=== PATIENT | female | born 1985 | race Caucasian/White ===

== ENCOUNTER 2017-12-25 05:35 | Emergency (ER) | payer OTHER, MEDICAID, SELFPAY ==
[2017-12-25 05:52] VITALS: BP 109/78; PULSE 93; RESP 14; TEMP 36.2; O2SAT 99
[2017-12-25 07:48] LABS: Add Manual Diff / Slide Review NO; Basophils Percent Auto 0.5 % (0-2); Eosinophils Percent Auto 1.1 % (2-4); Hematocrit 40.8 % (36-46); Hemoglobin 13.9 g/dL (12.0-16.0); Mean Corpuscular HGB Conc 34.1 % (30-36); Mean Corpuscular Hemoglobin 31.4 PG (26-34); Mean Corpuscular Volume 92.2 fL (80-100); Monocytes Percent Auto 10.5 % (3-14); Neutrophils Absolute Auto 3300 /uL (3000-5900); Neutrophils Percent Auto 57.9 % (50-75); Platelet Count 253 X10^3/uL (150-400); Red Blood Cell Count 4.43 X10^6/uL (4.0-5.2); Red Cell Distribution Width 15.1 % (11.6-14.8); White Blood Cell Count 5.7 X10^3/uL (4.5-11.0)
[2017-12-25 07:55] LABS: BUN Creatinine Ratio 21.4 (6-22); Blood Urea Nitrogen 15 mg/dL (7-17); Calcium 9.3 mg/dL (8.4-10.2); Carbon Dioxide 31 mmol/L (22-32); Chloride 103 mmol/L (98-107); Estimated Glomerular Filt Rate > 60.0 mL/min (>60); Glucose 90 mg/dL (70-100); HEMOLYSIS < 15 (0-50); Potassium 4.1 mmol/L (3.4-5.1); Sodium 142 mmol/L (137-145)
[2017-12-25 08:10] LABS: C-Reactive Protein Quant < 0.5 mg/dL (<1.0)
[2017-12-25 08:22] LABS: Erythrocyte Sedimentation Rate 7 MM/HR (0-20)
--- NOTE | 2017-12-25 08:41 | ED.BACK ---
HPI - Back Pain/Injury General Chief Complaint: Back Pain/Injury Stated Complaint: LEFT BACK PAIN, FEELS HOT, TOO 1.2 HR TO MOVE Time Seen by Provider: 12/25/17 05:50 History of Present Illness HPI Narrative: HPI 32-year-old female presents for evaluation of poorly characterized left sided paraspinal/suprabuttock lumbar pain was present upon awakening this morning. Patient notes a history of similar but slightly different (unable to further characterize) episodes of back pain. Patient denies a history of recent trauma, fevers, chills, unexpected weight loss, decreased perineal sensation when toileting, difficulty urinating or incontinence, morning stiffness, IV drug use, recent invasive medical procedures, presyncope, abdominal pain, Marfan's disease, or dysuria. Continues to pass flatus and stool at baseline. M/S/F/SocHx notable for: please see HPI; remainder reviewed with patient and in chart. ROS: Negative constitutional, eye, cardiovascular, pulmonary, GI, , MSK, skin, neurologic, psychiatric, endocrine unless noted in the HPI. Exam Gen: Pleasant, non-toxic appearing, resting comfortably. Patient sleeping comfortably upon entering the room, appears to be no clinically appreciable distress upon awakening. Appropriate, interactive. HEENT: NC, AT, PEERL, EOMI. Resp: CTAB Card: RRR GI: ND, non-tender to palpation, no palpable midline masses, no palpable midline pulsatility. : No CVA tenderness to percussion bilaterally. MSK: No visible deformities, strength and tone WNL. No lower thoracic or lumbar spinal TTP, step offs or deformities. Mild diffuse tenderness to palpation immediately above the left buttock, no immediate bilateral paraspinal TTP. No palpable abnormalities. Skin: Normal color with no visible lesions. Neuro: AO x 3, no facial asymmetry, vision and hearing WNL. Straight leg raise test - negative right, negative left. BLE distal sensation intact, 5/5 dorsiflexion / plantarflexion bilaterally. Gait: mildly antalgic,otherwise normal, narrow based gait, able to walk unassisted and stand on heels and toes with full apparent strength. Psych: Mood and affect appropriate. Labs / Imaging (pertinent): negative urine test. UA - negative blood, negative nitrate, negative leukocyte esterase. WBC 5.7, hemoglobin 13.9, ESR 7, sodium 142, potassium 4.1, CRP less than 0.5. MDM Previous chart, nursing note, and vitals reviewed. A: 32-year-old female presents for evaluation of poorly characterized left sided paraspinal/suprabuttock lumbar pain was present upon awakening this morning. DDx: muscle strain, muscle spasm, sciatica, lumbar radiculopathy, cauda equina syndrome, spinal cord abscess, vertebral osteomyelitis, vertebral diskitis, fracture, seronegative spondyloarthropathy, abdominal aortic aneurysm. Evaluation: * Cauda equina - consider unlikely given normal perineal sensation, lack of incontinence or urinary retention. * Infection - abscess, vertebral osteomyelitis, and diskitis are unlikely as the patient is immunocompetent and is with an absence of infectious signs and risk factors on exam, ROS, and labs, and a lack of point tenderness. * Fracture - doubt given the absence of spinal TTP and lack of prior trauma * Seronegative spondyloarthropathy - unlikely, no further evaluation currently indicated given the absence of morning stiffness and negative RA, psoriatic arthritis, and autoimmune disease history. * AAA or Dissection - given the lack of a palpable pulsatile abdominal mass, abdominal pain, presyncope, an abdominal aortic aneurysm as well as dissection is considered unlikely and further investigation is not currently indicated. * Genitourinary - UA without evidence infection or ureterolithiasis, no evidence on history, exam, ROS, or exam; doubt. Negative urine test. * Consider muscle strain to be the most likely cause of the patient's pain. Counseled patient regarding natural course of musculoskeletal back pain, given return to care instructions, and recommendation for primary care physician follow up. Discharged with instructions to follow up with PCP. ED course: patient offered an array of non-narcotic analgesic options. Patient notes that she is sensitive to all drugs, and that she has adverse reactions to ibuprofen, Toradol, naproxen, and that acetaminophen has caused internal bleeding. Patient declined all NSAIDs and acetaminophen. At the time of the patient's evaluation the degree of her pain does not warrant narcotic medication. Patient was discharged with instructions to follow with her PCP within 48 to 72 hours for repeat evaluation. Trial of NSAIDs recommended. Impression: Back Pain (please reference below for remainder of encounter information) Related Data Allergies Allergy/AdvReac Type Severity Reaction Status Date / Time Penicillins Allergy Verified 12/25/17 05:52 [facility] Social History Smoking Status: Former smoker Exam Initial Vital Signs Initial Vital Signs: Vital Signs Temperature 97.2 F L 12/25/17 05:52 Pulse Rate 93 H 12/25/17 05:52 Respiratory Rate 14 12/25/17 05:52 Blood Pressure 109/78 12/25/17 05:52 Pulse Oximetry 99 12/25/17 05:52 Course Orders Ordered: ED Orders 12/25/17 07:25 Basic Metabolic Panel Stat C-Reactive Protein Quant Stat Complete Blood Count AUTO DIFF Stat Erythrocyte Sedimentation Rate Stat Vital Signs - 8 hr 12/25/17 05:52 Temperature 97.2 F L Pulse Rate 93 H Respiratory Rate 14 Blood Pressure 109/78 Pulse Oximetry 99 MDM - Back Pain/Injury Lab Data Result diagrams: 12/25/17 07:25 12/25/17 07:25 Lab Results 12/25/17 12/25/17 Range/Units 07:25 07:25 WBC 5.7 (4.5-11.0) X10^3/uL RBC 4.43 (4.0-5.2) X10^6/uL Hgb 13.9 (12.0-16.0) g/dL Hct 40.8 (36-46) % MCV 92.2 (80-100) fL MCH 31.4 (26-34) PG MCHC 34.1 (30-36) % RDW 15.1 H (11.6-14.8) % Plt Count 253 (150-400) X10^3/uL Neut % (Auto) 57.9 (50-75) % Lymph % (Auto) 30.0 (25-40) % Bullitt % (Auto) 10.5 (3-14) % Eos % (Auto) 1.1 L (2-4) % Baso % (Auto) 0.5 (0-2) % Neut # (Auto) 3300 (9059-9554) /uL ESR 7 (0-20) MM/HR Sodium 142 (137-145) mmol/L Potassium 4.1 (3.4-5.1) mmol/L Chloride 103 (98-107) mmol/L Carbon Dioxide 31 (22-32) mmol/L BUN 15 (7-17) mg/dL Creatinine 0.70 (0.52-1.04) mg/dL Estimated GFR > 60.0 (>60) mL/min BUN/Creatinine Ratio 21.4 (6-22) Glucose 90 (70-100) mg/dL Calcium 9.3 (8.4-10.2) mg/dL C-Reactive Protein < 0.5 (<1.0) mg/dL
== END 2017-12-25 09:10 | disposition home or self-care (01) ==
PROVIDERS: Emergency Provider Emergency Medicine; PCP Family Medicine
DX: M54.9 Dorsalgia, unspecified (principal)
CPT/HCPCS: 36415; 80048; 81003; 81025; 85025; 85651; 86140; 99282; 99283

== ENCOUNTER 2018-01-25 13:47 | Emergency (ER) | payer OTHER, MEDICAID, SELFPAY ==
[2018-01-25 13:48] VITALS: BP 120/76; PULSE 105; RESP 20; TEMP 36.4; O2SAT 100
--- NOTE | 2018-01-25 14:34 | ED_ITS ---
HPI - Abdominal Pain General Chief Complaint: Abdominal Pain Stated Complaint: 'UTERAL INFECTION' Time Seen by Provider: 01/25/18 14:04 Source: patient Mode of arrival: ambulatory Limitations: no limitations History of Present Illness HPI narrative: 32-year-old female who has been seen multiple times for adnexal pain has had multiple ultrasounds of multiple CT scans and multiple ER visits both at this hospital an outlying hospitals here for evaluation of worsening left adnexal pain. I was able to review her notes from her last ER visit which was just several days ago. there been multiple reports of a mass in the left adnexa. Patient has been evaluated by cyanide pot hardener here at this hospital and has been referred both by report and by the patient to gynecology at [place]. Patient states that she has not been able to make that appointment because she states that she has been toldthey are always in the operating room patient states that her primary care doctor referred her to cyanide pot hardener here for pain management. The cyanide pot hardener here referred her to gynecology for pain management. She states that she was told by gynecology and jovi to come to the emergency department for pain management. She has had multiple visits to multiple emergency department over the past month. During her last visit she was prescribed doxycycline for with reports as a possible infectious etiology. Patient states she has not been able to fill this antibiotic because I could not make it to the pharmacy . Patient states that she is here because over the past 24-48 hours she has had worsening left lower quadrant abdominal pain and vaginal bleeding and nausea. She has nausea medications at home. Related Data Home Medications Medication Instructions Recorded Confirmed acetaminophen [Tylenol] 1 dose PO PRN PRN 01/25/18 01/25/18 ibuprofen 1 dose PO PRN PRN 01/25/18 01/25/18 Previous Rx's Medication Instructions Recorded citalopram [Celexa] 10 mg PO QDAY #30 tab 11/09/17 Allergies Allergy/AdvReac Type Severity Reaction Status Date / Time Penicillins [PENICILLINS] Allergy Severe RASH Verified 01/25/18 16:25 vancomycin [VANCOMYCIN] Allergy Severe JUAREZ Verified 01/25/18 16:25 SYNDROME adhesive [ADHESIVE] Allergy Intermediate RASH, SKIN Verified 01/25/18 16:25 PEELS latex [LATEX] Allergy Intermediate RASH Verified 01/25/18 16:25 Review of Systems Constitutional Denies fever(s) Cardiovascular Denies chest pain Respiratory Denies cough Gastrointestinal Gastrointestinal: Reports abdominal pain, Denies diarrhea, Reports nausea and Reports vomiting Comments: Genitourinary Comments: left adnexal pain and vaginal bleeding Integumentary/Breasts Denies lesions, Denies rash and Denies wounds Neurologic Denies confusion Psychiatric Denies confusion Hematologic/Lymphatic Denies easy bleeding and Denies easy bruising [facility] Surgical History Status post appendectomy Status post delivery (01/05/12) Status post exploratory laparotomy (10/08/15) Status post laparoscopy Status post laparotomy Social History Smoking Status: Former smoker Exam Initial Vital Signs Initial Vital Signs: Vital Signs Temperature 97.5 F L 01/25/18 13:48 Pulse Rate 105 H 01/25/18 13:48 Respiratory Rate 20 01/25/18 13:48 Blood Pressure 120/76 01/25/18 13:48 Pulse Oximetry 100 01/25/18 13:48 Const General: healthy appearing, well developed, well groomed, anxious and other ( angry) Orientation: alert, awake and oriented x3 HENMT Head: normal to inspection, normocephalic and atraumatic Resp Effort & Inspection: normal respiratory effort and able to speak in complete sentences GI Inspection: non-distended Palpation: soft, No firm and tender ( left adnexa) Back/Spine/Pelvis Back: No CVA tenderness Skin Lesions: no lesions Rashes: no rashes Neuro General: alert, awake and oriented x3 Extrem General: normal to inspection, capillary refill normal and normal exam except as noted Course Orders Ordered: ED Orders 01/25/18 14:53 US pelvic limited Stat 01/25/18 16:10 CT abdomen pelvis w con Stat 01/25/18 16:20 Complete Blood Count AUTO DIFF Stat Comprehensive Metabolic Panel Stat Lactate (Lactic Acid) Stat Test Serum,Qual Stat Discontinued Medications Sodium Chloride (Normal Saline 0.9%) 1,000 mls @ 1,000 mls/hr IV BOLUS ONE Stop: 01/25/18 17:08 Last Infusion: 01/25/18 18:03 Dose: 0 mls/hr Admin: 01/25/18 16:27 Dose: 1,000 mls/hr Ketorolac Tromethamine (Toradol) 15 mg IV NOW ONE Stop: 01/25/18 16:48 Last Admin: 01/25/18 16:49 Dose: 15 mg Ondansetron HCl (Zofran) 4 mg IV NOW ONE Stop: 01/25/18 16:37 Last Admin: 01/25/18 16:40 Dose: 4 mg Vital Signs - 8 hr 01/25/18 13:48 01/25/18 15:02 Temperature 97.5 F L Pulse Rate 105 H 88 Respiratory Rate 20 18 Blood Pressure 120/76 Blood Pressure [Right Arm] 114/65 Pulse Oximetry 100 100 MDM - Abdominal Pain Medical Records Attestation: I reviewed the patient's medical records. Lab Data Attestation: I reviewed the patient's lab results. Result diagrams: 01/25/18 16:20 01/25/18 16:20 Lab Results 01/25/18 01/25/18 01/25/18 Range/Units 16:20 16:20 16:20 WBC 5.6 (4.5-11.0) X10^3/uL RBC 4.40 (4.0-5.2) X10^6/uL Hgb 13.7 (12.0-16.0) g/dL Hct 41.0 (36-46) % MCV 93.2 (80-100) fL MCH 31.1 (26-34) PG MCHC 33.4 (30-36) % RDW 15.1 H (11.6-14.8) % Plt Count 281 (150-400) X10^3/uL Neut % (Auto) 47.4 L (50-75) % Lymph % (Auto) 40.0 (25-40) % Braxton % (Auto) 10.9 (3-14) % Eos % (Auto) 1.0 L (2-4) % Baso % (Auto) 0.7 (0-2) % Neut # (Auto) 2600 L (9673-3868) /uL Sodium 140 (137-145) mmol/L Potassium 3.9 (3.4-5.1) mmol/L Chloride 102 (98-107) mmol/L Carbon Dioxide 28 (22-32) mmol/L BUN 12 (7-17) mg/dL Creatinine 0.70 (0.52-1.04) mg/dL Estimated GFR > 60.0 (>60) mL/min BUN/Creatinine Ratio 17.1 (6-22) Glucose 82 (70-100) mg/dL Lactate (0.7-2.1) mmol/L Calcium 9.6 (8.4-10.2) mg/dL Total Bilirubin 0.4 (0.2-1.3) mg/dL AST 21 (14-36) IU/L ALT 32 (9-52) IU/L Alkaline Phosphatase 60 (38-126) U/L Total Protein 7.3 (6.3-8.2) g/dL Albumin 4.3 (3.5-5.0) g/dL Globulin 3.0 (1.7-4.1) g/dL Albumin/Globulin Ratio 1.4 (1.0-2.8) Serum , Qual Negative (Negative) 01/25/18 Range/Units 16:20 WBC (4.5-11.0) X10^3/uL RBC (4.0-5.2) X10^6/uL Hgb (12.0-16.0) g/dL Hct (36-46) % MCV (80-100) fL MCH (26-34) PG MCHC (30-36) % RDW (11.6-14.8) % Plt Count (150-400) X10^3/uL Neut % (Auto) (50-75) % Lymph % (Auto) (25-40) % Braxton % (Auto) (3-14) % Eos % (Auto) (2-4) % Baso % (Auto) (0-2) % Neut # (Auto) (8396-7555) /uL Sodium (137-145) mmol/L Potassium (3.4-5.1) mmol/L Chloride (98-107) mmol/L Carbon Dioxide (22-32) mmol/L BUN (7-17) mg/dL Creatinine (0.52-1.04) mg/dL Estimated GFR (>60) mL/min BUN/Creatinine Ratio (6-22) Glucose (70-100) mg/dL Lactate 1.1 (0.7-2.1) mmol/L Calcium (8.4-10.2) mg/dL Total Bilirubin (0.2-1.3) mg/dL AST (14-36) IU/L ALT (9-52) IU/L Alkaline Phosphatase (38-126) U/L Total Protein (6.3-8.2) g/dL Albumin (3.5-5.0) g/dL Globulin (1.7-4.1) g/dL Albumin/Globulin Ratio (1.0-2.8) Serum , Qual (Negative) Imaging Data US - abdomen: Radiologist's impression: PROCEDURE: US PELVIC LIMITED INDICATIONS: Left-sided pelvic pain reported history of pelvic infectio TECHNIQUE: Real-time transabdominal scanning was performed of the pelvic organs, with image documentation. Please note that the patient declined an endovaginal sonogram. COMPARISON: [facility], [place], PELVIC COMPLETE, 11/19/2017, 21:38. [facility], CT, PELVIS WITHOUT CONTRAST, 11/02/2017, 18:47. FINDINGS: Uterus: The uterus is borderline enlarged and measures 10.3 x 4.0 x 4.9 cm. No focal myometrial lesions are identified. Endometrial echo stripe measures approximately 6 mm in maximal combined thickness. Ovaries: The ovaries are not adequately seen. However, there is a complex multiloculated fluid collection identified within the left adnexa, measuring 17.0 x 5.6 x 8.8 cm. Compared to the prior study, this appears to have increased in the interim. Other: Limited scanning through the kidneys shows no hydronephrosis. IMPRESSION: Increasing septated/complex fluid collection within the left adnexa. This may represent hydrosalpinx, ovarian neoplasm, or potential abscess within the pelvis. Please consider contrast enhanced CT of the abdomen and pelvis with oral and intravenous contrast for better characterization. Dictated by: Oleksandr Mina M.D. on 01/25/2018 at 14:52 Approved by: Oleksandr Mina M.D. on 01/25/2018 at 14:54 CT scan - abdomen: Radiologist's impression: PROCEDURE: CT ABDOMEN PELVIS W CON INDICATIONS: Left adnexal mass found on ultrasound that is worsening TECHNIQUE: After the administration of oral and intravenous contrast, 5 mm thick sections acquired from the diaphragms to the symphysis. 5 mm thick coronal and sagittal reformats were performed. For radiation dose reduction, the following was used: automated exposure control, adjustment of mA and/or kV according to patient size. COMPARISON: [facility], US, PELVIC COMPLETE, 11/19/2017, 21:38. [facility], US, PELVIC COMPLETE, 03/29/2017, 18:00. [facility], US, PELVIC COMPLETE, , 22:01. [facility], US, PELVIC COMPLETE, 09/16/2016, 19:31. [facility] , US, ABDOMEN LIMITED, 10/19/2015, 23:08. [facility], US, PELVIC COMPLETE, 2014, 12:18. [facility], RF, HYSTEROSALPINGOGRAM, 09/12/2015, 10:30. [facility], , US PELVIC LIMITED, 01/25/2018, 15:15. [facility], CT, ABDOMEN/PELVIS WITH CONTRAST, 05/25/2015, 16:03. [facility], CT, PELVIS WITHOUT CONTRAST, 11/02/2017, 18: 47. [facility], CT, ABDOMEN/PELVIS WITH CONTRAST, 12/15/2016, 22:04. [facility], CT, ABDOMEN/PELVIS WITH CONTRAST, 09/16/2016, 19:56. [facility], CT, ABDOMEN/PELVIS WITH CONTRAST, 06/04/2015, 10:28. FINDINGS: Image quality: Excellent. ABDOMEN: Lung bases: Lung bases are clear. Heart size is normal. Solid organs: Liver is normal in size and enhancement. Gallbladder appears normal. Biliary system is non-dilated. Pancreas enhances normally. Spleen is normal in size and enhancement. No adrenal nodules. Kidneys are normal in size and enhancement, without hydronephrosis. Peritoneum and bowel: Stomach, small bowel, and colon loops are normal in caliber and wall thickness. No free fluid or air. Nodes and vessels: No retroperitoneal or mesenteric adenopathy. Aorta and inferior vena cava are normal in caliber. Miscellaneous: No ventral hernias. PELVIS: Genitourinary: Bladder wall thickness is normal. Note is made of a complex ovoid septated cystic mass, present at varying times with varying appearances over multiple prior CT scans through the pelvis. 2 small metallic foci are present at the anterior medial border of the structure, series 2 image 59, and no free fluid or solid- appearing mass is seen in this area. The structure measures up to 11.3 cm AP, 5.4 cm transverse and 11.1 cm craniocaudad. It displaces bowel structures and the bladder somewhat rightward. Miscellaneous: No inguinal hernias or adenopathy. Bones: No suspicious bony lesions. No vertebral body compression fractures. IMPRESSION: Multiseptated cystic elongated fluid radiodensity structure again seen within the left hemipelvis, moderately displacing bowel structures, uterus, and bladder rightward. Presumably gynecological consultation has been obtained for this patient in the recent past and gynecological evaluation is recommended. The clinical history indicates history of cancer in this young patient of age 32. A cystic neoplasm of the left ovary or even a primary cystic neoplasm peritoneal neoplasm could explain this appearance. The absence of adjacent inflammation or abnormal free fluid throughout the peritoneal space would argue against infection as the underlying cause. Dictated by: Rashad Zurita M.D. on 01/25/2018 at 17:24 Approved by: Rashad Zurita M.D. on 01/25/2018 at 17:33 [facility] Narrative Medical decision making narrative: patient with CT scan showing the left adnexal mass which is not a new finding. The CT scan also shows that this area is less likely an infectious etiology. Informed the patient that since she has not taken the doxycycline that was prescribed to her last ER visit that is probably not unreasonable to not feel that medicine given the CT scan results today and the fact that she does not have an elevated white blood cell count. I did discuss the CT findings with her and informed her of the concern that this may be a cancerous etiology. I discussed the case with Dr. Walker With Ob who initially evaluated this patient sometime ago and made the referral for the patient to see gynecology an [place]. informed the patient that it is important for her to follow up with this referral. Informed her that she needed to continue to contact the office down there to schedule a follow-up. Informed her that the emergency department is not the appropriate place for her to get her chronic pain medication. Informed her that she needed to contact her primary care doctor in order to set this up. She became very angry about this. I informed her once again that there was a concern about the finding in her left adnexal and that she did need to follow up with the tube and manifold builder. She was informed that she could return to the emergency department for any new symptoms however she would not receive opioid pain medication from the emergency department. Patient again was unhappy about this and left the emergency department angry. Discharge Plan Departure Patient Disposition: Home, Self-Care Clinical Impression: Adnexal mass Discharge Date/Time: 01/25/18 18:08 Interventions: ED Discharge Assessment Last Done: 01/25/18 18:06 Instructions: Chronic Pelvic Pain-Female Activity Restrictions/Additional Instructions: your pain management needs to be managed by your primary care doctor. He need to contact him to schedule a follow-up to discuss pain medication. The emergency department will not manage chronic pain. I also recommend that you continue to contact the gynecology service at [place]. The OB service here stated that they have sent all of your information to them and they recommend that you follow up with them. You can return to the emergency department for any new symptoms. Prescriptions: No Action citalopram [Celexa] 10 MG tablet 10 mg PO QDAY Qty: 30 RF: 6 acetaminophen [Tylenol] 325 mg Tablet 1 dose PO PRN PRN (Reason: Pain, Mild) RF: 0 ibuprofen 200 mg Tablet 1 dose PO PRN PRN (Reason: Pain, Mild) RF: 0
--- NOTE | 2018-01-25 14:53 | DI.US.S_ITS ---
PROCEDURE: US PELVIC LIMITED INDICATIONS: Left-sided pelvic pain reported history of pelvic infectio TECHNIQUE: Real-time transabdominal scanning was performed of the pelvic organs, with image documentation. Please note that the patient declined an endovaginal sonogram. COMPARISON: [facility], US, PELVIC COMPLETE, 11/19/2017, 21:38. [facility], CT, PELVIS WITHOUT CONTRAST, 11/02/2017, 18:47. FINDINGS: Uterus: The uterus is borderline enlarged and measures 10.3 x 4.0 x 4.9 cm. No focal myometrial lesions are identified. Endometrial echo stripe measures approximately 6 mm in maximal combined thickness. Ovaries: The ovaries are not adequately seen. However, there is a complex multiloculated fluid collection identified within the left adnexa, measuring 17.0 x 5.6 x 8.8 cm. Compared to the prior study, this appears to have increased in the interim. Other: Limited scanning through the kidneys shows no hydronephrosis. IMPRESSION: Increasing septated/complex fluid collection within the left adnexa. This may represent hydrosalpinx, ovarian neoplasm, or potential abscess within the pelvis. Please consider contrast enhanced CT of the abdomen and pelvis with oral and intravenous contrast for better characterization. Dictated by: Oleksandr Mina M.D. on 01/25/2018 at 14:52 Approved by: Oleksandr Mina M.D. on 01/25/2018 at 14:54
[2018-01-25 15:02] VITALS: BP 114/65; PULSE 88; RESP 18; O2SAT 100
--- NOTE | 2018-01-25 16:06 | PC.NURSE ---
Pt upset she has not received pain medication. Offered toradol and tylenol again but refused by patient.
--- NOTE | 2018-01-25 16:10 | DI.CT.S_ITS ---
PROCEDURE: CT ABDOMEN PELVIS W CON INDICATIONS: Left adnexal mass found on ultrasound that is worsening TECHNIQUE: After the administration of oral and intravenous contrast, 5 mm thick sections acquired from the diaphragms to the symphysis. 5 mm thick coronal and sagittal reformats were performed. For radiation dose reduction, the following was used: automated exposure control, adjustment of mA and/or kV according to patient size. COMPARISON: [facility], [place], PELVIC COMPLETE, 11/19/2017, 21:38. [facility], [place], PELVIC COMPLETE, 03/29/2017, 18:00. [facility], [place], PELVIC COMPLETE, 12/10/2016, 22:01. [facility], [place], PELVIC COMPLETE, 09/16/2016, 19:31. [facility], [place], ABDOMEN LIMITED, 10/19/2015, 23:08. [facility], [place], PELVIC COMPLETE, 07/07/2015, 12:18. [facility], , HYSTEROSALPINGOGRAM, 09/12/2015, 10:30. [facility], , [place] PELVIC LIMITED, 01/25/2018, 15:15. [facility], CT, ABDOMEN/PELVIS WITH CONTRAST, 05/25/2015, 16:03. [facility], CT, PELVIS WITHOUT CONTRAST, 11/02/2017, 18:47. [facility], CT, ABDOMEN/PELVIS WITH CONTRAST, 12/15/2016, 22:04. [facility], CT, ABDOMEN/PELVIS WITH CONTRAST, 09/16/2016, 19:56. [facility], CT, ABDOMEN/PELVIS WITH CONTRAST, 06/04/2015, 10:28. FINDINGS: Image quality: Excellent. ABDOMEN: Lung bases: Lung bases are clear. Heart size is normal. Solid organs: Liver is normal in size and enhancement. Gallbladder appears normal. Biliary system is non-dilated. Pancreas enhances normally. Spleen is normal in size and enhancement. No adrenal nodules. Kidneys are normal in size and enhancement, without hydronephrosis. Peritoneum and bowel: Stomach, small bowel, and colon loops are normal in caliber and wall thickness. No free fluid or air. Nodes and vessels: No retroperitoneal or mesenteric adenopathy. Aorta and inferior vena cava are normal in caliber. Miscellaneous: No ventral hernias. PELVIS: Genitourinary: Bladder wall thickness is normal. Note is made of a complex ovoid septated cystic mass, present at varying times with varying appearances over multiple prior CT scans through the pelvis. 2 small metallic foci are present at the anterior medial border of the structure, series 2 image 59, and no free fluid or solid-appearing mass is seen in this area. The structure measures up to 11.3 cm AP, 5.4 cm transverse and 11.1 cm craniocaudad. It displaces bowel structures and the bladder somewhat rightward. Miscellaneous: No inguinal hernias or adenopathy. Bones: No suspicious bony lesions. No vertebral body compression fractures. IMPRESSION: Multiseptated cystic elongated fluid radiodensity structure again seen within the left hemipelvis, moderately displacing bowel structures, uterus, and bladder rightward. Presumably gynecological consultation has been obtained for this patient in the recent past and gynecological evaluation is recommended. The clinical history indicates history of cancer in this young patient of age 32. A cystic neoplasm of the left ovary or even a primary cystic neoplasm peritoneal neoplasm could explain this appearance. The absence of adjacent inflammation or abnormal free fluid throughout the peritoneal space would argue against infection as the underlying cause. Dictated by: Rashad Zurita M.D. on 01/25/2018 at 17:24 Approved by: Rashad Zurita M.D. on 01/25/2018 at 17:33
[2018-01-25] MEDS: SODIUM CHLORIDE 0.9% 1,000 ML 1000 ML IV (16:27)
[2018-01-25 16:30] LABS: Add Manual Diff / Slide Review NO; Basophils Percent Auto 0.7 % (0-2); Hemoglobin 13.7 g/dL (12.0-16.0); Mean Corpuscular HGB Conc 33.4 % (30-36); Mean Corpuscular Hemoglobin 31.1 PG (26-34); Mean Corpuscular Volume 93.2 fL (80-100); Monocytes Percent Auto 10.9 % (3-14); Neutrophils Absolute Auto 2600 /uL (3000-5900); Neutrophils Percent Auto 47.4 % (50-75); Platelet Count 281 X10^3/uL (150-400); Red Cell Distribution Width 15.1 % (11.6-14.8); White Blood Cell Count 5.6 X10^3/uL (4.5-11.0)
[2018-01-25] MEDS: ONDANSETRON 4 MG/2 ML INJ IV (16:40)
[2018-01-25 16:43] LABS: Alanine Aminotransferase 32 IU/L (9-52); Albumin 4.3 g/dL (3.5-5.0); Albumin Globulin Ratio 1.4 (1.0-2.8); Alkaline Phosphatase 60 U/L (38-126); Aspartate Aminotransferase 21 IU/L (14-36); BUN Creatinine Ratio 17.1 (6-22); Bilirubin Total 0.4 mg/dL (0.2-1.3); Blood Urea Nitrogen 12 mg/dL (7-17); Calcium 9.6 mg/dL (8.4-10.2); Carbon Dioxide 28 mmol/L (22-32); Chloride 102 mmol/L (98-107); Estimated Glomerular Filt Rate > 60.0 mL/min (>60); Glucose 82 mg/dL (70-100); HEMOLYSIS 22 (0-50); Lactate (Lactic Acid) 1.1 mmol/L (0.7-2.1); Potassium 3.9 mmol/L (3.4-5.1); Sodium 140 mmol/L (137-145); Total Protein 7.3 g/dL (6.3-8.2)
[2018-01-25] MEDS: KETOROLAC 60 MG/2 ML VIAL 15 MG IV (16:49)
[2018-01-25 16:56] LABS: Pregnancy Test Serum,Qual Negative (Negative)
== END 2018-01-25 18:08 | disposition home or self-care (01) ==
PROVIDERS: Emergency Provider Emergency Medicine; Family Provider Family Medicine; PCP Family Medicine
DX: N94.9 Unspecified condition associated with female genital organs and menstrual cycle (principal)
CPT/HCPCS: 36591; 74177; 76857; 80053; 83605; 84703; 85025; 96361; 96374; 96375; 99283; 99285; J1885; J2405; Q9967

== ENCOUNTER 2018-02-25 16:58 | Emergency (ER) | payer OTHER, MEDICAID, SELFPAY ==
[2018-02-25 17:09] VITALS: BP 120/82; PULSE 104; RESP 18; TEMP 36.6; O2SAT 100; BMI 19.6
--- NOTE | 2018-02-25 19:20 | ED.ABDPAIN ---
HPI - Abdominal Pain General Chief Complaint: Abdominal Pain Stated Complaint: FELT SOMETHING POP IN LEFT SIDE,CHILLS Time Seen by Provider: 02/25/18 19:03 Source: patient Mode of arrival: ambulatory Limitations: no limitations History of Present Illness HPI narrative: Patient is a 32-year-old female presents with left lower quadrant pain. She has a history of ovarian cancer and ovarian cyst she feels like something popped suddenly. It my she denies nausea vomiting or fever. She has intense left-sided pain. She is scheduled to see is a surgeon next week as [facility]. Related Data Home Medications Medication Instructions Recorded Confirmed acetaminophen [Tylenol] 1 dose PO PRN PRN 01/25/18 01/25/18 ibuprofen 1 dose PO PRN PRN 01/25/18 01/25/18 Previous Rx's Medication Instructions Recorded citalopram [Celexa] 10 mg PO QDAY #30 tab 11/09/17 hydrocodone-acetaminophen 1 tab PO Q4-6H PRN #10 tab 02/25/18 Allergies Allergy/AdvReac Type Severity Reaction Status Date / Time Penicillins [PENICILLINS] Allergy Severe RASH Verified 02/25/18 17:09 vancomycin [VANCOMYCIN] Allergy Severe JUAREZ Verified 02/25/18 17:09 SYNDROME adhesive [ADHESIVE] Allergy Intermediate RASH, SKIN Verified 02/25/18 17:09 PEELS latex [LATEX] Allergy Intermediate RASH Verified 02/25/18 17:09 Review of Systems Review of Systems GENERAL: Denies chills, fatigue, malaise, fever, sweats, travel HEENT: Denies sinus pain, ear pain, sore throat, difficulty swallowing, neck pain RESPIRATORY: Denies dyspnea, cough, wheezing, hemoptysis, sputum. CARDIOVASCULAR: Denies chest pain, palpitations, orthopnea, edema GASTROINTESTINAL: See HPI : Denies dysuria, frequency, incontinence, hematuria, urinary retention, flank pain. MUSCULOSKELETAL: Denies weakness, joint pain, or bony pain SKIN: No rash, no erythema, no pruritus NEUROLOGIC: Denies weakness, dizziness, headache, numbness, change in speech, confusion PSYCHIATRIC: No concerning psychosocial issues. 12 point review of systems is negative except for those stated above and HPI [facility] Surgical History Status post appendectomy Status post delivery (01/05/12) Status post exploratory laparotomy (10/08/15) Status post laparoscopy Status post laparotomy Social History Smoking Status: Former smoker Exam Initial Vital Signs Initial Vital Signs: Vital Signs Temperature 97.9 F 02/25/18 17:09 Pulse Rate 104 H 02/25/18 17:09 Respiratory Rate 18 02/25/18 17:09 Blood Pressure 120/82 H 02/25/18 17:09 Pulse Oximetry 100 02/25/18 17:09 GENERAL: [Well-appearing, well-nourished] and in [no acute] distress. HEENT: Head atraumatic,EOMI, pupils reactive, face symmetric, [moist] mucous membranes CARDIOVASCULAR: Regular rate and rhythm without murmurs, rubs or gallops. RESPIRATORY: Breath sounds equal bilaterally, no wheezes rales or rhonchi. ABDOMEN: Soft, left-sided tenderness without guarding or rebound minimal a productive lower quadrant pain : No CVA tenderness EXTREMITIES: Normal range of motion, no clubbing or edema. Neurovascularly intact NEUROLOGICAL: Alert and oriented x4.Normal gait and speech. Cranial nerves II through XII grossly intact. SKIN: Warm, dry, no laceration, no petechiae, no rashes or lesions. Course Orders Ordered: ED Orders 02/25/18 19:37 CT abdomen pelvis w con Stat 02/25/18 20:05 Complete Blood Count AUTO DIFF Stat Comprehensive Metabolic Panel Stat Lipase Stat Discontinued Medications Hydrocodone Bitart/Acetaminophen (Vicodin Prepack) 1 bottle MISC SEEINSTR ONE Stop: 02/25/18 22:35 Last Admin: 02/25/18 22:44 Dose: 1 bottle Sodium Chloride (Normal Saline 0.9%) 1,000 mls @ 1,000 mls/hr IV CONT TONY Last Infusion: 02/25/18 22:51 Dose: 0 mls/hr Admin: 02/25/18 20:15 Dose: 1,000 mls/hr Morphine Sulfate (Morphine) 2 mg IV NOW ONE Stop: 02/25/18 19:38 Last Admin: 02/25/18 20:15 Dose: 2 mg Vital Signs - 8 hr 02/25/18 21:22 02/25/18 22:52 Pulse Rate 60 60 Respiratory Rate 16 16 Blood Pressure 121/67 H Blood Pressure [Left Arm] 105/47 L Pulse Oximetry 99 99 MDM - Abdominal Pain Lab Data Attestation: I reviewed the patient's lab results. Result diagrams: 02/25/18 20:05 02/25/18 20:05 Lab Results 02/25/18 02/25/18 Range/Units 20:05 20:05 WBC 6.9 (4.5-11.0) X10^3/uL RBC 4.79 (4.0-5.2) X10^6/uL Hgb 15.4 (12.0-16.0) g/dL Hct 45.2 (36-46) % MCV 94.4 (80-100) fL MCH 32.2 (26-34) PG MCHC 34.1 (30-36) % RDW 14.8 (11.6-14.8) % Plt Count 245 (150-400) X10^3/uL Neut % (Auto) 58.5 (50-75) % Lymph % (Auto) 32.7 (25-40) % [place] % (Auto) 7.5 (3-14) % Eos % (Auto) 0.6 L (2-4) % Baso % (Auto) 0.7 (0-2) % Neut # (Auto) 4000 (3651-7430) /uL Sodium 144 (137-145) mmol/L Potassium 3.9 (3.4-5.1) mmol/L Chloride 101 (98-107) mmol/L Carbon Dioxide 31 (22-32) mmol/L BUN 9 (7-17) mg/dL Creatinine 0.70 (0.52-1.04) mg/dL Estimated GFR > 60.0 (>60) mL/min BUN/Creatinine Ratio 12.9 (6-22) Glucose 86 (70-100) mg/dL Calcium 10.0 (8.4-10.2) mg/dL Total Bilirubin 0.5 (0.2-1.3) mg/dL AST 24 (14-36) IU/L ALT 17 (9-52) IU/L Alkaline Phosphatase 57 (38-126) U/L Total Protein 8.3 H (6.3-8.2) g/dL Albumin 5.0 (3.5-5.0) g/dL Globulin 3.3 (1.7-4.1) g/dL Albumin/Globulin Ratio 1.5 (1.0-2.8) Lipase 49 (23-300) U/L Point of care testing: Point of Care Testing Test Results Negative Urine Dip Bedside Urine Glucose Negative Bedside Urine Bilirubin - Negative Bedside Urine Ketone - Negative Urine Specific [place] 1.015 Bedside Urine Occult Blood - Negative Bedside Urine pH 6.0 Bedside Urine Protein - Negative Bedside Urine Urobilinogen - Negative Bedside Urine Nitrite - Negative Bedside Urine Leukocytes - Negative Esterase Imaging Data CT scan - abdomen: Radiologist's impression: PROCEDURE: CT ABDOMEN PELVIS W CON INDICATIONS: LLQ pain, intense history ovarian cancer and cyst TECHNIQUE: After the administration of intravenous contrast, 5 mm thick sections acquired from the diaphragm to the symphysis. 5 mm coronal and sagittal reformats were acquired. For radiation dose reduction, the following was used: automated exposure control, adjustment of mA and/or kV according to patient size. COMPARISON: [facility], CT, ABDOMEN/PELVIS WITH CONTRAST, 05/25/2015, 16:03. [facility], CT, ABDOMEN/PELVIS WITH CONTRAST, 05/08/2015, 18:39. [facility], CT, ABDOMEN/PELVIS WITH CONTRAST, 06/04/2015, 10:28. [facility], CT, ABDOMEN/PELVIS WITH CONTRAST, 09/16/2016, 19:56. [facility], CT, ABDOMEN/PELVIS WITH CONTRAST, 12/15/2016, 22:04. [facility], CT, PELVIS WITHOUT CONTRAST, 11/02/2017, 18:47. [facility], CT, CT ABDOMEN PELVIS W CON, 01/25/2018, 16:58. FINDINGS: Image quality: Excellent. ABDOMEN: Lung bases: Lung bases are clear. Heart size is normal. Mild pectus excavatum. Solid organs: Liver is normal in size and enhancement. Gallbladder is. Biliary system is non dilated. Pancreas enhances normally. Spleen is normal in size and enhancement. No adrenal nodules. Kidneys demonstrate normal size and enhancement, without hydronephrosis. Peritoneum and bowel: Stomach is distended. Small bowel loops demonstrate normal wall thickness and caliber. There is a large amount of stool in colon. No free air. Free fluid is present in pelvis. Nodes and vessels: No retroperitoneal or mesenteric adenopathy by size criteria. Aorta and inferior vena cava are normal in size. Miscellaneous: No ventral hernias. PELVIS: Genitourinary: Bladder wall thickness is normal. There is a cystic mass in the left adnexa measuring 4.2 x 5.6 cm, increased in size since the last exam. There is a fluid-fluid level within the cyst likely secondary to hemorrhage. There is a large fluid collection with internal septa in the left adnexa and cul-de-sac, which may be a large cystic mass, markedly dilated fallopian tube or loculated fluid collection. This has similar similar appearance compared to the last exam on 01/25/2018. Uterus is unremarkable. The right ovary is not visualized. Miscellaneous: No inguinal hernias or adenopathy. Bones: No suspicious bony lesions. No vertebral body compression fractures. IMPRESSION: 1. A complex cystic mass in the left adnexa, demonstrating interval enlargement compared to 01/25/2018. There is a fluid-fluid level within the cyst. This is most likely a hemorrhagic cyst arising from the left ovary. 2. In the left adnexa and cul-de-sac, there is a large fluid collection with internal septa, which may be a large cystic neoplasm, markedly dilated fallopian tube or loculated fluid collection. Recommend gynecological consultation and followup. 3. Distended stomach. 4. Large amount of stool in colon. Dictated by: Tiffany Peoples M.D. on 02/25/2018 at 22:00 [facility] Narrative Medical decision making narrative: Patient is feeling better after morphine. She is made aware of CT findings she is given a copy of the CT result. She has appointment with rn maternal child at [facility] all next week. She is aware dilated fallopian tube. Which is similar to previous exam. At this time she is hemodynamically stable pain is improved. I discussed all findings with the patient. Education has been performed regarding treatment plan, diagnosis, warning signs and symptoms and all concerns have been addressed. Verbally agree with and understood all of the above. Discharge Plan Departure Patient Disposition: Home, Self-Care Clinical Impression: Ovarian cyst Discharge Date/Time: 02/25/18 22:54 Interventions: ED Discharge Assessment Last Done: 02/25/18 22:52 Instructions: DI for Ovarian Cyst Activity Restrictions/Additional Instructions: *You have been diagnosed with a left ovarian cyst *What to do: Need to follow up with your doctor at [facility] *Continue to take medications as directed 1 [place] every 4 hr or 2 [place] every 6 hr *Follow up with your primary care provider in 2-3 days *Return to ER if you should have increasing pain or any new, worsening or concerning symptoms Prescriptions: New hydrocodone-acetaminophen 5-325 mg tablet 1 tab PO Q4-6H PRN (Reason: pain (scale score 4-6)) Qty: 10 RF: 0 No Action citalopram [Celexa] 10 MG tablet 10 mg PO QDAY Qty: 30 RF: 6 acetaminophen [Tylenol] 325 mg Tablet 1 dose PO PRN PRN (Reason: Pain, Mild) RF: 0 ibuprofen 200 mg Tablet 1 dose PO PRN PRN (Reason: Pain, Mild) RF: 0
--- NOTE | 2018-02-25 19:37 | DI.CT.S_ITS ---
PROCEDURE: CT ABDOMEN PELVIS W CON INDICATIONS: LLQ pain, intense history ovarian cancer and cyst TECHNIQUE: After the administration of intravenous contrast, 5 mm thick sections acquired from the diaphragm to the symphysis. 5 mm coronal and sagittal reformats were acquired. For radiation dose reduction, the following was used: automated exposure control, adjustment of mA and/or kV according to patient size. COMPARISON: [facility], CT, ABDOMEN/PELVIS WITH CONTRAST, 05/25/2015, 16:03. [facility], CT, ABDOMEN/PELVIS WITH CONTRAST, 05/08/2015, 18:39. [facility], CT, ABDOMEN/PELVIS WITH CONTRAST, 06/04/2015, 10:28. [facility], CT, ABDOMEN/PELVIS WITH CONTRAST, 09/16/2016, 19:56. [facility], CT, ABDOMEN/PELVIS WITH CONTRAST, 12/15/2016, 22:04. [facility], CT, PELVIS WITHOUT CONTRAST, 11/02/2017, 18:47. [facility], CT, CT ABDOMEN PELVIS W CON, 01/25/2018, 16:58. FINDINGS: Image quality: Excellent. ABDOMEN: Lung bases: Lung bases are clear. Heart size is normal. Mild pectus excavatum. Solid organs: Liver is normal in size and enhancement. Gallbladder is. Biliary system is non dilated. Pancreas enhances normally. Spleen is normal in size and enhancement. No adrenal nodules. Kidneys demonstrate normal size and enhancement, without hydronephrosis. Peritoneum and bowel: Stomach is distended. Small bowel loops demonstrate normal wall thickness and caliber. There is a large amount of stool in colon. No free air. Free fluid is present in pelvis. Nodes and vessels: No retroperitoneal or mesenteric adenopathy by size criteria. Aorta and inferior vena cava are normal in size. Miscellaneous: No ventral hernias. PELVIS: Genitourinary: Bladder wall thickness is normal. There is a cystic mass in the left adnexa measuring 4.2 x 5.6 cm, increased in size since the last exam. There is a fluid-fluid level within the cyst likely secondary to hemorrhage. There is a large fluid collection with internal septa in the left adnexa and cul-de-sac, which may be a large cystic mass, markedly dilated fallopian tube or loculated fluid collection. This has similar similar appearance compared to the last exam on 01/25/2018. Uterus is unremarkable. The right ovary is not visualized. Miscellaneous: No inguinal hernias or adenopathy. Bones: No suspicious bony lesions. No vertebral body compression fractures. IMPRESSION: 1. A complex cystic mass in the left adnexa, demonstrating interval enlargement compared to 01/25/2018. There is a fluid-fluid level within the cyst. This is most likely a hemorrhagic cyst arising from the left ovary. 2. In the left adnexa and cul-de-sac, there is a large fluid collection with internal septa, which may be a large cystic neoplasm, markedly dilated fallopian tube or loculated fluid collection. Recommend gynecological consultation and followup. 3. Distended stomach. 4. Large amount of stool in colon. Dictated by: Tiffany Peoples M.D. on 02/25/2018 at 22:00 Approved by: Tiffany Peoples M.D. on 02/25/2018 at 22:11
[2018-02-25 20:15] LABS: Add Manual Diff / Slide Review NO; Basophils Percent Auto 0.7 % (0-2); Eosinophils Percent Auto 0.6 % (2-4); Hematocrit 45.2 % (36-46); Hemoglobin 15.4 g/dL (12.0-16.0); Lymphocytes Percent Auto 32.7 % (25-40); Mean Corpuscular HGB Conc 34.1 % (30-36); Mean Corpuscular Hemoglobin 32.2 PG (26-34); Mean Corpuscular Volume 94.4 fL (80-100); Monocytes Percent Auto 7.5 % (3-14); Neutrophils Absolute Auto 4000 /uL (3000-5900); Neutrophils Percent Auto 58.5 % (50-75); Platelet Count 245 X10^3/uL (150-400); Red Blood Cell Count 4.79 X10^6/uL (4.0-5.2); Red Cell Distribution Width 14.8 % (11.6-14.8); White Blood Cell Count 6.9 X10^3/uL (4.5-11.0)
[2018-02-25] MEDS: MORPHINE 2 MG/ML INJ IV (20:15)
[2018-02-25] MEDS: SODIUM CHLORIDE 0.9% 1,000 ML 1000 ML IV (20:15)
[2018-02-25 20:27] LABS: Alanine Aminotransferase 17 IU/L (9-52); Albumin Globulin Ratio 1.5 (1.0-2.8); Alkaline Phosphatase 57 U/L (38-126); Aspartate Aminotransferase 24 IU/L (14-36); BUN Creatinine Ratio 12.9 (6-22); Bilirubin Total 0.5 mg/dL (0.2-1.3); Blood Urea Nitrogen 9 mg/dL (7-17); Carbon Dioxide 31 mmol/L (22-32); Chloride 101 mmol/L (98-107); Estimated Glomerular Filt Rate > 60.0 mL/min (>60); Globulin 3.3 g/dL (1.7-4.1); Glucose 86 mg/dL (70-100); HEMOLYSIS 38 (0-50); Lipase 49 U/L (23-300); Potassium 3.9 mmol/L (3.4-5.1); Sodium 144 mmol/L (137-145); Total Protein 8.3 g/dL (6.3-8.2)
[2018-02-25 21:22] VITALS: BP 105/47; PULSE 60; RESP 16; O2SAT 99
[2018-02-25] MEDS: HYDROCODONE/ACET 5/325 PREPACK 1 BOTTLE MISC (22:44)
[2018-02-25 22:52] VITALS: BP 121/67; PULSE 60; RESP 16; O2SAT 99
== END 2018-02-25 22:54 | disposition home or self-care (01) ==
PROVIDERS: Emergency Provider Emergency Medicine; Family Provider Family Medicine; PCP Family Medicine
DX: N83.209 Unspecified ovarian cyst, unspecified side (principal)
CPT/HCPCS: 36591; 74177; 80053; 81003; 81025; 83690; 85025; 96361; 96374; 99283; 99285; J2270; Q9967

== ENCOUNTER 2018-03-02 05:53 | Emergency (ER) | payer OTHER, MEDICAID, SELFPAY ==
[2018-03-02 05:58] VITALS: BP 123/68; PULSE 60; RESP 18; TEMP 36.4; O2SAT 99; BMI 19.3
--- NOTE | 2018-03-02 06:16 | ED_ITS ---
HPI - Female Genitourinary General Chief complaint: Vaginal Bleeding Stated complaint: N/V ABD cramping Time Seen by Provider: 03/02/18 06:13 Source: patient Mode of arrival: EMS Limitations: no limitations History of Present Illness HPI Narrative: The patient arrives by EMS with complaints of abdominal pain, profuse vaginal bleeding, nausea and vomiting. The is is her 3rd visit here in about 6 weeks. She has undergone abdominal CT with the last 2 visits. She has a history of ovarian cancer and has previously undergone a right oophorectomy. She has undergone exploratory lap 2 times since then. Her left ovary and uterus are intact, there is previously a plan to retain fertility. The recent scans have identified an enlarging left cystic adnexal mass, there is a fluid level within the cyst. CT of 02/25/2018 was consistent with a hemorrhagic cyst coming off the left ovary. There was also a fluid collection in the cul-de-sac with a large fluid collection within the internal septa. This raised concern for a neoplasm. She has an appointment this morning with a steward/stewardess wine surgeon in [place]. She arrives by EMS due to pain, nausea vomiting. She is having minimal Garcia, she tells me she bleeds about every other week on a very heavy basis. That is ongoing now. She has no associated vaginal discharge. She denies dysuria. She has no fever or chills. Related Data Home Medications Medication Instructions Recorded Confirmed acetaminophen [Tylenol] 1 dose PO PRN PRN 01/25/18 01/25/18 ibuprofen 1 dose PO PRN PRN 01/25/18 01/25/18 Previous Rx's Medication Instructions Recorded citalopram [Celexa] 10 mg PO QDAY #30 tab 11/09/17 hydrocodone-acetaminophen 1 tab PO Q4-6H PRN #10 tab 02/25/18 hydrocodone-acetaminophen [[place]] 1 tab PO Q6H PRN #10 tab 03/02/18 Allergies Allergy/AdvReac Type Severity Reaction Status Date / Time Penicillins [PENICILLINS] Allergy Severe RASH Verified 03/02/18 06:03 vancomycin [VANCOMYCIN] Allergy Severe JUAREZ Verified 03/02/18 06:03 SYNDROME adhesive [ADHESIVE] Allergy Intermediate RASH, SKIN Verified 03/02/18 06:03 PEELS latex [LATEX] Allergy Intermediate RASH Verified 03/02/18 06:03 Review of Systems Review of Systems All systems reviewed & are unremarkable except as noted in HPI and below Constitutional Denies chills, Reports fatigue, Denies fever(s), Reports lethargy and Denies weakness ENT Ears, Nose, Mouth, and Throat: Denies change in voice, Denies dizziness, Denies neck pain and Denies sore throat Cardiovascular Denies chest pain, Denies syncope, Denies irregular heart rhythm, Denies lightheadedness, Denies palpitations, Denies dyspnea, Denies dyspnea on exertion and Denies orthopnea Respiratory Denies cough, Denies dyspnea, Denies dyspnea on exertion and Denies wheezing Gastrointestinal Gastrointestinal: Reports abdominal pain (Left lower quadrant discomfort.), Denies bloating, Denies change in bowel habits, Denies diarrhea, Denies nausea and Denies vomiting Genitourinary Reports menorrhagia and Reports dysmenorrhea Musculoskeletal Denies back pain, Denies muscle cramps and Denies neck pain Integumentary/Breasts Denies erythema and Denies rash Neurologic Denies dizziness, Denies syncope and Denies weakness Endocrine Reports fatigue and Denies palpitations Allergic/Immunologic Denies wheezing [facility] Medical History Ovarian cancer (Acute) Surgical History Status post appendectomy Status post delivery (01/05/12) Status post exploratory laparotomy (10/08/15) Status post laparoscopy Status post laparotomy Social History Smoking Status: Former smoker Exam Initial Vital Signs Initial Vital Signs: Vital Signs Temperature 97.5 F L 03/02/18 05:58 Pulse Rate 60 03/02/18 05:58 Respiratory Rate 18 03/02/18 05:58 Blood Pressure 123/68 H 03/02/18 05:58 Pulse Oximetry 99 03/02/18 05:58 Const General: cooperative, well developed, in distress and disheveled Orientation: alert, awake and oriented x3 HENMT Mouth: oral mucosae normal Throat: posterior oropharynx normal Eyes General: dysmorphic Conjunctivae: conjunctivae normal Resp Effort & Inspection: normal respiratory effort, able to speak in complete sentences, no respiratory distress and no use of accessory muscles Auscultation: clear to auscultation bilaterally, no rales, no rhonchi and no wheezes Cardio Rate: regular rate Rhythm: regular rhythm Heart Sounds: no click, no gallops, no murmurs and no rubs Pulses: normal peripheral pulses GI Inspection: normal to inspection and non-distended Palpation: soft, no hepatosplenomegaly, No pulsatile mass and tender Auscultation: normal bowel sounds Back/Spine/Pelvis Back: No CVA tenderness Skin General: no rashes or lesions noted and No erythema Neuro General: alert, oriented x3, gait normal and no focal motor deficits Speech: speech normal Extrem General: full ROM, no clubbing, cyanosis or edema and no calf tenderness Course Hospital Course: The patient's H/H is stable. She is feeling much better after receiving fluids and the medications listed. I have encouraged her to try and find a ride to make her appointment later this morning. She is to follow up with her PCM for ongoing pain management Orders Ordered: ED Orders 03/02/18 06:30 Urinalysis and Microscopic Stat 03/02/18 06:34 Basic Metabolic Panel Stat Complete Blood Count AUTO DIFF Stat Sodium Chloride (Normal Saline 0.9%) 1,000 mls @ 150 mls/hr IV CONT TONY Last Infusion: 03/02/18 07:46 Dose: 150 mls/hr Admin: 03/02/18 06:38 Dose: 150 mls/hr Discontinued Medications Hydromorphone HCl (Dilaudid) 1 mg IV Q15M TONY Stop: 03/02/18 06:46 Last Admin: 03/02/18 06:42 Dose: 1 mg Ketorolac Tromethamine (Toradol) 30 mg IV NOW ONE Stop: 03/02/18 06:23 Last Admin: 03/02/18 06:42 Dose: 30 mg Ondansetron HCl (Zofran) 4 mg IV NOW ONE Stop: 03/02/18 06:23 Last Admin: 03/02/18 06:39 Dose: 4 mg Vital Signs - 8 hr 03/02/18 05:58 Temperature 97.5 F L Pulse Rate 60 Respiratory Rate 18 Blood Pressure 123/68 H Pulse Oximetry 99 MDM - Female Genitourinary Lab Data Result diagrams: 03/02/18 06:34 03/02/18 06:34 Lab Results 03/02/18 03/02/18 03/02/18 Range/Units 06:30 06:34 06:34 WBC 12.5 H (4.5-11.0) X10^3/uL RBC 4.54 (4.0-5.2) X10^6/uL Hgb 14.3 (12.0-16.0) g/dL Hct 43.0 (36-46) % MCV 94.7 (80-100) fL MCH 31.5 (26-34) PG MCHC 33.3 (30-36) % RDW 14.6 (11.6-14.8) % Plt Count 229 (150-400) X10^3/uL Neut % (Auto) 78.7 H (50-75) % Lymph % (Auto) 12.9 L (25-40) % [place] % (Auto) 7.5 (3-14) % Eos % (Auto) 0.5 L (2-4) % Baso % (Auto) 0.4 (0-2) % Neut # (Auto) 9800 H (2889-8838) /uL Sodium 144 (137-145) mmol/L Potassium 3.8 (3.4-5.1) mmol/L Chloride 103 (98-107) mmol/L Carbon Dioxide 30 (22-32) mmol/L BUN 10 (7-17) mg/dL Creatinine 0.70 (0.52-1.04) mg/dL Estimated GFR > 60.0 (>60) mL/min BUN/Creatinine Ratio 14.3 (6-22) Glucose 89 (70-100) mg/dL Calcium 9.4 (8.4-10.2) mg/dL Urine Color Yellow Urine Appearance Clear Urine pH 6.5 (4.5-8.0) Ur Specific [place] 1.015 (1.000-1.035) Urine Protein Negative (Negative) Urine Glucose (UA) Negative (Normal) g/dL Urine Ketones Negative (NEGATIVE) Urine Occult Blood 3+ H (Negative) Urine Nitrate Negative (Negative) Urine Bilirubin Negative (NEGATIVE) Urine Urobilinogen 0.2 (0.2) E.U./dL Ur Leukocyte Esterase Negative (NEGATIVE) Urine RBC 5-10/hpf H (0-5/HPF) Urine WBC 0-1/hpf (0-5/HPF) Ur Squamous Epith Cells 0-1 /hpf Urine Bacteria None seen (None) Urine Mucus 1+ H (Negative) Ur Culture Indicated? Cult not indicated Micro UA Comment Not Reportable Discharge Plan Departure Patient Disposition: Home, Self-Care Clinical Impression: Menorrhagia, Ovarian cyst Instructions: DI for Menorrhagia Activity Restrictions/Additional Instructions: Follow-up with her surgeon in [place] as soon as possible. Follow-up locally with Dr. Ko for ongoing pain management if necessary. [place] every 4 hr as needed for pain management in the interim. Be sure you are drinking plenty of fluids and staying hydrated. Return here as necessary. Prescriptions: New hydrocodone-acetaminophen [[place]] 5-325 mg tablet 1 tab PO Q6H PRN (Reason: pain) Qty: 10 RF: 0 No Action citalopram [Celexa] 10 MG tablet 10 mg PO QDAY Qty: 30 RF: 6 hydrocodone-acetaminophen 5-325 mg tablet 1 tab PO Q4-6H PRN (Reason: pain (scale score 4-6)) Qty: 10 RF: 0 acetaminophen [Tylenol] 325 mg Tablet 1 dose PO PRN PRN (Reason: Pain, Mild) RF: 0 ibuprofen 200 mg Tablet 1 dose PO PRN PRN (Reason: Pain, Mild) RF: 0
--- NOTE | 2018-03-02 06:18 | PC.NURSE ---
Dr Bhatt at bedside.
[2018-03-02 06:38] LABS: Bacteria Urine None Seen
[2018-03-02] MEDS: SODIUM CHLORIDE 0.9% 1,000 ML 150 ML IV (06:38)
[2018-03-02 06:39] LABS: Add Manual Diff / Slide Review NO; Basophils Percent Auto 0.4 % (0-2); Eosinophils Percent Auto 0.5 % (2-4); Hemoglobin 14.3 g/dL (12.0-16.0); Lymphocytes Percent Auto 12.9 % (25-40); Mean Corpuscular HGB Conc 33.3 % (30-36); Mean Corpuscular Hemoglobin 31.5 PG (26-34); Mean Corpuscular Volume 94.7 fL (80-100); Monocytes Percent Auto 7.5 % (3-14); Neutrophils Absolute Auto 9800 /uL (3000-5900); Neutrophils Percent Auto 78.7 % (50-75); Platelet Count 229 X10^3/uL (150-400); Red Blood Cell Count 4.54 X10^6/uL (4.0-5.2); Red Cell Distribution Width 14.6 % (11.6-14.8); White Blood Cell Count 12.5 X10^3/uL (4.5-11.0)
[2018-03-02] MEDS: ONDANSETRON 4 MG/2 ML INJ IV (06:39)
[2018-03-02 06:42] LABS: Appearance Urine UA CLEAR; Bilirubin Urine UA NEGATIVE (NEGATIVE); Color Urine UA YELLOW; Glucose Urine UA NEGATIVE (Normal); Ketones Urine UA NEGATIVE (NEGATIVE); Leukocyte Esterase Urine UA NEGATIVE (NEGATIVE); Nitrite Urine UA Negative (Negative); Occult Blood Urine UA 3+ (Negative); Protein Urine UA NEGATIVE (Negative); Specific Gravity Urine UA 1.015 (1.000-1.035); Urobilinogen Urine UA 0.2 E.U./dL (0.2); pH Urine UA 6.5 (4.5-8.0)
[2018-03-02] MEDS: HYDROMORPHONE 1 MG INJ IV (06:42)
[2018-03-02] MEDS: KETOROLAC 60 MG/2 ML VIAL 30 MG IV (06:42)
[2018-03-02 06:51] LABS: BUN Creatinine Ratio 14.3 (6-22); Blood Urea Nitrogen 10 mg/dL (7-17); Calcium 9.4 mg/dL (8.4-10.2); Carbon Dioxide 30 mmol/L (22-32); Chloride 103 mmol/L (98-107); Estimated Glomerular Filt Rate > 60.0 mL/min (>60); Glucose 89 mg/dL (70-100); HEMOLYSIS < 15 (0-50); Potassium 3.8 mmol/L (3.4-5.1); Sodium 144 mmol/L (137-145)
[2018-03-02 06:56] LABS: RBC Urine 5-10/HPF (0-5/HPF)
[2018-03-02 06:57] LABS: Culture Indicated Urine Cult Not Indicated; Mucus Urine 1+ (Negative); Squamous Epithelial Cell Urine 0-1 /HPF; WBC Urine 0-1/HPF (0-5/HPF)
[2018-03-02 07:48] VITALS: BP 118/80; PULSE 78; RESP 13; TEMP 36.6; O2SAT 99
--- NOTE | 2018-03-02 07:53 | PC.NURSE ---
pt given slippers and clean pants to wear for discharge
--- NOTE | 2018-03-07 19:17 | PC.NURSE ---
pt call questions 1&2 you guys were amazing
== END 2018-03-02 07:52 | disposition home or self-care (01) ==
PROVIDERS: Emergency Provider Emergency Medicine; Family Provider Family Medicine; PCP Family Medicine
DX: N92.0 Excessive and frequent menstruation with regular cycle (principal); N83.209 Unspecified ovarian cyst, unspecified side
CPT/HCPCS: 80048; 81001; 85025; 96374; 96375; 99283; 99284; J1170; J1885; J2405

== ENCOUNTER 2018-03-25 03:21 | Emergency (ER) | payer OTHER, MEDICAID, SELFPAY ==
[2018-03-25 03:41] VITALS: BP 115/72; PULSE 106; RESP 18; TEMP 36.3; O2SAT 100; BMI 18.7
--- NOTE | 2018-03-25 03:58 | DI.CT.S_ITS ---
PROCEDURE: CT ABDOMEN PELVIS W CON INDICATIONS: severe left lower quadrant pain TECHNIQUE: After the administration of intravenous contrast, 5 mm thick sections acquired from the diaphragm to the symphysis. 5 mm coronal and sagittal reformats were acquired. For radiation dose reduction, the following was used: automated exposure control, adjustment of mA and/or kV according to patient size. COMPARISON: [facility], CT, ABDOMEN/PELVIS WITH CONTRAST, 12/15/2016, 22:04. [facility], CT, PELVIS WITHOUT CONTRAST, 11/02/2017, 18:47. [facility], US, US PELVIC LIMITED, 01/25/2018, 15:15. [facility], CT, CT ABDOMEN PELVIS W CON, 01/25/2018, 16:58. [facility], CT, CT ABDOMEN PELVIS W CON, 02/25/2018, 20:47. FINDINGS: Image quality: Excellent. ABDOMEN: Lung bases: There is minimal dependent atelectasis. Heart size is normal. There is a minimal amount of pericardial fluid inferiorly. Solid organs: There is focal fatty infiltration in the anterior left hepatic lobe. Gallbladder appears within normal limits without calcified gallstones. Biliary system is non dilated. Pancreas enhances normally. Spleen is normal in size and enhancement. No adrenal nodules. Kidneys demonstrate no hydronephrosis. Peritoneum and bowel: There is marked distention of the stomach redemonstrated extending to the pylorus. Bowel loops demonstrate normal wall thickness and caliber. Multiple bowel sutures are redemonstrated within the ascending colon as well as distally in the rectosigmoid colon. No free fluid or air. Nodes and vessels: No retroperitoneal or mesenteric adenopathy by size criteria. Aorta and inferior vena cava are normal in size. Miscellaneous: No ventral hernias. PELVIS: Genitourinary: Bladder wall thickness is normal. Within the left hemipelvis there is a thin-walled ovoid tubular fluid collection measuring approximately 13.1 cm in anteroposterior dimension by 7.2 cm in maximum transverse dimension by 5.4 cm in maximum craniocaudal dimension. Linear internal septations are again noted. This appears progressively increased in size compared to the prior studies. There are 2 surgical clips again noted at the superior medial margin of the collection. There is an adjacent bilobed cystic structure in the left adnexa with the components measuring up to 3.5 x 2.9 cm and 3.2 x 2.1 cm in transverse dimension with dependent fluid debris levels suggestive of hemorrhagic cyst. These appear contiguous with a probable dilated left ovarian vein and likely represent hemorrhagic left ovarian cysts. The uterus is hyperemic with a small amount of endometrial fluid likely representing physiologic changes. Miscellaneous: No inguinal hernias or adenopathy. Bones: No suspicious bony lesions. No vertebral body compression fractures. IMPRESSION: 1. Progressive increase in size of a tubular cystic collection in the left hemipelvis suggestive of marked hydrosalpinx. A few internal septations are noted without wall thickening or nodularity. The differential remains unchanged, but the primary differential is likely a cystic neoplasm. 2. Bilobed cystic structure in the presumed left ovary with dependent fluid debris levels likely representing hemorrhagic cyst. Consider further evaluation with ultrasound if there is clinical suspicion for torsion. 2. Marked distention of the stomach redemonstrated. Dictated by: Diogenes Williamson M.D. on 03/25/2018 at 8:19 Approved by: Diogenes Williamson M.D. on 03/25/2018 at 8:53
--- NOTE | 2018-03-25 04:07 | ED.FEMALEGU ---
HPI - Female Genitourinary General Chief complaint: Abdominal Pain Stated complaint: vaginal bleeding thinks mass on ovary broke Time Seen by Provider: 03/25/18 03:28 Source: patient and family Mode of arrival: ambulatory Limitations: no limitations History of Present Illness HPI Narrative: 32-year-old female with history of ovarian cancer presents to the emergency department with a chief complaint of left lower quadrant pain and a pop where she in her ovaries. She found out 1-2 weeks ago from her wooden barrel mechanic in [place] that she has suspicion of cancer on her left ovary. She apparently has a surgery scheduled for April 05. She has vaginal bleeding and even discharge. She denies dysuria, frequency or urgency. She denies any nausea, vomiting or fever MD Complaint: vaginal bleeding, vaginal discharge and pelvic pain Severity: mild Quality: Aching Duration: constant Relieving factors: none Exacerbating factors: intercourse and menstrual period Vaginal discharge: blood Patient : No Associated symptoms: vaginal discharge, vaginal bleeding and abdominal pain Related Data Home Medications Medication Instructions Recorded Confirmed acetaminophen [Tylenol] 1 dose PO PRN PRN 01/25/18 01/25/18 ibuprofen 1 dose PO PRN PRN 01/25/18 01/25/18 Previous Rx's Medication Instructions Recorded citalopram [Celexa] 10 mg PO QDAY #30 tab 11/09/17 hydrocodone-acetaminophen 1 tab PO Q4-6H PRN #10 tab 02/25/18 hydrocodone-acetaminophen [[place]] 1 tab PO Q6H PRN #10 tab 03/02/18 oxycodone-acetaminophen 5 mg-325 1 tab PO Q4-6H PRN #20 tab 03/09/18 mg tablet Allergies Allergy/AdvReac Type Severity Reaction Status Date / Time Penicillins [PENICILLINS] Allergy Severe RASH Verified 03/02/18 06:03 vancomycin [VANCOMYCIN] Allergy Severe JUAREZ Verified 03/02/18 06:03 SYNDROME adhesive [ADHESIVE] Allergy Intermediate RASH, SKIN Verified 03/02/18 06:03 PEELS latex [LATEX] Allergy Intermediate RASH Verified 03/02/18 06:03 Review of Systems Review of Systems All systems reviewed & are unremarkable except as noted in HPI and below Constitutional Denies chills, Denies fever(s), Denies lethargy and Denies weakness Eyes Denies change in vision, Denies eye discharge, Denies irritation and Denies loss of vision ENT Ears, Nose, Mouth, and Throat: Denies change in voice, Denies neck pain and Denies sore throat Cardiovascular Denies chest pain, Denies irregular heart rhythm, Denies lightheadedness, Denies palpitations, Denies dyspnea, Denies dyspnea on exertion and Denies orthopnea Respiratory Denies cough, Denies dyspnea, Denies dyspnea on exertion and Denies wheezing Gastrointestinal Gastrointestinal: Reports abdominal pain, Denies change in bowel habits, Denies diarrhea, Denies nausea and Denies vomiting Genitourinary Reports abnormal vaginal bleeding, Denies hematuria, Denies flank pain, Denies urinary incontinence, Denies urinary urgency and Reports vaginal discharge Musculoskeletal Denies neck pain Integumentary/Breasts Denies pruritus, Denies erythema, Denies rash and Denies wounds Neurologic Denies confusion, Denies loss of vision and Denies weakness Psychiatric Denies anxiety, Denies confusion, Denies depression, Denies homicidal ideation and Denies suicidal ideation Endocrine Denies palpitations Hematologic/Lymphatic Denies easy bruising Allergic/Immunologic Denies wheezing [facility] Medical History Ovarian cancer (Acute) Surgical History Status post appendectomy Status post delivery (01/05/12) Status post exploratory laparotomy (10/08/15) Status post laparoscopy Status post laparotomy Social History Smoking Status: Former smoker Exam Initial Vital Signs Initial Vital Signs: Vital Signs Temperature 97.4 F L 03/25/18 03:41 Pulse Rate 106 H 03/25/18 03:41 Respiratory Rate 18 03/25/18 03:41 Blood Pressure 115/72 03/25/18 03:41 Pulse Oximetry 100 03/25/18 03:41 Const General: cooperative, well developed and in distress Nutritional Appearance: well nourished Orientation: alert, awake, oriented x3 and not confused [facility] Head: normocephalic and atraumatic Ears: external ears normal and TM's normal bilaterally Nose: external nose normal and No nasal discharge Face and sinus: sinuses nontender, face symmetric, no sinus tenderness and No dry mucous membranes Mouth: oral mucosae normal and moist mucous membranes Teeth and gingiva: dentition normal Throat: tonsils normal and uvula midline Eyes General: appearance normal, both eyes and all related structures Eyelids: eyelids normal Conjunctivae: conjunctivae normal Sclera: sclerae normal Pupils: PERRL EOM: EOM intact bilaterally Resp Effort & Inspection: normal respiratory effort, able to speak in complete sentences, no respiratory distress and no use of accessory muscles Auscultation: clear to auscultation bilaterally, no rales, no rhonchi and no wheezes Cardio Rate: regular rate Rhythm: regular rhythm Heart Sounds: no click, no gallops, no murmurs and no rubs Pulses: normal peripheral pulses GI Inspection: non-distended Palpation: soft, no hepatosplenomegaly, No guarding, No pulsatile mass and tender (Left lower quadrant tender to palpation but no guarding) Auscultation: normal bowel sounds Back/Spine/Pelvis Back: No CVA tenderness Cervical Spine: cervical ROM normal and No pain with cervical ROM Thoracic/Lumbar Spine: thoracic and lumbar spine normal to inspection Skin General: no rashes or lesions noted, No jaundice and No petechiae Extrem General: full ROM, no clubbing, cyanosis or edema, no pedal edema and no calf tenderness Course Orders Ordered: ED Orders 03/25/18 03:58 CT abdomen pelvis w con Stat 03/25/18 04:10 Basic Metabolic Panel Stat Complete Blood Count AUTO DIFF Stat 03/25/18 05:00 Urine Microscopic Stat Discontinued Medications Sodium Chloride (Normal Saline 0.9%) 1,000 mls @ 1,000 mls/hr IV BOLUS ONE Stop: 03/25/18 04:56 Last Admin: 03/25/18 04:19 Dose: 1,000 mls/hr Ondansetron HCl (Zofran) 4 mg IV Q4HR PRN PRN Reason: Nausea And Vomiting Last Admin: 03/25/18 04:19 Dose: 4 mg Ondansetron HCl (Zofran Odt Prepack) 1 bottle MISC SEEINSTR ONE Stop: 03/25/18 05:14 Last Admin: 03/25/18 05:25 Dose: 1 bottle Oxycodone/Acetaminophen (Endocet 5/325 Prepack) 1 bottle MISC SEEINSTR ONE Stop: 03/25/18 05:14 Last Admin: 03/25/18 05:25 Dose: 1 bottle Vital Signs - 8 hr 08/30/18 03:41 03/25/18 04:30 Temperature 97.4 F L Pulse Rate 106 H 76 Respiratory Rate 18 18 Blood Pressure 115/72 Blood Pressure [Left Arm] 117/68 Pulse Oximetry 100 98 MDM - Female Genitourinary Differential Diagnosis Likely urinary tract infection, bacterial vaginosis, trichomoniasis, cervicitis, ovarian cyst, vaginitis, ruptured ovarian cyst, cyst of Bartholin's gland, cystitis and dysmenorrhea Medical Records Attestation: I reviewed the patient's medical records. Lab Data Attestation: I reviewed the patient's lab results. Result diagrams: 03/25/18 04:10 03/25/18 04:10 Lab Results 03/25/18 03/25/18 03/25/18 Range/Units 04:10 04:10 05:00 WBC 6.8 (4.5-11.0) X10^3/uL RBC 4.19 (4.0-5.2) X10^6/uL Hgb 13.4 (12.0-16.0) g/dL Hct 39.4 (36-46) % MCV 94.1 (80-100) fL MCH 32.1 (26-34) PG MCHC 34.1 (30-36) % RDW 14.3 (11.6-14.8) % Plt Count 241 (150-400) X10^3/uL Neut % (Auto) 56.3 (50-75) % Lymph % (Auto) 33.2 (25-40) % [place] % (Auto) 9.1 (3-14) % Eos % (Auto) 0.7 L (2-4) % Baso % (Auto) 0.7 (0-2) % Neut # (Auto) 3800 (9772-9882) /uL Sodium 145 (137-145) mmol/L Potassium 4.3 (3.4-5.1) mmol/L Chloride 108 H (98-107) mmol/L Carbon Dioxide 28 (22-32) mmol/L BUN 17 (7-17) mg/dL Creatinine 0.70 (0.52-1.04) mg/dL Estimated GFR > 60.0 (>60) mL/min BUN/Creatinine Ratio 24.3 H (6-22) Glucose 88 (70-100) mg/dL Calcium 9.6 (8.4-10.2) mg/dL Urine RBC 1-5/hpf (0-5/HPF) Urine WBC 1-5/hpf (0-5/HPF) Ur Squamous Epith Cells 5-10 /hpf H Urine Bacteria Few (2-10) H (None) Ur Culture Indicated? Cult not indicated Micro UA Comment Not Reportable Imaging Data CT scan - abdomen: Radiologist's impression: Again noted is a large complex cystic density in the left adnexa slightly smaller in size now measuring 10.6 x 7.1 cm compared by 11 x 8 cm on 02/25. Within the cystic mass are 2 surgical clips. Late and now 5 cm bilobed cystic density which was a single density on prior study Discharge Plan Departure Patient Disposition: Home Clinical Impression: Ovarian cyst, Ruptured ovarian cyst Discharge Date/Time: 03/25/18 05:25 Interventions: ED Discharge Assessment Last Done: 03/25/18 05:34 Instructions: DI for Ovarian Cyst Activity Restrictions/Additional Instructions: *You have been diagnosed with [left ovarian cyst/mass pain ] *What to do: *Take medications as directed *Follow up with your wooden barrel mechanic in 2-3 days, call for an appointment. Let them know you were seen in the Emergency Department and that we ask that you be seen in follow up *Return to ER if you should have any new, worsening or concerning symptoms Prescriptions: No Action citalopram [Celexa] 10 MG tablet 10 mg PO QDAY Qty: 30 RF: 6 oxycodone-acetaminophen [Percocet] 5-325 mg tablet 1 tab PO Q4-6H PRN (Reason: pain) Qty: 20 RF: 0 hydrocodone-acetaminophen 5-325 mg tablet 1 tab PO Q4-6H PRN (Reason: pain (scale score 4-6)) Qty: 10 RF: 0 hydrocodone-acetaminophen [[place]] 5-325 mg tablet 1 tab PO Q6H PRN (Reason: pain) Qty: 10 RF: 0 acetaminophen [Tylenol] 325 mg Tablet 1 dose PO PRN PRN (Reason: Pain, Mild) RF: 0 ibuprofen 200 mg Tablet 1 dose PO PRN PRN (Reason: Pain, Mild) RF: 0 Referrals: Neri Ko MD [Primary Care Provider] -
--- NOTE | 2018-03-25 04:10 | ED_ITS ---
HPI - Female Genitourinary General Chief complaint: Abdominal Pain Stated complaint: vaginal bleeding thinks mass on ovary broke Time Seen by Provider: 03/25/18 03:28 Source: patient and family Mode of arrival: ambulatory Limitations: no limitations History of Present Illness HPI Narrative: 32-year-old female with history of ovarian cancer presents to the emergency department with a chief complaint of left lower quadrant pain and a pop where she in her ovaries. She found out 1-2 weeks ago from her hydrogen braze furnace operator in [place] that she has suspicion of cancer on her left ovary. She apparently has a surgery scheduled for April 05. She has vaginal bleeding and even discharge. She denies dysuria, frequency or urgency. She denies any nausea, vomiting or fever MD Complaint: vaginal bleeding, vaginal discharge and pelvic pain Severity: mild Quality: Aching Duration: constant Relieving factors: none Exacerbating factors: intercourse and menstrual period Vaginal discharge: blood Patient : No Associated symptoms: vaginal discharge, vaginal bleeding and abdominal pain Related Data Home Medications Medication Instructions Recorded Confirmed acetaminophen [Tylenol] 1 dose PO PRN PRN 01/25/18 01/25/18 ibuprofen 1 dose PO PRN PRN 01/25/18 01/25/18 Previous Rx's Medication Instructions Recorded citalopram [Celexa] 10 mg PO QDAY #30 tab 11/09/17 hydrocodone-acetaminophen 1 tab PO Q4-6H PRN #10 tab 02/25/18 hydrocodone-acetaminophen [[place]] 1 tab PO Q6H PRN #10 tab 03/02/18 oxycodone-acetaminophen 5 mg-325 1 tab PO Q4-6H PRN #20 tab 03/09/18 mg tablet Allergies Allergy/AdvReac Type Severity Reaction Status Date / Time Penicillins [PENICILLINS] Allergy Severe RASH Verified 03/02/18 06:03 vancomycin [VANCOMYCIN] Allergy Severe JUAREZ Verified 03/02/18 06:03 SYNDROME adhesive [ADHESIVE] Allergy Intermediate RASH, SKIN Verified 03/02/18 06:03 PEELS latex [LATEX] Allergy Intermediate RASH Verified 03/02/18 06:03 Review of Systems Review of Systems All systems reviewed & are unremarkable except as noted in HPI and below Constitutional Denies chills, Denies fever(s), Denies lethargy and Denies weakness Eyes Denies change in vision, Denies eye discharge, Denies irritation and Denies loss of vision ENT Ears, Nose, Mouth, and Throat: Denies change in voice, Denies neck pain and Denies sore throat Cardiovascular Denies chest pain, Denies irregular heart rhythm, Denies lightheadedness, Denies palpitations, Denies dyspnea, Denies dyspnea on exertion and Denies orthopnea Respiratory Denies cough, Denies dyspnea, Denies dyspnea on exertion and Denies wheezing Gastrointestinal Gastrointestinal: Reports abdominal pain, Denies change in bowel habits, Denies diarrhea, Denies nausea and Denies vomiting Genitourinary Reports abnormal vaginal bleeding, Denies hematuria, Denies flank pain, Denies urinary incontinence, Denies urinary urgency and Reports vaginal discharge Musculoskeletal Denies neck pain Integumentary/Breasts Denies pruritus, Denies erythema, Denies rash and Denies wounds Neurologic Denies confusion, Denies loss of vision and Denies weakness Psychiatric Denies anxiety, Denies confusion, Denies depression, Denies homicidal ideation and Denies suicidal ideation Endocrine Denies palpitations Hematologic/Lymphatic Denies easy bruising Allergic/Immunologic Denies wheezing [facility] Medical History Ovarian cancer (Acute) Surgical History Status post appendectomy Status post delivery (01/05/12) Status post exploratory laparotomy (10/08/15) Status post laparoscopy Status post laparotomy Social History Smoking Status: Former smoker Exam Initial Vital Signs Initial Vital Signs: Vital Signs Temperature 97.4 F L 03/25/18 03:41 Pulse Rate 106 H 03/25/18 03:41 Respiratory Rate 18 03/25/18 03:41 Blood Pressure 115/72 03/25/18 03:41 Pulse Oximetry 100 03/25/18 03:41 Const General: cooperative, well developed and in distress Nutritional Appearance: well nourished Orientation: alert, awake, oriented x3 and not confused [facility] Head: normocephalic and atraumatic Ears: external ears normal and TM's normal bilaterally Nose: external nose normal and No nasal discharge Face and sinus: sinuses nontender, face symmetric, no sinus tenderness and No dry mucous membranes Mouth: oral mucosae normal and moist mucous membranes Teeth and gingiva: dentition normal Throat: tonsils normal and uvula midline Eyes General: appearance normal, both eyes and all related structures Eyelids: eyelids normal Conjunctivae: conjunctivae normal Sclera: sclerae normal Pupils: PERRL EOM: EOM intact bilaterally Resp Effort & Inspection: normal respiratory effort, able to speak in complete sentences, no respiratory distress and no use of accessory muscles Auscultation: clear to auscultation bilaterally, no rales, no rhonchi and no wheezes Cardio Rate: regular rate Rhythm: regular rhythm Heart Sounds: no click, no gallops, no murmurs and no rubs Pulses: normal peripheral pulses GI Inspection: non-distended Palpation: soft, no hepatosplenomegaly, No guarding, No pulsatile mass and tender (Left lower quadrant tender to palpation but no guarding) Auscultation: normal bowel sounds Back/Spine/Pelvis Back: No CVA tenderness Cervical Spine: cervical ROM normal and No pain with cervical ROM Thoracic/Lumbar Spine: thoracic and lumbar spine normal to inspection Skin General: no rashes or lesions noted, No jaundice and No petechiae Extrem General: full ROM, no clubbing, cyanosis or edema, no pedal edema and no calf tenderness Course Orders Ordered: ED Orders 03/25/18 03:58 CT abdomen pelvis w con Stat 03/25/18 04:10 Basic Metabolic Panel Stat Complete Blood Count AUTO DIFF Stat 03/25/18 05:00 Urine Microscopic Stat Discontinued Medications Sodium Chloride (Normal Saline 0.9%) 1,000 mls @ 1,000 mls/hr IV BOLUS ONE Stop: 03/25/18 04:56 Last Admin: 03/25/18 04:19 Dose: 1,000 mls/hr Ondansetron HCl (Zofran) 4 mg IV Q4HR PRN PRN Reason: Nausea And Vomiting Last Admin: 03/25/18 04:19 Dose: 4 mg Ondansetron HCl (Zofran Odt Prepack) 1 bottle MISC SEEINSTR ONE Stop: 03/25/18 05:14 Last Admin: 03/25/18 05:25 Dose: 1 bottle Oxycodone/Acetaminophen (Endocet 5/325 Prepack) 1 bottle MISC SEEINSTR ONE Stop: 03/25/18 05:14 Last Admin: 03/25/18 05:25 Dose: 1 bottle Vital Signs - 8 hr 08/30/18 03:41 03/25/18 04:30 Temperature 97.4 F L Pulse Rate 106 H 76 Respiratory Rate 18 18 Blood Pressure 115/72 Blood Pressure [Left Arm] 117/68 Pulse Oximetry 100 98 MDM - Female Genitourinary Differential Diagnosis Likely urinary tract infection, bacterial vaginosis, trichomoniasis, cervicitis , ovarian cyst, vaginitis, ruptured ovarian cyst, cyst of Bartholin's gland, cystitis and dysmenorrhea Medical Records Attestation: I reviewed the patient's medical records. Lab Data Attestation: I reviewed the patient's lab results. Result diagrams: 03/25/18 04:10 03/25/18 04:10 Lab Results 03/25/18 03/25/18 03/25/18 Range/Units 04:10 04:10 05:00 WBC 6.8 (4.5-11.0) X10^3/uL RBC 4.19 (4.0-5.2) X10^6/uL Hgb 13.4 (12.0-16.0) g/dL Hct 39.4 (36-46) % MCV 94.1 (80-100) fL MCH 32.1 (26-34) PG MCHC 34.1 (30-36) % RDW 14.3 (11.6-14.8) % Plt Count 241 (150-400) X10^3/uL Neut % (Auto) 56.3 (50-75) % Lymph % (Auto) 33.2 (25-40) % Mower % (Auto) 9.1 (3-14) % Eos % (Auto) 0.7 L (2-4) % Baso % (Auto) 0.7 (0-2) % Neut # (Auto) 3800 (8419-3012) /uL Sodium 145 (137-145) mmol/L Potassium 4.3 (3.4-5.1) mmol/L Chloride 108 H (98-107) mmol/L Carbon Dioxide 28 (22-32) mmol/L BUN 17 (7-17) mg/dL Creatinine 0.70 (0.52-1.04) mg/dL Estimated GFR > 60.0 (>60) mL/min BUN/Creatinine Ratio 24.3 H (6-22) Glucose 88 (70-100) mg/dL Calcium 9.6 (8.4-10.2) mg/dL Urine RBC 1-5/hpf (0-5/HPF) Urine WBC 1-5/hpf (0-5/HPF) Ur Squamous Epith Cells 5-10 /hpf H Urine Bacteria Few (2-10) H (None) Ur Culture Indicated? Cult not indicated Micro UA Comment Not Reportable Imaging Data CT scan - abdomen: Radiologist's impression: Again noted is a large complex cystic density in the left adnexa slightly smaller in size now measuring 10.6 x 7.1 cm compared by 11 x 8 cm on 02/25. Within the cystic mass are 2 surgical clips. Late and now 5 cm bilobed cystic density which was a single density on prior study Discharge Plan Departure Patient Disposition: Home Clinical Impression: Ovarian cyst, Ruptured ovarian cyst Discharge Date/Time: 03/25/18 05:25 Interventions: ED Discharge Assessment Last Done: 03/25/18 05:34 Instructions: DI for Ovarian Cyst Activity Restrictions/Additional Instructions: *You have been diagnosed with [left ovarian cyst/mass pain ] *What to do: *Take medications as directed *Follow up with your hydrogen braze furnace operator in 2-3 days, call for an appointment. Let them know you were seen in the Emergency Department and that we ask that you be seen in follow up *Return to ER if you should have any new, worsening or concerning symptoms Prescriptions: No Action citalopram [Celexa] 10 MG tablet 10 mg PO QDAY Qty: 30 RF: 6 oxycodone-acetaminophen [Percocet] 5-325 mg tablet 1 tab PO Q4-6H PRN (Reason: pain) Qty: 20 RF: 0 hydrocodone-acetaminophen 5-325 mg tablet 1 tab PO Q4-6H PRN (Reason: pain (scale score 4-6)) Qty: 10 RF: 0 hydrocodone-acetaminophen [[place]] 5-325 mg tablet 1 tab PO Q6H PRN (Reason: pain) Qty: 10 RF: 0 acetaminophen [Tylenol] 325 mg Tablet 1 dose PO PRN PRN (Reason: Pain, Mild) RF: 0 ibuprofen 200 mg Tablet 1 dose PO PRN PRN (Reason: Pain, Mild) RF: 0 Referrals: Neri Ko MD [Primary Care Provider] -
[2018-03-25] MEDS: SODIUM CHLORIDE 0.9% 1,000 ML 1000 ML IV (04:19)
[2018-03-25] MEDS: ONDANSETRON 4 MG/2 ML INJ IV (04:19)
[2018-03-25 04:23] LABS: Add Manual Diff / Slide Review NO; Basophils Percent Auto 0.7 % (0-2); Eosinophils Percent Auto 0.7 % (2-4); Hematocrit 39.4 % (36-46); Hemoglobin 13.4 g/dL (12.0-16.0); Lymphocytes Percent Auto 33.2 % (25-40); Mean Corpuscular HGB Conc 34.1 % (30-36); Mean Corpuscular Hemoglobin 32.1 PG (26-34); Mean Corpuscular Volume 94.1 fL (80-100); Monocytes Percent Auto 9.1 % (3-14); Neutrophils Absolute Auto 3800 /uL (3000-5900); Neutrophils Percent Auto 56.3 % (50-75); Platelet Count 241 X10^3/uL (150-400); Red Blood Cell Count 4.19 X10^6/uL (4.0-5.2); Red Cell Distribution Width 14.3 % (11.6-14.8); White Blood Cell Count 6.8 X10^3/uL (4.5-11.0)
[2018-03-25 04:30] VITALS: BP 117/68; PULSE 76; RESP 18; O2SAT 98
[2018-03-25 04:57] LABS: BUN Creatinine Ratio 24.3 (6-22); Blood Urea Nitrogen 17 mg/dL (7-17); Calcium 9.6 mg/dL (8.4-10.2); Carbon Dioxide 28 mmol/L (22-32); Chloride 108 mmol/L (98-107); Estimated Glomerular Filt Rate > 60.0 mL/min (>60); Glucose 88 mg/dL (70-100); HEMOLYSIS < 15 (0-50); Potassium 4.3 mmol/L (3.4-5.1); Sodium 145 mmol/L (137-145)
[2018-03-25] MEDS: OXYCODONE/APAP 5/325 PREPACK 1 BOTTLE MISC (05:25)
[2018-03-25] MEDS: ONDANSETRON 4 MG ODT PREPACK 1 BOTTLE MISC (05:25)
[2018-03-25 05:53] LABS: Bacteria Urine Few (2-10); RBC Urine 1-5/HPF (0-5/HPF); Squamous Epithelial Cell Urine 5-10 /HPF; WBC Urine 1-5/HPF (0-5/HPF)
[2018-03-25 05:56] LABS: Culture Indicated Urine Cult Not Indicated
== END 2018-03-25 05:25 | disposition home or self-care (01) ==
PROVIDERS: Emergency Provider Emergency Medicine; Family Provider Family Medicine; PCP Family Medicine
DX: N83.209 Unspecified ovarian cyst, unspecified side (principal)
CPT/HCPCS: 36591; 74177; 76857; 80048; 80053; 81003; 81015; 81025; 85025; 96361; 96374; 99282; 99283; 99285; J2270; J2405

== ENCOUNTER 2018-03-25 16:28 | Emergency (ER) | payer OTHER, MEDICAID, SELFPAY ==
[2018-03-25 16:37] VITALS: BP 113/68; PULSE 105; RESP 16; TEMP 36.6; O2SAT 96
--- NOTE | 2018-03-25 17:05 | DI.US.S_ITS ---
PROCEDURE: US PELVIC LIMITED INDICATIONS: ? ovarian torsion per ct TECHNIQUE: Real-time transabdominal scanning was performed of the pelvic organs, with image documentation. COMPARISON: [facility], US, US PELVIC LIMITED, 01/25/2018, 15:15. [facility], US, PELVIC COMPLETE, 11/19/2017, 21:38. [facility], US, PELVIC COMPLETE, 03/29/2017, 18:00. [facility], US, PELVIC COMPLETE, 12/10/2016, 22:01. FINDINGS: The uterus measures 8.6 x 4.9 x 4.1 cm. Endometrial complex measures 11 mm in thickness. The cervix and vagina were not well-seen on this exam. The right ovary and adnexa could not be clearly identified and evaluated on this exam. The left ovary measures 5.2 x 3.3 x 2.8 cm. No vascular flow within the left ovary couldn't be identified on Doppler imaging. There is a 14.4 x 11.1 x 6.2 cm left adnexal cystic mass. IMPRESSION: #1. 14.4 cm cystic mass arising from the left adnexa correlates with a cystic mass seen on comparison CT from earlier on the same day, and may represent a hydrosalpinx or cystic neoplasm. #2. The left ovary appears mildly enlarged and no vascular flow can be identified within the ovary; ovarian torsion cannot be excluded by this exam. Consider followup pelvic imaging. Preliminary findings discussed with the patient's nurse practioner Rosita Avila by the oceanology teacher at approximately 17:20 hours on 03/25/2018. Findings rediscussed with patient's nurse practioner Rosita Avila at 6:30 pm on 03/25/2018 by telephone. Dictated by: Sav Dorado M.D. on 03/25/2018 at 18:03 Approved by: Sav Dorado M.D. on 03/25/2018 at 18:35
[2018-03-25] MEDS: ONDANSETRON 4 MG/2 ML INJ IV (17:18)
[2018-03-25] MEDS: SODIUM CHLORIDE 0.9% 1,000 ML 150 ML IV (17:18)
[2018-03-25] MEDS: MORPHINE 4 MG/ML INJ IV (17:19)
[2018-03-25 17:33] VITALS: BP 99/59; PULSE 67; O2SAT 96
[2018-03-25 17:39] LABS: Add Manual Diff / Slide Review NO; Basophils Percent Auto 0.6 % (0-2); Eosinophils Percent Auto 0.6 % (2-4); Hematocrit 38.6 % (36-46); Hemoglobin 13.2 g/dL (12.0-16.0); Lymphocytes Percent Auto 34.9 % (25-40); Mean Corpuscular HGB Conc 34.2 % (30-36); Mean Corpuscular Hemoglobin 32.1 PG (26-34); Mean Corpuscular Volume 93.9 fL (80-100); Monocytes Percent Auto 8.8 % (3-14); Neutrophils Absolute Auto 2700 /uL (3000-5900); Neutrophils Percent Auto 55.1 % (50-75); Platelet Count 223 X10^3/uL (150-400); Red Blood Cell Count 4.11 X10^6/uL (4.0-5.2); Red Cell Distribution Width 14.2 % (11.6-14.8); White Blood Cell Count 4.9 X10^3/uL (4.5-11.0)
[2018-03-25 17:46] LABS: Alanine Aminotransferase 17 IU/L (9-52); Albumin 4.1 g/dL (3.5-5.0); Albumin Globulin Ratio 1.6 (1.0-2.8); Alkaline Phosphatase 55 U/L (38-126); Aspartate Aminotransferase 14 IU/L (14-36); Bilirubin Total 0.2 mg/dL (0.2-1.3); Blood Urea Nitrogen 14 mg/dL (7-17); Calcium 9.4 mg/dL (8.4-10.2); Carbon Dioxide 28 mmol/L (22-32); Chloride 107 mmol/L (98-107); Estimated Glomerular Filt Rate > 60.0 mL/min (>60); Globulin 2.6 g/dL (1.7-4.1); Glucose 91 mg/dL (70-100); HEMOLYSIS < 15 (0-50); Potassium 4.3 mmol/L (3.4-5.1); Sodium 142 mmol/L (137-145); Total Protein 6.7 g/dL (6.3-8.2)
--- NOTE | 2018-03-25 17:46 | ED.FEMALEGU ---
HPI - Female Genitourinary <ODILIA Noriega - Last Filed: 03/25/18 20:10> General Chief complaint: Urogenital-Female Stated complaint: RUPTURED CYST Time Seen by Provider: 03/25/18 16:45 Source: patient, RN notes reviewed and old records reviewed Mode of arrival: ambulatory Limitations: no limitations History of Present Illness HPI Narrative: Patient presents with chief complaint of pelvic pain. She has a history of chronic pelvic problems including ovarian cyst. She had CT done yesterday when she was seen at this emergency department. She said she received a phone call from Dr. Ko's office, asking her to come back to emergency department for further imaging. Per chart review her CT was concerning for a possible ovarian torsion. Patient denies any fevers, states some nausea with her pain. She has taken 1 Percocet today. She states she had STD testing last week. Her pain is centered on her lower left quadrant. She suspects that her ovarian cyst is ruptured. Related Data Home Medications Medication Instructions Recorded Confirmed acetaminophen [Tylenol] 1 dose PO PRN PRN 01/25/18 01/25/18 ibuprofen 1 dose PO PRN PRN 01/25/18 01/25/18 Previous Rx's Medication Instructions Recorded citalopram [Celexa] 10 mg PO QDAY #30 tab 11/09/17 hydrocodone-acetaminophen 1 tab PO Q4-6H PRN #10 tab 02/25/18 hydrocodone-acetaminophen [[place]] 1 tab PO Q6H PRN #10 tab 03/02/18 oxycodone-acetaminophen 5 mg-325 1 tab PO Q4-6H PRN #20 tab 03/09/18 mg tablet oxycodone-acetaminophen 1 tab PO Q4-6H PRN #10 tab 03/25/18 Allergies Allergy/AdvReac Type Severity Reaction Status Date / Time Penicillins [PENICILLINS] Allergy Severe RASH Verified 03/02/18 06:03 vancomycin [VANCOMYCIN] Allergy Severe JUAREZ Verified 03/02/18 06:03 SYNDROME adhesive [ADHESIVE] Allergy Intermediate RASH, SKIN Verified 03/02/18 06:03 PEELS latex [LATEX] Allergy Intermediate RASH Verified 03/02/18 06:03 Review of Systems <ODILIA Noriega - Last Filed: 03/25/18 20:10> Review of Systems GENERAL: Denies chills, fatigue, malaise, fever, sweats. HEENT: Denies sinus pain, ear pain, sore throat, difficulty swallowing, dizziness. RESPIRATORY: Denies dyspnea, cough, wheezing, hemoptysis, sputum. CARDIOVASCULAR: Denies chest pain, palpitations, orthopnea, edema, GASTROINTESTINAL: See HPI : See HPI MUSCULOSKELETAL: denies weakness, joint pain, or bony pain SKIN: Denies rash, skin lesions, or other NEUROLOGIC: Denies weakness, headache, numbness, change in speech, confusion, seizures, incoordination. PSYCHIATRIC: No concerning psychosocial issues. 12 point review of systems is negative except for those stated above Exam <SOCRATES Noriega-BC - Last Filed: 03/25/18 20:10> Narrative Exam Narrative: GENERAL: The patient lying on stretcher. HEAD: Atraumatic. Normocephalic. No temporal or scalp tenderness. EYES: Pupils equal round and reactive. Extraocular motions intact. No scleral icterus. No injection or drainage. ENT: Nose without bleeding, purulent drainage or septal hematoma. Uvula midline. Airway patent. NECK: Trachea midline. No JVD or lymphadenopathy. Supple, nontender, no meningeal signs. CARDIOVASCULAR: Regular rate and rhythm without murmurs, gallops, or rubs. RESPIRATORY: Clear to auscultation. Breath sounds equal bilaterally. No wheezes, rales, or rhonchi. GASTROINTESTINAL: Abdomen flat. Active bowel sounds all 4 quadrants. Pain to lower left quadrant on palpation. Slight pain on right lower quadrant on palpation. No guarding, nonrigid abdomen. : Bimanual exam performed with Judith RN present. Palpable mass left adnexal, with pain to palpation left adnexa. EXTREMITIES: No clubbing, cyanosis, or edema. No joint tenderness, effusion, or edema noted. BACK: Nontender without deformity or crepitance. No flank tenderness. NEURO: AOx3. SKIN: No rash or erythema. Initial Vital Signs Initial Vital Signs: Vital Signs Temperature 97.8 F 03/25/18 16:37 Pulse Rate 105 H 03/25/18 16:37 Respiratory Rate 16 03/25/18 16:37 Blood Pressure 113/68 03/25/18 16:37 Pulse Oximetry 96 03/25/18 16:37 <Ramonita Giraldo DO - Last Filed: 03/26/18 10:37> Initial Vital Signs Initial Vital Signs: Vital Signs Temperature 97.8 F 03/25/18 16:37 Pulse Rate 105 H 03/25/18 16:37 Respiratory Rate 16 03/25/18 16:37 Blood Pressure 113/68 03/25/18 16:37 Pulse Oximetry 96 03/25/18 16:37 Course <Rosita SOCRATES Fonseca-BC - Last Filed: 03/25/18 20:10> Orders Ordered: Discontinued Medications Sodium Chloride (Normal Saline 0.9%) 1,000 mls @ 150 mls/hr IV CONT TONY Last Infusion: 03/25/18 19:21 Dose: 0 mls/hr Admin: 03/25/18 17:18 Dose: 150 mls/hr Morphine Sulfate (Morphine) 4 mg IV NOW ONE Stop: 03/25/18 17:04 Last Admin: 03/25/18 17:19 Dose: 4 mg Ondansetron HCl (Zofran) 4 mg IV NOW ONE Stop: 03/25/18 17:04 Last Admin: 03/25/18 17:18 Dose: 4 mg Consultations Consultation #1: Spoke with Dr West who stated she would like me to call Dr Ramos given the patient's history. Time: 17:15 Consultation #2: Spoke with Dr Ramos from [facility]. Discussed the ultrasound findings with the physician, who states that this is not a surgical emergency as she is planning on removing the patient's ovary in the near future. She states that the patient is hemodynamically stable, she is okay to discharge and follow up with her on an outpatient basis. She did urge me to urge the patient to schedule her follow-up and her surgery. Time: 17:30 Vital Signs - 8 hr 03/25/18 16:37 03/25/18 17:33 03/25/18 19:20 Temperature 97.8 F Pulse Rate 105 H 67 61 Respiratory Rate 16 Blood Pressure 113/68 Blood Pressure [Left Arm] 99/59 L 96/67 Pulse Oximetry 96 96 100 <Ramonita Giraldo DO - Last Filed: 03/26/18 10:37> Orders Ordered: Discontinued Medications Sodium Chloride (Normal Saline 0.9%) 1,000 mls @ 150 mls/hr IV CONT TONY Last Infusion: 03/25/18 19:21 Dose: 0 mls/hr Admin: 03/25/18 17:18 Dose: 150 mls/hr Morphine Sulfate (Morphine) 4 mg IV NOW ONE Stop: 03/25/18 17:04 Last Admin: 03/25/18 17:19 Dose: 4 mg Ondansetron HCl (Zofran) 4 mg IV NOW ONE Stop: 03/25/18 17:04 Last Admin: 03/25/18 17:18 Dose: 4 mg Vital Signs - 8 hr 03/25/18 16:37 03/25/18 17:33 03/25/18 19:20 Temperature 97.8 F Pulse Rate 105 H 67 61 Respiratory Rate 16 Blood Pressure 113/68 Blood Pressure [Left Arm] 99/59 L 96/67 Pulse Oximetry 96 96 100 MDM - Female Genitourinary <SOCRATES Noriega- - Last Filed: 03/25/18 20:10> Differential Diagnosis Likely ovarian cyst and ruptured ovarian cyst Lab Data Attestation: I reviewed the patient's lab results. Result diagrams: 03/25/18 17:10 03/25/18 17:10 Lab Results 03/25/18 03/25/18 Range/Units 17:10 17:10 WBC 4.9 (4.5-11.0) X10^3/uL RBC 4.11 (4.0-5.2) X10^6/uL Hgb 13.2 (12.0-16.0) g/dL Hct 38.6 (36-46) % MCV 93.9 (80-100) fL MCH 32.1 (26-34) PG MCHC 34.2 (30-36) % RDW 14.2 (11.6-14.8) % Plt Count 223 (150-400) X10^3/uL Neut % (Auto) 55.1 (50-75) % Lymph % (Auto) 34.9 (25-40) % [place] % (Auto) 8.8 (3-14) % Eos % (Auto) 0.6 L (2-4) % Baso % (Auto) 0.6 (0-2) % Neut # (Auto) 2700 L (8220-9497) /uL Sodium 142 (137-145) mmol/L Potassium 4.3 (3.4-5.1) mmol/L Chloride 107 (98-107) mmol/L Carbon Dioxide 28 (22-32) mmol/L BUN 14 (7-17) mg/dL Creatinine 0.70 (0.52-1.04) mg/dL Estimated GFR > 60.0 (>60) mL/min BUN/Creatinine Ratio 20.0 (6-22) Glucose 91 (70-100) mg/dL Calcium 9.4 (8.4-10.2) mg/dL Total Bilirubin 0.2 (0.2-1.3) mg/dL AST 14 (14-36) IU/L ALT 17 (9-52) IU/L Alkaline Phosphatase 55 (38-126) U/L Total Protein 6.7 (6.3-8.2) g/dL Albumin 4.1 (3.5-5.0) g/dL Globulin 2.6 (1.7-4.1) g/dL Albumin/Globulin Ratio 1.6 (1.0-2.8) Imaging Data pelvic ultrasound: Radiologist's impression: [address] [address] Ultrasound Report Signed Patient: Sangeetha Perea MR#: [id number] : 1985 Acct:[id number] Age/Sex: 32 / F Date of Service: 03/25/18 Loc: ED Accession Number: [id number] Procedure: US pelvic limited Ordering Provider: Rosita Fonseca-BC PROCEDURE: US PELVIC LIMITED INDICATIONS: ? ovarian torsion per ct TECHNIQUE: Real-time transabdominal scanning was performed of the pelvic organs, with image documentation. COMPARISON: [facility], US PELVIC LIMITED, 01/25/2018, 15:15. [facility], PELVIC COMPLETE, 11/19/2017, 21:38. [facility], PELVIC COMPLETE, 03/29/2017, 18:00. [facility], PELVIC COMPLETE, 12/10/2016, 22:01. FINDINGS: The uterus measures 8.6 x 4.9 x 4.1 cm. Endometrial complex measures 11 mm in thickness. The cervix and vagina were not well-seen on this exam. The right ovary and adnexa could not be clearly identified and evaluated on this exam. The left ovary measures 5.2 x 3.3 x 2.8 cm. No vascular flow within the left ovary couldn't be identified on Doppler imaging. There is a 14.4 x 11.1 x 6.2 cm left adnexal cystic mass. IMPRESSION: #1. 14.4 cm cystic mass arising from the left adnexa correlates with a cystic mass seen on comparison CT from earlier on the same day, and may represent a hydrosalpinx or cystic neoplasm. #2. The left ovary appears mildly enlarged and no vascular flow can be identified within the ovary; ovarian torsion cannot be excluded by this exam. Consider followup pelvic imaging. Preliminary findings discussed with the patient's nurse practioner Rosita Avila by the journalism professor at approximately 17:20 hours on 03/25/2018. Findings rediscussed with patient's nurse practioner Rosita Avila at 6:30 pm on 03/25/2018 by telephone. Dictated by: Sav Dorado M.D. on 03/25/2018 at 18:03 Approved by: Sav Dorado M.D. 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 She was medicated for pain and nausea in the emergency department. Given the result of the ultrasound, I spoke with two OB GYNs. This patient's telecine operator at [facility] instructed me to have her follow up with her. She stated this is not a surgical emergency as long as the patient is hemodynamically stable. The patient is hemodynamically stable in the emergency department and would prefer to go home. I discussed at length with her follow-up with [facility], as well as return precautions for worsening. I instructed her to call [facility] tomorrow. I gave her small pain medication prescription. She had no questions or concerns upon discharge. <Ramonita Giraldo, DO - Last Filed: 03/26/18 10:37> Lab Data Lab Results 03/25/18 03/25/18 Range/Units 17:10 17:10 WBC 4.9 (4.5-11.0) X10^3/uL RBC 4.11 (4.0-5.2) X10^6/uL Hgb 13.2 (12.0-16.0) g/dL Hct 38.6 (36-46) % MCV 93.9 (80-100) fL MCH 32.1 (26-34) PG MCHC 34.2 (30-36) % RDW 14.2 (11.6-14.8) % Plt Count 223 (150-400) X10^3/uL Neut % (Auto) 55.1 (50-75) % Lymph % (Auto) 34.9 (25-40) % [place] % (Auto) 8.8 (3-14) % Eos % (Auto) 0.6 L (2-4) % Baso % (Auto) 0.6 (0-2) % Neut # (Auto) 2700 L (4997-3661) /uL Sodium 142 (137-145) mmol/L Potassium 4.3 (3.4-5.1) mmol/L Chloride 107 (98-107) mmol/L Carbon Dioxide 28 (22-32) mmol/L BUN 14 (7-17) mg/dL Creatinine 0.70 (0.52-1.04) mg/dL Estimated GFR > 60.0 (>60) mL/min BUN/Creatinine Ratio 20.0 (6-22) Glucose 91 (70-100) mg/dL Calcium 9.4 (8.4-10.2) mg/dL Total Bilirubin 0.2 (0.2-1.3) mg/dL AST 14 (14-36) IU/L ALT 17 (9-52) IU/L Alkaline Phosphatase 55 (38-126) U/L Total Protein 6.7 (6.3-8.2) g/dL Albumin 4.1 (3.5-5.0) g/dL Globulin 2.6 (1.7-4.1) g/dL Albumin/Globulin Ratio 1.6 (1.0-2.8) Discharge Plan Departure Patient Disposition: Home Clinical Impression: Ovarian torsion, Ovarian cyst Discharge Date/Time: 03/25/18 19:24 Interventions: ED Discharge Assessment Last Done: 03/25/18 19:22 Instructions: DI for Ovarian Cyst Activity Restrictions/Additional Instructions: Your ultrasound came back concerning for something called ovarian torsion. I spoke with Dr. Ramos from [facility] who states she would like you to follow up with her as scheduled. Please call tomorrow to schedule your surgery. If you feel worse have any fevers, passing out, etc please be re-evaluated. Your ovary has twisted on itself, likely due to the cyst or mass. This is a big risk to fertility, however your plan was to have it removed anyway. Please follow-up with Briseida waterman to schedule your surgery tomorrow. Please follow-up if you are feeling worse. I have given you a small prescription of pain medication. Prescriptions: New oxycodone-acetaminophen 5-325 mg tablet 1 tab PO Q4-6H PRN (Reason: pain) Qty: 10 RF: 0 No Action citalopram [Celexa] 10 MG tablet 10 mg PO QDAY Qty: 30 RF: 6 oxycodone-acetaminophen [Percocet] 5-325 mg tablet 1 tab PO Q4-6H PRN (Reason: pain) Qty: 20 RF: 0 hydrocodone-acetaminophen 5-325 mg tablet 1 tab PO Q4-6H PRN (Reason: pain (scale score 4-6)) Qty: 10 RF: 0 hydrocodone-acetaminophen [[place]] 5-325 mg tablet 1 tab PO Q6H PRN (Reason: pain) Qty: 10 RF: 0 acetaminophen [Tylenol] 325 mg Tablet 1 dose PO PRN PRN (Reason: Pain, Mild) RF: 0 ibuprofen 200 mg Tablet 1 dose PO PRN PRN (Reason: Pain, Mild) RF: 0 Referrals: Neri Ko MD [Primary Care Provider] - <Ramonita Giraldo DO - Last Filed: 03/26/18 10:37> Cosign ED Attending Camrynature Attestation: I was immediately available in the department for consultation. Documentation has been reviewed. I agree with assessment and plan.
[2018-03-25 19:20] VITALS: BP 96/67; PULSE 61; O2SAT 100
== END 2018-03-25 19:24 | disposition home or self-care (01) ==
PROVIDERS: Emergency Provider Nurse Practitioner Family; Family Provider Family Medicine; PCP Family Medicine
DX: R10.9 Unspecified abdominal pain (principal)
CPT/HCPCS: 36591; 76857; 80053; 85025; J2270; J2405

== ENCOUNTER 2018-03-31 14:31 | Emergency (ER) | payer OTHER, MEDICAID, SELFPAY ==
[2018-03-31 14:46] VITALS: BP 112/80; PULSE 101; RESP 17; TEMP 37.2; O2SAT 100; BMI 18.6
[2018-03-31 15:08] LABS: Amorphous Sediment Urine 1+; Bacteria Urine Moderate (10-30); Culture Indicated Urine Specimen Cultured; RBC Urine 10-30/HPF (0-5/HPF); Squamous Epithelial Cell Urine 0-1 /HPF; Transitional Epi Cells Urine 0-1/HPF (0-5/HPF); WBC Urine 10-30/HPF (0-5/HPF)
[2018-03-31 15:17] VITALS: BP 106/64; PULSE 76; RESP 18; O2SAT 100
[2018-03-31 15:41] VITALS: BP 96/81; PULSE 67; RESP 12; O2SAT 100
--- NOTE | 2018-03-31 15:43 | PC.NURSE ---
Patient reports increase in lower abd pain radiating into back and down both legs. Reports increase difficulty with balance over last several days. Denies dizziness or lightheaded but reports almost falling forward at work the other day due to leg weakness. Denies loss of bowel or bladder function but reports sensation of inability to empty bladder all the way.
--- NOTE | 2018-03-31 15:47 | ED.FEMALEGU ---
HPI - Female Genitourinary <Maryuri Garcia PA-C - Last Filed: 03/31/18 21:42> General Chief complaint: Urogenital-Female Stated complaint: LOSING FEELING IN LEGS,SHORTNESS OF BREATH Time Seen by Provider: 03/31/18 15:19 Source: patient Mode of arrival: ambulatory Limitations: no limitations History of Present Illness HPI Narrative: This 32-year-old female returns to the ED with complaint of feeling weak and chilled today. She states that she has been eating okay but not taking very much fluid. She has had ongoing nausea but no vomiting today. She denies any diarrhea. 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 She denies any new abdominal pain. She denies any chest pain or dyspnea today. She denies any new pain or swelling in her extremities, however she woke up this morning feeling like her legs were ?not there?, then felt like they were tingling, like asleep, and her feet were discolored. She states that her balance has been off for some time but felt somewhat more so over the last couple of days. She states that she has been trying to work despite her ongoing problems and pending surgery because her boss is out of town. She states that she has also had intermittent generalized and leg weakness since her cancer diagnosis Related Data Home Medications Medication Instructions Recorded Confirmed ondansetron HCl 4 mg PO PRN PRN 03/31/18 03/31/18 promethazine 25 mg PO PRN PRN 03/31/18 03/31/18 Previous Rx's Medication Instructions Recorded citalopram [Celexa] 10 mg PO QDAY #30 tab 11/09/17 oxycodone-acetaminophen 1 tab PO Q4-6H PRN #10 tab 03/25/18 nitrofurantoin monohyd/m-cryst 100 mg PO BID 5 Days #10 cap 03/31/18 [Macrobid] ondansetron 4 mg PO Q6-8H PRN #8 tab 03/31/18 Allergies Allergy/AdvReac Type Severity Reaction Status Date / Time Penicillins [PENICILLINS] Allergy Severe RASH Verified 03/31/18 14:46 vancomycin [VANCOMYCIN] Allergy Severe JUAREZ Verified 03/31/18 14:46 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 HEENT: PERRL, EOMI, no scleral icterus NECK: Supple, no masses LUNGS: Clear to auscultation bilaterally. HEART: Rate and rhythm regular, normal S1 and S2, no S3 or S4. ABDOMEN: Soft, nondistended, bowel sounds present x 4 quadrants, no masses palpable, no hepatosplenomegaly. She has suprapubic TTP and L. CVAT but also tender inferiorly all the way to the SI joint, no spinal TTP EXTREMITIES: No edema, no cyanosis, + pedal pulses DERMATOLOGIC: No jaundice or exanthem NEUROLOGIC: Alert, normal speech and coordination, LE senstion grossly intact MS: Lower extremity strength 5/5 bilateral hip flexors, knee extensors, foot PF. Mildly tender through the L. lumbosacral musculature lateral to mid scapular line plantar flexion NEUROLOGIC: Alert and oriented with normal speech and coordination Initial Vital Signs Initial Vital Signs: Vital Signs Temperature 99.0 F 03/31/18 14:46 Pulse Rate 101 H 03/31/18 14:46 Respiratory Rate 17 03/31/18 14:46 Blood Pressure 112/80 03/31/18 14:46 Pulse Oximetry 100 03/31/18 14:46 <Ramonita Giraldo DO - Last Filed: 04/01/18 14:02> Initial Vital Signs Initial Vital Signs: Vital Signs Temperature 99.0 F 03/31/18 14:46 Pulse Rate 101 H 03/31/18 14:46 Respiratory Rate 17 03/31/18 14:46 Blood Pressure 112/80 03/31/18 14:46 Pulse Oximetry 100 03/31/18 14:46 Course <KATHERIN Martin Last Filed: 03/31/18 21:42> Additional Information: Patient reported improvement during her stay. She did not have any vomiting, and she was able to tolerate water and crackers prior to d/c. She was given rx Zofran. She has numerous ongoing sx that she is concerned are reminiscent of her cancer. 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 Advised I agree that she should not be on her feet constantly as this is likely exacerbating her pain (her PRESSURE STEAMER TENDER advised off work until surgery but patient has not been able). Advised rest and discuss with SOLAR SALES REPRESENTATIVE whether to add any pain medication. She is agreeable with this plan Orders Ordered: Discontinued Medications Sodium Chloride (Normal Saline 0.9%) 1,000 mls @ 1,000 mls/hr IV BOLUS ONE Stop: 03/31/18 17:03 Last Infusion: 03/31/18 17:40 Dose: 0 mls/hr Admin: 03/31/18 16:16 Dose: 1,000 mls/hr Ondansetron HCl (Zofran) 4 mg IV NOW ONE Stop: 03/31/18 16:05 Last Admin: 03/31/18 16:17 Dose: 4 mg Vital Signs - 8 hr 03/31/18 14:46 03/31/18 15:17 03/31/18 15:41 Temperature 99.0 F Pulse Rate 101 H 76 67 Respiratory Rate 17 18 12 Blood Pressure 112/80 Blood Pressure [Left Arm] 106/64 96/81 Pulse Oximetry 100 100 100 03/31/18 16:25 03/31/18 18:35 Temperature Pulse Rate 71 100 H Respiratory Rate 17 Blood Pressure Blood Pressure [Left Arm] 95/60 119/85 Pulse Oximetry 100 90 L <Ramonita Giraldo, - Last Filed: 04/01/18 14:02> Orders Ordered: Discontinued Medications Sodium Chloride (Normal Saline 0.9%) 1,000 mls @ 1,000 mls/hr IV BOLUS ONE Stop: 03/31/18 17:03 Last Infusion: 03/31/18 17:40 Dose: 0 mls/hr Admin: 03/31/18 16:16 Dose: 1,000 mls/hr Ondansetron HCl (Zofran) 4 mg IV NOW ONE Stop: 03/31/18 16:05 Last Admin: 03/31/18 16:17 Dose: 4 mg Vital Signs - 8 hr 03/31/18 14:46 03/31/18 15:17 03/31/18 15:41 Temperature 99.0 F Pulse Rate 101 H 76 67 Respiratory Rate 17 18 12 Blood Pressure 112/80 Blood Pressure [Left Arm] 106/64 96/81 Pulse Oximetry 100 100 100 03/31/18 16:25 03/31/18 18:35 Temperature Pulse Rate 71 100 H Respiratory Rate 17 Blood Pressure Blood Pressure [Left Arm] 95/60 119/85 Pulse Oximetry 100 90 L MDM - Female Genitourinary <Maryuri Garcia PA-C - Last Filed: 03/31/18 21:42> Lab Data Result diagrams: 03/31/18 16:10 03/31/18 16:10 Lab Results 03/31/18 03/31/18 03/31/18 Range/Units 14:40 16:10 16:10 WBC 7.5 (4.5-11.0) X10^3/uL RBC 4.39 (4.0-5.2) X10^6/uL Hgb 14.0 (12.0-16.0) g/dL Hct 41.4 (36-46) % MCV 94.5 (80-100) fL MCH 31.9 (26-34) PG MCHC 33.8 (30-36) % RDW 14.4 (11.6-14.8) % Plt Count 242 (150-400) X10^3/uL Neut % (Auto) 72.1 (50-75) % Lymph % (Auto) 20.0 L (25-40) % [place] % (Auto) 7.2 (3-14) % Eos % (Auto) 0.3 L (2-4) % Baso % (Auto) 0.4 (0-2) % Neut # (Auto) 5400 (6268-7784) /uL Sodium 143 (137-145) mmol/L Potassium 4.3 (3.4-5.1) mmol/L Chloride 106 (98-107) mmol/L Carbon Dioxide 31 (22-32) mmol/L BUN 11 (7-17) mg/dL Creatinine 0.70 (0.52-1.04) mg/dL Estimated GFR > 60.0 (>60) mL/min BUN/Creatinine Ratio 15.7 (6-22) Glucose 87 (70-100) mg/dL Lactate (0.7-2.1) mmol/L Calcium 9.3 (8.4-10.2) mg/dL Total Bilirubin 0.3 (0.2-1.3) mg/dL AST 19 (14-36) IU/L ALT 18 (9-52) IU/L Alkaline Phosphatase 50 (38-126) U/L Total Protein 7.2 (6.3-8.2) g/dL Albumin 4.4 (3.5-5.0) g/dL Globulin 2.8 (1.7-4.1) g/dL Albumin/Globulin Ratio 1.6 (1.0-2.8) Urine RBC 10-30/hpf H (0-5/HPF) Urine WBC 10-30/hpf H (0-5/HPF) Ur Squamous Epith Cells 0-1 /hpf Ur Transition Epith Cell 0-1/hpf (0-5/HPF) Amorphous Sediment 1+ Urine Bacteria Moderate (10-30) H (None) Ur Culture Indicated? Specimen cultured Micro UA Comment Not Reportable 03/31/18 Range/Units 16:10 WBC (4.5-11.0) X10^3/uL RBC (4.0-5.2) X10^6/uL Hgb (12.0-16.0) g/dL Hct (36-46) % MCV (80-100) fL MCH (26-34) PG MCHC (30-36) % RDW (11.6-14.8) % Plt Count (150-400) X10^3/uL Neut % (Auto) (50-75) % Lymph % (Auto) (25-40) % [place] % (Auto) (3-14) % Eos % (Auto) (2-4) % Baso % (Auto) (0-2) % Neut # (Auto) (0351-3587) /uL Sodium (137-145) mmol/L Potassium (3.4-5.1) mmol/L Chloride (98-107) mmol/L Carbon Dioxide (22-32) mmol/L BUN (7-17) mg/dL Creatinine (0.52-1.04) mg/dL Estimated GFR (>60) mL/min BUN/Creatinine Ratio (6-22) Glucose (70-100) mg/dL Lactate 1.2 (0.7-2.1) mmol/L Calcium (8.4-10.2) mg/dL Total Bilirubin (0.2-1.3) mg/dL AST (14-36) IU/L ALT (9-52) IU/L Alkaline Phosphatase (38-126) U/L Total Protein (6.3-8.2) g/dL Albumin (3.5-5.0) g/dL Globulin (1.7-4.1) g/dL Albumin/Globulin Ratio (1.0-2.8) Urine RBC (0-5/HPF) Urine WBC (0-5/HPF) Ur Squamous Epith Cells Ur Transition Epith Cell (0-5/HPF) Amorphous Sediment Urine Bacteria (None) Ur Culture Indicated? Micro UA Comment Point of Care Testing Test Results Negative Urine Dip Bedside Urine Glucose Negative Bedside Urine Bilirubin - Negative Bedside Urine Ketone - Negative Urine Specific [place] 1.020 Bedside Urine Occult Blood +++ Bedside Urine pH 6.5 Bedside Urine Protein +/- 15 Bedside Urine Urobilinogen - Negative Bedside Urine Nitrite - Negative Bedside Urine Leukocytes ++ 125 Esterase <Ramonita Giraldo, DO - Last Filed: 04/01/18 14:02> Lab Data Lab Results 03/31/18 03/31/18 03/31/18 Range/Units 14:40 16:10 16:10 WBC 7.5 (4.5-11.0) X10^3/uL RBC 4.39 (4.0-5.2) X10^6/uL Hgb 14.0 (12.0-16.0) g/dL Hct 41.4 (36-46) % MCV 94.5 (80-100) fL MCH 31.9 (26-34) PG MCHC 33.8 (30-36) % RDW 14.4 (11.6-14.8) % Plt Count 242 (150-400) X10^3/uL Neut % (Auto) 72.1 (50-75) % Lymph % (Auto) 20.0 L (25-40) % [place] % (Auto) 7.2 (3-14) % Eos % (Auto) 0.3 L (2-4) % Baso % (Auto) 0.4 (0-2) % Neut # (Auto) 5400 (4782-1375) /uL Sodium 143 (137-145) mmol/L Potassium 4.3 (3.4-5.1) mmol/L Chloride 106 (98-107) mmol/L Carbon Dioxide 31 (22-32) mmol/L BUN 11 (7-17) mg/dL Creatinine 0.70 (0.52-1.04) mg/dL Estimated GFR > 60.0 (>60) mL/min BUN/Creatinine Ratio 15.7 (6-22) Glucose 87 (70-100) mg/dL Lactate (0.7-2.1) mmol/L Calcium 9.3 (8.4-10.2) mg/dL Total Bilirubin 0.3 (0.2-1.3) mg/dL AST 19 (14-36) IU/L ALT 18 (9-52) IU/L Alkaline Phosphatase 50 (38-126) U/L Total Protein 7.2 (6.3-8.2) g/dL Albumin 4.4 (3.5-5.0) g/dL Globulin 2.8 (1.7-4.1) g/dL Albumin/Globulin Ratio 1.6 (1.0-2.8) Urine RBC 10-30/hpf H (0-5/HPF) Urine WBC 10-30/hpf H (0-5/HPF) Ur Squamous Epith Cells 0-1 /hpf Ur Transition Epith Cell 0-1/hpf (0-5/HPF) Amorphous Sediment 1+ Urine Bacteria Moderate (10-30) H (None) Ur Culture Indicated? Specimen cultured Micro UA Comment Not Reportable 03/31/18 Range/Units 16:10 WBC (4.5-11.0) X10^3/uL RBC (4.0-5.2) X10^6/uL Hgb (12.0-16.0) g/dL Hct (36-46) % MCV (80-100) fL MCH (26-34) PG MCHC (30-36) % RDW (11.6-14.8) % Plt Count (150-400) X10^3/uL Neut % (Auto) (50-75) % Lymph % (Auto) (25-40) % [place] % (Auto) (3-14) % Eos % (Auto) (2-4) % Baso % (Auto) (0-2) % Neut # (Auto) (8801-6953) /uL Sodium (137-145) mmol/L Potassium (3.4-5.1) mmol/L Chloride (98-107) mmol/L Carbon Dioxide (22-32) mmol/L BUN (7-17) mg/dL Creatinine (0.52-1.04) mg/dL Estimated GFR (>60) mL/min BUN/Creatinine Ratio (6-22) Glucose (70-100) mg/dL Lactate 1.2 (0.7-2.1) mmol/L Calcium (8.4-10.2) mg/dL Total Bilirubin (0.2-1.3) mg/dL AST (14-36) IU/L ALT (9-52) IU/L Alkaline Phosphatase (38-126) U/L Total Protein (6.3-8.2) g/dL Albumin (3.5-5.0) g/dL Globulin (1.7-4.1) g/dL Albumin/Globulin Ratio (1.0-2.8) Urine RBC (0-5/HPF) Urine WBC (0-5/HPF) Ur Squamous Epith Cells Ur Transition Epith Cell (0-5/HPF) Amorphous Sediment Urine Bacteria (None) Ur Culture Indicated? Micro UA Comment Point of Care Testing Test Results Negative Urine Dip Bedside Urine Glucose Negative Bedside Urine Bilirubin - Negative Bedside Urine Ketone - Negative Urine Specific [place] 1.020 Bedside Urine Occult Blood +++ Bedside Urine pH 6.5 Bedside Urine Protein +/- 15 Bedside Urine Urobilinogen - Negative Bedside Urine Nitrite - Negative Bedside Urine Leukocytes ++ 125 Esterase Discharge Plan Departure Patient Disposition: Home Clinical Impression: UTI (urinary tract infection), Pelvic pain Discharge Date/Time: 03/31/18 18:49 Interventions: ED Discharge Assessment Last Done: 03/31/18 18:40 Instructions: DI for Urinary Tract Infection (UTI) Activity Restrictions/Additional Instructions: I agree with Dr. Ramos that it is likely worsening your pain and symptoms being on your feet all day and recommend that you remain off of work until your surgery next week. Please pick up and delivery driver the antibiotic for your urinary infection and start it right away as this is likely also worsening your pelvic pain. I have also sent in a prescription for some of the nausea medicine we gave you in the IV. Please drink clear fluids and eat a bland diet to help your nausea. Return if you have any acutely worsening symptoms or new symptoms such as fever. Prescriptions: New ondansetron 4 mg tablet,disintegrating 4 mg PO Q6-8H PRN (Reason: nausea and vomiting) Qty: 8 RF: 0 nitrofurantoin monohyd/m-cryst [Macrobid] 100 mg capsule 100 mg PO BID 5 Days Qty: 10 RF: 0 No Action citalopram [Celexa] 10 MG tablet 10 mg PO QDAY Qty: 30 RF: 6 oxycodone-acetaminophen 5-325 mg tablet 1 tab PO Q4-6H PRN (Reason: pain) Qty: 10 RF: 0 ondansetron HCl 4 mg tablet 4 mg PO PRN PRN (Reason: Nausea) RF: 0 promethazine 25 mg tablet 25 mg PO PRN PRN (Reason: Nausea) RF: 0 Referrals: Lucie Ramos MD [Non-Staff] - Neri Ko MD [Primary Care Provider] - <Ramonita Giraldo DO - Last Filed: 04/01/18 14:02> Cosign ED Attending Cosjulissaature Attestation: I was immediately available in the department for consultation. Documentation has been reviewed. I agree with assessment and plan.
--- NOTE | 2018-03-31 16:08 | ED_ITS ---
HPI - Female Genitourinary <Maryuri Garcia PA-C - Last Filed: 03/31/18 21:42> General Chief complaint: Urogenital-Female Stated complaint: LOSING FEELING IN LEGS,SHORTNESS OF BREATH Time Seen by Provider: 03/31/18 15:19 Source: patient Mode of arrival: ambulatory Limitations: no limitations History of Present Illness HPI Narrative: This 32-year-old female returns to the ED with complaint of feeling weak and chilled today. She states that she has been eating okay but not taking very much fluid. She has had ongoing nausea but no vomiting today. She denies any diarrhea. 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 She denies any new abdominal pain. She denies any chest pain or dyspnea today. She denies any new pain or swelling in her extremities, however she woke up this morning feeling like her legs were ?not there?, then felt like they were tingling, like asleep, and her feet were discolored. She states that her balance has been off for some time but felt somewhat more so over the last couple of days. She states that she has been trying to work despite her ongoing problems and pending surgery because her boss is out of town. She states that she has also had intermittent generalized and leg weakness since her cancer diagnosis Related Data Home Medications Medication Instructions Recorded Confirmed ondansetron HCl 4 mg PO PRN PRN 03/31/18 03/31/18 promethazine 25 mg PO PRN PRN 03/31/18 03/31/18 Previous Rx's Medication Instructions Recorded citalopram [Celexa] 10 mg PO QDAY #30 tab 11/09/17 oxycodone-acetaminophen 1 tab PO Q4-6H PRN #10 tab 03/25/18 nitrofurantoin monohyd/m-cryst 100 mg PO BID 5 Days #10 cap 03/31/18 [Macrobid] ondansetron 4 mg PO Q6-8H PRN #8 tab 03/31/18 Allergies Allergy/AdvReac Type Severity Reaction Status Date / Time Penicillins [PENICILLINS] Allergy Severe RASH Verified 03/31/18 14:46 vancomycin [VANCOMYCIN] Allergy Severe JUAREZ Verified 03/31/18 14:46 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 HEENT: PERRL, EOMI, no scleral icterus NECK: Supple, no masses LUNGS: Clear to auscultation bilaterally. HEART: Rate and rhythm regular, normal S1 and S2, no S3 or S4. ABDOMEN: Soft, nondistended, bowel sounds present x 4 quadrants, no masses palpable, no hepatosplenomegaly. She has suprapubic TTP and L. CVAT but also tender inferiorly all the way to the SI joint, no spinal TTP EXTREMITIES: No edema, no cyanosis, + pedal pulses DERMATOLOGIC: No jaundice or exanthem NEUROLOGIC: Alert, normal speech and coordination, LE senstion grossly intact MS: Lower extremity strength 5/5 bilateral hip flexors, knee extensors, foot PF. Mildly tender through the L. lumbosacral musculature lateral to mid scapular line plantar flexion NEUROLOGIC: Alert and oriented with normal speech and coordination Initial Vital Signs Initial Vital Signs: Vital Signs Temperature 99.0 F 03/31/18 14:46 Pulse Rate 101 H 03/31/18 14:46 Respiratory Rate 17 03/31/18 14:46 Blood Pressure 112/80 03/31/18 14:46 Pulse Oximetry 100 03/31/18 14:46 <Ramonita Giraldo DO - Last Filed: 04/01/18 14:02> Initial Vital Signs Initial Vital Signs: Vital Signs Temperature 99.0 F 03/31/18 14:46 Pulse Rate 101 H 03/31/18 14:46 Respiratory Rate 17 03/31/18 14:46 Blood Pressure 112/80 03/31/18 14:46 Pulse Oximetry 100 03/31/18 14:46 Course <KATHERIN Martin Last Filed: 03/31/18 21:42> Additional Information: Patient reported improvement during her stay. She did not have any vomiting, and she was able to tolerate water and crackers prior to d/c. She was given rx Zofran. She has numerous ongoing sx that she is concerned are reminiscent of her cancer. She has appropriate f/u with her OB/ SAP TECHNICAL ARCHITECT and surgery scheduled for next week. Advised I agree that she should not be on her feet constantly as this is likely exacerbating her pain (her [employer] advised off work until surgery but patient has not been able). Advised rest and discuss with SAP TECHNICAL ARCHITECT whether to add any pain medication. She is agreeable with this plan Orders Ordered: Discontinued Medications Sodium Chloride (Normal Saline 0.9%) 1,000 mls @ 1,000 mls/hr IV BOLUS ONE Stop: 03/31/18 17:03 Last Infusion: 03/31/18 17:40 Dose: 0 mls/hr Admin: 03/31/18 16:16 Dose: 1,000 mls/hr Ondansetron HCl (Zofran) 4 mg IV NOW ONE Stop: 03/31/18 16:05 Last Admin: 03/31/18 16:17 Dose: 4 mg Vital Signs - 8 hr 03/31/18 14:46 03/31/18 15:17 03/31/18 15:41 Temperature 99.0 F Pulse Rate 101 H 76 67 Respiratory Rate 17 18 12 Blood Pressure 112/80 Blood Pressure [Left Arm] 106/64 96/81 Pulse Oximetry 100 100 100 03/31/18 16:25 03/31/18 18:35 Temperature Pulse Rate 71 100 H Respiratory Rate 17 Blood Pressure Blood Pressure [Left Arm] 95/60 119/85 Pulse Oximetry 100 90 L <Ramonita Giraldo, - Last Filed: 04/01/18 14:02> Orders Ordered: Discontinued Medications Sodium Chloride (Normal Saline 0.9%) 1,000 mls @ 1,000 mls/hr IV BOLUS ONE Stop: 03/31/18 17:03 Last Infusion: 03/31/18 17:40 Dose: 0 mls/hr Admin: 03/31/18 16:16 Dose: 1,000 mls/hr Ondansetron HCl (Zofran) 4 mg IV NOW ONE Stop: 03/31/18 16:05 Last Admin: 03/31/18 16:17 Dose: 4 mg Vital Signs - 8 hr 03/31/18 14:46 03/31/18 15:17 03/31/18 15:41 Temperature 99.0 F Pulse Rate 101 H 76 67 Respiratory Rate 17 18 12 Blood Pressure 112/80 Blood Pressure [Left Arm] 106/64 96/81 Pulse Oximetry 100 100 100 03/31/18 16:25 03/31/18 18:35 Temperature Pulse Rate 71 100 H Respiratory Rate 17 Blood Pressure Blood Pressure [Left Arm] 95/60 119/85 Pulse Oximetry 100 90 L MDM - Female Genitourinary <Maryuri Garcia PA-C - Last Filed: 03/31/18 21:42> Lab Data Result diagrams: 03/31/18 16:10 03/31/18 16:10 Lab Results 03/31/18 03/31/18 03/31/18 Range/Units 14:40 16:10 16:10 WBC 7.5 (4.5-11.0) X10^3/uL RBC 4.39 (4.0-5.2) X10^6/uL Hgb 14.0 (12.0-16.0) g/dL Hct 41.4 (36-46) % MCV 94.5 (80-100) fL MCH 31.9 (26-34) PG MCHC 33.8 (30-36) % RDW 14.4 (11.6-14.8) % Plt Count 242 (150-400) X10^3/uL Neut % (Auto) 72.1 (50-75) % Lymph % (Auto) 20.0 L (25-40) % Hall % (Auto) 7.2 (3-14) % Eos % (Auto) 0.3 L (2-4) % Baso % (Auto) 0.4 (0-2) % Neut # (Auto) 5400 (2463-1801) /uL Sodium 143 (137-145) mmol/L Potassium 4.3 (3.4-5.1) mmol/L Chloride 106 (98-107) mmol/L Carbon Dioxide 31 (22-32) mmol/L BUN 11 (7-17) mg/dL Creatinine 0.70 (0.52-1.04) mg/dL Estimated GFR > 60.0 (>60) mL/min BUN/Creatinine Ratio 15.7 (6-22) Glucose 87 (70-100) mg/dL Lactate (0.7-2.1) mmol/L Calcium 9.3 (8.4-10.2) mg/dL Total Bilirubin 0.3 (0.2-1.3) mg/dL AST 19 (14-36) IU/L ALT 18 (9-52) IU/L Alkaline Phosphatase 50 (38-126) U/L Total Protein 7.2 (6.3-8.2) g/dL Albumin 4.4 (3.5-5.0) g/dL Globulin 2.8 (1.7-4.1) g/dL Albumin/Globulin Ratio 1.6 (1.0-2.8) Urine RBC 10-30/hpf H (0-5/HPF) Urine WBC 10-30/hpf H (0-5/HPF) Ur Squamous Epith Cells 0-1 /hpf Ur Transition Epith Cell 0-1/hpf (0-5/HPF) Amorphous Sediment 1+ Urine Bacteria Moderate (10-30) H (None) Ur Culture Indicated? Specimen cultured Micro UA Comment Not Reportable 03/31/18 Range/Units 16:10 WBC (4.5-11.0) X10^3/uL RBC (4.0-5.2) X10^6/uL Hgb (12.0-16.0) g/dL Hct (36-46) % MCV (80-100) fL MCH (26-34) PG MCHC (30-36) % RDW (11.6-14.8) % Plt Count (150-400) X10^3/uL Neut % (Auto) (50-75) % Lymph % (Auto) (25-40) % Hall % (Auto) (3-14) % Eos % (Auto) (2-4) % Baso % (Auto) (0-2) % Neut # (Auto) (2384-0339) /uL Sodium (137-145) mmol/L Potassium (3.4-5.1) mmol/L Chloride (98-107) mmol/L Carbon Dioxide (22-32) mmol/L BUN (7-17) mg/dL Creatinine (0.52-1.04) mg/dL Estimated GFR (>60) mL/min BUN/Creatinine Ratio (6-22) Glucose (70-100) mg/dL Lactate 1.2 (0.7-2.1) mmol/L Calcium (8.4-10.2) mg/dL Total Bilirubin (0.2-1.3) mg/dL AST (14-36) IU/L ALT (9-52) IU/L Alkaline Phosphatase (38-126) U/L Total Protein (6.3-8.2) g/dL Albumin (3.5-5.0) g/dL Globulin (1.7-4.1) g/dL Albumin/Globulin Ratio (1.0-2.8) Urine RBC (0-5/HPF) Urine WBC (0-5/HPF) Ur Squamous Epith Cells Ur Transition Epith Cell (0-5/HPF) Amorphous Sediment Urine Bacteria (None) Ur Culture Indicated? Micro UA Comment Point of Care Testing Test Results Negative Urine Dip Bedside Urine Glucose Negative Bedside Urine Bilirubin - Negative Bedside Urine Ketone - Negative Urine Specific [place] 1.020 Bedside Urine Occult Blood +++ Bedside Urine pH 6.5 Bedside Urine Protein +/- 15 Bedside Urine Urobilinogen - Negative Bedside Urine Nitrite - Negative Bedside Urine Leukocytes ++ 125 Esterase <Ramonita Giraldo, DO - Last Filed: 04/01/18 14:02> Lab Data Lab Results 03/31/18 03/31/18 03/31/18 Range/Units 14:40 16:10 16:10 WBC 7.5 (4.5-11.0) X10^3/uL RBC 4.39 (4.0-5.2) X10^6/uL Hgb 14.0 (12.0-16.0) g/dL Hct 41.4 (36-46) % MCV 94.5 (80-100) fL MCH 31.9 (26-34) PG MCHC 33.8 (30-36) % RDW 14.4 (11.6-14.8) % Plt Count 242 (150-400) X10^3/uL Neut % (Auto) 72.1 (50-75) % Lymph % (Auto) 20.0 L (25-40) % Hall % (Auto) 7.2 (3-14) % Eos % (Auto) 0.3 L (2-4) % Baso % (Auto) 0.4 (0-2) % Neut # (Auto) 5400 (6363-0570) /uL Sodium 143 (137-145) mmol/L Potassium 4.3 (3.4-5.1) mmol/L Chloride 106 (98-107) mmol/L Carbon Dioxide 31 (22-32) mmol/L BUN 11 (7-17) mg/dL Creatinine 0.70 (0.52-1.04) mg/dL Estimated GFR > 60.0 (>60) mL/min BUN/Creatinine Ratio 15.7 (6-22) Glucose 87 (70-100) mg/dL Lactate (0.7-2.1) mmol/L Calcium 9.3 (8.4-10.2) mg/dL Total Bilirubin 0.3 (0.2-1.3) mg/dL AST 19 (14-36) IU/L ALT 18 (9-52) IU/L Alkaline Phosphatase 50 (38-126) U/L Total Protein 7.2 (6.3-8.2) g/dL Albumin 4.4 (3.5-5.0) g/dL Globulin 2.8 (1.7-4.1) g/dL Albumin/Globulin Ratio 1.6 (1.0-2.8) Urine RBC 10-30/hpf H (0-5/HPF) Urine WBC 10-30/hpf H (0-5/HPF) Ur Squamous Epith Cells 0-1 /hpf Ur Transition Epith Cell 0-1/hpf (0-5/HPF) Amorphous Sediment 1+ Urine Bacteria Moderate (10-30) H (None) Ur Culture Indicated? Specimen cultured Micro UA Comment Not Reportable 03/31/18 Range/Units 16:10 WBC (4.5-11.0) X10^3/uL RBC (4.0-5.2) X10^6/uL Hgb (12.0-16.0) g/dL Hct (36-46) % MCV (80-100) fL MCH (26-34) PG MCHC (30-36) % RDW (11.6-14.8) % Plt Count (150-400) X10^3/uL Neut % (Auto) (50-75) % Lymph % (Auto) (25-40) % Hall % (Auto) (3-14) % Eos % (Auto) (2-4) % Baso % (Auto) (0-2) % Neut # (Auto) (2419-2822) /uL Sodium (137-145) mmol/L Potassium (3.4-5.1) mmol/L Chloride (98-107) mmol/L Carbon Dioxide (22-32) mmol/L BUN (7-17) mg/dL Creatinine (0.52-1.04) mg/dL Estimated GFR (>60) mL/min BUN/Creatinine Ratio (6-22) Glucose (70-100) mg/dL Lactate 1.2 (0.7-2.1) mmol/L Calcium (8.4-10.2) mg/dL Total Bilirubin (0.2-1.3) mg/dL AST (14-36) IU/L ALT (9-52) IU/L Alkaline Phosphatase (38-126) U/L Total Protein (6.3-8.2) g/dL Albumin (3.5-5.0) g/dL Globulin (1.7-4.1) g/dL Albumin/Globulin Ratio (1.0-2.8) Urine RBC (0-5/HPF) Urine WBC (0-5/HPF) Ur Squamous Epith Cells Ur Transition Epith Cell (0-5/HPF) Amorphous Sediment Urine Bacteria (None) Ur Culture Indicated? Micro UA Comment Point of Care Testing Test Results Negative Urine Dip Bedside Urine Glucose Negative Bedside Urine Bilirubin - Negative Bedside Urine Ketone - Negative Urine Specific [place] 1.020 Bedside Urine Occult Blood +++ Bedside Urine pH 6.5 Bedside Urine Protein +/- 15 Bedside Urine Urobilinogen - Negative Bedside Urine Nitrite - Negative Bedside Urine Leukocytes ++ 125 Esterase Discharge Plan Departure Patient Disposition: Home Clinical Impression: UTI (urinary tract infection), Pelvic pain Discharge Date/Time: 03/31/18 18:49 Interventions: ED Discharge Assessment Last Done: 03/31/18 18:40 Instructions: DI for Urinary Tract Infection (UTI) Activity Restrictions/Additional Instructions: I agree with Dr. Ramos that it is likely worsening your pain and symptoms being on your feet all day and recommend that you remain off of work until your surgery next week. 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 I have also sent in a prescription for some of the nausea medicine we gave you in the IV. Please drink clear fluids and eat a bland diet to help your nausea. Return if you have any acutely worsening symptoms or new symptoms such as fever. Prescriptions: New ondansetron 4 mg tablet,disintegrating 4 mg PO Q6-8H PRN (Reason: nausea and vomiting) Qty: 8 RF: 0 nitrofurantoin monohyd/m-cryst [Macrobid] 100 mg capsule 100 mg PO BID 5 Days Qty: 10 RF: 0 No Action citalopram [Celexa] 10 MG tablet 10 mg PO QDAY Qty: 30 RF: 6 oxycodone-acetaminophen 5-325 mg tablet 1 tab PO Q4-6H PRN (Reason: pain) Qty: 10 RF: 0 ondansetron HCl 4 mg tablet 4 mg PO PRN PRN (Reason: Nausea) RF: 0 promethazine 25 mg tablet 25 mg PO PRN PRN (Reason: Nausea) RF: 0 Referrals: Lucie Ramos MD [Non-Staff] - Neri Ko MD [Primary Care Provider] - <Ramonita Giraldo DO - Last Filed: 04/01/18 14:02> Cosign ED Attending Cosjulissaature Attestation: I was immediately available in the department for consultation. Documentation has been reviewed. I agree with assessment and plan.
[2018-03-31] MEDS: SODIUM CHLORIDE 0.9% 1,000 ML 1000 ML IV (16:16)
[2018-03-31] MEDS: ONDANSETRON 4 MG/2 ML INJ IV (16:17)
[2018-03-31 16:20] LABS: Add Manual Diff / Slide Review NO; Basophils Percent Auto 0.4 % (0-2); Eosinophils Percent Auto 0.3 % (2-4); Hematocrit 41.4 % (36-46); Mean Corpuscular HGB Conc 33.8 % (30-36); Mean Corpuscular Hemoglobin 31.9 PG (26-34); Mean Corpuscular Volume 94.5 fL (80-100); Monocytes Percent Auto 7.2 % (3-14); Neutrophils Absolute Auto 5400 /uL (3000-5900); Neutrophils Percent Auto 72.1 % (50-75); Platelet Count 242 X10^3/uL (150-400); Red Blood Cell Count 4.39 X10^6/uL (4.0-5.2); Red Cell Distribution Width 14.4 % (11.6-14.8); White Blood Cell Count 7.5 X10^3/uL (4.5-11.0)
[2018-03-31 16:25] VITALS: BP 95/60; PULSE 71; RESP 17; O2SAT 100
[2018-03-31 16:32] LABS: Lactate (Lactic Acid) 1.2 mmol/L (0.7-2.1)
[2018-03-31 16:33] LABS: Alanine Aminotransferase 18 IU/L (9-52); Albumin 4.4 g/dL (3.5-5.0); Albumin Globulin Ratio 1.6 (1.0-2.8); Alkaline Phosphatase 50 U/L (38-126); Aspartate Aminotransferase 19 IU/L (14-36); BUN Creatinine Ratio 15.7 (6-22); Bilirubin Total 0.3 mg/dL (0.2-1.3); Blood Urea Nitrogen 11 mg/dL (7-17); Calcium 9.3 mg/dL (8.4-10.2); Carbon Dioxide 31 mmol/L (22-32); Chloride 106 mmol/L (98-107); Estimated Glomerular Filt Rate > 60.0 mL/min (>60); Globulin 2.8 g/dL (1.7-4.1); Glucose 87 mg/dL (70-100); HEMOLYSIS 27 (0-50); Potassium 4.3 mmol/L (3.4-5.1); Sodium 143 mmol/L (137-145); Total Protein 7.2 g/dL (6.3-8.2)
[2018-03-31 18:35] VITALS: BP 119/85; PULSE 100; O2SAT 90
== END 2018-03-31 18:49 | disposition home or self-care (01) ==
PROVIDERS: Emergency Medicine; Emergency Provider Internal Medicine; Family Provider Family Medicine; PCP Family Medicine
DX: N39.0 Urinary tract infection, site not specified (principal); R10.2 Pelvic and perineal pain
CPT/HCPCS: 36591; 80053; 81003; 81015; 81025; 83605; 85025; 87077; 87086; 96361; 96374; 99283; 99284; J2405

== ENCOUNTER 2018-04-10 13:57 | Emergency (ER) | payer OTHER, MEDICAID, SELFPAY ==
[2018-04-10 14:04] VITALS: BP 110/71; PULSE 107; RESP 20; TEMP 36.6; O2SAT 100; BMI 18.6
--- NOTE | 2018-04-10 15:14 | DI.CT.S_ITS ---
PROCEDURE: CT ABDOMEN PELVIS W CON INDICATIONS: 32 year-old woman with abdominal pain, recent pelvic surgery. No bowel movement, vomiting, and history of adhesion. TECHNIQUE: After the administration of oral and intravenous contrast, 5 mm thick sections acquired from the diaphragms to the symphysis. 5 mm thick coronal and sagittal reformats were performed. For radiation dose reduction, the following was used: automated exposure control, adjustment of mA and/or kV according to patient size. COMPARISON: [facility], CT, ABDOMEN/PELVIS WITH CONTRAST, 12/15/2016, 22:04. [facility], CT, PELVIS WITHOUT CONTRAST, 11/02/2017, 18:47. [facility], CT, CT ABDOMEN PELVIS W CON, 03/25/2018, 4:05. FINDINGS: Image quality: Excellent. ABDOMEN: Lung bases: Lung bases are clear. Heart size is normal. There is pectus excavatum. Solid organs: Liver is normal in size and enhancement. Gallbladder is normal. Biliary system is non-dilated. Pancreas enhances normally. Spleen is normal in size and enhancement. No adrenal nodules. Kidneys are normal in size and enhancement, without hydronephrosis. Peritoneum and bowel: There is pneumoperitoneum. A small amount of free fluid is present in the pelvis. Stomach, small bowel, and colon loops are normal in caliber and wall thickness. A large amount of stool is noted in colon. There is surgical suture in the cecum. Nodes and vessels: No retroperitoneal or mesenteric adenopathy. Aorta and inferior vena cava are normal in caliber. Miscellaneous: No ventral hernias. There is subcutaneous gas along the anterior abdominal wall. PELVIS: Genitourinary: Bladder wall thickness is normal. There is a fluid collection in the left pelvis measuring 3.5 x 5.5 cm, demonstrating subtle peripheral enhancement. The complex cystic mass in the left adnexa is not no longer visualized. Miscellaneous: No inguinal hernias or adenopathy. Bones: No suspicious bony lesions. No vertebral body compression fractures. IMPRESSION: 1. A 3.5 x 5.5 cm subtle ring-enhancing fluid collection is present in the left pelvis. This could represent early abscess or a seroma. Recommend clinical correlation and followup. 2. Pneumoperitoneum, presumably related to recent surgery. 3. A large amount of stool in colon concerning for fecal impaction. Dictated by: Tiffany Peoples M.D. on 04/10/2018 at 17:31 Approved by: Tiffany Peoples M.D. on 04/10/2018 at 17:52
--- NOTE | 2018-04-10 15:18 | ED.ABDPAIN ---
HPI - Abdominal Pain General Chief Complaint: Abdominal Pain Stated Complaint: states surgery complications Time Seen by Provider: 04/10/18 14:30 Source: patient Mode of arrival: ambulatory Limitations: no limitations History of Present Illness HPI narrative: this is a 32-year-old female comes to the emergency department with complaint of abdominal pain. Patient states that she had abdominal surgery to remove a ovarian mass or cyst as well as part of the fallopian tube on the 05 of April. She had not had a bowel movement at least 1 or 2 days before that and has not had 1 since then. She has been passing gas although not a lot. She started having some nausea and vomiting today. She has had increasing bloating Um and abdominal pain. She states that her incisions have been looking okay. No fevers. No chest pain or shortness of breath. No urinary symptoms. patient does have a history significant for ovarian cancer. She states that she had her other ovary removed and fallopian tube she does still have her uterus. She has also had what sounds likely cysts of adhesions in the past. MD complaint: abdominal pain Onset (ago): day(s) Related Data Home Medications Medication Instructions Recorded Confirmed ondansetron HCl 4 mg PO PRN PRN 03/31/18 03/31/18 promethazine 25 mg PO PRN PRN 03/31/18 03/31/18 Previous Rx's Medication Instructions Recorded citalopram [Celexa] 10 mg PO QDAY #30 tab 11/09/17 oxycodone-acetaminophen 1 tab PO Q4-6H PRN #10 tab 03/25/18 ondansetron 4 mg PO Q6-8H PRN #8 tab 03/31/18 glycerin (adult) [Suppository 1 suppositor NE QD-BID PRN #25 each 04/10/18 Adult rectal] Allergies Allergy/AdvReac Type Severity Reaction Status Date / Time Penicillins [PENICILLINS] Allergy Severe RASH Verified 03/31/18 14:46 vancomycin [VANCOMYCIN] Allergy Severe JUAREZ Verified 03/31/18 14:46 SYNDROME adhesive [ADHESIVE] Allergy Intermediate RASH, SKIN Verified 03/31/18 14:46 PEELS latex [LATEX] Allergy Intermediate RASH Verified 03/31/18 14:46 Review of Systems Review of Systems All systems reviewed & are unremarkable except as noted in HPI and below Constitutional Denies fever(s) Cardiovascular Denies chest pain, Denies irregular heart rhythm, Denies lightheadedness, Denies palpitations, Denies dyspnea, Denies dyspnea on exertion and Denies orthopnea Respiratory Denies cough, Denies dyspnea, Denies dyspnea on exertion and Denies wheezing Gastrointestinal Gastrointestinal: Reports abdominal pain, Denies melena, Denies hematochezia, Reports constipation, Reports cramping, Denies heartburn, Denies diarrhea, Reports nausea and Reports vomiting Genitourinary Denies hematuria, Denies flank pain, Denies urinary incontinence and Denies urinary urgency Integumentary/Breasts Reports other ( healing incisions) Endocrine Denies palpitations Allergic/Immunologic Denies wheezing PFSH Medical History Ovarian cancer (Acute) Surgical History Status post appendectomy Status post delivery (01/05/12) Status post exploratory laparotomy (10/08/15) Status post laparoscopy Status post laparotomy Social History Smoking Status: Current every day smoker Exam Initial Vital Signs Initial Vital Signs: Vital Signs Temperature 97.8 F 04/10/18 14:04 Pulse Rate 107 H 04/10/18 14:04 Respiratory Rate 20 04/10/18 14:04 Blood Pressure 110/71 04/10/18 14:04 Pulse Oximetry 100 04/10/18 14:04 HENMT Head: normocephalic and atraumatic Ears: external ears normal Nose: external nose normal Mouth: moist mucous membranes Resp Effort & Inspection: normal respiratory effort, able to speak in complete sentences, no respiratory distress and no use of accessory muscles Auscultation: clear to auscultation bilaterally, no rales, no rhonchi and no wheezes Cardio Rate: regular rate Rhythm: regular rhythm Heart Sounds: no click, no gallops, no murmurs and no rubs Pulses: normal peripheral pulses GI Inspection: non-distended and incision ( patient has 4 small incisions consistent with laparoscopic repair of the mid abdomen that appear to be clean dry and healing without any discharge or foul odor or erythema) Palpation: soft, no hepatosplenomegaly, No guarding, No pulsatile mass and No tender Percussion: normal to percussion and no fluid wave Auscultation: abnormal bowel sounds ( decreased) General: bimanual renal exam normal bilaterally and No CVA tenderness Course Orders Ordered: ED Orders 04/10/18 15:14 CT abdomen pelvis w con Stat 04/10/18 15:30 Complete Blood Count AUTO DIFF Stat Comprehensive Metabolic Panel Stat Lipase Stat Discontinued Medications Sodium Chloride (Normal Saline 0.9%) 1,000 mls @ 1,000 mls/hr IV BOLUS ONE Stop: 04/10/18 16:15 Last Infusion: 04/10/18 16:21 Dose: 0 mls/hr Admin: 04/10/18 15:50 Dose: 1,000 mls/hr Ketorolac Tromethamine (Toradol) 30 mg IV NOW ONE Stop: 04/10/18 15:18 Last Admin: 04/10/18 15:51 Dose: Not Given Magnesium Citrate (Magnesium Citrate) 300 ml PO NOW ONE Stop: 04/10/18 18:38 Last Admin: 04/10/18 18:56 Dose: 300 ml Morphine Sulfate (Morphine) 4 mg IV NOW ONE Stop: 04/10/18 18:08 Last Admin: 04/10/18 18:18 Dose: 4 mg Morphine Sulfate (Morphine Sulfate) 4 mg IV NOW ONE Stop: 04/10/18 18:08 Last Admin: 04/10/18 18:09 Dose: Not Given Ondansetron HCl (Zofran) 4 mg IV NOW ONE Stop: 04/10/18 15:18 Last Admin: 04/10/18 15:35 Dose: 4 mg Reevaluation(s) Reevaluation #1: re-evaluation after pain medication patient is feeling much more comfortable. Reviewed her lab work and CT. We did discuss that there is a fluid collection although this could be postsurgical or some question about infectious Um but her lab work does not seem consistent with an infection she has been afebrile. She also appears to have quite a bit of stool in possible fecal impaction. Discussed plan for discharge at this time to do magnesium citrate glycerin suppositories as well as stool softeners the patient's return if no bowel movement in the next 24-48 hours or she is having any worsening symptoms, fevers or other changes. Patient feels comfortable with this plan we did review all labs and imaging. We also reviewed her urine which did have some bacteria and was sent for culture. Time: 18:42 Vital Signs - 8 hr 04/10/18 14:04 04/10/18 15:44 04/10/18 18:16 Temperature 97.8 F Pulse Rate 107 H 86 70 Respiratory Rate 20 16 Blood Pressure 110/71 Blood Pressure [Left Arm] 96/63 97/64 Pulse Oximetry 100 98 98 04/10/18 18:57 Temperature 98.5 F Pulse Rate 66 Respiratory Rate 16 Blood Pressure 99/62 Blood Pressure [Left Arm] Pulse Oximetry 98 MDM - Abdominal Pain Lab Data Attestation: I reviewed the patient's lab results. Result diagrams: 04/10/18 15:30 04/10/18 15:30 Lab Results 04/10/18 04/10/18 Range/Units 15:30 15:30 WBC 5.6 (4.5-11.0) X10^3/uL RBC 4.05 (4.0-5.2) X10^6/uL Hgb 13.1 (12.0-16.0) g/dL Hct 37.9 (36-46) % MCV 93.7 (80-100) fL MCH 32.3 (26-34) PG MCHC 34.5 (30-36) % RDW 14.0 (11.6-14.8) % Plt Count 257 (150-400) X10^3/uL Neut % (Auto) 58.0 (50-75) % Lymph % (Auto) 29.5 (25-40) % [place] % (Auto) 9.7 (3-14) % Eos % (Auto) 2.0 (2-4) % Baso % (Auto) 0.8 (0-2) % Neut # (Auto) 3300 (2057-3191) /uL Sodium 142 (137-145) mmol/L Potassium 4.4 (3.4-5.1) mmol/L Chloride 101 (98-107) mmol/L Carbon Dioxide 35 H (22-32) mmol/L BUN 12 (7-17) mg/dL Creatinine 0.70 (0.52-1.04) mg/dL Estimated GFR > 60.0 (>60) mL/min BUN/Creatinine Ratio 17.1 (6-22) Glucose 86 (70-100) mg/dL Calcium 9.3 (8.4-10.2) mg/dL Total Bilirubin 0.3 (0.2-1.3) mg/dL AST 19 (14-36) IU/L ALT 21 (9-52) IU/L Alkaline Phosphatase 53 (38-126) U/L Total Protein 6.9 (6.3-8.2) g/dL Albumin 4.1 (3.5-5.0) g/dL Globulin 2.8 (1.7-4.1) g/dL Albumin/Globulin Ratio 1.5 (1.0-2.8) Lipase 23 (23-300) U/L Point of care testing: Point of Care Testing Test Results Negative Urine Dip Bedside Urine Glucose Negative Bedside Urine Bilirubin - Negative Bedside Urine Ketone - Negative Urine Specific [place] 1.015 Bedside Urine Occult Blood - Negative Bedside Urine pH 7.5 Bedside Urine Protein - Negative Bedside Urine Urobilinogen - Negative Bedside Urine Nitrite - Negative Bedside Urine Leukocytes - Negative Esterase MDM Narrative Medical decision making narrative: Based on patient's recent history and the fact that she was having some vomiting and has had adhesions in the past CT was order to check for any signs of obstruction or infection. Patient and I discussed her lab work which appears to be normal, CT shows air which is not unexpected after her recent surgery. It does show some air-fluid possible some enhancing rim questionable infection although patient is not having any fevers, she does not have an elevated white count she is not having any other infections symptoms at this time so we discussed trying to improve her constipation if she continues to have abdominal pain to return or if she is not able have a bowel movement for another 24 hr possibly to return for disimpaction. Patient is comfortable with this plan she has script for glycerin suppository and was given a bowel joint exam citrate. And we discussed signs and symptoms to watch for. Discharge Plan Departure Patient Disposition: Home Clinical Impression: Abdominal pain, Hx of abdominal surgery, Constipation Discharge Date/Time: 04/10/18 18:59 Interventions: ED Discharge Assessment Last Done: 04/10/18 18:57 Instructions: DI for Abdominal Pain-Adult Activity Restrictions/Additional Instructions: Follow-up in the next 3-5 days for recheck if your symptoms have not completely improved. Return to the emergency department if her having fevers greater than 100.4 F increasing abdominal pain, persistent vomiting, abdominal pain after he has had a bowel movement or other new or concerning signs. Take magnesium citrate and drink 1/2 of the bottle wait 3 or 4 hr if you have not had a bowel movement drink the 2nd half of the bottle. You may also use glycerin suppositories up to 3 times daily as needed for constipation. Continue to take stool softeners daily. Avoid narcotic pain medications if you're able this decreases bowel movement. Prescriptions: New glycerin (adult) [Suppository Adult] suppository 1 suppositor NE QD-BID PRN (Reason: constipation) Qty: 25 RF: 0 No Action citalopram [Celexa] 10 MG tablet 10 mg PO QDAY Qty: 30 RF: 6 oxycodone-acetaminophen 5-325 mg tablet 1 tab PO Q4-6H PRN (Reason: pain) Qty: 10 RF: 0 ondansetron HCl 4 mg tablet 4 mg PO PRN PRN (Reason: Nausea) RF: 0 promethazine 25 mg tablet 25 mg PO PRN PRN (Reason: Nausea) RF: 0 ondansetron 4 mg tablet,disintegrating 4 mg PO Q6-8H PRN (Reason: nausea and vomiting) Qty: 8 RF: 0
[2018-04-10] MEDS: ONDANSETRON 4 MG/2 ML INJ IV (15:35)
[2018-04-10 15:43] LABS: Add Manual Diff / Slide Review NO; Basophils Percent Auto 0.8 % (0-2); Hematocrit 37.9 % (36-46); Hemoglobin 13.1 g/dL (12.0-16.0); Lymphocytes Percent Auto 29.5 % (25-40); Mean Corpuscular HGB Conc 34.5 % (30-36); Mean Corpuscular Hemoglobin 32.3 PG (26-34); Mean Corpuscular Volume 93.7 fL (80-100); Monocytes Percent Auto 9.7 % (3-14); Neutrophils Absolute Auto 3300 /uL (3000-5900); Platelet Count 257 X10^3/uL (150-400); Red Blood Cell Count 4.05 X10^6/uL (4.0-5.2); White Blood Cell Count 5.6 X10^3/uL (4.5-11.0)
[2018-04-10 15:44] VITALS: BP 96/63; PULSE 86; RESP 16; O2SAT 98
[2018-04-10] MEDS: SODIUM CHLORIDE 0.9% 1,000 ML 1000 ML IV (15:50)
--- NOTE | 2018-04-10 15:51 | PC.NURSE ---
Pt states ketorolac makes her nauseated, would like something else. Dr Rosario notified
[2018-04-10 15:54] LABS: Alanine Aminotransferase 21 IU/L (9-52); Albumin 4.1 g/dL (3.5-5.0); Albumin Globulin Ratio 1.5 (1.0-2.8); Alkaline Phosphatase 53 U/L (38-126); Aspartate Aminotransferase 19 IU/L (14-36); BUN Creatinine Ratio 17.1 (6-22); Bilirubin Total 0.3 mg/dL (0.2-1.3); Blood Urea Nitrogen 12 mg/dL (7-17); Calcium 9.3 mg/dL (8.4-10.2); Carbon Dioxide 35 mmol/L (22-32); Chloride 101 mmol/L (98-107); Estimated Glomerular Filt Rate > 60.0 mL/min (>60); Globulin 2.8 g/dL (1.7-4.1); Glucose 86 mg/dL (70-100); HEMOLYSIS < 15 (0-50); Lipase 23 U/L (23-300); Potassium 4.4 mmol/L (3.4-5.1); Sodium 142 mmol/L (137-145); Total Protein 6.9 g/dL (6.3-8.2)
[2018-04-10 18:16] VITALS: BP 97/64; PULSE 70; O2SAT 98
[2018-04-10] MEDS: MORPHINE 4 MG/ML INJ IV (18:18)
[2018-04-10] MEDS: MAGNESIUM CITRATE 300 ML SOLUTION PO (18:56)
[2018-04-10 18:57] VITALS: BP 99/62; PULSE 66; RESP 16; TEMP 36.9; O2SAT 98
== END 2018-04-10 18:59 | disposition home or self-care (01) ==
PROVIDERS: Emergency Provider Emergency Medicine; PCP Family Medicine
DX: K59.00 Constipation, unspecified (principal); Z98.890 Other specified postprocedural states
CPT/HCPCS: 36591; 74177; 80053; 81003; 81025; 83690; 85025; 96361; 96374; 96375; 99283; 99285; J2270; J2405; Q9967

== ENCOUNTER 2018-05-10 00:08 | Emergency (ER) | payer OTHER, MEDICAID, SELFPAY ==
[2018-05-10 00:20] VITALS: BP 103/71; PULSE 100; RESP 18; TEMP 36.7; O2SAT 100; BMI 19.1
[2018-05-10 00:29] VITALS: BP 103/71; PULSE 83; O2SAT 100
[2018-05-10 00:39] VITALS: BP 96/59; PULSE 77; RESP 16; O2SAT 100
--- NOTE | 2018-05-10 01:03 | DI.US.S_ITS ---
PROCEDURE: US PELVIC COMPLETE INDICATIONS: VAGINAL BLEEDING; RECENT SURGERY TECHNIQUE: Real-time scanning was performed of the pelvic organs, with image documentation. Additional endovaginal scanning was necessary due to incomplete visualization of the adnexal and endometrial structures by transabdominal scanning. COMPARISON: [facility], CT, CT ABDOMEN PELVIS W CON, 04/10/2018, 16:37. [facility], US, US PELVIC LIMITED, 01/25/2018, 15:15. [facility], , PELVIC COMPLETE, 11/19/2017, 21:38. FINDINGS: Transabdominal scanning: Limited scanning through the kidneys shows no hydronephrosis. No pathologic free abdominal or pelvic fluid. Endovaginal scanning: Uterus: Uterus is normal in size at 9.1 x 3.4 x 5.5 cm. The endometrium measures 4.4 mm in combined thickness. Ovaries: Ovary surgically absent. No adnexal masses seen. IMPRESSION: No source for vaginal bleeding and pelvic pain identified. Dictated by: Ernesto Leon A Interpreted: Mindi Abernathy MD on 05/10/2018 at 7:41 Approved by: Mindi Abernathy MD, PhD on 05/10/2018 at 9:25
--- NOTE | 2018-05-10 01:04 | ED.FEMALEGU ---
HPI - Female Genitourinary General Chief complaint: Vaginal Bleeding Stated complaint: heavy vaginal bleeding had hysterectomy pain Time Seen by Provider: 05/10/18 00:54 Source: patient Mode of arrival: ambulatory Limitations: no limitations History of Present Illness HPI Narrative: Patient is a 32-year-old female with history of ovarian cancer she had her left ovary and oophorectomy removed and [facility] on 04/05/2018. She has been doing well until 3 days ago where she started to experience some vaginal bleeding. She had some spotting of dark red blood but it has progressively gotten all rider and she has passed 1 blood clot. She has some mild discomfort. She denies fever or chills. She had a UTI previous to her surgery and after her surgery. She has difficulty emptying her bladder. MD Complaint: vaginal bleeding Related Data Home Medications Medication Instructions Recorded Confirmed ondansetron HCl 4 mg PO PRN PRN 03/31/18 03/31/18 promethazine 25 mg PO PRN PRN 03/31/18 03/31/18 Previous Rx's Medication Instructions Recorded citalopram [Celexa] 10 mg PO QDAY #30 tab 11/09/17 oxycodone-acetaminophen 1 tab PO Q4-6H PRN #10 tab 03/25/18 ondansetron 4 mg PO Q6-8H PRN #8 tab 03/31/18 glycerin (adult) [Suppository 1 suppositor SD QD-BID PRN #25 each 04/10/18 Adult rectal] Allergies Allergy/AdvReac Type Severity Reaction Status Date / Time Penicillins [PENICILLINS] Allergy Severe RASH Verified 03/31/18 14:46 vancomycin [VANCOMYCIN] Allergy Severe JUAREZ Verified 03/31/18 14:46 SYNDROME adhesive [ADHESIVE] Allergy Intermediate RASH, SKIN Verified 03/31/18 14:46 PEELS latex [LATEX] Allergy Intermediate RASH Verified 03/31/18 14:46 Review of Systems Review of Systems All systems reviewed & are unremarkable except as noted in HPI and below Constitutional Denies chills, Denies fever(s), Denies lethargy and Denies weakness Cardiovascular Denies chest pain, Denies irregular heart rhythm, Denies lightheadedness, Denies palpitations, Denies dyspnea, Denies dyspnea on exertion and Denies orthopnea Respiratory Denies cough, Denies dyspnea, Denies dyspnea on exertion and Denies wheezing Genitourinary Reports as per HPI Integumentary/Breasts Denies pruritus, Denies erythema, Denies rash and Denies wounds Neurologic Denies weakness Endocrine Denies palpitations Allergic/Immunologic Denies wheezing [facility] Social History Smoking Status: Current every day smoker Exam Initial Vital Signs Initial Vital Signs: Vital Signs Temperature 98.1 F 05/10/18 00:20 Pulse Rate 100 H 05/10/18 00:20 Respiratory Rate 18 05/10/18 00:20 Blood Pressure 103/71 05/10/18 00:20 Pulse Oximetry 100 05/10/18 00:20 GENERAL: Well-appearing, well-nourished and in no acute distress. HEENT: Head atraumatic,EOMI, pupils reactive, neck is supple CARDIOVASCULAR: Regular rate and rhythm without murmurs, rubs or gallops. RESPIRATORY: Breath sounds equal bilaterally, no wheezes rales or rhonchi. ABDOMEN: Soft, nontender. Normoactive bowel sounds all 4 quadrants. No guarding or rebound. PELVIC: Patient was not going to tolerate a speculum exam. There is no bright red or gross blood or clots in the vagina. Some dark brown minimal blood is noted EXTREMITIES: Normal range of motion, no clubbing or edema. Neurovascularly intact NEUROLOGICAL: Alert and oriented x4.Normal gait and speech. Cranial nerves II through XII grossly intact. SKIN: Warm, dry, no laceration, no petechiae, no rashes or lesions. Course Orders Ordered: ED Orders 05/10/18 00:30 Basic Metabolic Panel Stat Complete Blood Count AUTO DIFF Stat 05/10/18 01:03 US pelvic complete Stat 05/10/18 02:47 Urinalysis and Microscopic Stat Discontinued Medications Ketorolac Tromethamine (Toradol) 30 mg IV NOW ONE Stop: 05/10/18 01:04 Last Admin: 05/10/18 01:08 Dose: 30 mg Ondansetron HCl (Zofran) 4 mg IV NOW ONE Stop: 05/10/18 03:04 Last Admin: 05/10/18 03:04 Dose: 4 mg Vital Signs - 8 hr 05/10/18 00:20 05/10/18 00:29 05/10/18 00:39 Temperature 98.1 F Pulse Rate 100 H 83 77 Respiratory Rate 18 16 Blood Pressure 103/71 Blood Pressure [Left Arm] 103/71 96/59 L Pulse Oximetry 100 100 100 05/10/18 02:57 Temperature Pulse Rate 76 Respiratory Rate 20 Blood Pressure Blood Pressure [Left Arm] 109/76 Pulse Oximetry 97 MDM - Female Genitourinary Lab Data Attestation: I reviewed the patient's lab results. Result diagrams: 05/10/18 00:30 05/10/18 00:30 Lab Results 05/10/18 05/10/18 Range/Units 00:30 00:30 WBC 6.1 (4.5-11.0) X10^3/uL RBC 4.16 (4.0-5.2) X10^6/uL Hgb 13.5 (12.0-16.0) g/dL Hct 39.4 (36-46) % MCV 94.6 (80-100) fL MCH 32.3 (26-34) PG MCHC 34.2 (30-36) % RDW 14.4 (11.6-14.8) % Plt Count 226 (150-400) X10^3/uL Neut % (Auto) 48.8 L (50-75) % Lymph % (Auto) 41.1 H (25-40) % [place] % (Auto) 8.3 (3-14) % Eos % (Auto) 1.3 L (2-4) % Baso % (Auto) 0.5 (0-2) % Neut # (Auto) 3000 (5998-1079) /uL Sodium 141 (137-145) mmol/L Potassium 3.9 (3.4-5.1) mmol/L Chloride 102 (98-107) mmol/L Carbon Dioxide 30 (22-32) mmol/L BUN 18 H (7-17) mg/dL Creatinine 0.70 (0.52-1.04) mg/dL Estimated GFR > 60.0 (>60) mL/min BUN/Creatinine Ratio 25.7 H (6-22) Glucose 95 (70-100) mg/dL Calcium 9.6 (8.4-10.2) mg/dL Point of Care Testing Test Results Negative Urine Dip Bedside Urine Glucose Negative Bedside Urine Bilirubin - Negative Bedside Urine Ketone - Negative Urine Specific [place] 1.015 Bedside Urine Occult Blood - Negative Bedside Urine pH 6.0 Bedside Urine Protein - Negative Bedside Urine Urobilinogen - Negative Bedside Urine Nitrite - Negative Bedside Urine Leukocytes - Negative Esterase Imaging Data US Pelvic: 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 She then had a pelvic ultrasound which increased her pain. She wanting something more. [facility] notes have been reviewed. She was not given any more narcotics. I have offered her Tylenol for further pain control which she refused. Call in to [facility] vegetable harvest worker oncology, suggested that she can follow up as outpatient therapy and bleeding is likely from hormones Discharge Plan Departure Patient Disposition: Home Clinical Impression: Abnormal vaginal bleeding Instructions: DI for Vaginal Bleeding Activity Restrictions/Additional Instructions: *You have been diagnosed with vaginal bleeding-bleeding is likely from taking estrogen and progesterone Blood work and ultrasound are reassuring and within normal limits *Continue to take medications as directed *Follow up with your primary care provider in 2-3 days follow up with vegetable harvest worker at [facility] *Return to ER if you should have going through more than 1 pad an hour, dizziness, lightheadedness, passing any new, worsening or concerning symptoms Prescriptions: No Action citalopram [Celexa] 10 MG tablet 10 mg PO QDAY Qty: 30 RF: 6 glycerin (adult) [Suppository Adult] suppository 1 suppositor SD QD-BID PRN (Reason: constipation) Qty: 25 RF: 0 oxycodone-acetaminophen 5-325 mg tablet 1 tab PO Q4-6H PRN (Reason: pain) Qty: 10 RF: 0 ondansetron HCl 4 mg tablet 4 mg PO PRN PRN (Reason: Nausea) RF: 0 promethazine 25 mg tablet 25 mg PO PRN PRN (Reason: Nausea) RF: 0 ondansetron 4 mg tablet,disintegrating 4 mg PO Q6-8H PRN (Reason: nausea and vomiting) Qty: 8 RF: 0 Referrals: Neri Ko MD [Primary Care Provider] -
[2018-05-10] MEDS: KETOROLAC 60 MG/2 ML VIAL 30 MG IV (01:08)
[2018-05-10 01:11] LABS: Add Manual Diff / Slide Review NO; Basophils Percent Auto 0.5 % (0-2); Eosinophils Percent Auto 1.3 % (2-4); Hematocrit 39.4 % (36-46); Hemoglobin 13.5 g/dL (12.0-16.0); Lymphocytes Percent Auto 41.1 % (25-40); Mean Corpuscular HGB Conc 34.2 % (30-36); Mean Corpuscular Hemoglobin 32.3 PG (26-34); Mean Corpuscular Volume 94.6 fL (80-100); Monocytes Percent Auto 8.3 % (3-14); Neutrophils Absolute Auto 3000 /uL (3000-5900); Neutrophils Percent Auto 48.8 % (50-75); Platelet Count 226 X10^3/uL (150-400); Red Blood Cell Count 4.16 X10^6/uL (4.0-5.2); Red Cell Distribution Width 14.4 % (11.6-14.8); White Blood Cell Count 6.1 X10^3/uL (4.5-11.0)
[2018-05-10 01:14] LABS: BUN Creatinine Ratio 25.7 (6-22); Blood Urea Nitrogen 18 mg/dL (7-17); Calcium 9.6 mg/dL (8.4-10.2); Carbon Dioxide 30 mmol/L (22-32); Chloride 102 mmol/L (98-107); Estimated Glomerular Filt Rate > 60.0 mL/min (>60); Glucose 95 mg/dL (70-100); HEMOLYSIS < 15 (0-50); Potassium 3.9 mmol/L (3.4-5.1); Sodium 141 mmol/L (137-145)
[2018-05-10 02:57] VITALS: BP 109/76; PULSE 76; RESP 20; O2SAT 97
[2018-05-10] MEDS: ONDANSETRON 4 MG/2 ML INJ IV (03:04)
== END 2018-05-10 03:47 | disposition home or self-care (01) ==
PROVIDERS: Emergency Provider Emergency Medicine; PCP Family Medicine
DX: N93.9 Abnormal uterine and vaginal bleeding, unspecified (principal); Z98.890 Other specified postprocedural states
CPT/HCPCS: 36415; 36591; 76830; 76856; 80048; 81003; 81025; 85025; 96374; 96375; 99283; 99284; J1885; J2405

== ENCOUNTER 2018-06-30 13:58 | Emergency (ER) | payer OTHER, MEDICAID, SELFPAY ==
[2018-06-30 14:04] VITALS: BP 125/82; PULSE 103; RESP 18; TEMP 36.7; O2SAT 100
--- NOTE | 2018-06-30 14:10 | DI.RAD.S_ITS ---
PROCEDURE: XR CHEST 2V INDICATIONS: rib pain TECHNIQUE: 2 views of the chest were acquired. COMPARISON: [facility], CT, CHEST/ABD/PEL WITH CONTRAST, 04/27/2014, 13:39. FINDINGS: Surgical changes and devices: None. Lungs and pleura: No pleural effusions or pneumothorax. Lungs are clear. Mediastinum: Mediastinal contours are normal. Heart size is normal. Bones and chest wall: No suspicious bony abnormalities. In this patient with this given history, scrutiny is given to the ribs. No displaced rib fractures are seen. Pectus excavatum deformity can be seen on the lateral view. Soft tissues appear unremarkable. IMPRESSION: No acute rib abnormality can be seen. Pectus excavatum deformity. Dictated by: Madhu Amaro M.D. on 06/30/2018 at 13:51 Approved by: Madhu Amaro M.D. on 06/30/2018 at 13:53
--- NOTE | 2018-06-30 14:17 | ED.URI ---
HPI - URI/Sore Throat <Maryuri Garcia PA-C - Last Filed: 06/30/18 21:19> General Chief Complaint: Upper Respiratory Symptoms Stated Complaint: Rib pain and cough Time Seen by Provider: 06/30/18 14:17 Source: patient Mode of arrival: ambulatory Limitations: no limitations History of Present Illness HPI Narrative: this 32-year-old female comes to ED due to 2 week history mixed wet and dry cough. She states that she had some sore throat for a couple of days at onset but that resolved. She states that she has had some runny nose and sneezing, but mostly the cough and congestion in her lungs. Three days ago, she states she coughed hard and felt like there was popping on the left side of her ribs. She states that she continues to have rib pain now with any jolting, cough, sneezing, deep breath, etc. She has been taking Tylenol and ibuprofen. She states that she feels a little bit short of breath and like her lungs are congested, especially at work ( she works in [employer] ). She does have a history of childhood reactive airways and is a smoker. She denies any fever, chills, sweats. She denies body aches. She denies sinus pain or earache. Her son did develop strep throat after her cough started, but she has not had any recurrent sore throat. She denies any new pain or swelling in her legs or other new complaints on systems review. she has had her flu vaccine this year. Related Data Home Medications Medication Instructions Recorded Confirmed ondansetron HCl 4 mg PO PRN PRN 03/31/18 05/11/18 promethazine 25 mg PO PRN PRN 03/31/18 05/11/18 conj estrogen-medroxyprogesterone 1 tab PO DAILY 05/11/18 05/11/18 0.625 mg-2.5 mg tablet 1 tab PO DAILY 05/11/18 05/11/18 vitamin,calcium,wltvdldz-nlmc-xfmwa acid tablet Previous Rx's Medication Instructions Recorded oxycodone-acetaminophen 1 tab PO Q4-6H PRN #10 tab 03/25/18 ondansetron 4 mg PO Q6-8H PRN #8 tab 03/31/18 glycerin (adult) [Suppository 1 suppositor MO QD-BID PRN #25 each 04/10/18 Adult rectal] acetaminophen 500 mg tablet 500 mg PO Q4-6H PRN #60 tab 05/11/18 citalopram 10 mg tablet 10 mg PO QDAY #30 tab 05/11/18 ibuprofen 600 mg tablet 600 mg PO TID PRN #60 tab 05/11/18 albuterol sulfate 2 inhalation INHALATION Q4H PRN 06/30/18 #6.7 gram hydrocodone-acetaminophen 1 tab PO Q8H PRN #5 tab 06/30/18 Allergies Allergy/AdvReac Type Severity Reaction Status Date / Time Penicillins [PENICILLINS] Allergy Severe RASH Verified 05/11/18 09:19 vancomycin [VANCOMYCIN] Allergy Severe JUAREZ Verified 05/11/18 09:19 SYNDROME adhesive [ADHESIVE] Allergy Intermediate RASH, SKIN Verified 05/11/18 09:19 PEELS latex [LATEX] Allergy Intermediate RASH Verified 05/11/18 09:19 Review of Systems <Maryuri Garcia PA-C - Last Filed: 06/30/18 21:19> Review of Systems All systems reviewed & are unremarkable except as noted in HPI and below Exam <KATHERIN Martin Last Filed: 06/30/18 21:19> Narrative Exam Narrative: GENERAL APPEARANCE: Patient sitting comfortably, in no distress. HEAD: No sinus TTP. EYES: PERRL, EOMI. EARS: Normal auditory canals, TMS intact with normal light reflexes. ORAL CAVITY: Normal oropharynx. THROAT: Clear. NECK/THYROID: Neck supple, full range of motion, no cervical lymphadenopathy. LUNGS: Somewhat coarse breath sounds, splinting, no clear wheezes or crackles CHEST: Tender over the left mid anterolateral ribs HEART: RRR without murmur, nl S1, S2, no S3 or S4. Initial Vital Signs Initial Vital Signs: Vital Signs Temperature 98.0 F 06/30/18 14:04 Pulse Rate 103 H 06/30/18 14:04 Respiratory Rate 18 06/30/18 14:04 Blood Pressure 125/82 06/30/18 14:04 Pulse Oximetry 100 06/30/18 14:04 <Ramonita Giraldo DO - Last Filed: 07/01/18 07:34> Initial Vital Signs Initial Vital Signs: Vital Signs Temperature 98.0 F 06/30/18 14:04 Pulse Rate 103 H 06/30/18 14:04 Respiratory Rate 18 06/30/18 14:04 Blood Pressure 125/82 06/30/18 14:04 Pulse Oximetry 100 06/30/18 14:04 Course <Maryuri Garcia PA-C - Last Filed: 06/30/18 21:19> Orders Ordered: Discontinued Medications Albuterol (Ventolin) 2.5 mg INH NOW ONE Stop: 06/30/18 14:29 Last Admin: 06/30/18 14:46 Dose: 2.5 mg Vital Signs - 8 hr 06/30/18 14:04 06/30/18 14:47 06/30/18 15:48 Temperature 98.0 F Pulse Rate 103 H 77 66 Respiratory Rate 18 16 Blood Pressure 125/82 97/61 Pulse Oximetry 100 99 97 <Ramonita Giraldo DO - Last Filed: 07/01/18 07:34> Orders Ordered: Discontinued Medications Albuterol (Ventolin) 2.5 mg INH NOW ONE Stop: 06/30/18 14:29 Last Admin: 06/30/18 14:46 Dose: 2.5 mg Vital Signs - 8 hr 06/30/18 14:04 06/30/18 14:47 06/30/18 15:48 Temperature 98.0 F Pulse Rate 103 H 77 66 Respiratory Rate 18 16 Blood Pressure 125/82 97/61 Pulse Oximetry 100 99 97 Discharge Plan Departure Patient Disposition: Home Clinical Impression: Reactive airway disease with acute exacerbation, Bronchitis, Rib pain on left side Discharge Date/Time: 06/30/18 15:50 Interventions: ED Discharge Assessment Last Done: 06/30/18 15:48 Instructions: DI for Acute Bronchitis, DI for Reactive Airway Disease-Adult Activity Restrictions/Additional Instructions: The majority of the time bronchitis is a virus and antibiotics do not treat it (it gets better on its own ). You seem to have a reactive airways reaction as well (like when you were a child and needed an inhaler). This is likely contributing to your cough and tight chest. Please return as we talked about if you have any acutely worsening symptoms. Otherwise, please use the inhaler at least twice a day routinely and in between as often as needed for cough and tight chest. Stop ibuprofen and take the once daily anti-inflammatory / pain reliever I have prescribed for you. I have also prescribed a few hydrocodone/acetaminophen for nighttime if you need them to get comfortable ( do not take those and drive as they could make you sleepy ). Please do light duty at work to avoid stress on your ribs. You may also wish to try topical rubs or lidocaine patches to sooth the your rib pain. Concentrate on taking deep breaths several times daily as we talked about to help keep your lungs expanded. Prescriptions: New albuterol sulfate 90 mcg/actuation HFA aerosol inhaler 2 inhalation INHALATION Q4H PRN (Reason: tight chest/cough) Qty: 6.7 RF: 0 hydrocodone-acetaminophen 5-325 mg tablet 1 tab PO Q8H PRN (Reason: acute rib pain) Qty: 5 RF: 0 No Action conj estrog-medroxyprogest bernice [Prempro] 0.625-2.5 mg tablet 1 tab PO DAILY RF: 0 prenat.vits,mishel,nue-kjfk-pvigg [ Vitamin] tablet 1 tab PO DAILY RF: 0 citalopram [Celexa] 10 mg tablet 10 mg PO QDAY Qty: 30 RF: 6 acetaminophen 500 mg tablet 500 mg PO Q4-6H PRN (Reason: pain) Qty: 60 RF: 0 ibuprofen 600 mg tablet 600 mg PO TID PRN (Reason: pain) Qty: 60 RF: 0 glycerin (adult) [Suppository Adult] suppository 1 suppositor MO QD-BID PRN (Reason: constipation) Qty: 25 RF: 0 oxycodone-acetaminophen 5-325 mg tablet 1 tab PO Q4-6H PRN (Reason: pain) Qty: 10 RF: 0 ondansetron HCl 4 mg tablet 4 mg PO PRN PRN (Reason: Nausea) RF: 0 promethazine 25 mg tablet 25 mg PO PRN PRN (Reason: Nausea) RF: 0 ondansetron 4 mg tablet,disintegrating 4 mg PO Q6-8H PRN (Reason: nausea and vomiting) Qty: 8 RF: 0 Referrals: Neri Ko MD [Primary Care Provider] - <Ramonita Giraldo DO - Last Filed: 07/01/18 07:34> Cosign ED Attending Camrynature Attestation: I was immediately available in the department for consultation. Documentation has been reviewed. I agree with assessment and plan.
[2018-06-30] MEDS: ALBUTEROL 2.5 MG/3 ML NEB (ADULT) INH (14:46)
[2018-06-30 14:47] VITALS: PULSE 77; RESP 16; O2SAT 99
[2018-06-30 15:48] VITALS: BP 97/61; PULSE 66; O2SAT 97
== END 2018-06-30 15:50 | disposition home or self-care (01) ==
PROVIDERS: Emergency Provider Internal Medicine; PCP Family Medicine
DX: J45.901 Unspecified asthma with (acute) exacerbation (principal); R07.81 Pleurodynia
CPT/HCPCS: 71046; 94150; 94640; 99282; 99283; J7613

== ENCOUNTER 2018-07-10 19:19 | Emergency (ER) | payer OTHER, MEDICAID, SELFPAY ==
[2018-07-10 19:31] VITALS: BP 97/66; PULSE 90; RESP 15; TEMP 37; O2SAT 98
--- NOTE | 2018-07-10 19:37 | ED.URI ---
HPI - URI/Sore Throat <MARTHA Neville - Last Filed: 07/10/18 22:32> General Chief Complaint: Upper Respiratory Symptoms Stated Complaint: SORE THROAT SWELLING OF TONSILS Time Seen by Provider: 07/10/18 19:36 Source: patient Mode of arrival: ambulatory Limitations: no limitations History of Present Illness HPI Narrative: 32-year-old female with history of depression is in everyday smoker here for complaint of sore throat over the past couple of days. She does report that she has had bronchitis over the past few weeks as well. Positive p.o. intake. She does say that she has had some chills and night sweats. Although she denies having a fever. She reports increased pain with swallowing. She denies any other concerns or complaints at this point. She is able speak full sentences. MD Complaint: sore throat Related Data Home Medications Medication Instructions Recorded Confirmed ondansetron HCl 4 mg PO PRN PRN 03/31/18 05/11/18 promethazine 25 mg PO PRN PRN 03/31/18 05/11/18 conj estrogen-medroxyprogesterone 1 tab PO DAILY 05/11/18 05/11/18 0.625 mg-2.5 mg tablet 1 tab PO DAILY 05/11/18 05/11/18 vitamin,calcium,rapoizge-fmge-oumhz acid tablet Previous Rx's Medication Instructions Recorded oxycodone-acetaminophen 1 tab PO Q4-6H PRN #10 tab 03/25/18 ondansetron 4 mg PO Q6-8H PRN #8 tab 03/31/18 glycerin (adult) [Suppository 1 suppositor [place] QD-BID PRN #25 each 04/10/18 Adult rectal] acetaminophen 500 mg tablet 500 mg PO Q4-6H PRN #60 tab 05/11/18 citalopram 10 mg tablet 10 mg PO QDAY #30 tab 05/11/18 ibuprofen 600 mg tablet 600 mg PO TID PRN #60 tab 05/11/18 albuterol sulfate 2 inhalation INHALATION Q4H PRN 06/30/18 #6.7 gram hydrocodone-acetaminophen 1 tab PO Q8H PRN #5 tab 06/30/18 azithromycin See Label Instructions .ROUTE 07/10/18 .COMPLEX #6 tab Allergies Allergy/AdvReac Type Severity Reaction Status Date / Time Penicillins [PENICILLINS] Allergy Severe RASH Verified 07/10/18 19:31 vancomycin [VANCOMYCIN] Allergy Severe JUAREZ Verified 07/10/18 19:31 SYNDROME adhesive [ADHESIVE] Allergy Intermediate RASH, SKIN Verified 07/10/18 19:31 PEELS latex [LATEX] Allergy Intermediate RASH Verified 07/10/18 19:31 Review of Systems <MARTHA Neville - Last Filed: 07/10/18 22:32> Constitutional Reports chills, Denies fever(s), Denies lethargy and Denies weakness Eyes Denies change in vision, Denies eye discharge, Denies irritation and Denies loss of vision ENT Ears, Nose, Mouth, and Throat: Reports sore throat Cardiovascular Denies chest pain, Denies irregular heart rhythm, Denies lightheadedness, Denies palpitations, Denies dyspnea, Denies dyspnea on exertion and Denies orthopnea Respiratory Denies cough, Denies dyspnea, Denies dyspnea on exertion and Denies wheezing Gastrointestinal Gastrointestinal: Denies abdominal pain, Denies change in bowel habits, Denies diarrhea, Denies nausea and Denies vomiting Genitourinary Denies hematuria, Denies flank pain, Denies urinary incontinence and Denies urinary urgency Musculoskeletal Denies back pain, Denies muscle weakness, Denies numbness and Denies tingling Integumentary/Breasts Denies pruritus, Denies erythema, Denies rash and Denies wounds Neurologic Denies loss of vision, Denies numbness, Denies tingling and Denies weakness Endocrine Denies palpitations Hematologic/Lymphatic Denies easy bruising Allergic/Immunologic Denies wheezing Exam <MARTHA Neville - Last Filed: 07/10/18 22:32> Initial Vital Signs Initial Vital Signs: Vital Signs Temperature 98.6 F 07/10/18 19:31 Pulse Rate 90 07/10/18 19:31 Respiratory Rate 15 07/10/18 19:31 Blood Pressure 97/66 07/10/18 19:31 Pulse Oximetry 98 07/10/18 19:31 Const General: cooperative and well developed Nutritional Appearance: well nourished Orientation: alert, awake, oriented x3 and not confused HENMT Mouth: oral mucosae normal and moist mucous membranes Throat: posterior oropharynx abnormal erythema Eyes Conjunctivae: conjunctivae normal Sclera: sclerae normal Pupils: PERRL EOM: EOM intact bilaterally Resp Effort & Inspection: normal respiratory effort, able to speak in complete sentences, no respiratory distress and no use of accessory muscles Auscultation: clear to auscultation bilaterally, no rales, no rhonchi and no wheezes Cardio Rate: regular rate Rhythm: regular rhythm Heart Sounds: no click, no gallops, no murmurs and no rubs Pulses: normal peripheral pulses Skin General: no rashes or lesions noted, No jaundice and No petechiae Neuro General: alert, oriented x3, gait normal and no focal motor deficits Speech: speech normal <Eladio Bhatt MD - Last Filed: 07/11/18 05:10> Initial Vital Signs Initial Vital Signs: Vital Signs Temperature 98.6 F 07/10/18 19:31 Pulse Rate 90 07/10/18 19:31 Respiratory Rate 15 07/10/18 19:31 Blood Pressure 97/66 07/10/18 19:31 Pulse Oximetry 98 07/10/18 19:31 Course <MARTHA Neville - Last Filed: 07/10/18 22:32> Vital Signs - 8 hr 07/10/18 19:31 Temperature 98.6 F Pulse Rate 90 Respiratory Rate 15 Blood Pressure 97/66 Pulse Oximetry 98 <Eladio Bhatt MD - Last Filed: 07/11/18 05:10> Vital Signs - 8 hr 07/10/18 19:31 Temperature 98.6 F Pulse Rate 90 Respiratory Rate 15 Blood Pressure 97/66 Pulse Oximetry 98 MDM - URI/Sore Throat <MARTHA Neville - Last Filed: 07/10/18 22:32> Lab Data Point of Care Testing Rapid Strep A Positive MDM Narrative Medical decision making narrative: Rapid strep test was obtained was positive for strep group a. She is placed on azithromycin due to penicillin allergy. plenty of fluids and rest. [id number] ibuprofen as needed for discomfort anti-inflammatory effects. Salt water gargles to help with inflammation to the throat. Follow up with primary care provider later this week. For any worsening symptoms return to the emergency room. <Eladio Bhatt MD - Last Filed: 07/11/18 05:10> Lab Data Point of Care Testing Rapid Strep A Positive Discharge Plan Departure Patient Disposition: Home Clinical Impression: Acute streptococcal pharyngitis Discharge Date/Time: 07/10/18 21:18 Interventions: ED Discharge Assessment Last Done: 07/10/18 21:21 Instructions: DI for Strep Throat Activity Restrictions/Additional Instructions: Rapid strep test was obtained was positive for strep. you are placed on a antibiotic called azithromycin use as directed. plenty of fluids and rest. Igwf-[id number] ibuprofen as needed for discomfort anti-inflammatory effects. Salt water gargles to help with inflammation to the throat. Follow up with primary care provider later this week. For any worsening symptoms return to the emergency room. Prescriptions: New azithromycin 250 mg tablet See Label Instructions .ROUTE .COMPLEX Qty: 6 RF: 0 No Action conj estrog-medroxyprogest bernice [Prempro] 0.625-2.5 mg tablet 1 tab PO DAILY RF: 0 prenat.vits,mishel,ghv-zlrm-zftde [ Vitamin] tablet 1 tab PO DAILY RF: 0 citalopram [Celexa] 10 mg tablet 10 mg PO QDAY Qty: 30 RF: 6 acetaminophen 500 mg tablet 500 mg PO Q4-6H PRN (Reason: pain) Qty: 60 RF: 0 ibuprofen 600 mg tablet 600 mg PO TID PRN (Reason: pain) Qty: 60 RF: 0 glycerin (adult) [Suppository Adult] suppository 1 suppositor [place] QD-BID PRN (Reason: constipation) Qty: 25 RF: 0 albuterol sulfate 90 mcg/actuation HFA aerosol inhaler 2 inhalation INHALATION Q4H PRN (Reason: tight chest/cough) Qty: 6.7 RF: 0 hydrocodone-acetaminophen 5-325 mg tablet 1 tab PO Q8H PRN (Reason: acute rib pain) Qty: 5 RF: 0 oxycodone-acetaminophen 5-325 mg tablet 1 tab PO Q4-6H PRN (Reason: pain) Qty: 10 RF: 0 ondansetron HCl 4 mg tablet 4 mg PO PRN PRN (Reason: Nausea) RF: 0 promethazine 25 mg tablet 25 mg PO PRN PRN (Reason: Nausea) RF: 0 ondansetron 4 mg tablet,disintegrating 4 mg PO Q6-8H PRN (Reason: nausea and vomiting) Qty: 8 RF: 0 Referrals: Neri Ko MD [Primary Care Provider] - <Eladio Bhatt MD - Last Filed: 07/11/18 05:10> Cosign ED Attending Cosjulissaature Attestation: I was present in the ER at the time this patient's care. I was available for verbal consultation or to see the patient directly if requested. I agree with the assessment and treatment plan.
== END 2018-07-10 21:18 | disposition home or self-care (01) ==
PROVIDERS: Emergency Provider Nurse Practitioner Family; PCP Family Medicine
DX: J02.0 Streptococcal pharyngitis (principal)
CPT/HCPCS: 87880; 99282; 99283

== ENCOUNTER 2018-07-18 17:02 | Emergency (ER) | payer OTHER, MEDICAID, SELFPAY ==
[2018-07-18 17:15] VITALS: BP 113/75; PULSE 118; RESP 18; TEMP 37.4; O2SAT 100
[2018-07-18 18:25] LABS: Add Manual Diff / Slide Review NO; Basophils Percent Auto 0.6 % (0-2); Eosinophils Percent Auto 0.2 % (2-4); Hematocrit 43.4 % (36-46); Hemoglobin 14.7 g/dL (12.0-16.0); Lymphocytes Percent Auto 12.5 % (25-40); Mean Corpuscular HGB Conc 33.8 % (30-36); Mean Corpuscular Hemoglobin 32.3 PG (26-34); Mean Corpuscular Volume 95.5 fL (80-100); Monocytes Percent Auto 7.8 % (3-14); Neutrophils Absolute Auto 11300 /uL (1500-7000); Neutrophils Percent Auto 78.9 % (50-75); Platelet Count 349 X10^3/uL (150-400); Red Blood Cell Count 4.54 X10^6/uL (4.0-5.2); Red Cell Distribution Width 13.9 % (11.6-14.8); White Blood Cell Count 14.3 X10^3/uL (4.5-11.0)
[2018-07-18] MEDS: KETOROLAC 60 MG/2 ML VIAL 15 MG IV (18:35)
[2018-07-18] MEDS: SODIUM CHLORIDE 0.9% 1,632.93 ML 544.31 ML IV (18:35)
[2018-07-18] MEDS: DEXAMETHASONE 20 MG in SODIUM CHLORIDE 0.9% 50 ML 208 ML IV (18:35)
--- NOTE | 2018-07-18 18:36 | PC.NURSE ---
Pt with bulge to neck. Probable abscess.
[2018-07-18 18:37] LABS: Lactate (Lactic Acid) 0.9 mmol/L (0.7-2.1)
[2018-07-18 18:38] LABS: Alanine Aminotransferase 23 IU/L (9-52); Albumin 4.3 g/dL (3.5-5.0); Albumin Globulin Ratio 1.3 (1.0-2.8); Alkaline Phosphatase 91 U/L (38-126); Aspartate Aminotransferase 14 IU/L (14-36); Bilirubin Total 0.6 mg/dL (0.2-1.3); Blood Urea Nitrogen 8 mg/dL (7-17); Calcium 9.4 mg/dL (8.4-10.2); Carbon Dioxide 28 mmol/L (22-32); Chloride 103 mmol/L (98-107); Estimated Glomerular Filt Rate > 60.0 mL/min (>60); Globulin 3.3 g/dL (1.7-4.1); Glucose 86 mg/dL (70-100); HEMOLYSIS < 15 (0-50); Potassium 3.9 mmol/L (3.4-5.1); Sodium 142 mmol/L (137-145); Total Protein 7.6 g/dL (6.3-8.2)
[2018-07-18] MEDS: CLINDAMYCIN 600 MG/50 ML PIGGYBACK 50 MG IV (18:53)
[2018-07-18 18:54] VITALS: BP 99/67; PULSE 75; RESP 20; O2SAT 99
[2018-07-18 19:01] LABS: Procalcitonin < 0.05 ng/mL (<0.5)
[2018-07-18] MEDS: HYDROMORPHONE 1 MG INJ 0.5 MG IV (19:03)
--- NOTE | 2018-07-18 19:04 | ED.GENADULT ---
HPI - General Adult General Chief complaint: Upper Respiratory Symptoms Stated complaint: right side of neck and jaw is swelling Time Seen by Provider: 07/18/18 17:39 Source: patient and other (significant other) Mode of arrival: ambulatory Limitations: no limitations History of Present Illness HPI narrative: This is a 32-year-old female who comes to the emergency department with complaint of sore throat and swelling of the right side of the neck. Patient states she was diagnosed with strep throat, she was started on azithromycin secondary to a penicillin allergy and states that she finished the Z-Ang. Patient states that she continued to have symptoms while she was on antibiotics and they have continued to get worse. She started having swelling on the right side of her neck she noticed a lump and it seemed to get bigger with each day. She did notice that when she lays flat it gets bigger and when she sits up it is a little bit better. She has not had any fevers but she has had sweats at night. She has pain with swallowing and it feels tight in the throat on the right side. Patient has not had any nasal congestion she states that the pain is in her right neck and throat and radiates up to her right ear now. Patient has had mild nonproductive cough. She has not had any difficulty with swallowing her secretions Um or saliva. She has been very slightly hoarse but no major changes to her voice. Patient has not had similar symptoms in the past. She denies any other medical issues besides ?lady problems?. She has had both of her ovaries out. Related Data Home Medications Medication Instructions Recorded Confirmed ondansetron HCl 4 mg PO PRN PRN 03/31/18 05/11/18 promethazine 25 mg PO PRN PRN 03/31/18 05/11/18 conj estrogen-medroxyprogesterone 1 tab PO DAILY 05/11/18 05/11/18 0.625 mg-2.5 mg tablet 1 tab PO DAILY 05/11/18 05/11/18 vitamin,calcium,eusybign-xjam-apjek acid tablet Previous Rx's Medication Instructions Recorded oxycodone-acetaminophen 1 tab PO Q4-6H PRN #10 tab 03/25/18 ondansetron 4 mg PO Q6-8H PRN #8 tab 03/31/18 glycerin (adult) [Suppository 1 suppositor MI QD-BID PRN #25 each 04/10/18 Adult rectal] acetaminophen 500 mg tablet 500 mg PO Q4-6H PRN #60 tab 05/11/18 citalopram 10 mg tablet 10 mg PO QDAY #30 tab 05/11/18 ibuprofen 600 mg tablet 600 mg PO TID PRN #60 tab 05/11/18 albuterol sulfate 2 inhalation INHALATION Q4H PRN 06/30/18 #6.7 gram hydrocodone-acetaminophen 1 tab PO Q8H PRN #5 tab 06/30/18 azithromycin See Label Instructions .ROUTE 07/10/18 .COMPLEX #6 tab clindamycin HCl 300 mg PO QID #40 cap 07/18/18 dexamethasone 4 mg PO DAILY #5 tab 07/18/18 oxycodone-acetaminophen [Percocet] 1 tab PO Q4-6H PRN #10 tab 07/18/18 Allergies Allergy/AdvReac Type Severity Reaction Status Date / Time Penicillins [PENICILLINS] Allergy Severe RASH Verified 07/10/18 19:31 vancomycin [VANCOMYCIN] Allergy Severe JUAREZ Verified 07/10/18 19:31 SYNDROME adhesive [ADHESIVE] Allergy Intermediate RASH, SKIN Verified 07/10/18 19:31 PEELS latex [LATEX] Allergy Intermediate RASH Verified 07/10/18 19:31 Review of Systems Review of Systems All systems reviewed & are unremarkable except as noted in HPI and below Constitutional Denies fever(s) and Reports night sweats ENT Ears, Nose, Mouth, and Throat: Reports change in voice (Mild hoarseness), Denies dysphagia, Reports otalgia (Right ear), Denies facial pain, Reports hoarseness, Denies nasal congestion, Reports neck mass (Lump in neck), Reports neck pain, Reports odynophagia, Denies post nasal drip, Denies sore throat, Reports throat swelling and Denies tongue swelling Cardiovascular Denies chest pain, Denies dyspnea and Denies dyspnea on exertion Respiratory Denies change in phlegm color, Denies chest congestion, Reports cough (Mild, nonproductive), Denies excessive phlegm production, Denies dyspnea, Denies dyspnea on exertion, Denies stridor and Denies wheezing Gastrointestinal Gastrointestinal: Denies dysphagia, Reports nausea, Reports odynophagia and Denies vomiting Musculoskeletal Reports neck pain Integumentary/Breasts Denies rash Allergic/Immunologic Reports throat swelling, Denies tongue swelling and Denies wheezing [facility] Medical History Acne (Chronic) Anemia (Chronic 2007) Anxiety (Chronic 2007) CTS (carpal tunnel syndrome) (Chronic 2011) Depression (Chronic 2007) Hearing loss (Chronic 1987) History of heavy periods (Chronic 2007) Irregular periods/menstrual cycles (Chronic 2007) Painful menstrual periods (Chronic 2007) Vertigo (Chronic) Chicken pox (Resolved 1992) History of hysterosalpingogram (Resolved 09/12/15) Ovarian cancer (Resolved 2007) Ovarian cyst (Resolved 2014) Surgical History Anesthesia (Resolved) History of bowel resection (Resolved 2007) History of left salpingo-oophorectomy (Resolved) History of left salpingo-oophorectomy (Resolved) History of right salpingo-oophorectomy (Resolved 2007) Status post appendectomy (Resolved 2007) Status post delivery (Resolved 01/05/12) Status post exploratory laparotomy (Resolved 10/08/15) Status post laparotomy (Resolved 05/02/15) Social History marital status: unmarried,single Smoking Status: Current every day smoker alcohol intake: never substance use type: does not use Exam Narrative Exam Narrative: GEN: well nourished, well appearing female, alert and oriented x 3, patient appears to be in mild distress. HEENT: Atraumatic, pupils are equal round reactive to light, extraocular movements are intact, nares are clear, TMs are clear with no fluid, there is no conjunctival pallor. Throat is erythematous, without exudate, the right tonsil is enlarged. Patient also has some mild swelling externally of the right neck. I am unable to palpate a discrete mass or fluctuance. Patient does not have a muffled voice, no stridor. She has no issues with swallowing her secretions. HEART: Regular rate and rhythm without murmur, clicks, rubs. LUNGS:Lungs clear to auscultation, no wheezes, rales, crackles, chest moves symmetrically ABD:bowel sounds normal, soft, non-tender, no guarding, rebound, rigidity, no masses noted, no hepatosplenomegaly MSCL: Non-tender NEURO:CN 2-12 intact, sensation normal Initial Vital Signs Initial Vital Signs: Vital Signs Temperature 99.4 F 07/18/18 17:15 Pulse Rate 118 H 07/18/18 17:15 Respiratory Rate 18 07/18/18 17:15 Blood Pressure 113/75 07/18/18 17:15 Pulse Oximetry 100 07/18/18 17:15 Course Orders Ordered: ED Orders 07/18/18 18:10 Complete Blood Count AUTO DIFF Stat Comprehensive Metabolic Panel Stat Lactate (Lactic Acid) Stat Procalcitonin Stat 07/18/18 18:42 Blood Culture Stat Discontinued Medications Clindamycin HCl (Cleocin) 300 mg PO NOW ONE Stop: 07/18/18 20:10 Last Admin: 07/18/18 20:18 Dose: 300 mg Hydromorphone HCl (Dilaudid) 0.5 mg IV NOW ONE Stop: 07/18/18 19:02 Last Admin: 07/18/18 19:03 Dose: 0.5 mg Clindamycin Phosphate (Cleocin) 600 mg in 50 mls @ 50 mls/hr IV NOW ONE Stop: 07/18/18 18:48 Last Infusion: 07/18/18 19:45 Dose: 0 mls/hr Admin: 07/18/18 18:53 Dose: 50 mls/hr Dexamethasone 20 mg/ Sodium (Chloride) 52 mls @ 208 mls/hr IV NOW ONE Stop: 07/18/18 17:50 Last Infusion: 07/18/18 18:53 Dose: 0 mls/hr Admin: 07/18/18 18:35 Dose: 208 mls/hr Sodium Chloride (Normal Saline 0.9%) 1,632.93 mls @ 544.31 mls/hr 30 ml/kg infuse over 3 hr (1632.93 ml) IV CONT TONY Last Infusion: 07/18/18 20:17 Dose: 0 mls/hr Admin: 07/18/18 18:35 Dose: 544.31 mls/hr Ketorolac Tromethamine (Toradol) 15 mg IV NOW ONE Stop: 07/18/18 17:50 Last Admin: 07/18/18 18:35 Dose: 15 mg Vital Signs - 8 hr 07/18/18 18:54 07/18/18 19:30 07/18/18 20:00 Temperature Pulse Rate 75 77 78 Respiratory Rate 20 18 18 Blood Pressure [Right Arm] 99/67 111/61 128/59 L Pulse Oximetry 99 99 100 07/18/18 20:37 Temperature 98.6 F Pulse Rate Respiratory Rate Blood Pressure [Right Arm] Pulse Oximetry Medical Decision Making Lab Data Result diagrams: 07/18/18 18:10 07/18/18 18:10 Lab Results 07/18/18 07/18/18 07/18/18 Range/Units 18:10 18:10 18:10 WBC 14.3 H (4.5-11.0) X10^3/uL RBC 4.54 (4.0-5.2) X10^6/uL Hgb 14.7 (12.0-16.0) g/dL Hct 43.4 (36-46) % MCV 95.5 (80-100) fL MCH 32.3 (26-34) PG MCHC 33.8 (30-36) % RDW 13.9 (11.6-14.8) % Plt Count 349 (150-400) X10^3/uL Neut % (Auto) 78.9 H (50-75) % Lymph % (Auto) 12.5 L (25-40) % [place] % (Auto) 7.8 (3-14) % Eos % (Auto) 0.2 L (2-4) % Baso % (Auto) 0.6 (0-2) % Neut # (Auto) 86819 H (1264-2243) /uL Sodium 142 (137-145) mmol/L Potassium 3.9 (3.4-5.1) mmol/L Chloride 103 (98-107) mmol/L Carbon Dioxide 28 (22-32) mmol/L BUN 8 (7-17) mg/dL Creatinine 0.80 (0.52-1.04) mg/dL Estimated GFR > 60.0 (>60) mL/min BUN/Creatinine Ratio 10.0 (6-22) Glucose 86 (70-100) mg/dL Lactate (0.7-2.1) mmol/L Calcium 9.4 (8.4-10.2) mg/dL Total Bilirubin 0.6 (0.2-1.3) mg/dL AST 14 (14-36) IU/L ALT 23 (9-52) IU/L Alkaline Phosphatase 91 (38-126) U/L Total Protein 7.6 (6.3-8.2) g/dL Albumin 4.3 (3.5-5.0) g/dL Globulin 3.3 (1.7-4.1) g/dL Albumin/Globulin Ratio 1.3 (1.0-2.8) Procalcitonin < 0.05 (<0.5) ng/mL 07/18/18 Range/Units 18:10 WBC (4.5-11.0) X10^3/uL RBC (4.0-5.2) X10^6/uL Hgb (12.0-16.0) g/dL Hct (36-46) % MCV (80-100) fL MCH (26-34) PG MCHC (30-36) % RDW (11.6-14.8) % Plt Count (150-400) X10^3/uL Neut % (Auto) (50-75) % Lymph % (Auto) (25-40) % [place] % (Auto) (3-14) % Eos % (Auto) (2-4) % Baso % (Auto) (0-2) % Neut # (Auto) (2682-3307) /uL Sodium (137-145) mmol/L Potassium (3.4-5.1) mmol/L Chloride (98-107) mmol/L Carbon Dioxide (22-32) mmol/L BUN (7-17) mg/dL Creatinine (0.52-1.04) mg/dL Estimated GFR (>60) mL/min BUN/Creatinine Ratio (6-22) Glucose (70-100) mg/dL Lactate 0.9 (0.7-2.1) mmol/L Calcium (8.4-10.2) mg/dL Total Bilirubin (0.2-1.3) mg/dL AST (14-36) IU/L ALT (9-52) IU/L Alkaline Phosphatase (38-126) U/L Total Protein (6.3-8.2) g/dL Albumin (3.5-5.0) g/dL Globulin (1.7-4.1) g/dL Albumin/Globulin Ratio (1.0-2.8) Procalcitonin (<0.5) ng/mL Urine Dip Bedside Urine Glucose Negative Bedside Urine Bilirubin - Negative Bedside Urine Ketone +/- 5 Urine Specific [place] 1.020 Bedside Urine Occult Blood - Negative Bedside Urine pH 6.0 Bedside Urine Protein - Negative Bedside Urine Urobilinogen - Negative Bedside Urine Nitrite - Negative Bedside Urine Leukocytes - Negative Esterase Point of care testing: Urine Dip Bedside Urine Glucose Negative Bedside Urine Bilirubin - Negative Bedside Urine Ketone +/- 5 Urine Specific [place] 1.020 Bedside Urine Occult Blood - Negative Bedside Urine pH 6.0 Bedside Urine Protein - Negative Bedside Urine Urobilinogen - Negative Bedside Urine Nitrite - Negative Bedside Urine Leukocytes - Negative Esterase MDM Narrative Medical decision making narrative: Patient does appear to have a peritonsillar abscess, she was initially evaluated by Dr. Brennan who suspected this and ordered lab work and fluids per septic protocol as patient did have an elevated heart rate. The heart rate has been improving she has had about a L of fluids and the rate is about the 80s. She does have an elevated white count, lactate is normal. Patient's procalcitonin is negative. Patient states that the swelling feels improved to her. She does not have any signs of impending respiratory failure or impingement on her airway. She is possibly very mildly hoarse, stridor, no difficulty with secretions. Plan to refer for ENT Decadron, antibiotics will use clindamycin is patient has penicillin allergy that includes rash. And a prescription for pain medication. Dr. Rodriguez would like to see patient Thu or this week. Patient to call for appointment. Patient HR in 90's pressure improved to 110's after fluids. Patient feeling better. d/c home with plan for follow up with Dr. Rodriguez this week. Discharge Plan Departure Patient Disposition: Home Clinical Impression: Abscess, peritonsillar Discharge Date/Time: 07/18/18 20:30 Interventions: ED Discharge Assessment Last Done: 07/18/18 20:37 Instructions: DI for Peritonsillar Abscess -- Adult Activity Restrictions/Additional Instructions: Follow-up with ENT in the next 3-5 days, call for an appointment. Call in the morning for an appointment for a Thursday or appointment. Continue antibiotics until they are completely gone. Take steroids until they are gone. You may take pain medication as prescribed, this medication can make you sleepy do not drive, perform hazards activities or make any major decisions while taking it. You may also take ibuprofen with this medication, you can take ibuprofen 800 mg every 8 hr as needed. Return to the emergency department for fevers greater than 100.4, increasing swelling of the neck or throat, difficulty swallowing secretions or fluid, stridor or high-pitched wheezing that is audible, a muffled voice or other new or concerning symptoms. Prescriptions: New clindamycin HCl 300 mg capsule 300 mg PO QID Qty: 40 RF: 0 dexamethasone 4 mg tablet 4 mg PO DAILY Qty: 5 RF: 0 oxycodone-acetaminophen [Percocet] 5-325 mg tablet 1 tab PO Q4-6H PRN (Reason: pain) Qty: 10 RF: 0 No Action conj estrog-medroxyprogest bernice [Prempro] 0.625-2.5 mg tablet 1 tab PO DAILY RF: 0 prenat.vits,mishel,xrj-rvbh-syehn [ Vitamin] tablet 1 tab PO DAILY RF: 0 citalopram [Celexa] 10 mg tablet 10 mg PO QDAY Qty: 30 RF: 6 acetaminophen 500 mg tablet 500 mg PO Q4-6H PRN (Reason: pain) Qty: 60 RF: 0 ibuprofen 600 mg tablet 600 mg PO TID PRN (Reason: pain) Qty: 60 RF: 0 glycerin (adult) [Suppository Adult] suppository 1 suppositor MI QD-BID PRN (Reason: constipation) Qty: 25 RF: 0 albuterol sulfate 90 mcg/actuation HFA aerosol inhaler 2 inhalation INHALATION Q4H PRN (Reason: tight chest/cough) Qty: 6.7 RF: 0 hydrocodone-acetaminophen 5-325 mg tablet 1 tab PO Q8H PRN (Reason: acute rib pain) Qty: 5 RF: 0 oxycodone-acetaminophen 5-325 mg tablet 1 tab PO Q4-6H PRN (Reason: pain) Qty: 10 RF: 0 ondansetron HCl 4 mg tablet 4 mg PO PRN PRN (Reason: Nausea) RF: 0 promethazine 25 mg tablet 25 mg PO PRN PRN (Reason: Nausea) RF: 0 ondansetron 4 mg tablet,disintegrating 4 mg PO Q6-8H PRN (Reason: nausea and vomiting) Qty: 8 RF: 0 azithromycin 250 mg tablet See Label Instructions .ROUTE .COMPLEX Qty: 6 RF: 0 Referrals: Neri Ko MD [Primary Care Provider] - Bill Rodriguez MD [Physician] -
[2018-07-18 19:30] VITALS: BP 111/61; PULSE 77; RESP 18; O2SAT 99
[2018-07-18 20:00] VITALS: BP 128/59; PULSE 78; RESP 18; O2SAT 100
[2018-07-18] MEDS: CLINDAMYCIN 150 MG CAPSULE 300 MG PO (20:18)
[2018-07-18 20:37] VITALS: TEMP 37
== END 2018-07-18 20:30 | disposition home or self-care (01) ==
PROVIDERS: Emergency Medicine; Emergency Provider Emergency Medicine; PCP Family Medicine
DX: J36 Peritonsillar abscess (principal)
CPT/HCPCS: 36415; 36591; 80053; 81003; 83605; 84145; 85025; 87040; 96361; 96365; 96367; 96375; 99284; J1100; J1170; J1885

== ENCOUNTER 2018-08-16 09:02 | Emergency (ER) | payer OTHER, MEDICAID, SELFPAY ==
[2018-08-16 09:11] VITALS: BP 124/84; PULSE 107; RESP 16; TEMP 36.4; O2SAT 100
[2018-08-16 09:20] LABS: Bacteria Urine None Seen
[2018-08-16 09:26] LABS: RBC Urine 0-1/HPF (0-5/HPF); Squamous Epithelial Cell Urine 1-5 /HPF; WBC Urine 0-1/HPF (0-5/HPF)
[2018-08-16 09:27] LABS: Culture Indicated Urine Cult Not Indicated
[2018-08-16] MEDS: ONDANSETRON 4 MG ODT PO (09:38)
[2018-08-16 09:39] VITALS: BP 100/52; PULSE 88; RESP 14; O2SAT 98
--- NOTE | 2018-08-16 10:04 | ED_ITS ---
HPI - Nausea/Vomiting/Diarrhea General Chief complaint: Nausea/Vomiting/Diarrhea Stated complaint: nausea back pain x1 day Time Seen by Provider: 08/16/18 09:13 Source: patient Mode of arrival: ambulatory Limitations: no limitations History of Present Illness HPI Narrative: Patient complains of nausea and vomiting for the last 2 days. She states she has had some cramping but no specific pain otherwise. Patient states she has some mild muscular pain in her back. Patient denies fevers, bloody stools, or diarrhea. She denies chest symptoms. Patient states her nausea and vomiting are the same as her multiple prior episodes. Patient states that she did not take her Zofran at home this morning, and only has 1 or 2 pills left. She states that yesterday, she could not keep much of anything down, but that today, she ate part of a plain bagel, and although she felt a little nauseated she was able to keep it down. Related Data Home Medications Medication Instructions Recorded Confirmed conj estrogen-medroxyprogesterone 1 tab PO DAILY 05/11/18 08/16/18 0.625 mg-2.5 mg tablet 1 tab PO DAILY 05/11/18 08/16/18 vitamin,calcium,zsikdbkf-ldfq-gbxqv acid tablet Previous Rx's Medication Instructions Recorded ondansetron 4 mg PO Q6-8H PRN #8 tab 03/31/18 citalopram 10 mg tablet 10 mg PO QDAY #30 tab 05/11/18 albuterol sulfate 2 inhalation INHALATION Q4H PRN 06/30/18 #6.7 gram ondansetron 4 mg PO QID PRN #30 tab 08/16/18 Allergies Allergy/AdvReac Type Severity Reaction Status Date / Time Penicillins [PENICILLINS] Allergy Severe RASH Verified 08/16/18 09:11 vancomycin [VANCOMYCIN] Allergy Severe JUAREZ Verified 08/16/18 09:11 SYNDROME adhesive [ADHESIVE] Allergy Intermediate RASH, SKIN Verified 08/16/18 09:11 PEELS latex [LATEX] Allergy Intermediate RASH Verified 08/16/18 09:11 Review of Systems Constitutional Denies chills, Denies fever(s), Denies lethargy and Denies weakness Eyes Denies change in vision, Denies eye discharge, Denies irritation and Denies loss of vision ENT Ears, Nose, Mouth, and Throat: Denies change in voice, Denies neck pain and Denies sore throat Cardiovascular Denies chest pain, Denies irregular heart rhythm, Denies lightheadedness, Denies palpitations, Denies dyspnea, Denies dyspnea on exertion and Denies orthopnea Respiratory Denies cough, Denies dyspnea, Denies dyspnea on exertion and Denies wheezing Gastrointestinal Gastrointestinal: Denies abdominal pain, Denies change in bowel habits, Denies diarrhea, Reports nausea and Reports vomiting Genitourinary Denies hematuria, Denies flank pain, Denies urinary incontinence and Denies urinary urgency Musculoskeletal Denies neck pain Integumentary/Breasts Denies pruritus, Denies erythema, Denies rash and Denies wounds Neurologic Denies confusion, Denies loss of vision and Denies weakness Psychiatric Denies anxiety, Denies confusion, Denies depression, Denies homicidal ideation and Denies suicidal ideation Endocrine Denies palpitations Hematologic/Lymphatic Denies easy bruising Allergic/Immunologic Denies wheezing [facility] Medical History Acne (Chronic) Anemia (Chronic 2007) Anxiety (Chronic 2007) CTS (carpal tunnel syndrome) (Chronic 2011) Depression (Chronic 2007) Hearing loss (Chronic 1987) History of heavy periods (Chronic 2007) Irregular periods/menstrual cycles (Chronic 2007) Painful menstrual periods (Chronic 2007) Vertigo (Chronic) Chicken pox (Resolved 1992) History of hysterosalpingogram (Resolved 09/12/15) Ovarian cancer (Resolved 2007) Ovarian cyst (Resolved 2014) Surgical History Anesthesia (Resolved) History of bowel resection (Resolved 2007) History of left salpingo-oophorectomy (Resolved) History of left salpingo-oophorectomy (Resolved) History of right salpingo-oophorectomy (Resolved 2007) Status post appendectomy (Resolved 2007) Status post delivery (Resolved 01/05/12) Status post exploratory laparotomy (Resolved 10/08/15) Status post laparotomy (Resolved 05/02/15) Family History Father No problems noted. Grandfather Hypertension Alcoholism Grandmother Cancer Stroke Mother Hyperlipidemia Grandfather Hyperlipidemia Hypertension Pneumonia Grandmother Diabetes mellitus Hypertension Sister Hearing loss Vision loss Sister Vision loss Hearing loss Sister Mental health problem Sister No problems noted. Sister No problems noted. Son Age: 6 Suspected autism disorder Social History marital status: unmarried,single Smoking Status: Current every day smoker alcohol intake: never substance use type: does not use Exam Initial Vital Signs Initial Vital Signs: Vital Signs Temperature 97.6 F 08/16/18 09:11 Pulse Rate 107 H 08/16/18 09:11 Respiratory Rate 16 08/16/18 09:11 Blood Pressure 124/84 08/16/18 09:11 Pulse Oximetry 100 08/16/18 09:11 Const General: cooperative and well developed Nutritional Appearance: well nourished Orientation: alert, awake, oriented x3 and not confused HENMT Head: normocephalic and atraumatic Ears: external ears normal Nose: external nose normal and No nasal discharge Face and sinus: face symmetric and No dry mucous membranes Mouth: oral mucosae normal and moist mucous membranes Teeth and gingiva: dentition normal Eyes General: appearance normal, both eyes and all related structures Eyelids: eyelids normal Conjunctivae: conjunctivae normal Sclera: sclerae normal Pupils: PERRL EOM: EOM intact bilaterally Neck Neck: normal visual inspection, trachea midline, No lymphadenopathy, No midline deformity and No JVD Lymphatic: No lymphedema Chest Chest: normal inspection of the chest Resp Effort & Inspection: normal respiratory effort, able to speak in complete sentences, no respiratory distress and no use of accessory muscles Auscultation: clear to auscultation bilaterally, no rales, no rhonchi and no wheezes Cardio Rate: regular rate Rhythm: regular rhythm Heart Sounds: no click, no gallops, no murmurs and no rubs Pulses: normal peripheral pulses GI Inspection: non-distended Palpation: soft, no hepatosplenomegaly, No guarding, No pulsatile mass and No tender Back/Spine/Pelvis Back: No CVA tenderness Cervical Spine: cervical ROM normal and No pain with cervical ROM Thoracic/Lumbar Spine: thoracic and lumbar spine normal to inspection Skin General: no rashes or lesions noted, No jaundice and No petechiae Neuro General: alert, oriented x3, gait normal and no focal motor deficits Speech: speech normal Extrem General: full ROM, no clubbing, cyanosis or edema, no pedal edema and no calf tenderness Psych Appearance: well kempt Mental Status: mental status grossly normal Attitude: cooperative Thought Content: normal and suicidality Judgment: judgment good Course Course Narrative: Patient was already improving, and had a long-standing history of similar symptoms. She was given a dose of Zofran here in the emergency department and a work excuse for today. Patient requested another prescription for Zofran, as she is almost out at home. I did not feel any further workup or intervention was indicated in the emergency department, and patient is deemed stable for discharge home. We discussed usual indications for return. Orders Ordered: ED Orders 08/16/18 09:05 Urine Microscopic Stat Discontinued Medications Ondansetron HCl (Zofran Odt) 4 mg PO NOW ONE Stop: 08/16/18 09:37 Last Admin: 08/16/18 09:38 Dose: 4 mg Vital Signs - 8 hr 08/16/18 09:11 08/16/18 09:39 Temperature 97.6 F Pulse Rate 107 H 88 Respiratory Rate 16 14 Blood Pressure 124/84 Blood Pressure [Left Arm] 100/52 L Pulse Oximetry 100 98 MDM - Nausea/Vomiting/Diarrhea Lab Data Lab Results 08/16/18 Range/Units 09:05 Urine RBC 0-1/hpf D (0-5/HPF) Urine WBC 0-1/hpf (0-5/HPF) Ur Squamous Epith Cells 1-5 /hpf Urine Bacteria None seen (None) Ur Culture Indicated? Cult not indicated Point of Care Testing Test Results Negative Urine Dip Bedside Urine Glucose Negative Bedside Urine Bilirubin - Negative Bedside Urine Ketone +/- 5 Urine Specific [place] 1.025 Bedside Urine Occult Blood - Negative Bedside Urine pH 6.0 Bedside Urine Protein +/- 15 Bedside Urine Urobilinogen +/- 1mg Bedside Urine Nitrite - Negative Bedside Urine Leukocytes - Negative Esterase Discharge Plan Departure Patient Disposition: Home Clinical Impression: Nausea & vomiting Instructions: DI for Vomiting -- Adult Prescriptions: New ondansetron 4 mg tablet,disintegrating 4 mg PO QID PRN (Reason: nausea and vomiting) Qty: 30 RF: 0 No Action conj estrog-medroxyprogest bernice [Prempro] 0.625-2.5 mg tablet 1 tab PO DAILY RF: 0 prenat.vits,mishel,fzx-iqlw-wjjym [ Vitamin] tablet 1 tab PO DAILY RF: 0 citalopram [Celexa] 10 mg tablet 10 mg PO QDAY Qty: 30 RF: 6 albuterol sulfate 90 mcg/actuation HFA aerosol inhaler 2 inhalation INHALATION Q4H PRN (Reason: tight chest/cough) Qty: 6.7 RF: 0 ondansetron 4 mg tablet,disintegrating 4 mg PO Q6-8H PRN (Reason: nausea and vomiting) Qty: 8 RF: 0 Referrals: Neri Ko MD [Primary Care Provider] - Stand Alone Forms: Work Release Note
== END 2018-08-16 10:04 | disposition home or self-care (01) ==
PROVIDERS: Emergency Provider Emergency Medicine; PCP Family Medicine
DX: R11.2 Nausea with vomiting, unspecified (principal)
CPT/HCPCS: 81003; 81015; 81025; 99282; 99283

== ENCOUNTER 2018-09-17 12:37 | Emergency (ER) | payer OTHER, MEDICAID, SELFPAY ==
[2018-09-17 12:39] VITALS: BP 118/80; PULSE 94; RESP 18; TEMP 36.6; O2SAT 100
--- NOTE | 2018-09-17 13:45 | ED_ITS ---
HPI - Female Genitourinary General Chief complaint: Urogenital-Female Stated complaint: vaginal bleeding on ovaries Time Seen by Provider: 09/17/18 13:27 Source: patient Mode of arrival: ambulatory Limitations: no limitations History of Present Illness HPI Narrative: Patient is a 32-year-old female who presents with vaginal bleeding. She has a history of ovarian cancer and bilateral oophorectomy his. She was placed on Prempro he 4-5 months ago after her oophorectomy to stop vaginal bleeding. She has had brief bleeding the past. Pelvic ultrasound in June 2018 did not show anything abnormal.. She says that she has been bleeding for the last 7 days. It seems to be fairly constant not excessively h eavy but she is passing quarter-size clots. She does have occasional cramps which she has been taking Midol for which is not helping. He denies any abdominal pain now. Her oophorectomy was on 04/05/2018. She has since been evaluated in the emergency department a few times for vaginal bleeding. While on Prempro. Related Data Home Medications Medication Instructions Recorded Confirmed PNV cmb#95-ferrous fumarate-FA 1 tab PO DAILY 09/17/18 09/17/18 [] citalopram [Celexa] 10 mg PO DAILY 09/17/18 09/17/18 conj estrog-medroxyprogest bernice 1 tab PO QPM 09/17/18 09/17/18 [Prempro] Previous Rx's Medication Instructions Recorded albuterol sulfate 2 inhalation INHALATION Q4H PRN 06/30/18 #6.7 gram ondansetron 4 mg PO QID PRN #30 tab 08/16/18 medroxyprogesterone 20 mg PO Q2HR PRN #90 tab 09/17/18 Allergies Allergy/AdvReac Type Severity Reaction Status Date / Time Penicillins [PENICILLINS] Allergy Severe RASH Verified 09/17/18 12:10 vancomycin [VANCOMYCIN] Allergy Severe JUAREZ Verified 09/17/18 12:10 SYNDROME adhesive [ADHESIVE] Allergy Intermediate RASH, SKIN Verified 09/17/18 12:10 PEELS latex [LATEX] Allergy Intermediate RASH Verified 09/17/18 12:10 ketorolac AdvReac Headache Verified 09/17/18 14:37 Review of Systems Review of Systems ROS Unobtainable: All systems reviewed & are unremarkable except as noted in HPI and below Constitutional Denies chills, Denies fever(s), Denies lethargy and Denies weakness Cardiovascular Denies chest pain, Denies irregular heart rhythm, Denies lightheadedness, Denies palpitations, Denies dyspnea, Denies dyspnea on exertion and Denies orthopnea Respiratory Denies cough, Denies dyspnea, Denies dyspnea on exertion and Denies wheezing Gastrointestinal Gastrointestinal: Denies abdominal pain, Denies change in bowel habits, Denies diarrhea, Denies nausea and Denies vomiting Genitourinary Reports as per HPI Musculoskeletal Denies back pain, Denies muscle weakness, Denies numbness and Denies tingling Integumentary/Breasts Denies pruritus, Denies erythema, Denies rash and Denies wounds Neurologic Denies confusion, Denies numbness, Denies tingling and Denies weakness Psychiatric Denies anxiety, Denies confusion, Denies depression, Denies homicidal ideation and Denies suicidal ideation Endocrine Denies palpitations Allergic/Immunologic Denies wheezing [facility] Medical History Acne (Chronic) Anemia (Chronic 2007) Anxiety (Chronic 2007) CTS (carpal tunnel syndrome) (Chronic 2011) Depression (Chronic 2007) Hearing loss (Chronic 1987) History of heavy periods (Chronic 2007) Irregular periods/menstrual cycles (Chronic 2007) Painful menstrual periods (Chronic 2007) Vertigo (Chronic) Chicken pox (Resolved 1992) History of hysterosalpingogram (Resolved 09/12/15) Ovarian cancer (Resolved 2007) Ovarian cyst (Resolved 2014) Surgical History Anesthesia (Resolved) History of bowel resection (Resolved 2007) History of left salpingo-oophorectomy (Resolved) History of left salpingo-oophorectomy (Resolved) History of right salpingo-oophorectomy (Resolved 2007) Status post appendectomy (Resolved 2007) Status post delivery (Resolved 01/05/12) Status post exploratory laparotomy (Resolved 10/08/15) Status post laparotomy (Resolved 05/02/15) Family History Father No problems noted. Grandfather Hypertension Alcoholism Grandmother Cancer Stroke Mother Hyperlipidemia Grandfather Hyperlipidemia Hypertension Pneumonia Grandmother Diabetes mellitus Hypertension Sister Hearing loss Vision loss Sister Vision loss Hearing loss Sister Mental health problem Sister No problems noted. Sister No problems noted. Son Age: 6 Suspected autism disorder Social History marital status: unmarried,single Smoking Status: Current every day smoker alcohol intake: never substance use type: does not use Family History Father No problems noted. Grandfather Hypertension Alcoholism Grandmother Cancer Stroke Mother Hyperlipidemia Grandfather Hyperlipidemia Hypertension Pneumonia Grandmother Diabetes mellitus Hypertension Sister Hearing loss Vision loss Sister Vision loss Hearing loss Sister Mental health problem Sister No problems noted. Sister No problems noted. Son Age: 6 Suspected autism disorder Social History marital status: unmarried,single Smoking Status: Current every day smoker alcohol intake: never substance use type: does not use Exam Initial Vital Signs Initial Vital Signs: Vital Signs Temperature 97.8 F 09/17/18 12:39 Pulse Rate 94 H 09/17/18 12:39 Respiratory Rate 18 09/17/18 12:39 Blood Pressure 118/80 09/17/18 12:39 Pulse Oximetry 100 09/17/18 12:39 GENERAL: thin alert young female no acute distress HEENT: Head atraumatic,EOMI, pupils reactive, CARDIOVASCULAR: Regular rate and rhythm without murmurs, rubs or gallops. RESPIRATORY: Breath sounds equal bilaterally, no wheezes rales or rhonchi. ABDOMEN: Soft, Nontender nondistended no guarding or rebound EXTREMITIES: Normal range of motion, no clubbing or edema. Neurovascularly in tact NEUROLOGICAL: Alert and oriented x4.Normal gait and speech. SKIN: Warm, dry, no laceration, no petechiae, no rashes or lesions. Course Orders Ordered: Discontinued Medications Hydromorphone HCl (Dilaudid) 0.5 mg IV NOW ONE Stop: 09/17/18 16:07 Last Admin: 09/17/18 16:25 Dose: 0.5 mg Sodium Chloride (Normal Saline 0.9%) 1,000 mls @ 1,000 mls/hr IV CONT TONY Last Infusion: 09/17/18 16:50 Dose: 0 mls/hr Admin: 09/17/18 14:39 Dose: 1,000 mls/hr Ketorolac Tromethamine (Toradol) 30 mg IV NOW ONE Stop: 09/17/18 14:16 Last Admin: 09/17/18 15:24 Dose: Not Given Metoclopramide HCl (Reglan) 10 mg IV NOW ONE Stop: 09/17/18 16:07 Last Admin: 09/17/18 16:24 Dose: 10 mg Ondansetron HCl (Zofran) 4 mg IV NOW ONE Stop: 09/17/18 14:16 Last Admin: 09/17/18 14:39 Dose: 4 mg Vital Signs - 8 hr 09/17/18 12:39 09/17/18 16:15 Temperature 97.8 F Pulse Rate 94 H 87 Respiratory Rate 18 14 Blood Pressure 118/80 Blood Pressure [Left Arm] 128/82 Pulse Oximetry 100 100 MDM - Female Genitourinary Lab Data Attestation: I reviewed the patient's lab results. Result diagrams: 09/17/18 14:25 09/17/18 14:25 Lab Results 09/17/18 09/17/18 09/17/18 Range/Units 14:25 14:25 15:28 WBC 5.3 (4.5-11.0) X10^3/uL RBC 4.46 (4.0-5.2) X10^6/uL Hgb 14.4 (12.0-16.0) g/dL Hct 43.3 (36-46) % MCV 97.0 (80-100) fL MCH 32.2 (26-34) PG MCHC 33.2 (30-36) % RDW 13.5 (11.6-14.8) % Plt Count 274 (150-400) X10^3/uL Neut % (Auto) 52.6 (50-75) % Lymph % (Auto) 36.3 (25-40) % [place] % (Auto) 9.1 (3-14) % Eos % (Auto) 0.5 L (2-4) % Baso % (Auto) 1.5 (0-2) % Neut # (Auto) 2800 (2255-6827) /uL Lymph # (Auto) 1900 (7860-2860) /uL [place] # (Auto) 500 (0-900) /uL Eos # (Auto) 0 (0-450) /uL Baso # (Auto) 100 (0-100) /uL Sodium 139 (137-145) mmol/L Potassium 3.7 (3.4-5.1) mmol/L Chloride 103 (98-107) mmol/L Carbon Dioxide 27 (22-32) mmol/L BUN 11 (7-17) mg/dL Creatinine 0.60 (0.52-1.04) mg/dL Estimated GFR > 60.0 (>60) mL/min BUN/Creatinine Ratio 18.3 (6-22) Glucose 87 (70-100) mg/dL Calcium 9.4 (8.4-10.2) mg/dL Total Bilirubin 0.5 (0.2-1.3) mg/dL AST 14 (14-36) IU/L ALT 19 (9-52) IU/L Alkaline Phosphatase 62 (38-126) U/L Total Protein 7.4 (6.3-8.2) g/dL Albumin 4.4 (3.5-5.0) g/dL Globulin 3.0 (1.7-4.1) g/dL Albumin/Globulin Ratio 1.5 (1.0-2.8) Lipase 44 (23-300) U/L Urine RBC None seen (0-5/HPF) Urine WBC None seen (0-5/HPF) Amorphous Sediment 3+ Urine Bacteria None seen (None) Ur Culture Indicated? Cult not indicated Urine Dip Bedside Urine Glucose Negative Bedside Urine Bilirubin - Negative Bedside Urine Ketone - Negative Urine Specific Brooks 1.015 Bedside Urine Occult Blood +/- Bedside Urine pH 7.5 Bedside Urine Protein +/- 15 Bedside Urine Urobilinogen +/- 1mg Bedside Urine Nitrite - Negative Bedside Urine Leukocytes - Negative Esterase Imaging Data US pelvic : Radiologist's impression: PROCEDURE: US PELVIC COMPLETE INDICATIONS: VAGINAL BLEEDING TECHNIQUE: Real-time scanning was performed of the pelvic organs, with image documentation. Additional endovaginal scanning was necessary due to incomplete visualization of the adnexal and endometrial structures by transabdominal scanning. COMPARISON: [facility], , US PELVIC COMPLETE, 05/10/2018, 1:28. FINDINGS: Transabdominal scanning: Limited scanning through the kidneys shows no hydronephrosis. No pathologic free abdominal or pelvic fluid. Endovaginal scanning: Uterus: Uterus is normal in size at 7.8 x 3.6 x 4.7 cm. The endometrium measures 4 mm in combined thickness. Grossly heterogeneous echotexture is seen in the lower uterine segment endometrium with 4 x 4 by 5 mm focal heterogeneously echogenic area with internal vascularity. Ovaries: Bilateral ovaries are surgically absent. No adnexal mass is seen. IMPRESSION: 1. Heterogeneous lower uterine segment and endometrial echotexture with 4 x 4 x 5 mm possible endometrial polyp with a lower uterine segment, suggesting BUSINESS EXECUTIVE correlation. 2. Bilateral ovaries are surgically absent. No adnexal mass. No pelvic free fluid. Dictated by: Toño Tomas M.D. on 09/17/2018 at 15:38 MDM Narrative Medical decision making narrative: I spoke with Dr. Walker in regards to e ndometrial polyp. Recommended follow up outpatient for endometrial biopsy. appointment scheduled for 09/29/2018 at 9:30 a.m.. Patient does not have excessive bleeding. but she is given a prescription for Provera and instructions on how to taper. Discharge Plan Departure Patient Disposition: Home Clinical Impression: Uterine polyp Discharge Date/Time: 09/17/18 18:09 Interventions: ED Discharge Assessment Last Done: 09/17/18 18:07 Instructions: DI for Vaginal Bleeding Activity Restrictions/Additional Instructions: *You have been diagnosed with vaginal bleeding with uterine polyp *What to do: vaginal bleeding is from a uterine polyp. This will likely need to be removed. 1st biopsy will take place. *Continue to take medications as directed medroxyprogesterone *Follow up with Dr. Walker, career technical counselor on ThursdaySeptember 29 at 9:30 a.m. for biopsy *Return to ER if you should have [such as] [or] any new, worsening or concerning symptoms Prescriptions: New medroxyprogesterone 10 mg tablet 20 mg PO Q2HR PRN (Reason: vaginal bleeding) Qty: 90 RF: 0 No Action albuterol sulfate 90 mcg/actuation HFA aerosol inhaler 2 inhalation INHALATION Q4H PRN (Reason: tight chest/cough) Qty: 6.7 RF: 0 Prempro 0.625-2.5 mg tablet 1 tab PO QPM RF: 0 citalopram [Celexa] 10 mg tablet 10 mg PO DAILY RF: 0 PNV cmb#95-ferrous fumarate-FA [] 28 mg iron- 800 mcg Tablet 1 tab PO DAILY RF: 0 ondansetron 4 mg tablet,disintegrating 4 mg PO QID PRN (Reason: nausea and vomiting) Qty: 30 RF: 0 Referrals: Una Walker MD [Physician] - Neri Ko MD [Primary Care Provider] -
--- NOTE | 2018-09-17 14:15 | DI.US.S_ITS ---
PROCEDURE: US PELVIC COMPLETE INDICATIONS: VAGINAL BLEEDING TECHNIQUE: Real-time scanning was performed of the pelvic organs, with image documentation. Additional endovaginal scanning was necessary due to incomplete visualization of the adnexal and endometrial structures by transabdominal scanning. COMPARISON: [facility], , US PELVIC COMPLETE, 05/10/2018, 1:28. FINDINGS: Transabdominal scanning: Limited scanning through the kidneys shows no hydronephrosis. No pathologic free abdominal or pelvic fluid. Endovaginal scanning: Uterus: Uterus is normal in size at 7.8 x 3.6 x 4.7 cm. The endometrium measures 4 mm in combined thickness. Grossly heterogeneous echotexture is seen in the lower uterine segment endometrium with 4 x 4 by 5 mm focal heterogeneously echogenic area with internal vascularity. Ovaries: Bilateral ovaries are surgically absent. No adnexal mass is seen. IMPRESSION: 1. 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 2. Bilateral ovaries are surgically absent. No adnexal mass. No pelvic free fluid. Dictated by: Toño Tomas M.D. on 09/17/2018 at 15:38 Approved by: Toño Tomas M.D. on 09/17/2018 at 15:40
[2018-09-17 14:35] LABS: Add Manual Diff / Slide Review NO; Basophils Absolute Auto 100 /uL (0-100); Basophils Percent Auto 1.5 % (0-2); Eosinophils Absolute Auto 0 /uL (0-450); Eosinophils Percent Auto 0.5 % (2-4); Hematocrit 43.3 % (36-46); Hemoglobin 14.4 g/dL (12.0-16.0); Lymphocytes Absolute Auto 1900 /uL (1100-4500); Lymphocytes Percent Auto 36.3 % (25-40); Mean Corpuscular HGB Conc 33.2 % (30-36); Mean Corpuscular Hemoglobin 32.2 PG (26-34); Monocytes Absolute Auto 500 /uL (0-900); Monocytes Percent Auto 9.1 % (3-14); Neutrophils Absolute Auto 2800 /uL (1500-7000); Neutrophils Percent Auto 52.6 % (50-75); Platelet Count 274 X10^3/uL (150-400); Red Blood Cell Count 4.46 X10^6/uL (4.0-5.2); Red Cell Distribution Width 13.5 % (11.6-14.8); White Blood Cell Count 5.3 X10^3/uL (4.5-11.0)
[2018-09-17] MEDS: ONDANSETRON 4 MG/2 ML INJ IV (14:39)
[2018-09-17] MEDS: SODIUM CHLORIDE 0.9% 1,000 ML 1000 ML IV (14:39)
[2018-09-17 14:53] LABS: Alanine Aminotransferase 19 IU/L (9-52); Albumin 4.4 g/dL (3.5-5.0); Albumin Globulin Ratio 1.5 (1.0-2.8); Alkaline Phosphatase 62 U/L (38-126); Aspartate Aminotransferase 14 IU/L (14-36); BUN Creatinine Ratio 18.3 (6-22); Bilirubin Total 0.5 mg/dL (0.2-1.3); Blood Urea Nitrogen 11 mg/dL (7-17); Calcium 9.4 mg/dL (8.4-10.2); Carbon Dioxide 27 mmol/L (22-32); Chloride 103 mmol/L (98-107); Estimated Glomerular Filt Rate > 60.0 mL/min (>60); Glucose 87 mg/dL (70-100); HEMOLYSIS < 15 (0-50); Lipase 44 U/L (23-300); Potassium 3.7 mmol/L (3.4-5.1); Sodium 139 mmol/L (137-145); Total Protein 7.4 g/dL (6.3-8.2)
[2018-09-17 15:30] LABS: Bacteria Urine None Seen; RBC Urine None Seen (0-5/HPF); WBC Urine None Seen (0-5/HPF)
[2018-09-17 15:51] LABS: Amorphous Sediment Urine 3+; Culture Indicated Urine Cult Not Indicated
[2018-09-17 16:15] VITALS: BP 128/82; PULSE 87; RESP 14; O2SAT 100
[2018-09-17] MEDS: METOCLOPRAMIDE 10 MG/2 ML INJ IV (16:24)
[2018-09-17] MEDS: HYDROMORPHONE 1 MG INJ 0.5 MG IV (16:25)
--- NOTE | 2018-09-17 17:07 | PC.NURSE ---
assisted with pelvic exam. patient tolerated well.
[2018-09-17 18:07] VITALS: BP 111/61; PULSE 64; RESP 12; O2SAT 99
== END 2018-09-17 18:09 | disposition home or self-care (01) ==
PROVIDERS: Emergency Provider Emergency Medicine; PCP Family Medicine
DX: N84.0 Polyp of corpus uteri (principal)
CPT/HCPCS: 36591; 76830; 76856; 80053; 81003; 81015; 83690; 85025; 96361; 96374; 96375; 99283; 99284; J1170; J2405; J2765

== ENCOUNTER 2018-09-23 22:55 | Emergency (ER) | payer OTHER, MEDICAID, SELFPAY ==
[2018-09-23 23:04] VITALS: BP 105/71; PULSE 90; RESP 14; TEMP 36.3; O2SAT 99
--- NOTE | 2018-09-23 23:08 | ED_ITS ---
HPI - General Adult General Chief complaint: Back Pain/Injury Stated complaint: pain Time Seen by Provider: 09/23/18 22:55 Source: patient Mode of arrival: ambulatory Limitations: no limitations History of Present Illness HPI narrative: Patient is a 32-year-old female here for evaluation of worsening pelvic pain. She has been seen multiple times in this emergency department for various reasons. She has a prior note from her primary care visit where she was diagnosed with chronic pelvic pain. There was discussion at that time about her seeing pain management. The patient states that she has not seen pain man agement because no one will take my insurance she was seen here in the emergency department a couple days ago where she was diagnosed with a uterine polyp. She does have follow-up with skinning machine feeder scheduled for the of next month. She states she does not have any pain medication at home. She returns today for worsening pelvic pain. She states that her bleeding has improved Related Data Home Medications Medication Instructions Recorded Confirmed PNV cmb#95-ferrous fumarate-FA 1 tab PO DAILY 09/17/18 09/17/18 [] citalopram [Celexa] 10 mg PO DAILY 09/17/18 09/17/18 conj estrog-medroxyprogest bernice 1 tab PO QPM 09/17/18 09/17/18 [Prempro] Previous Rx's Medication Instructions Recorded albuterol sulfate 2 inhalation INHALATION Q4H PRN 06/30/18 #6.7 gram ondansetron 4 mg PO QID PRN #30 tab 08/16/18 medroxyprogesterone 20 mg PO Q2HR PRN #90 tab 09/17/18 Allergies Allergy/AdvReac Type Severity Reaction Status Date / Time Penicillins [PENICILLINS] Allergy Severe RASH Verified 09/17/18 12:10 vancomycin [VANCOMYCIN] Allergy Severe JUAREZ Verified 09/17/18 12:10 SYNDROME adhesive [ADHESIVE] Allergy Intermediate RASH, SKIN Verified 09/17/18 12:10 PEELS latex [LATEX] Allergy Intermediate RASH Verified 09/17/18 12:10 ketorolac AdvReac Headache Verified 09/17/18 14:37 Review of Systems Constitutional Denies fever(s) Cardiovascular Denies chest pain and Denies dyspnea Respiratory Denies dyspnea Gastrointestinal Gastrointestinal: Denies abdominal pain and Reports nausea Genitourinary Reports pelvic pain Comments: Improving vaginal bleeding Integumentary/Breasts Denies rash PFSH Social History marital status: unmarried,single Smoking Status: Current every day smoker alcohol intake: never substance use type: does not use Exam Initial Vital Signs Initial Vital Signs: Vital Signs Temperature 97.3 F L 09/23/18 23:04 Pulse Rate 90 09/23/18 23:04 Respiratory Rate 14 09/23/18 23:04 Blood Pressure 105/71 09/23/18 23:04 Pulse Oximetry 99 09/23/18 23:04 Const General: cooperative, well groomed and No acute distress Orientation: alert and awake Resp Effort & Inspection: normal respiratory effort Cardio Rate: regular rate GI Inspection: non-distended Skin Rashes: no rashes Neuro General: alert and awake Course Vital Signs - 8 hr 09/23/18 23:04 Temperature 97.3 F L Pulse Rate 90 Respiratory Rate 14 Blood Pressure 105/71 Pulse Oximetry 99 Medical Decision Making MDM Narrative Medical decision making narrative: The last time I evaluated this patient at the end of last year I informed her that the emergency department does not treat chronic pain. I informed her that she needs to see 1 provider to provide all of her pain medication. She did tell me that she is not under the care of pain management. Her bleeding has improved. This is the same pelvic pain that she has had for a while. I told her that I would provide 1 dose of pain medication here in the emergency department but would not send her home with any medication. Informed her she needed to see her skinning machine feeder about this. Discharge Plan Departure Patient Disposition: Home Clinical Impression: Chronic pelvic pain in female Activity Restrictions/Additional Instructions: The emergency department does not manage chronic pain. You need to keep her appointment with her skinning machine feeder provider on the 6th of next month. You need to talk with your primary doctor regarding treatment of her pain. You can return to the emergency department for any new symptoms Prescriptions: No Action albuterol sulfate 90 mcg/actuation HFA aerosol inhaler 2 inhalation INHALATION Q4H PRN (Reason: tight chest/cough) Qty: 6.7 RF: 0 Prempro 0.625-2.5 mg tablet 1 tab PO QPM RF: 0 citalopram [Celexa] 10 mg tablet 10 mg PO DAILY RF: 0 PNV cmb#95-ferrous fumarate-FA [] 28 mg iron- 800 mcg Tablet 1 tab PO DAILY RF: 0 medroxyprogesterone 10 mg tablet 20 mg PO Q2HR PRN (Reason: vaginal bleeding) Qty: 90 RF: 0 ondansetron 4 mg tablet,disintegrating 4 mg PO QID PRN (Reason: nausea and vomiting) Qty: 30 RF: 0 Referrals: Neri Ko MD [Primary Care Provider] -
[2018-09-23] MEDS: HYDROMORPHONE 2 MG INJ 0.5 MG IM (23:40)
[2018-09-23 23:56] VITALS: BP 98/50; PULSE 69; RESP 14; O2SAT 98
--- NOTE | 2018-09-24 | PC.NURSE ---
PT states lower back pain for 2 weeks, was here one week ago for same states was dx with polyps on uterus. States she has a biopsy scheduled September [address] Walker. States she has no ovaries, denies vaginal bleeding with last menstrual period in February 2018.
== END 2018-09-23 23:50 | disposition home or self-care (01) ==
PROVIDERS: Emergency Provider Emergency Medicine; Family Provider Family Medicine; PCP Family Medicine
DX: R10.2 Pelvic and perineal pain (principal); G89.29 Other chronic pain
CPT/HCPCS: 96372; 99282; 99283; J1170

== ENCOUNTER 2019-03-06 10:23 | Emergency (ER) | payer SELFPAY ==
[2019-03-06 10:25] VITALS: BP 123/83; PULSE 100; RESP 18; TEMP 36.4; O2SAT 100
--- NOTE | 2019-03-06 10:30 | ED.NAVMDI ---
HPI - Nausea/Vomiting/Diarrhea General Chief complaint: Nausea/Vomiting/Diarrhea Stated complaint: Nausea/vomiting Time Seen by Provider: 03/06/19 10:26 Source: patient and family Mode of arrival: ambulatory Limitations: no limitations History of Present Illness HPI Narrative: 33-year-old female smoker with chronic pelvic pain presents with nausea, vomiting, diarrhea for the past few days. She now feels dizzy, weak and lightheaded, and claims to have had a near syncopal episode prior to arrival. She currently is essentially symptom-free. She denies any recent travel, exposure to antibiotics or ill persons. She states she has eaten no bad food. MD complaint: nausea, vomiting, diarrhea and abdominal pain (Crampy and mild) Onset (ago): hour(s) Description of Vomiting: food contents Description of Diarrhea: watery Associated Abdominal Pain: Yes Location of pain: diffuse Severity: mild Quality: cramping Pain Consistency: intermittent Relieving factors: none Exacerbating factors: none Associated symptoms: nausea/vomiting and syncope Related Data Home Medications Medication Instructions Recorded Confirmed PNV cmb#95-ferrous fumarate-FA 1 tab PO DAILY 09/17/18 09/17/18 [] conj estrog-medroxyprogest bernice 1 tab PO QPM 09/17/18 09/17/18 [Prempro] Previous Rx's Medication Instructions Recorded albuterol sulfate 2 inhalation INHALATION Q4H PRN 06/30/18 #6.7 gram ondansetron 4 mg PO QID PRN #30 tab 08/16/18 medroxyprogesterone 20 mg PO Q2HR PRN #90 tab 09/17/18 citalopram 20 mg tablet 20 mg PO DAILY #30 tab 10/05/18 ondansetron 4 mg PO TID-QID PRN #10 tab 03/06/19 Allergies Allergy/AdvReac Type Severity Reaction Status Date / Time Penicillins [PENICILLINS] Allergy Severe RASH Verified 09/17/18 12:10 vancomycin [VANCOMYCIN] Allergy Severe JUAREZ Verified 09/17/18 12:10 SYNDROME adhesive [ADHESIVE] Allergy Intermediate RASH, SKIN Verified 09/17/18 12:10 PEELS latex [LATEX] Allergy Intermediate RASH Verified 09/17/18 12:10 ketorolac AdvReac Headache Verified 09/17/18 14:37 Review of Systems Constitutional Denies chills, Denies fever(s), Denies lethargy and Reports weakness Eyes Denies change in vision, Denies eye discharge, Denies irritation and Denies loss of vision ENT Ears, Nose, Mouth, and Throat: Denies change in voice, Denies neck pain and Denies sore throat Cardiovascular Denies chest pain, Reports syncope, Denies irregular heart rhythm, Denies lightheadedness, Denies palpitations, Denies dyspnea, Denies dyspnea on exertion and Denies orthopnea Respiratory Denies cough, Denies dyspnea, Denies dyspnea on exertion and Denies wheezing Gastrointestinal Gastrointestinal: Denies abdominal pain, Denies change in bowel habits, Denies diarrhea, Denies nausea and Denies vomiting Genitourinary Denies hematuria, Denies flank pain, Denies urinary incontinence and Denies urinary urgency Musculoskeletal Denies neck pain Integumentary/Breasts Denies pruritus, Denies erythema, Denies rash and Denies wounds Neurologic Denies confusion, Reports syncope, Denies loss of vision and Reports weakness Psychiatric Denies anxiety, Denies confusion, Denies depression, Denies homicidal ideation and Denies suicidal ideation Endocrine Denies palpitations Hematologic/Lymphatic Denies easy bruising Allergic/Immunologic Denies wheezing [facility] Medical History Acne (Chronic) Anemia (Chronic 2007) Anxiety (Chronic 2007) CTS (carpal tunnel syndrome) (Chronic 2011) Depression (Chronic 2007) Hearing loss (Chronic 1987) History of heavy periods (Chronic 2007) Irregular periods/menstrual cycles (Chronic 2007) Painful menstrual periods (Chronic 2007) Vertigo (Chronic) Chicken pox (Resolved 1992) History of hysterosalpingogram (Resolved 09/12/15) Ovarian cancer (Resolved 2007) Ovarian cyst (Resolved 2014) Surgical History Anesthesia (Resolved) History of bowel resection (Resolved 2007) History of left salpingo-oophorectomy (Resolved) History of left salpingo-oophorectomy (Resolved) History of right salpingo-oophorectomy (Resolved 2007) Status post appendectomy (Resolved 2007) Status post delivery (Resolved 01/05/12) Status post exploratory laparotomy (Resolved 10/08/15) Status post laparotomy (Resolved 05/02/15) Family History Father No problems noted. Grandfather Hypertension Alcoholism Grandmother Cancer Stroke Mother Hyperlipidemia Grandfather Hyperlipidemia Hypertension Pneumonia Grandmother Diabetes mellitus Hypertension Sister Hearing loss Vision loss Sister Vision loss Hearing loss Sister Mental health problem Sister No problems noted. Sister No problems noted. Son Age: 7 Suspected autism disorder Social History marital status: unmarried,single Smoking Status: Current every day smoker alcohol intake: never substance use type: does not use Family History Father No problems noted. Grandfather Hypertension Alcoholism Grandmother Cancer Stroke Mother Hyperlipidemia Grandfather Hyperlipidemia Hypertension Pneumonia Grandmother Diabetes mellitus Hypertension Sister Hearing loss Vision loss Sister Vision loss Hearing loss Sister Mental health problem Sister No problems noted. Sister No problems noted. Son Age: 7 Suspected autism disorder Social History marital status: unmarried,single Smoking Status: Current every day smoker alcohol intake: never substance use type: does not use Exam Narrative Exam Narrative: GENERAL: [33] year old patient appears stated age. Well-nourished, well-developed patient, in mild distress. HEAD: Atraumatic. Normocephalic. EYES: Pupils equal round and reactive. Extraocular motions intact. No scleral icterus. No injection or drainage. ENT: Nose without bleeding, purulent drainage. Throat without erythema, tonsillar hypertrophy or exudate. Airway patent. NECK: Trachea midline. Non tender CARDIOVASCULAR: Regular rate and rhythm without murmurs, gallops, or rubs. RESPIRATORY: Clear to auscultation. Breath sounds equal bilaterally. No wheezes, rales, or rhonchi. GASTROINTESTINAL: Abdomen soft, non-tender, nondistended. EXTREMITIES: No edema or joint tenderness. BACK: Nontender without deformity or crepitance. No flank tenderness. NEURO: AOx3. SKIN: No rash or erythema of visible areas Initial Vital Signs Initial Vital Signs: Vital Signs Temperature 97.5 F L 03/06/19 10:25 Pulse Rate 100 H 03/06/19 10:25 Respiratory Rate 18 03/06/19 10:25 Blood Pressure 123/83 03/06/19 10:25 Pulse Oximetry 100 03/06/19 10:25 Course Orders Ordered: ED Orders 03/06/19 10:40 Complete Blood Count AUTO DIFF Stat Comprehensive Metabolic Panel Stat Discontinued Medications Sodium Chloride (Normal Saline 0.9%) 1,000 mls @ 1,000 mls/hr IV BOLUS ONE Stop: 03/06/19 11:33 Last Admin: 03/06/19 10:48 Dose: 1,000 mls/hr Ondansetron HCl (Zofran) 4 mg IV NOW ONE Stop: 03/06/19 10:35 Last Admin: 03/06/19 10:48 Dose: 4 mg Reevaluation(s) Reevaluation #1: Patient reports tremendous improvement with the above-stated therapies Vital Signs - 8 hr 03/06/19 10:25 03/06/19 11:32 Temperature 97.5 F L Pulse Rate 100 H 75 Respiratory Rate 18 14 Blood Pressure 123/83 Blood Pressure [Right Arm] 96/55 L Pulse Oximetry 100 97 MDM - Nausea/Vomiting/Diarrhea Lab Data Result diagrams: 03/06/19 10:40 03/06/19 10:40 Lab Results 03/06/19 03/06/19 Range/Units 10:40 10:40 WBC 5.9 (4.5-11.0) X10^3/uL RBC 4.49 (4.0-5.2) X10^6/uL Hgb 14.8 (12.0-16.0) g/dL Hct 43.1 (36-46) % MCV 95.9 (80-100) fL MCH 33.0 (26-34) PG MCHC 34.5 (30-36) % RDW 13.6 (11.6-14.8) % Plt Count 241 (150-400) X10^3/uL Neut % (Auto) 71.7 (50-75) % Lymph % (Auto) 20.3 L (25-40) % [place] % (Auto) 7.5 (3-14) % Eos % (Auto) 0.2 L (2-4) % Baso % (Auto) 0.3 (0-2) % Neut # (Auto) 4300 (7642-6240) /uL Lymph # (Auto) 1200 (3981-7713) /uL [place] # (Auto) 400 (0-900) /uL Eos # (Auto) 0 (0-450) /uL Baso # (Auto) 0 (0-100) /uL Sodium 141 (137-145) mmol/L Potassium 4.1 (3.4-5.1) mmol/L Chloride 104 (98-107) mmol/L Carbon Dioxide 27 (22-32) mmol/L BUN 11 (7-17) mg/dL Creatinine 0.80 (0.52-1.04) mg/dL Estimated GFR > 60.0 (>60) mL/min BUN/Creatinine Ratio 13.8 (6-22) Glucose 81 (70-100) mg/dL Calcium 9.6 (8.4-10.2) mg/dL Total Bilirubin 0.9 (0.2-1.3) mg/dL AST 21 (14-36) IU/L ALT 17 (9-52) IU/L Alkaline Phosphatase 59 (38-126) U/L Total Protein 7.9 (6.3-8.2) g/dL Albumin 4.6 (3.5-5.0) g/dL Globulin 3.3 (1.7-4.1) g/dL Albumin/Globulin Ratio 1.4 (1.0-2.8) Discharge Plan Departure Patient Disposition: Home Clinical Impression: Vomiting Qualifiers: Vomiting type: unspecified Vomiting Intractability: non-intractable Nausea presence: with nausea Qualified Code(s): R11.2 - Nausea with vomiting, unspecified Diarrhea Qualifiers: Diarrhea type: unspecified type Qualified Code(s): R19.7 - Diarrhea, unspecified Discharge Date/Time: 03/06/19 11:51 Instructions: DI for Dehydration -- Adult, DI for Nausea -- Adult, DI for Vomiting -- Adult Activity Restrictions/Additional Instructions: 1. Drink plenty of fluids with frequent small sips. 2. For the next 24 hours a clear liquid diet is advised. After that please employ a brat diet which would include bananas, rice, apples, toast. 3. Please take medications as directed. 4. Please follow-up with your doctor in the next 1-2 days. Call the office for an appointment. 5. Please return to the emergency Department for any worsening or persistent symptoms, such as increasing pain or fever. Prescriptions: New ondansetron 4 mg tablet,disintegrating 4 mg PO TID-QID PRN (Reason: nausea and vomiting) Qty: 10 RF: 0 No Action citalopram 20 mg tablet 20 mg PO DAILY Qty: 30 RF: 11 albuterol sulfate 90 mcg/actuation HFA aerosol inhaler 2 inhalation INHALATION Q4H PRN (Reason: tight chest/cough) Qty: 6.7 RF: 0 Prempro 0.625-2.5 mg tablet 1 tab PO QPM RF: 0 PNV cmb#95-ferrous fumarate-FA [] 28 mg iron- 800 mcg Tablet 1 tab PO DAILY RF: 0 medroxyprogesterone 10 mg tablet 20 mg PO Q2HR PRN (Reason: vaginal bleeding) Qty: 90 RF: 0 ondansetron 4 mg tablet,disintegrating 4 mg PO QID PRN (Reason: nausea and vomiting) Qty: 30 RF: 0
[2019-03-06] MEDS: ONDANSETRON 4 MG/2 ML INJ IV (10:48)
[2019-03-06] MEDS: SODIUM CHLORIDE 0.9% 1,000 ML 1000 ML IV (10:48)
[2019-03-06 10:52] LABS: Add Manual Diff / Slide Review NO; Basophils Absolute Auto 0 /uL (0-100); Basophils Percent Auto 0.3 % (0-2); Eosinophils Absolute Auto 0 /uL (0-450); Eosinophils Percent Auto 0.2 % (2-4); Hematocrit 43.1 % (36-46); Hemoglobin 14.8 g/dL (12.0-16.0); Lymphocytes Absolute Auto 1200 /uL (1100-4500); Lymphocytes Percent Auto 20.3 % (25-40); Mean Corpuscular HGB Conc 34.5 % (30-36); Mean Corpuscular Volume 95.9 fL (80-100); Monocytes Absolute Auto 400 /uL (0-900); Monocytes Percent Auto 7.5 % (3-14); Neutrophils Absolute Auto 4300 /uL (1500-7000); Neutrophils Percent Auto 71.7 % (50-75); Platelet Count 241 X10^3/uL (150-400); Red Blood Cell Count 4.49 X10^6/uL (4.0-5.2); Red Cell Distribution Width 13.6 % (11.6-14.8); White Blood Cell Count 5.9 X10^3/uL (4.5-11.0)
[2019-03-06 11:21] LABS: Alanine Aminotransferase 17 IU/L (9-52); Albumin 4.6 g/dL (3.5-5.0); Albumin Globulin Ratio 1.4 (1.0-2.8); Alkaline Phosphatase 59 U/L (38-126); Aspartate Aminotransferase 21 IU/L (14-36); BUN Creatinine Ratio 13.8 (6-22); Bilirubin Total 0.9 mg/dL (0.2-1.3); Blood Urea Nitrogen 11 mg/dL (7-17); Calcium 9.6 mg/dL (8.4-10.2); Carbon Dioxide 27 mmol/L (22-32); Chloride 104 mmol/L (98-107); Estimated Glomerular Filt Rate > 60.0 mL/min (>60); Globulin 3.3 g/dL (1.7-4.1); Glucose 81 mg/dL (70-100); Potassium 4.1 mmol/L (3.4-5.1); Sodium 141 mmol/L (137-145); Total Protein 7.9 g/dL (6.3-8.2)
[2019-03-06 11:24] LABS: HEMOLYSIS 76 (0-50)
[2019-03-06 11:32] VITALS: BP 96/55; PULSE 75; RESP 14; O2SAT 97
[2019-03-06 11:45] VITALS: BP 103/58; PULSE 72; RESP 14; O2SAT 100
== END 2019-03-06 11:51 | disposition home or self-care (01) ==
PROVIDERS: Emergency Provider Emergency Medicine
DX: R11.2 Nausea with vomiting, unspecified (principal); R19.7 Diarrhea, unspecified
CPT/HCPCS: 36591; 80053; 85025; 96361; 96374; 99283; 99284; J2405

== ENCOUNTER 2019-03-25 00:15 | Emergency (ER) | payer SELFPAY ==
[2019-03-25 00:29] VITALS: BP 122/78; PULSE 91; RESP 15; TEMP 36.4; O2SAT 97
[2019-03-25 00:40] LABS: INR 1.1 (0.9-1.3); Prothrombin Time 12.3 SECONDS (10.1-12.7)
[2019-03-25 00:41] LABS: Add Manual Diff / Slide Review NO; Basophils Absolute Auto 0 /uL (0-100); Basophils Percent Auto 0.7 % (0-2); Eosinophils Absolute Auto 100 /uL (0-450); Eosinophils Percent Auto 0.7 % (2-4); Hematocrit 42.7 % (36-46); Hemoglobin 14.6 g/dL (12.0-16.0); Lymphocytes Absolute Auto 3100 /uL (1100-4500); Lymphocytes Percent Auto 44.5 % (25-40); Mean Corpuscular HGB Conc 34.3 % (30-36); Mean Corpuscular Hemoglobin 32.9 PG (26-34); Monocytes Absolute Auto 600 /uL (0-900); Monocytes Percent Auto 8.5 % (3-14); Neutrophils Absolute Auto 3200 /uL (1500-7000); Neutrophils Percent Auto 45.6 % (50-75); Platelet Count 256 X10^3/uL (150-400); Red Blood Cell Count 4.44 X10^6/uL (4.0-5.2)
[2019-03-25 00:42] LABS: PTT Partial Thromboplastin Tim 37 SECONDS (26.4-36.2)
[2019-03-25 00:44] LABS: Alanine Aminotransferase 8 IU/L (9-52); Albumin 4.7 g/dL (3.5-5.0); Albumin Globulin Ratio 1.4 (1.0-2.8); Alkaline Phosphatase 61 U/L (38-126); Aspartate Aminotransferase 18 IU/L (14-36); BUN Creatinine Ratio 16.3 (6-22); Bilirubin Total 0.4 mg/dL (0.2-1.3); Blood Urea Nitrogen 13 mg/dL (7-17); Calcium 9.9 mg/dL (8.4-10.2); Carbon Dioxide 31 mmol/L (22-32); Chloride 101 mmol/L (98-107); Estimated Glomerular Filt Rate > 60.0 mL/min (>60); Globulin 3.3 g/dL (1.7-4.1); Glucose 87 mg/dL (70-100); HEMOLYSIS 37 (0-50); Lipase 70 U/L (23-300); Potassium 3.9 mmol/L (3.4-5.1); Sodium 142 mmol/L (137-145)
--- NOTE | 2019-03-25 01:16 | ED.ABDPAIN ---
HPI - Abdominal Pain General Chief Complaint: Abdominal Pain Stated Complaint: Abdominal pain Time Seen by Provider: 03/25/19 01:16 Source: patient Mode of arrival: ambulatory Limitations: no limitations History of Present Illness HPI narrative: Patient is a 33-year-old female presenting with nausea vomiting. She has a history of ovarian cancer she actually has no ovaries left but he does have a uterus. She actually has been doing fairly well until about 2 weeks ago. She was seen evaluated here diagnosed with gastroenteritis could she had diarrhea and vomiting. She states stool is still loose and not formed and she still feels nauseous quite frequently. His she says food and fluids make her stomach hurt. She otherwise has no abdominal pain or discomfort. She has not had any fever or chills. She says it has overall just not getting any better. Pain Consistency: constant Migration to: no migration Exacerbating factors: eating Related Data Home Medications Medication Instructions Recorded Confirmed PNV cmb#95-ferrous fumarate-FA 1 tab PO DAILY 09/17/18 09/17/18 [] conj estrog-medroxyprogest bernice 1 tab PO QPM 09/17/18 09/17/18 [Prempro] Previous Rx's Medication Instructions Recorded albuterol sulfate 2 inhalation INHALATION Q4H PRN 06/30/18 #6.7 gram ondansetron 4 mg PO QID PRN #30 tab 08/16/18 medroxyprogesterone 20 mg PO Q2HR PRN #90 tab 09/17/18 citalopram 20 mg tablet 20 mg PO DAILY #30 tab 10/05/18 ondansetron 4 mg PO TID-QID PRN #10 tab 03/06/19 ondansetron 4 mg PO Q8H PRN #10 tab 03/25/19 Allergies Allergy/AdvReac Type Severity Reaction Status Date / Time Penicillins [PENICILLINS] Allergy Severe RASH Verified 03/25/19 00:29 vancomycin [VANCOMYCIN] Allergy Severe JUAREZ Verified 03/25/19 00:29 SYNDROME adhesive [ADHESIVE] Allergy Intermediate RASH, SKIN Verified 03/25/19 00:29 PEELS latex [LATEX] Allergy Intermediate RASH Verified 03/25/19 00:29 ketorolac AdvReac Headache Verified 03/25/19 00:29 Review of Systems Review of Systems Narrative: GENERAL: Denies chills, fatigue, malaise, fever, sweats, travel HEENT: Denies sinus pain, ear pain, sore throat, difficulty swallowing, neck pain RESPIRATORY: Denies dyspnea, cough, wheezing, hemoptysis, sputum. CARDIOVASCULAR: Denies chest pain, palpitations, orthopnea, edema GASTROINTESTINAL: See HPI : Denies dysuria, frequency, incontinence, hematuria, urinary retention, flank pain. MUSCULOSKELETAL: Denies weakness, joint pain, or bony pain SKIN: No rash, no erythema, no pruritus NEUROLOGIC: Denies weakness, dizziness, headache, numbness, change in speech, confusion PSYCHIATRIC: No concerning psychosocial issues. 12 point review of systems is negative except for those stated above and HPI [facility] Medical History Acne (Chronic) Anemia (Chronic 2007) Anxiety (Chronic 2007) Chicken pox (Resolved 1992) CTS (carpal tunnel syndrome) (Chronic 2011) Depression (Chronic 2007) Hearing loss (Chronic 1987) History of heavy periods (Chronic 2007) History of hysterosalpingogram (Resolved 09/12/15) Irregular periods/menstrual cycles (Chronic 2007) Ovarian cancer (Resolved 2007) Ovarian cyst (Resolved 2014) Painful menstrual periods (Chronic 2007) Vertigo (Chronic) Surgical History Anesthesia (Resolved) History of bowel resection (Resolved 2007) History of left salpingo-oophorectomy (Resolved) History of left salpingo-oophorectomy (Resolved) History of right salpingo-oophorectomy (Resolved 2007) Status post appendectomy (Resolved 2007) Status post delivery (Resolved 01/05/12) Status post exploratory laparotomy (Resolved 10/08/15) Status post laparotomy (Resolved 05/02/15) Family History Father No problems noted. Grandfather Hypertension Alcoholism Grandmother Cancer Stroke Mother Hyperlipidemia Grandfather Hyperlipidemia Hypertension Pneumonia Grandmother Diabetes mellitus Hypertension Sister Hearing loss Vision loss Sister Vision loss Hearing loss Sister Mental health problem Sister No problems noted. Sister No problems noted. Son Age: 7 Suspected autism disorder Social History marital status: unmarried,single Smoking Status: Current every day smoker alcohol intake: never substance use type: does not use Family History Father No problems noted. Grandfather Hypertension Alcoholism Grandmother Cancer Stroke Mother Hyperlipidemia Grandfather Hyperlipidemia Hypertension Pneumonia Grandmother Diabetes mellitus Hypertension Sister Hearing loss Vision loss Sister Vision loss Hearing loss Sister Mental health problem Sister No problems noted. Sister No problems noted. Son Age: 7 Suspected autism disorder Social History marital status: unmarried,single Smoking Status: Current every day smoker alcohol intake: never substance use type: does not use Exam Initial Vital Signs Initial Vital Signs: Vital Signs Temperature 97.6 F 03/25/19 00:29 Pulse Rate 91 H 03/25/19 00:29 Respiratory Rate 15 03/25/19 00:29 Blood Pressure 122/78 03/25/19 00:29 Pulse Oximetry 97 03/25/19 00:29 GENERAL: Well-appearing, well-nourished and in no acute distress. HEENT: Head atraumatic,EOMI, pupils reactive, face symmetric, moist mucous membranes CARDIOVASCULAR: Regular rate and rhythm without murmurs, rubs or gallops. RESPIRATORY: Breath sounds equal bilaterally, no wheezes rales or rhonchi. ABDOMEN: Soft, minimal epigastric tenderness no guarding no rebound positive bowel sounds throughout no distension. EXTREMITIES: Normal range of motion, no clubbing or edema. Neurovascularly intact NEUROLOGICAL: Alert and oriented x4.Normal gait and speech. SKIN: Warm, dry, no laceration, no petechiae, no rashes or lesions. Course Orders Ordered: ED Orders 03/25/19 00:28 Complete Blood Count AUTO DIFF Stat Comprehensive Metabolic Panel Stat Lipase Stat Partial Thromboplastin Time Stat Prothrombin Time INR Stat EKG-12 Lead Stat Discontinued Medications Ondansetron HCl (Zofran) 4 mg IV NOW ONE Stop: 03/25/19 01:19 Last Admin: 03/25/19 01:22 Dose: 4 mg Documented by: KENY Pantoprazole Sodium (Protonix) 40 mg IV NOW ONE Stop: 03/25/19 01:28 Last Admin: 03/25/19 01:34 Dose: 40 mg Documented by: KAYLIN Vital Signs Vital signs: Vital Signs - 8 hr 03/25/19 00:29 Temperature 97.6 F Pulse Rate 91 H Respiratory Rate 15 Blood Pressure 122/78 Pulse Oximetry 97 MDM - Abdominal Pain Lab Data Attestation: I reviewed the patient's lab results. Result diagrams: 03/25/19 00:28 03/25/19 00:28 Labs: Lab Results 03/25/19 03/25/19 03/25/19 Range/Units 00:28 00:28 00:28 WBC 7.0 (4.5-11.0) X10^3/uL RBC 4.44 (4.0-5.2) X10^6/uL Hgb 14.6 (12.0-16.0) g/dL Hct 42.7 (36-46) % MCV 96.0 (80-100) fL MCH 32.9 (26-34) PG MCHC 34.3 (30-36) % RDW 13.0 (11.6-14.8) % Plt Count 256 (150-400) X10^3/uL Neut % (Auto) 45.6 L (50-75) % Lymph % (Auto) 44.5 H (25-40) % [place] % (Auto) 8.5 (3-14) % Eos % (Auto) 0.7 L (2-4) % Baso % (Auto) 0.7 (0-2) % Neut # (Auto) 3200 (5348-1193) /uL Lymph # (Auto) 3100 (7885-5925) /uL [place] # (Auto) 600 (0-900) /uL Eos # (Auto) 100 (0-450) /uL Baso # (Auto) 0 (0-100) /uL PT 12.3 (10.1-12.7) SECONDS INR 1.1 (0.9-1.3) APTT 37 H (26.4-36.2) SECONDS Sodium 142 (137-145) mmol/L Potassium 3.9 (3.4-5.1) mmol/L Chloride 101 (98-107) mmol/L Carbon Dioxide 31 (22-32) mmol/L BUN 13 (7-17) mg/dL Creatinine 0.80 (0.52-1.04) mg/dL Estimated GFR > 60.0 (>60) mL/min BUN/Creatinine Ratio 16.3 (6-22) Glucose 87 (70-100) mg/dL Calcium 9.9 (8.4-10.2) mg/dL Total Bilirubin 0.4 (0.2-1.3) mg/dL AST 18 (14-36) IU/L ALT 8 L (9-52) IU/L Alkaline Phosphatase 61 (38-126) U/L Total Protein 8.0 (6.3-8.2) g/dL Albumin 4.7 (3.5-5.0) g/dL Globulin 3.3 (1.7-4.1) g/dL Albumin/Globulin Ratio 1.4 (1.0-2.8) Lipase 70 (23-300) U/L Point of care testing: Point of Care Testing Test Results Negative Urine Dip Bedside Urine Glucose Negative Bedside Urine Bilirubin - Negative Bedside Urine Ketone - Negative Urine Specific [place] 1.015 Bedside Urine Occult Blood - Negative Bedside Urine pH 5.5 Bedside Urine Protein - Negative Bedside Urine Urobilinogen - Negative Bedside Urine Nitrite - Negative Bedside Urine Leukocytes - Negative Esterase ECG Data Attestation: I personally reviewed and interpreted this ECG as follows: Prior ECG tracings: not available for review Interpretation: Rate 67 p.r. interval 140 QRS [address] changes no T-wave inversions no priors to compare MDM Narrative Medical decision making narrative: Patient is feeling nauseous above better with Zofran. No active vomiting. Initially agreed to abdominal x-ray however needed to leave prior before the taken she said she had a family emergency. Her stomach is really not significantly tender no real distention. Blood work reassuring. No evidence of significant dehydration. Patient's mucous membranes are moist. Recommended [id number] antiacid medication along with zofran. Discharge Plan Departure Patient Disposition: Home Clinical Impression: Vomiting Qualifiers: Vomiting type: unspecified Vomiting Intractability: non-intractable Nausea presence: with nausea Qualified Code(s): R11.2 - Nausea with vomiting, unspecified Discharge Date/Time: 03/25/19 01:45 Instructions: DI for Vomiting -- Adult Activity Restrictions/Additional Instructions: *You have been diagnosed with nausea vomiting *What to do: Tried increase diet as tolerated dark with bland diet. *Continue to take medications as directed Zofran 4 mg every 8 hours if needed for nausea vomit--> [facility] [place] Omeprazole 20 mg once a day 30 minutes before eating to help with acid this is over the counter *Follow up with your primary care provider in 2-3 days *Return to ER if you should have increasing pain persistent vomiting inability to keep any fluids down [or] any new, worsening or concerning symptoms Prescriptions: New ondansetron 4 mg tablet,disintegrating 4 mg PO Q8H PRN (Reason: nausea and vomiting) Qty: 10 RF: 0 No Action citalopram 20 mg tablet 20 mg PO DAILY Qty: 30 RF: 11 albuterol sulfate 90 mcg/actuation HFA aerosol inhaler 2 inhalation INHALATION Q4H PRN (Reason: tight chest/cough) Qty: 6.7 RF: 0 Prempro 0.625-2.5 mg tablet 1 tab PO QPM RF: 0 PNV cmb#95-ferrous fumarate-FA [] 28 mg iron- 800 mcg Tablet 1 tab PO DAILY RF: 0 medroxyprogesterone 10 mg tablet 20 mg PO Q2HR PRN (Reason: vaginal bleeding) Qty: 90 RF: 0 ondansetron 4 mg tablet,disintegrating 4 mg PO TID-QID PRN (Reason: nausea and vomiting) Qty: 10 RF: 0 ondansetron 4 mg tablet,disintegrating 4 mg PO QID PRN (Reason: nausea and vomiting) Qty: 30 RF: 0
[2019-03-25] MEDS: ONDANSETRON 4 MG/2 ML INJ IV (01:22)
[2019-03-25] MEDS: PANTOPRAZOLE 40 MG VIAL IV (01:34)
== END 2019-03-25 01:45 | disposition home or self-care (01) ==
PROVIDERS: Emergency Provider Emergency Medicine
DX: R11.2 Nausea with vomiting, unspecified (principal)
CPT/HCPCS: 36591; 80053; 81003; 81025; 83690; 85025; 85610; 85730; 93005; 96374; 96375; 99282; 99284; C9113; J2405

== ENCOUNTER 2019-05-27 09:11 | Emergency (ER) | payer SELFPAY ==
[2019-05-27 09:20] VITALS: BP 113/68; PULSE 95; RESP 18; O2SAT 98
--- NOTE | 2019-05-27 09:24 | DI.RAD.S_ITS ---
PROCEDURE: XR CHEST 2V INDICATIONS: coughing/sob TECHNIQUE: 2 views of the chest were acquired. COMPARISON: [facility], , XR CHEST 2V, 06/30/2018, 14:29. FINDINGS: Surgical changes and devices: None. Lungs and pleura: Lungs are clear. No pleural effusions or pneumothorax. Mediastinum: Mediastinal contours are normal. Heart size is normal. Bones and chest wall: No suspicious bony abnormalities. Soft tissues appear unremarkable. IMPRESSION: No acute disease or interval change Dictated by: Grupo Arenas M.D. on 05/27/2019 at 9:38 Approved by: Grupo Arenas M.D. on 05/27/2019 at 9:40
[2019-05-27 09:27] VITALS: TEMP 36.3
--- NOTE | 2019-05-27 09:41 | ED_ITS ---
HPI - URI/Sore Throat General Chief Complaint: Upper Respiratory Symptoms Stated Complaint: chest pain,coughing Time Seen by Provider: 05/27/19 09:36 Source: patient Mode of arrival: Ambulatory Limitations: no limitations History of Present Illness HPI Narrative: This is a 33-year-old female comes to the emergency department with upper respiratory congestion, mild epistaxis 1st thing in the morning. Cough which has been nonproductive. Chest pain, nausea but no active vomiting. Patient states that bowel movements have been okay although she feels like there is a little bit more stool and some mild abdominal discomfort. Patient denies any urinary symptoms. she states she has felt cold intermittently and had sweating at night. She states her objective temperature has been normal. She has had symptoms for several days but has felt increasingly worse over the last day and a half. She states she has a history of ovarian cancer and had oophorectomy bilaterally. she states that the right ovary was removed for cancer on the left was removed secondary to complications from what sounds like a hysterosalpingogram for similar type imaging. She chronically has some lower abdominal pain. She has not been following up with her surveillance she does not currently have a primary care physician. She was cared for while she was in [place]. Related Data Home Medications Medication Instructions Recorded Confirmed PNV cmb#95-ferrous fumarate-FA 1 tab PO DAILY 09/17/18 09/17/18 [] conj estrog-medroxyprogest bernice 1 tab PO QPM 09/17/18 09/17/18 [Prempro] Previous Rx's Medication Instructions Recorded albuterol sulfate 2 inhalation INHALATION Q4H PRN 06/30/18 #6.7 gram ondansetron 4 mg PO QID PRN #30 tab 08/16/18 medroxyprogesterone 20 mg PO Q2HR PRN #90 tab 09/17/18 citalopram 20 mg tablet 20 mg PO DAILY #30 tab 10/05/18 ondansetron 4 mg PO TID-QID PRN #10 tab 03/06/19 ondansetron 4 mg PO Q8H PRN #10 tab 03/25/19 Allergies Allergy/AdvReac Type Severity Reaction Status Date / Time Penicillins [PENICILLINS] Allergy Severe RASH Verified 03/25/19 00:29 vancomycin [VANCOMYCIN] Allergy Severe JUAREZ Verified 03/25/19 00:29 SYNDROME adhesive [ADHESIVE] Allergy Intermediate RASH, SKIN Verified 03/25/19 00:29 PEELS latex [LATEX] Allergy Intermediate RASH Verified 03/25/19 00:29 ketorolac AdvReac Headache Verified 03/25/19 00:29 Review of Systems Review of Systems ROS Unobtainable: All systems reviewed & are unremarkable except as noted in HPI and below Patient History Medical History Acne (Chronic) Anemia (Chronic 2007) Anxiety (Chronic 2007) Chicken pox (Resolved 1992) CTS (carpal tunnel syndrome) (Chronic 2011) Depression (Chronic 2007) Hearing loss (Chronic 1987) History of heavy periods (Chronic 2007) History of hysterosalpingogram (Resolved 09/12/15) Irregular periods/menstrual cycles (Chronic 2007) Ovarian cancer (Resolved 2007) Ovarian cyst (Resolved 2014) Painful menstrual periods (Chronic 2007) Vertigo (Chronic) Surgical History Anesthesia (Resolved) History of bowel resection (Resolved 2007) History of left salpingo-oophorectomy (Resolved) History of left salpingo-oophorectomy (Resolved) History of right salpingo-oophorectomy (Resolved 2007) Status post appendectomy (Resolved 2007) Status post delivery (Resolved 01/05/12) Status post exploratory laparotomy (Resolved 10/08/15) Status post laparotomy (Resolved 05/02/15) Family History Father No problems noted. Grandfather Hypertension Alcoholism Grandmother Cancer Stroke Mother Hyperlipidemia Grandfather Hyperlipidemia Hypertension Pneumonia Grandmother Diabetes mellitus Hypertension Sister Hearing loss Vision loss Sister Vision loss Hearing loss Sister Mental health problem Sister No problems noted. Sister No problems noted. Son Age: 7 Suspected autism disorder Social History marital status: unmarried,single Smoking Status: Current every day smoker alcohol intake: never substance use type: does not use alcohol intake frequency: 0-2 drinks per day Substance Use Type: marijuana Exam Narrative Exam Narrative: GEN: well nourished, well appearing female, alert and oriented x 3, patient appears to be in mild distress. HEENT: Atraumatic, pupils are equal round reactive to light, extraocular movements are intact, nares mild bilateral clear rhinorrhea, TMs are clear with no fluid.. Throat is slightly erythematous without any exudates, no tonsillar enlargement or uvular deviation HEART: Regular rate and rhythm without murmur, clicks, rubs. Pulses are equal in upper and lower extremities LUNGS:Lungs clear to auscultation, no wheezes, rales, crackles, chest moves symmetrically, no tachypnea or accessory muscle use. Patient sound slightly hoarse. ABD:bowel sounds normal, soft, nondistended, mild tenderness that is ge neralized, no guarding, rebound, rigidity, no masses noted, no hepatosplenomegaly :No CVA tenderness MSCL: Non-tender, no muscle atrophy, muscles strength 5/5 upper and lower extremities, full range of motion, normal gait NEURO:CN 2-12 intact, sensation normal SKIN: No rash, no petechiae, no erythema. Initial Vital Signs Initial Vital Signs: Vital Signs Pulse Rate 95 H 05/27/19 09:20 Respiratory Rate 18 05/27/19 09:20 Blood Pressure 113/68 05/27/19 09:20 Pulse Oximetry 98 05/27/19 09:20 Course Orders Ordered: ED Orders 05/27/19 09:24 XR chest 2V Stat Vital Signs Vital signs: Vital Signs - 8 hr 05/27/19 10:35 Pulse Rate 64 Respiratory Rate 18 Blood Pressure [Left Arm] 98/60 Pulse Oximetry 98 MDM - URI/Sore Throat Imaging Data Chest x-ray: Radiologist's impression: [address] [address] XRay Report Signed Patient: Sangeetha Perea [facility]#: [id number] : 1985Acct:[id number] Age/Sex: 33 / FDate of Service: 05/27/19 Loc: ED Accession Number: [id number] Procedure: XR chest 2V Ordering Provider: Rosita Rosario D.O. PROCEDURE: XR CHEST 2V INDICATIONS: coughing/sob TECHNIQUE: 2 views of the chest were acquired. [facility]. FINDINGS: Surgical changes and devices: None. Lungs and pleura: Lungs are clear. No pleural effusions or pneumothorax. Mediastinum: Mediastinal contours are normal. Heart size is normal. Bones and chest wall: No suspicious bony abnormalities. Soft tissues appear unremarkable. IMPRESSION: No acute disease or interval change Dictated by: Grupo Arenas M.D. on 05/27/2019 at 9:38 Approved by: Grupo Arenas M.D. on 05/27/2019 at 9:40 MDM Narrative Medical decision making narrative: Discussed with patient I suspect she has an upper respiratory infection that is slowly worsening. No wheezing consistent with bronchitis so I would not start her on steroids. Lungs are clear and chest x-ray does not show any acute findings. Patient has some mild abdominal discomfort but this is her normal baseline. We did discuss that she needs follow-up and surveillance. She has had issues with insurance so she was given the Healthcare human resource analyst who helps people established with primary care but can also help her navigate insurance options. We discussed that it may be helpful for her to follow with Oncology if she does not have a primary care that can be helpful. Discharge Plan Departure Patient Disposition: Home Clinical Impression: URI (upper respiratory infection) Discharge Date/Time: 05/27/19 10:39 Instructions: DI for Viral Upper Respiratory Infection -- Adult Activity Restrictions/Additional Instructions: Call [phone] for the health human resource analyst to help you establish a primary care and potentially insurance options. They may also be able to help you navigate to find an oncologist for someone to continue your surveillance for previous ovarian cancer. Below is one of the oncology providers at [facility]. You may continue ibuprofen and/or Tylenol as needed Make sure you are continuing to orally hydrate. Return to the ER for fevers greater 100.4 F, passing out, new changes to chest pain or shortness of breath, persistent vomiting, coughing up blood, black or bloody stools, new swelling in your extremities or other new or concerning symptoms. Prescriptions: No Action citalopram 20 mg tablet 20 mg PO DAILY Qty: 30 RF: 11 albuterol sulfate 90 mcg/actuation HFA aerosol inhaler 2 inhalation INHALATION Q4H PRN (Reason: tight chest/cough) Qty: 6.7 RF: 0 Prempro 0.625-2.5 mg tablet 1 tab PO QPM RF: 0 PNV cmb#95-ferrous fumarate-FA [] 28 mg iron- 800 mcg Tablet 1 tab PO DAILY RF: 0 medroxyprogesterone 10 mg tablet 20 mg PO Q2HR PRN (Reason: vaginal bleeding) Qty: 90 RF: 0 ondansetron 4 mg tablet,disintegrating 4 mg PO TID-QID PRN (Reason: nausea and vomiting) Qty: 10 RF: 0 ondansetron 4 mg tablet,disintegrating 4 mg PO QID PRN (Reason: nausea and vomiting) Qty: 30 RF: 0 ondansetron 4 mg tablet,disintegrating 4 mg PO Q8H PRN (Reason: nausea and vomiting) Qty: 10 RF: 0 Referrals: Citlaly Alexander MD [Physician] - Stand Alone Forms: Work Release Note
[2019-05-27 10:35] VITALS: BP 98/60; PULSE 64; RESP 18; O2SAT 98
== END 2019-05-27 10:39 | disposition home or self-care (01) ==
PROVIDERS: Emergency Provider Emergency Medicine
DX: J06.9 Acute upper respiratory infection, unspecified (principal); R06.02 Shortness of breath; R05 Cough
CPT/HCPCS: 71046; 99282; 99283

== ENCOUNTER 2019-09-18 18:25 | Emergency (ER) | payer SELFPAY ==
[2019-09-18 18:37] VITALS: BP 121/72; PULSE 96; RESP 18; TEMP 36.4; O2SAT 100
--- NOTE | 2019-09-18 18:43 | ED.EXTPRO ---
HPI - Extremity Problem General Chief complaint: Extremity Problem,Nontraumatic Stated complaint: growth on right foot Time Seen by Provider: 09/18/19 18:43 Source: patient Mode of arrival: Ambulatory History of Present Illness HPI Narrative: Presents with a plantar wart on the plantar surface of her great toe right side. It is growing to the point that it is hurting to walk and feels sharp when she steps on it. Been present for a number of months. She does not have any other warts. She does not currently have insurance her primary care physician to treat this. Related Data Home Medications Medication Instructions Recorded Confirmed PNV cmb#95-ferrous fumarate-FA 1 tab PO DAILY 09/17/18 09/17/18 [] conj estrog-medroxyprogest bernice 1 tab PO QPM 09/17/18 09/17/18 [Prempro] Previous Rx's Medication Instructions Recorded albuterol sulfate 2 inhalation INHALATION Q4H PRN 06/30/18 #6.7 gram ondansetron 4 mg PO QID PRN #30 tab 08/16/18 medroxyprogesterone 20 mg PO Q2HR PRN #90 tab 09/17/18 citalopram 20 mg tablet 20 mg PO DAILY #30 tab 10/05/18 ondansetron 4 mg PO TID-QID PRN #10 tab 03/06/19 ondansetron 4 mg PO Q8H PRN #10 tab 03/25/19 Allergies Allergy/AdvReac Type Severity Reaction Status Date / Time Penicillins [PENICILLINS] Allergy Severe RASH Verified 03/25/19 00:29 vancomycin [VANCOMYCIN] Allergy Severe JUAREZ Verified 03/25/19 00:29 SYNDROME adhesive [ADHESIVE] Allergy Intermediate RASH, SKIN Verified 03/25/19 00:29 PEELS latex [LATEX] Allergy Intermediate RASH Verified 03/25/19 00:29 ketorolac AdvReac Headache Verified 03/25/19 00:29 Review of Systems Review of Systems Narrative: No fevers, cough, chills No other skin rashes or lesions Patient History Medical History Acne (Chronic) Anemia (Chronic 2007) Anxiety (Chronic 2007) Chicken pox (Resolved 1992) CTS (carpal tunnel syndrome) (Chronic 2011) Depression (Chronic 2007) Hearing loss (Chronic 1987) History of heavy periods (Chronic 2007) History of hysterosalpingogram (Resolved 09/12/15) Irregular periods/menstrual cycles (Chronic 2007) Ovarian cancer (Resolved 2007) Ovarian cyst (Resolved 2014) Painful menstrual periods (Chronic 2007) Vertigo (Chronic) Surgical History Anesthesia (Resolved) History of bowel resection (Resolved 2007) History of left salpingo-oophorectomy (Resolved) History of left salpingo-oophorectomy (Resolved) History of right salpingo-oophorectomy (Resolved 2007) Status post appendectomy (Resolved 2007) Status post delivery (Resolved 01/05/12) Status post exploratory laparotomy (Resolved 10/08/15) Status post laparotomy (Resolved 05/02/15) Family History Father No problems noted. Grandfather Hypertension Alcoholism Grandmother Cancer Stroke Mother Hyperlipidemia Grandfather Hyperlipidemia Hypertension Pneumonia Grandmother Diabetes mellitus Hypertension Sister Hearing loss Vision loss Sister Vision loss Hearing loss Sister Mental health problem Sister No problems noted. Sister No problems noted. Son Age: 7 Suspected autism disorder Social History marital status: unmarried,single Smoking Status: Current every day smoker alcohol intake: never substance use type: does not use Smoking Status: Current every day smoker alcohol intake frequency: 0-2 drinks per day Substance Use Type: marijuana Exam Narrative Exam Narrative: General: Alert appropriate in no acute distress Respiratory: Able to speak in full sentences, no obvious respiratory distress Skin: No obvious rashes, warm and dry Neurologic: Grossly intact no obvious asymmetries or abnormalities Psych, appropriate insight and affect, cooperative Extremity: Moderate-sized plantar wart on the plantar surface of the right great toe without infection or hematoma Initial Vital Signs Initial Vital Signs: Vital Signs Temperature 97.5 F L 09/18/19 18:37 Pulse Rate 96 H 09/18/19 18:37 Respiratory Rate 18 09/18/19 18:37 Blood Pressure 121/72 09/18/19 18:37 Pulse Oximetry 100 09/18/19 18:37 Course Vital Signs Vital signs: Vital Signs - 8 hr 09/18/19 18:37 Temperature 97.5 F L Pulse Rate 96 H Respiratory Rate 18 Blood Pressure 121/72 Pulse Oximetry 100 Discharge Plan Departure Patient Disposition: Home Clinical Impression: Plantar wart Instructions: Plantar Warts Activity Restrictions/Additional Instructions: Thank you for coming in today You have a plantar wart. Please see the additional instructions that I have included on how you can help your body recognize this viral infection and heal yourself. Good luck! Prescriptions: No Action citalopram 20 mg tablet 20 mg PO DAILY Qty: 30 RF: 11 albuterol sulfate 90 mcg/actuation HFA aerosol inhaler 2 inhalation INHALATION Q4H PRN (Reason: tight chest/cough) Qty: 6.7 RF: 0 Prempro 0.625-2.5 mg tablet 1 tab PO QPM RF: 0 PNV cmb#95-ferrous fumarate-FA [] 28 mg iron- 800 mcg Tablet 1 tab PO DAILY RF: 0 medroxyprogesterone 10 mg tablet 20 mg PO Q2HR PRN (Reason: vaginal bleeding) Qty: 90 RF: 0 ondansetron 4 mg tablet,disintegrating 4 mg PO TID-QID PRN (Reason: nausea and vomiting) Qty: 10 RF: 0 ondansetron 4 mg tablet,disintegrating 4 mg PO QID PRN (Reason: nausea and vomiting) Qty: 30 RF: 0 ondansetron 4 mg tablet,disintegrating 4 mg PO Q8H PRN (Reason: nausea and vomiting) Qty: 10 RF: 0
== END 2019-09-18 18:59 | disposition home or self-care (01) ==
PROVIDERS: Emergency Provider Emergency Medicine
DX: B07.0 Plantar wart (principal)
CPT/HCPCS: 99281

== ENCOUNTER 2019-10-16 14:53 | Emergency (ER) | payer SELFPAY ==
[2019-10-16 15:12] VITALS: BP 120/75; PULSE 69; RESP 18; TEMP 37.1; O2SAT 96; BMI 19.1
[2019-10-16] MEDS: ONDANSETRON 4 MG/2 ML INJ IV (15:29)
[2019-10-16] MEDS: SODIUM CHLORIDE 0.9% 1,000 ML 1000 ML IV (15:29)
--- NOTE | 2019-10-16 15:36 | DI.RAD.S_ITS ---
PROCEDURE: XR CHEST 1V INDICATIONS: SOB TECHNIQUE: One view of the chest was acquired. COMPARISON: [facility], CR, XR CHEST 2V, 05/27/2019, 9:21. FINDINGS: Surgical changes and devices: None. Lungs and pleura: Lungs are clear. No pleural effusions or pneumothorax. Mediastinum: Mediastinal contours appear normal. Heart size is normal. Bones and chest wall: No suspicious bony lesions. Overlying soft tissues appear unremarkable. IMPRESSION: No acute cardiopulmonary abnormalities or focal airspace disease. Dictated by: Hardik Alvarado M.D. on 10/16/2019 at 16:36 Approved by: Hardik Alvardao M.D. on 10/16/2019 at 16:37
--- NOTE | 2019-10-16 15:41 | ED.URI ---
HPI - URI/Sore Throat <Cathy JonesMARTHA - Last Filed: 10/16/19 19:11> General Chief Complaint: Upper Respiratory Symptoms Stated Complaint: Cough/Sore Throat/SOB/Nausea Time Seen by Provider: 10/16/19 14:56 Source: patient and family Mode of arrival: Ambulatory History of Present Illness HPI Narrative: 34yo female with a history of ovarian cancer in remission and current smoker, presents emergency department complaining of worsening respiratory illness. She states she has had a cough, nausea, vomiting, and diaphoresis for the past 2 weeks. She was seen at [facility] last week and diagnosed with a respiratory virus. She states she continues to have chest tightness and shortness of breath that is worsened over the past few days. She states she did vomit yesterday, but has been able to keep foods and fluids down. Patient states my ribs hurt espcially when I take a deep breath.She denies any high fevers but has been taking Tylenol for chills. Patient denies taking and APAP or IBU today. Patient denies any abdominal pain, headaches, vision changes, diarrhea, dizziness, chest pain, or any other concerns. Patient denies any contact with persons with confirm COVID-19 cases or any travel. Patient states ?the vomiting can be normal sometimes because of had a history of a bowel resection and my stomach is funny symptoms ?. Related Data Home Medications Medication Instructions Recorded Confirmed PNV cmb#95-ferrous fumarate-FA 1 tab PO DAILY 09/17/18 09/17/18 [] conj estrog-medroxyprogest bernice 1 tab PO QPM 09/17/18 09/17/18 [Prempro] Previous Rx's Medication Instructions Recorded albuterol sulfate 2 inhalation INHALATION Q4H PRN 06/30/18 #6.7 gram ondansetron 4 mg PO QID PRN #30 tab 08/16/18 medroxyprogesterone 20 mg PO Q2HR PRN #90 tab 09/17/18 citalopram 20 mg tablet 20 mg PO DAILY #30 tab 10/05/18 ondansetron 4 mg PO TID-QID PRN #10 tab 03/06/19 ondansetron 4 mg PO Q8H PRN #10 tab 03/25/19 albuterol sulfate 2 puff INHALATION Q4-6H PRN #8.5 10/16/19 gram benzonatate [Tessalon Perles] 100 mg PO BID-TID PRN #30 cap 10/16/19 ondansetron 4 mg PO Q8H PRN #10 tab 10/16/19 Allergies Allergy/AdvReac Type Severity Reaction Status Date / Time Penicillins [PENICILLINS] Allergy Severe RASH Verified 10/16/19 15:12 vancomycin [VANCOMYCIN] Allergy Severe JUAREZ Verified 10/16/19 15:12 SYNDROME adhesive [ADHESIVE] Allergy Intermediate RASH, SKIN Verified 10/16/19 15:12 PEELS latex [LATEX] Allergy Intermediate RASH Verified 10/16/19 15:12 ketorolac AdvReac Headache Verified 10/16/19 15:12 Review of Systems <MARTHA Day - Last Filed: 10/16/19 19:11> Review of Systems Narrative: REVIEW OF SYSTEMS: GENERAL: Reports chills. HENT: No head trauma or hearing loss. EYES: No loss of vision, double vision, eye pain, irritation or discharge. CARDIOVASCULAR: No chest pain or syncope. RESPIRATORY: Complains of increasing chest tightness, see HPI. GASTROINTESTINAL: No nausea, vomiting, diarrhea, or constipation. MUSCULOSKELETAL: No weakness or injury. INTEGUMENTARY: No rash, lesions, or pruritus. NEURO: No memory loss, or confusion. Patient History <MARTHA Day - Last Filed: 10/16/19 19:11> Medical History Acne (Chronic) Anemia (Chronic 2007) Anxiety (Chronic 2007) Chicken pox (Resolved 1992) CTS (carpal tunnel syndrome) (Chronic 2011) Depression (Chronic 2007) Hearing loss (Chronic 1987) History of heavy periods (Chronic 2007) History of hysterosalpingogram (Resolved 09/12/15) Irregular periods/menstrual cycles (Chronic 2007) Ovarian cancer (Resolved 2007) Ovarian cyst (Resolved 2014) Painful menstrual periods (Chronic 2007) Vertigo (Chronic) Surgical History Anesthesia (Resolved) History of bowel resection (Resolved 2007) History of left salpingo-oophorectomy (Resolved) History of left salpingo-oophorectomy (Resolved) History of right salpingo-oophorectomy (Resolved 2007) Status post appendectomy (Resolved 2007) Status post delivery (Resolved 01/05/12) Status post exploratory laparotomy (Resolved 10/08/15) Status post laparotomy (Resolved 05/02/15) Family History Father No problems noted. Grandfather Hypertension Alcoholism Grandmother Cancer Stroke Mother Hyperlipidemia Grandfather Hyperlipidemia Hypertension Pneumonia Grandmother Diabetes mellitus Hypertension Sister Hearing loss Vision loss Sister Vision loss Hearing loss Sister Mental health problem Sister No problems noted. Sister No problems noted. Son Age: 7 Suspected autism disorder Social History marital status: unmarried,single Smoking Status: Current every day smoker alcohol intake: never substance use type: does not use Smoking Status: Current every day smoker tobacco type: cigarettes alcohol intake frequency: 0-2 drinks per day Substance Use Type: marijuana Exam <MARTHA Day - Last Filed: 10/16/19 19:11> Initial Vital Signs Initial Vital Signs: Vital Signs Temperature 98.7 F 10/16/19 15:12 Pulse Rate 69 10/16/19 15:12 Respiratory Rate 18 10/16/19 15:12 Blood Pressure 120/75 10/16/19 15:12 Pulse Oximetry 96 10/16/19 15:12 PHYSICAL EXAMINATION: GENERAL: Well groomed, alert, and cooperative. Answers questions promptly and appropriately. Vital signs noted. HENT: Normocephalic, atraumatic. Ear canals patent. TMs intact without mucus or erythema. Oropharynx without erythema. Tonsils are not present. EYES: Conjunctiva pink, sclera white, no periorbital swelling. No discharge. CHEST: Tenderness to palpation of right and left ribs along the midclavicular line, she reports increased pain with coughing. CARDIOVASCULAR: S1 and S2 sounds normal. Regular rate and rhythm, no murmurs, clicks, or bruits. RESPIRATORY: Normal respiratory rate, trachea midline, airway patent. No stridor, nasal flaring or accessory muscle use. Able to speak in full sentences. Lungs are clear in all jefferson without wheeze, rhonchi, or crackles. : Abdomen soft and nontender. MUSCULOSKELETAL: Normal gait and coordination. Equal tone and mass bilaterally. EXTREMITIES: Moves all extremities. SKIN: Warm, dry, soft, appropriate color for ethnicity. No lesions, rashes, or wounds to visualized areas. NEURO: Alert and Oriented X 3. Good coordination. No ataxia or cognitive issues. PSYCH: Appropriate affect and mood. <Usama Brennan DO - Last Filed: 10/22/19 00:49> Initial Vital Signs Initial Vital Signs: Vital Signs Temperature 98.7 F 10/16/19 15:12 Pulse Rate 69 10/16/19 15:12 Respiratory Rate 18 10/16/19 15:12 Blood Pressure 120/75 10/16/19 15:12 Pulse Oximetry 96 10/16/19 15:12 Course <MARTHA Day - Last Filed: 10/16/19 19:11> Course Course Narrative: Patient reported improved symptoms after fluids and ondansetron. Orders Ordered: Discontinued Medications Sodium Chloride (Normal Saline 0.9%) 1,000 mls @ 1,000 mls/hr IV BOLUS ONE Stop: 10/16/19 16:18 Last Infusion: 10/16/19 17:28 Dose: 0 mls/hr Documented by: [email or web address] Admin: 10/16/19 15:29 Dose: 1,000 mls/hr Documented by: JOSE Ondansetron HCl (Zofran) 4 mg IV NOW ONE Stop: 10/16/19 15:20 Last Admin: 10/16/19 15:29 Dose: 4 mg Documented by: MEISENBob Consultations Consultation #1: Patient staffed with Dr. Brennan. Vital Signs Vital signs: Vital Signs - 8 hr 10/16/19 15:12 10/16/19 15:45 10/16/19 16:26 Temperature 98.7 F Pulse Rate 69 63 54 L Respiratory Rate 18 16 18 Blood Pressure 120/75 Blood Pressure [Left Arm] 90/55 L 94/63 Pulse Oximetry 96 100 98 10/16/19 17:23 Temperature Pulse Rate 63 Respiratory Rate Blood Pressure Blood Pressure [Left Arm] 99/66 Pulse Oximetry 100 <Usama Brennan DO - Last Filed: 10/22/19 00:49> Orders Ordered: Discontinued Medications Sodium Chloride (Normal Saline 0.9%) 1,000 mls @ 1,000 mls/hr IV BOLUS ONE Stop: 10/16/19 16:18 Last Infusion: 10/16/19 17:28 Dose: 0 mls/hr Documented by: Admin: 10/16/19 15:29 Dose: 1,000 mls/hr Documented by: JOSE Ondansetron HCl (Zofran) 4 mg IV NOW ONE Stop: 10/16/19 15:20 Last Admin: 10/16/19 15:29 Dose: 4 mg Documented by: JOSE Vital Signs Vital signs: Vital Signs - 8 hr 10/16/19 15:12 10/16/19 15:45 10/16/19 16:26 Temperature 98.7 F Pulse Rate 69 63 54 L Respiratory Rate 18 16 18 Blood Pressure 120/75 Blood Pressure [Left Arm] 90/55 L 94/63 Pulse Oximetry 96 100 98 10/16/19 17:23 Temperature Pulse Rate 63 Respiratory Rate Blood Pressure Blood Pressure [Left Arm] 99/66 Pulse Oximetry 100 MDM - URI/Sore Throat <MARTHA Day - Last Filed: 10/16/19 19:11> Medical Records Attestation: I reviewed the patient's medical records. Lab Data Attestation: I reviewed the patient's lab results. Result diagrams: 10/16/19 15:30 10/16/19 15:30 Labs: Lab Results 10/16/19 10/16/19 10/16/19 Range/Units 15:05 15:05 15:30 WBC 5.7 (4.5-11.0) X10^3/uL RBC 4.55 (4.0-5.2) X10^6/uL Hgb 14.8 (12.0-16.0) g/dL Hct 43.5 (36-46) % MCV 95.8 (80-100) fL MCH 32.6 (26-34) PG MCHC 34.0 (30-36) % RDW 13.0 (11.6-14.8) % Plt Count 244 (150-400) X10^3/uL Neut % (Auto) 59.6 (50-75) % Lymph % (Auto) 30.5 (25-40) % [place] % (Auto) 8.4 (3-14) % Eos % (Auto) 1.0 L (2-4) % Baso % (Auto) 0.5 (0-2) % Neut # (Auto) 3400 (7125-2470) /uL Lymph # (Auto) 1700 (7596-9374) /uL Sumter # (Auto) 500 (0-900) /uL Eos # (Auto) 100 (0-450) /uL Baso # (Auto) 0 (0-100) /uL Sodium (137-145) mmol/L Potassium (3.4-5.1) mmol/L Chloride (98-107) mmol/L Carbon Dioxide (22-32) mmol/L BUN (7-17) mg/dL Creatinine (0.52-1.04) mg/dL Estimated GFR (>60) mL/min BUN/Creatinine Ratio (6-22) Glucose (70-100) mg/dL Calcium (8.4-10.2) mg/dL Total Bilirubin (0.2-1.3) mg/dL AST (14-36) IU/L ALT (<35) IU/L Alkaline Phosphatase (38-126) U/L Total Protein (6.3-8.2) g/dL Albumin (3.5-5.0) g/dL Globulin (1.7-4.1) g/dL Albumin/Globulin Ratio (1.0-2.8) Lipase (23-300) U/L Coronavirus (PCR) Cancelled COVID-19 PCR Not detected (Not Detected) Influenza A (RT-PCR) Flu a negative (NEGATIVE) Influenza B (RT-PCR) Flu b negative (NEGATIVE) 10/16/19 Range/Units 15:30 WBC (4.5-11.0) X10^3/uL RBC (4.0-5.2) X10^6/uL Hgb (12.0-16.0) g/dL Hct (36-46) % MCV (80-100) fL MCH (26-34) PG MCHC (30-36) % RDW (11.6-14.8) % Plt Count (150-400) X10^3/uL Neut % (Auto) (50-75) % Lymph % (Auto) (25-40) % Sumter % (Auto) (3-14) % Eos % (Auto) (2-4) % Baso % (Auto) (0-2) % Neut # (Auto) (0472-2117) /uL Lymph # (Auto) (5074-0147) /uL Sumter # (Auto) (0-900) /uL Eos # (Auto) (0-450) /uL Baso # (Auto) (0-100) /uL Sodium 141 (137-145) mmol/L Potassium 4.6 (3.4-5.1) mmol/L Chloride 102 (98-107) mmol/L Carbon Dioxide 31 (22-32) mmol/L BUN 9 (7-17) mg/dL Creatinine 0.71 (0.52-1.04) mg/dL Estimated GFR > 60.0 (>60) mL/min BUN/Creatinine Ratio 12.7 (6-22) Glucose 89 (70-100) mg/dL Calcium 10.3 H (8.4-10.2) mg/dL Total Bilirubin 0.6 (0.2-1.3) mg/dL AST 20 (14-36) IU/L ALT 13 (<35) IU/L Alkaline Phosphatase 69 (38-126) U/L Total Protein 8.5 H (6.3-8.2) g/dL Albumin 5.1 H (3.5-5.0) g/dL Globulin 3.4 (1.7-4.1) g/dL Albumin/Globulin Ratio 1.5 (1.0-2.8) Lipase 28 (23-300) U/L Coronavirus (PCR) COVID-19 PCR (Not Detected) Influenza A (RT-PCR) (NEGATIVE) Influenza B (RT-PCR) (NEGATIVE) Urine Dip Bedside Urine Glucose Negative Bedside Urine Bilirubin - Negative Bedside Urine Ketone - Negative Urine Specific [place] 1.010 Bedside Urine Occult Blood - Negative Bedside Urine pH 7.0 Bedside Urine Protein - Negative Bedside Urine Urobilinogen - Negative Bedside Urine Nitrite - Negative Bedside Urine Leukocytes - Negative Esterase Imaging Data Chest x-ray: Radiologist's Impression: [address] [address] XRay Report Signed Patient: Sangeetha Perea [facility]#: [id number] : 1985Acct:[id number] Age/Sex: 34 / FDate of Service: 10/16/19 Loc: ED Accession Number: [id number] Procedure: XR chest 1V Ordering Provider: Cathy Jones PROCEDURE: XR CHEST 1V INDICATIONS: SOB TECHNIQUE: One view of the chest was acquired. COMPARISON: [facility], CR, XR CHEST 2V, 05/27/2019, 9:21. FINDINGS: Surgical changes and devices: None. Lungs and pleura: Lungs are clear. No pleural effusions or pneumothorax. Mediastinum: Mediastinal contours appear normal. Heart size is normal. Bones and chest wall: No suspicious bony lesions. Overlying soft tissues appear unremarkable. IMPRESSION: No acute cardiopulmonary abnormalities or focal airspace disease. Dictated by: Hardik Alvarado M.D. on 10/16/2019 at 16:36 Approved by: Hardik Alvarado M.D. on 10/16/2019 at 16:37 ECG Data Interpretation: Normal sinus rhythm, rate 6, OK interval 128, QTC 415. No ST elevation or ST depression, no T-wave abnormality. No ectopy. EKD viewed by Dr. Brennan per protocol. MDM Narrative Medical decision making narrative: 34yo female presenting to the emergency department with continued respiratory symptoms. Differential includes COVID-19, reactive airway disease related to smoking, or other viral illness. Less likely pneumonia due to negative chest x-ray and lack of systemic symptoms such as fever and significantly productive cough. Less likely acute abdominal etiology due to lack of abdominal pain, labs are within normal limits, patient has been able to keep down food and fluids of the past few days. I suspect full skeletal pain related to coughing due to tenderness with palpation of ribs and patient reports pain with cough. Patient's test was negative for influenza, due to continued symptoms a COVID-19 test was sent to lab. Patient was notified she will receive results and 5-6 days. She was instructed to remain on quarantine. She was given strict return instructions for new or worsening symptoms such as significant chest pain, worsening shortness of breath, high fevers, uncontrollable vomiting, or any other concerns. Patient was given albuterol inhaler, Tessalon Perles, and ondansetron to help with symptoms. <Usama Brennan, DO - Last Filed: 10/22/19 00:49> Lab Data Labs: Lab Results 10/16/19 10/16/19 10/16/19 Range/Units 15:05 15:05 15:30 WBC 5.7 (4.5-11.0) X10^3/uL RBC 4.55 (4.0-5.2) X10^6/uL Hgb 14.8 (12.0-16.0) g/dL Hct 43.5 (36-46) % MCV 95.8 (80-100) fL MCH 32.6 (26-34) PG MCHC 34.0 (30-36) % RDW 13.0 (11.6-14.8) % Plt Count 244 (150-400) X10^3/uL Neut % (Auto) 59.6 (50-75) % Lymph % (Auto) 30.5 (25-40) % Sumter % (Auto) 8.4 (3-14) % Eos % (Auto) 1.0 L (2-4) % Baso % (Auto) 0.5 (0-2) % Neut # (Auto) 3400 (5616-6570) /uL Lymph # (Auto) 1700 (4704-6844) /uL Sumter # (Auto) 500 (0-900) /uL Eos # (Auto) 100 (0-450) /uL Baso # (Auto) 0 (0-100) /uL Sodium (137-145) mmol/L Potassium (3.4-5.1) mmol/L Chloride (98-107) mmol/L Carbon Dioxide (22-32) mmol/L BUN (7-17) mg/dL Creatinine (0.52-1.04) mg/dL Estimated GFR (>60) mL/min BUN/Creatinine Ratio (6-22) Glucose (70-100) mg/dL Calcium (8.4-10.2) mg/dL Total Bilirubin (0.2-1.3) mg/dL AST (14-36) IU/L ALT (<35) IU/L Alkaline Phosphatase (38-126) U/L Total Protein (6.3-8.2) g/dL Albumin (3.5-5.0) g/dL Globulin (1.7-4.1) g/dL Albumin/Globulin Ratio (1.0-2.8) Lipase (23-300) U/L Coronavirus (PCR) Cancelled COVID-19 PCR Not detected (Not Detected) Influenza A (RT-PCR) Flu a negative (NEGATIVE) Influenza B (RT-PCR) Flu b negative (NEGATIVE) 10/16/19 Range/Units 15:30 WBC (4.5-11.0) X10^3/uL RBC (4.0-5.2) X10^6/uL Hgb (12.0-16.0) g/dL Hct (36-46) % MCV (80-100) fL MCH (26-34) PG MCHC (30-36) % RDW (11.6-14.8) % Plt Count (150-400) X10^3/uL Neut % (Auto) (50-75) % Lymph % (Auto) (25-40) % [place] % (Auto) (3-14) % Eos % (Auto) (2-4) % Baso % (Auto) (0-2) % Neut # (Auto) (6252-3750) /uL Lymph # (Auto) (6300-2359) /uL Sum[place] # (Auto) (0-900) /uL Eos # (Auto) (0-450) /uL Baso # (Auto) (0-100) /uL Sodium 141 (137-145) mmol/L Potassium 4.6 (3.4-5.1) mmol/L Chloride 102 (98-107) mmol/L Carbon Dioxide 31 (22-32) mmol/L BUN 9 (7-17) mg/dL Creatinine 0.71 (0.52-1.04) mg/dL Estimated GFR > 60.0 (>60) mL/min BUN/Creatinine Ratio 12.7 (6-22) Glucose 89 (70-100) mg/dL Calcium 10.3 H (8.4-10.2) mg/dL Total Bilirubin 0.6 (0.2-1.3) mg/dL AST 20 (14-36) IU/L ALT 13 (<35) IU/L Alkaline Phosphatase 69 (38-126) U/L Total Protein 8.5 H (6.3-8.2) g/dL Albumin 5.1 H (3.5-5.0) g/dL Globulin 3.4 (1.7-4.1) g/dL Albumin/Globulin Ratio 1.5 (1.0-2.8) Lipase 28 (23-300) U/L Coronavirus (PCR) COVID-19 PCR (Not Detected) Influenza A (RT-PCR) (NEGATIVE) Influenza B (RT-PCR) (NEGATIVE) Urine Dip Bedside Urine Glucose Negative Bedside Urine Bilirubin - Negative Bedside Urine Ketone - Negative Urine Specific [place] 1.010 Bedside Urine Occult Blood - Negative Bedside Urine pH 7.0 Bedside Urine Protein - Negative Bedside Urine Urobilinogen - Negative Bedside Urine Nitrite - Negative Bedside Urine Leukocytes - Negative Esterase Discharge Plan Departure Patient Disposition: Home Clinical Impression: Viral respiratory illness Discharge Date/Time: 10/16/19 17:29 Instructions: DI for Viral Upper Respiratory Infection -- Adult Activity Restrictions/Additional Instructions: Thank you for entrusting me with your care today. As discussed, your chest x-ray and laboratory work are negative for any concerning findings. Influenza test was negative. Due to her ongoing symptoms, You have been tested for COVID-19. This test may take 4-6 days for results to return, we will call you with these results. Please remain in quarantine with self isolation at home for at least 7 days and 72 hours after your symptoms have completely resolved. Drink lots of fluids, take Tylenol for fever, get extra rest, clean all surfaces, cover your cough, wash your hands frequently, and avoid sharing any personal items. If you need to seek medical care, please call the clinic or the emergency department before your arrival. Please return for worsening shortness of breath, severe chest pain, unable to keep fluids or food down, or any other concerns. I prescribed you a cough medication, an inhaler to use to help with chest tightness, and a nausea medication, these prescriptions were sent to [facility] in [place]. Please take these as directed. Prescriptions: New albuterol sulfate 90 mcg/actuation HFA aerosol inhaler 2 puff INHALATION Q4-6H PRN (Reason: shortness of breath or wheezing) Qty: 8.5 RF: 0 benzonatate [Tessalon Perles] 100 mg capsule 100 mg PO BID-TID PRN (Reason: cough) Qty: 30 RF: 0 ondansetron 4 mg tablet,disintegrating 4 mg PO Q8H PRN (Reason: nausea and vomiting) Qty: 10 RF: 0 No Action citalopram 20 mg tablet 20 mg PO DAILY Qty: 30 RF: 11 albuterol sulfate 90 mcg/actuation HFA aerosol inhaler 2 inhalation INHALATION Q4H PRN (Reason: tight chest/cough) Qty: 6.7 RF: 0 Prempro 0.625-2.5 mg tablet 1 tab PO QPM RF: 0 PNV cmb#95-ferrous fumarate-FA [] 28 mg iron- 800 mcg Tablet 1 tab PO DAILY RF: 0 medroxyprogesterone 10 mg tablet 20 mg PO Q2HR PRN (Reason: vaginal bleeding) Qty: 90 RF: 0 ondansetron 4 mg tablet,disintegrating 4 mg PO TID-QID PRN (Reason: nausea and vomiting) Qty: 10 RF: 0 ondansetron 4 mg tablet,disintegrating 4 mg PO QID PRN (Reason: nausea and vomiting) Qty: 30 RF: 0 ondansetron 4 mg tablet,disintegrating 4 mg PO Q8H PRN (Reason: nausea and vomiting) Qty: 10 RF: 0 ED Sign-out <MARTHA Day - Last Filed: 10/16/19 19:11> Cosign ED Attending Bree Attestation: I was immediately available in the department for consultation. This documentation has been reviewed and I agree with assessment and plan. Supervised by MARTHA Day <Usama Brennan DO - Last Filed: 10/22/19 00:49> Cosign ED Attending Bree Attestation: I was immediately available in the department for consultation. This documentation has been reviewed and I agree with assessment and plan. Supervised by Usama Brennan DO
[2019-10-16 15:45] VITALS: BP 90/55; PULSE 63; RESP 16; O2SAT 100
[2019-10-16 15:48] LABS: Add Manual Diff / Slide Review NO; Basophils Absolute Auto 0 /uL (0-100); Basophils Percent Auto 0.5 % (0-2); Eosinophils Absolute Auto 100 /uL (0-450); Hematocrit 43.5 % (36-46); Hemoglobin 14.8 g/dL (12.0-16.0); Lymphocytes Absolute Auto 1700 /uL (1100-4500); Lymphocytes Percent Auto 30.5 % (25-40); Mean Corpuscular Hemoglobin 32.6 PG (26-34); Mean Corpuscular Volume 95.8 fL (80-100); Monocytes Absolute Auto 500 /uL (0-900); Monocytes Percent Auto 8.4 % (3-14); Neutrophils Absolute Auto 3400 /uL (1500-7000); Neutrophils Percent Auto 59.6 % (50-75); Platelet Count 244 X10^3/uL (150-400); Red Blood Cell Count 4.55 X10^6/uL (4.0-5.2); White Blood Cell Count 5.7 X10^3/uL (4.5-11.0)
[2019-10-16 15:57] LABS: Alanine Aminotransferase 13 IU/L (<35); Albumin 5.1 g/dL (3.5-5.0); Albumin Globulin Ratio 1.5 (1.0-2.8); Alkaline Phosphatase 69 U/L (38-126); Aspartate Aminotransferase 20 IU/L (14-36); BUN Creatinine Ratio 12.7 (6-22); Bilirubin Total 0.6 mg/dL (0.2-1.3); Blood Urea Nitrogen 9 mg/dL (7-17); Calcium 10.3 mg/dL (8.4-10.2); Carbon Dioxide 31 mmol/L (22-32); Chloride 102 mmol/L (98-107); Estimated Glomerular Filt Rate > 60.0 mL/min (>60); Globulin 3.4 g/dL (1.7-4.1); Glucose 89 mg/dL (70-100); HEMOLYSIS < 15 (0-50); Lipase 28 U/L (23-300); Potassium 4.6 mmol/L (3.4-5.1); Sodium 141 mmol/L (137-145); Total Protein 8.5 g/dL (6.3-8.2)
[2019-10-16 16:01] LABS: Influenza A - CEPHEID Flu A NEGATIVE (NEGATIVE); Influenza B - CEPHEID Flu B NEGATIVE (NEGATIVE)
[2019-10-16 16:26] VITALS: BP 94/63; PULSE 54; RESP 18; O2SAT 98
[2019-10-16 17:23] VITALS: BP 99/66; PULSE 63; O2SAT 100
[2019-10-19 04:22] LABS: COVID19 Sendout Not Detected (Not Detected)
== END 2019-10-16 17:29 | disposition home or self-care (01) ==
PROVIDERS: Emergency Provider Nurse Practitioner
DX: J06.9 Acute upper respiratory infection, unspecified (principal); R05 Cough; R06.02 Shortness of breath; R11.2 Nausea with vomiting, unspecified
CPT/HCPCS: 36415; 71045; 80053; 81003; 83690; 85025; 87502; 87635; 93005; 96361; 96374; 99284; J2405

== ENCOUNTER 2020-01-31 18:10 | Emergency (ER) | payer SELFPAY ==
[2020-01-31 18:15] VITALS: BP 137/80; PULSE 110; PULSE 74; RESP 16; TEMP 36.2; O2SAT 100; O2SAT 99; BMI 19.1
--- NOTE | 2020-01-31 18:15 | DI.RAD.S_ITS ---
PROCEDURE: XR WRIST LT MIN 3V INDICATIONS: pain/swelling TECHNIQUE: 4 views of the wrist were acquired. COMPARISON: None. FINDINGS: Bones: No fractures or dislocations. No suspicious bony lesions. Scaphoid view: No fractures. Soft tissues: No suspicious soft tissue calcifications. IMPRESSION: Intact left wrist. Dictated by: Lisa Kenney M.D. on 01/31/2020 at 18:51 Approved by: Lisa Kenney M.D. on 01/31/2020 at 18:51
[2020-01-31 18:25] VITALS: PULSE 70
--- NOTE | 2020-01-31 18:35 | ED_ITS ---
HPI - Extremity Injury (Upper) General Chief Complaint: Extremity Injury, Upper Stated Complaint: Possible Left Hand FX Time Seen by Provider: 01/31/20 18:35 Source: patient Mode of arrival: Ambulatory Limitations: no limitations History of Present Illness HPI narrative: The patient complains of left wrist pain, specifically the pain is over the distal ulnar area. About 11:00 a.m. she accidentally smacked that portion wrist against her car door, swinging her arm backwards. She has tingling/numbness in the left 4th and 5th fingers, but range of motion is normal. She has normal motion left wrist although with pain. There is no abrasion, or laceration. There is no obvious deformity. She is right-hand dominant. Related Data Home Medications Medication Instructions Recorded Confirmed PNV cmb#95-ferrous fumarate-FA 1 tab PO DAILY 09/17/18 09/17/18 [] conj estrog-medroxyprogest bernice 1 tab PO QPM 09/17/18 09/17/18 [Prempro] Previous Rx's Medication Instructions Recorded albuterol sulfate 2 inhalation INHALATION Q4H PRN 06/30/18 #6.7 gram ondansetron 4 mg PO QID PRN #30 tab 08/16/18 medroxyprogesterone 20 mg PO Q2HR PRN #90 tab 09/17/18 citalopram 20 mg tablet 20 mg PO DAILY #30 tab 10/05/18 ondansetron 4 mg PO TID-QID PRN #10 tab 03/06/19 ondansetron 4 mg PO Q8H PRN #10 tab 03/25/19 albuterol sulfate 2 puff INHALATION Q4-6H PRN #8.5 10/16/19 gram benzonatate [Tessalon Perles] 100 mg PO BID-TID PRN #30 cap 10/16/19 ondansetron 4 mg PO Q8H PRN #10 tab 10/16/19 Allergies Allergy/AdvReac Type Severity Reaction Status Date / Time Penicillins [PENICILLINS] Allergy Severe RASH Verified 01/31/20 18:15 vancomycin [VANCOMYCIN] Allergy Severe JUAREZ Verified 01/31/20 18:15 SYNDROME adhesive [ADHESIVE] Allergy Intermediate RASH, SKIN Verified 01/31/20 18:15 PEELS latex [LATEX] Allergy Intermediate RASH Verified 01/31/20 18:15 ketorolac AdvReac Headache Verified 01/31/20 18:15 Review of Systems Constitutional Constitutional: Denies chills, Denies fever(s), Denies lethargy and Denies weakness Musculoskeletal Comments: Left wrist pain. Integumentary/Breasts Comments: No rash. No contusion or abrasion. Neurologic Neurologic: Denies weakness Comments: See HPI. Tingling to the left 4th and 5th fingers. Patient History Medical History Acne (Chronic) Anemia (Chronic 2007) Anxiety (Chronic 2007) Chicken pox (Resolved 1992) CTS (carpal tunnel syndrome) (Chronic 2011) Depression (Chronic 2007) Hearing loss (Chronic 1987) History of heavy periods (Chronic 2007) History of hysterosalpingogram (Resolved 09/12/15) Irregular periods/menstrual cycles (Chronic 2007) Ovarian cancer (Resolved 2007) Ovarian cyst (Resolved 2014) Painful menstrual periods (Chronic 2007) Vertigo (Chronic) Surgical History Anesthesia (Resolved) History of bowel resection (Resolved 2007) History of left salpingo-oophorectomy (Resolved) History of left salpingo-oophorectomy (Resolved) History of right salpingo-oophorectomy (Resolved 2007) Status post appendectomy (Resolved 2007) Status post delivery (Resolved 01/05/12) Status post exploratory laparotomy (Resolved 10/08/15) Status post laparotomy (Resolved 05/02/15) Family History Father No problems noted. Grandfather Hypertension Alcoholism Grandmother Cancer Stroke Mother Hyperlipidemia Grandfather Hyperlipidemia Hypertension Pneumonia Grandmother Diabetes mellitus Hypertension Sister Hearing loss Vision loss Sister Vision loss Hearing loss Sister Mental health problem Sister No problems noted. Sister No problems noted. Son Age: 8 Suspected autism disorder Social History marital status: unmarried,single Smoking Status: Current every day smoker alcohol intake: never substance use type: does not use Smoking Status: Current every day smoker tobacco type: cigarettes alcohol intake frequency: 0-2 drinks per day Substance Use Type: marijuana Exam Initial Vital Signs Initial Vital Signs: Vital Signs Temperature 97.2 F L 01/31/20 18:15 Pulse Rate 74 01/31/20 18:15 Respiratory Rate 16 01/31/20 18:15 Blood Pressure 137/80 01/31/20 18:15 Pulse Oximetry 99 01/31/20 18:15 Const General: cooperative and well developed Nutritional Appearance: well nourished Skin General: no rashes or lesions noted Wounds: no wounds Neuro General: patient alert, patient oriented x3, gait normal and no focal motor deficits Other: Paresthesia to the left 4th and 5th digits, but light touch sensation is intact. Extrem General: full ROM, no clubbing, cyanosis or edema, no pedal edema and no calf tenderness Other: Tenderness over the left distal ulnar bone. No formed. Full range of motion left wrist. Full range of motion in the left digits. Tendons are intact. No sensory deficits. Procedures Orthopedic Splinting/Casting Injury #1: Side: left Upper Extremity Injury Location: wrist Upper Extremity Immobilizer: wrist splint Post splinting vascular exam: intact Placed by: Nursing Course Orders Ordered: ED Orders 01/31/20 18:15 XR wrist LT min 3V Stat Discontinued Medications Ibuprofen (Advil) 800 mg PO NOW ONE Stop: 01/31/20 19:15 Last Admin: 01/31/20 19:18 Dose: 800 mg Documented by: JOI Vital Signs Vital signs: Vital Signs - 8 hr 01/31/20 18:15 01/31/20 18:25 01/31/20 19:25 Temperature 97.2 F L Pulse Rate 110 H 85 Pulse Rate [Left Radial] 70 Respiratory Rate 16 18 Blood Pressure 137/80 115/71 Pulse Oximetry 100 100 MDM - Extremity Injury (Upper) Imaging Data Left wrist x-ray:: Radiologist's Impression: Normal MDM Narrative Medical decision making narrative: The patient has a normal left wrist x-ray. She is placed in a velcro volar splint by her nurse. She was given a dose of ibuprofen. She is advised to wean from the splint as tolerated. Discharge Plan Departure Patient Disposition: Home Clinical Impression: Contusion of left wrist, initial encounter Discharge Date/Time: 01/31/20 19:25 Instructions: DI for Wrist Pain Activity Restrictions/Additional Instructions: Use the splint as needed, especially when active/working. Take the splint off to bathe, when at rest. Apply ice to the left wrist frequently for the next 2 days. Tylenol 2 tablets every 4 hours as needed for pain, or Advil 3 tablets every 6 h ours as needed for pain. Recheck with your doctor in about 2 weeks if not improved. Prescriptions: No Action citalopram 20 mg tablet 20 mg PO DAILY Qty: 30 RF: 11 albuterol sulfate 90 mcg/actuation HFA aerosol inhaler 2 inhalation INHALATION Q4H PRN (Reason: tight chest/cough) Qty: 6.7 RF: 0 Prempro 0.625-2.5 mg tablet 1 tab PO QPM RF: 0 PNV cmb#95-ferrous fumarate-FA [] 28 mg iron- 800 mcg Tablet 1 tab PO DAILY RF: 0 medroxyprogesterone 10 mg tablet 20 mg PO Q2HR PRN (Reason: vaginal bleeding) Qty: 90 RF: 0 ondansetron 4 mg tablet,disintegrating 4 mg PO TID-QID PRN (Reason: nausea and vomiting) Qty: 10 RF: 0 ondansetron 4 mg tablet,disintegrating 4 mg PO QID PRN (Reason: nausea and vomiting) Qty: 30 RF: 0 ondansetron 4 mg tablet,disintegrating 4 mg PO Q8H PRN (Reason: nausea and vomiting) Qty: 10 RF: 0 albuterol sulfate 90 mcg/actuation HFA aerosol inhaler 2 puff INHALATION Q4-6H PRN (Reason: shortness of breath or wheezing) Qty: 8.5 RF: 0 benzonatate [Tessalon Perles] 100 mg capsule 100 mg PO BID-TID PRN (Reason: cough) Qty: 30 RF: 0 ondansetron 4 mg tablet,disintegrating 4 mg PO Q8H PRN (Reason: nausea and vomiting) Qty: 10 RF: 0
[2020-01-31] MEDS: IBUPROFEN 400 MG TABLET 800 MG PO (19:18)
[2020-01-31 19:25] VITALS: BP 115/71; PULSE 85; RESP 18; O2SAT 100
== END 2020-01-31 19:25 | disposition home or self-care (01) ==
PROVIDERS: Emergency Provider Emergency Medicine
DX: S60.212A Contusion of left wrist, initial encounter (principal); W22.8XXA Striking against or struck by other objects, initial encounter
CPT/HCPCS: 73110; 99283; 99284

== ENCOUNTER 2020-02-03 10:01 | Emergency (ER) | payer SELFPAY ==
--- NOTE | 2020-02-03 10:02 | ED_ITS ---
HPI - Extremity Problem General Chief complaint: Extremity Injury, Upper Stated complaint: HAND CONTUSION GETTING WORSE Time Seen by Provider: 02/03/20 10:02 Source: patient Mode of arrival: Ambulatory Limitations: no limitations History of Present Illness HPI Narrative: 34-year-old female daily smoker with noncontributory medical history presents for a re-evaluation of a hand injury suffered a few days ago. She had initially accidentally swung her hand into the side of the door and hit it on the dorsum of the hand. She was seen and evaluated here and had a wrist x-ray that was normal was placed in a splint. She states that she feels like the pain is getting worse and at times when the pain flares up it makes her nauseated but she has not vomited. At time she has some numbness and tingling in her fingers but denies any discoloration or weakness. She has no trouble with her elbow or shoulder. MD Complaint: extremity pain Onset (ago): day(s) Pain Consistency: constant Location: left Quality: burning and stabbing Relieving factors: rest Exacerbating factors: range of motion and palpation Related Data Home Medications Medication Instructions Recorded Confirmed PNV cmb#95-ferrous fumarate-FA 1 tab PO DAILY 09/17/18 09/17/18 [] conj estrog-medroxyprogest bernice 1 tab PO QPM 09/17/18 09/17/18 [Prempro] Previous Rx's Medication Instructions Recorded albuterol sulfate 2 inhalation INHALATION Q4H PRN 06/30/18 #6.7 gram ondansetron 4 mg PO QID PRN #30 tab 08/16/18 medroxyprogesterone 20 mg PO Q2HR PRN #90 tab 09/17/18 citalopram 20 mg tablet 20 mg PO DAILY #30 tab 10/05/18 ondansetron 4 mg PO TID-QID PRN #10 tab 03/06/19 ondansetron 4 mg PO Q8H PRN #10 tab 03/25/19 albuterol sulfate 2 puff INHALATION Q4-6H PRN #8.5 10/16/19 gram benzonatate [Tessalon Perles] 100 mg PO BID-TID PRN #30 cap 10/16/19 ondansetron 4 mg PO Q8H PRN #10 tab 10/16/19 Allergies Allergy/AdvReac Type Severity Reaction Status Date / Time Penicillins [PENICILLINS] Allergy Severe RASH Verified 02/03/20 10:09 vancomycin [VANCOMYCIN] Allergy Severe JUAREZ Verified 02/03/20 10:09 SYNDROME adhesive [ADHESIVE] Allergy Intermediate RASH, SKIN Verified 02/03/20 10:09 PEELS latex [LATEX] Allergy Intermediate RASH Verified 02/03/20 10:09 ketorolac AdvReac Headache Verified 02/03/20 10:09 Review of Systems Constitutional Constitutional: Denies chills, Denies fatigue, Denies fever(s), Denies frequent falls, Denies lethargy and Denies weakness Eyes Eyes: Denies change in vision, Denies eye discharge, Denies irritation and Denies loss of vision ENT Ears, Nose, Mouth, and Throat: Denies change in voice, Denies dizziness, Denies neck pain, Denies sore throat and Denies throat swelling Cardiovascular Cardiovascular: Denies chest pain, Denies irregular heart rhythm, Denies lightheadedness, Denies palpitations, Denies dyspnea, Denies dyspnea on exertion and Denies orthopnea Respiratory Respiratory: Denies cough, Denies dyspnea, Denies dyspnea on exertion and Denies wheezing Gastrointestinal Gastrointestinal: Denies abdominal pain, Denies change in bowel habits, Denies diarrhea, Reports nausea and Denies vomiting Musculoskeletal Musculoskeletal: Denies neck pain and Denies numbness Comments: hand pain Integumentary/Breasts Skin/Breast: Denies pruritus, Denies erythema, Denies rash and Denies wounds Neurologic Neurologic: Denies behavioral changes, Denies confusion, Denies dizziness, Denies frequent falls, Denies loss of vision, Denies numbness and Denies weakness Psychiatric Psychiatric: Denies anxiety, Denies behavioral changes, Denies confusion, Denies depression, Denies homicidal ideation and Denies suicidal ideation Endocrine Endocrine: Denies fatigue, Denies flushing and Denies palpitations Hematologic/Lymphatic Hematologic/Lymphatic: Denies easy bruising Allergic/Immunologic Allergic/Immunologic: Denies urticaria, Denies throat swelling and Denies wheezing Patient History Medical History Acne (Chronic) Anemia (Chronic 2007) Anxiety (Chronic 2007) Chicken pox (Resolved 1992) CTS (carpal tunnel syndrome) (Chronic 2011) Depression (Chronic 2007) Hearing loss (Chronic 1987) History of heavy periods (Chronic 2007) History of hysterosalpingogram (Resolved 09/12/15) Irregular periods/menstrual cycles (Chronic 2007) Ovarian cancer (Resolved 2007) Ovarian cyst (Resolved 2014) Painful menstrual periods (Chronic 2007) Vertigo (Chronic) Surgical History Anesthesia (Resolved) History of bowel resection (Resolved 2007) History of left salpingo-oophorectomy (Resolved) History of left salpingo-oophorectomy (Resolved) History of right salpingo-oophorectomy (Resolved 2007) Status post appendectomy (Resolved 2007) Status post delivery (Resolved 01/05/12) Status post exploratory laparotomy (Resolved 10/08/15) Status post laparotomy (Resolved 05/02/15) Family History Father No problems noted. Grandfather Hypertension Alcoholism Grandmother Cancer Stroke Mother Hyperlipidemia Grandfather Hyperlipidemia Hypertension Pneumonia Grandmother Diabetes mellitus Hypertension Sister Hearing loss Vision loss Sister Vision loss Hearing loss Sister Mental health problem Sister No problems noted. Sister No problems noted. Son Age: 8 Suspected autism disorder Social History marital status: unmarried,single Smoking Status: Current every day smoker alcohol intake: never substance use type: does not use Smoking Status: Current every day smoker tobacco type: cigarettes alcohol intake frequency: 0-2 drinks per day Substance Use Type: marijuana Exam Narrative Exam Narrative: GEN: AOx3 and in mild distress EYES: Pupils are equal, round, and reactive to light and accommodation. Extraoccular muscles are intact bilaterally. There is no subconjunctival hemorrhage or exudate. CHEST: Lungs are clear to auscultation bilaterally and free of wheezes, rales, or rhonchi. Heart rate is regular rhythm, there are no murmurs, clicks, rubs, or gallops. There is no chest wall tenderness. ABD: Abdomen is soft and nontender. There is no guarding or rebound. Bowel sounds are normal in all 4 quadrants. There is no mass or organomegaly. EXT: Left wrist splint appropriately placed on arrival, removed by me for exam. No obvious deformity, significant bony point tenderness. Full range of motion. Cap refill and sensation intact SKIN: Warm, pink, and dry. No erythema or rash Initial Vital Signs Initial Vital Signs: Vital Signs Temperature 97.7 F 02/03/20 10:03 Pulse Rate 112 H 02/03/20 10:03 Respiratory Rate 14 02/03/20 10:03 Blood Pressure 128/71 02/03/20 10:03 Pulse Oximetry 99 02/03/20 10:03 Course Orders Ordered: ED Orders 02/03/20 10:08 XR hand LT min 3V Stat Vital Signs Vital signs: Vital Signs - 8 hr 02/03/20 10:03 Temperature 97.7 F Pulse Rate 112 H Respiratory Rate 14 Blood Pressure 128/71 Pulse Oximetry 99 MDM - Extremity (Nontraumatic) Imaging Data Extremity x-ray #1: Attestation: I personally reviewed and interpreted this imaging study as follows: My Impression: No fracture or dislocation Radiologist's Impression: Chart Viewer Diagnostics DATE TYPE STATUS REF RANGE/AUTHOR Hx 02/03/20 10:08 Hardik Alvarado 01/31/20 18:15 Lisa Kenney 10/16/19 15:36 Hardik Alvarado 05/27/19 09:24 [employer] 09/17/18 14:15 Toño Tomas 07/04/18 08:57 XR Chest 2 View 06/30/18 14:10 Madhu Amaro 05/10/18 01:03 Mindi Abernathy 04/10/18 15:14 Hosea Peoples 03/25/18 17:05 Sav Dorado 03/25/18 03:58 Diogenes Williamson 02/25/18 19:37 Hosea Peoples 01/25/18 16:10 Rashad Zurita 01/25/18 14:53 Oleksandr Mina Samantha N 34, F0 1985 DEP ER, [facility] 165.1cm 52.163kg BMI: 19.1kg/m? Extremity Injury, Upper Search Chart No Data to Display RASH JUAREZ SYNDROME RASH, SKIN PEELS RASH Headache ONSET 04/01/16 04/01/16 04/01/16 04/01/16 04/01/16 04/01/16 04/01/16 04/01/1604/14/16 Today 10:03 Sangeetha Perea N 34 F [address] [address] XRay Report Signed Patient: Sangeetha Perea [facility]#: [id number] : 1985Acct:[id number] Age/Sex: 34 / FDate of Service: 02/03/20 Loc: ED Accession Number: [id number] Procedure: XR hand LT min 3V Ordering Provider: Usama Brennan D.O. PROCEDURE: XR HAND LT MIN 3V INDICATIONS: worsening pain to lateral hand, second visit TECHNIQUE: 3 views of the hand(s) acquired. COMPARISON: [facility], CR, XR WRIST LT MIN 3V, 01/31/2020, 18:07. FINDINGS: Bones: No fractures or dislocations. Carpal bones are normally aligned. No suspicious bony lesions. Soft tissues: No suspicious soft tissue calcifications. IMPRESSION: Left hand without acute fracture or malalignment. If there are persistent symptoms or clinical suspicion for pathology, then repeat radiographs or advanced imaging (CT, MRI or bone scan) should be considered for further evaluation. Dictated by: Hardik Alvarado M.D. on 02/03/2020 at 10:28 Approved by: Hardik Alvarado M.D. on 02/03/2020 at 10:29 Discharge Plan Departure Patient Disposition: Home Clinical Impression: Contusion of hand Qualifiers: Encounter type: subsequent encounter Laterality: left Qualified Code(s): S60.222D - Contusion of left hand, subsequent encounter Discharge Date/Time: 02/03/20 10:36 Instructions: DI for Contusion Activity Restrictions/Additional Instructions: *You have been diagnosed with [ left hand contusion ] *What to do: *Take medications as directed *Follow up with your primary care provider in 2-3 days, call for an appointment. Let them know you were seen in the Emergency Department and that we ask that you be seen in follow up *Return to ER if you should have any new, worsening or concerning symptoms Prescriptions: No Action citalopram 20 mg tablet 20 mg PO DAILY Qty: 30 RF: 11 albuterol sulfate 90 mcg/actuation HFA aerosol inhaler 2 inhalation INHALATION Q4H PRN (Reason: tight chest/cough) Qty: 6.7 RF: 0 Prempro 0.625-2.5 mg tablet 1 tab PO QPM RF: 0 PNV cmb#95-ferrous fumarate-FA [] 28 mg iron- 800 mcg Tablet 1 tab PO DAILY RF: 0 medroxyprogesterone 10 mg tablet 20 mg PO Q2HR PRN (Reason: vaginal bleeding) Qty: 90 RF: 0 ondansetron 4 mg tablet,disintegrating 4 mg PO TID-QID PRN (Reason: nausea and vomiting) Qty: 10 RF: 0 ondansetron 4 mg tablet,disintegrating 4 mg PO QID PRN (Reason: nausea and vomiting) Qty: 30 RF: 0 ondansetron 4 mg tablet,disintegrating 4 mg PO Q8H PRN (Reason: nausea and vomiting) Qty: 10 RF: 0 albuterol sulfate 90 mcg/actuation HFA aerosol inhaler 2 puff INHALATION Q4-6H PRN (Reason: shortness of breath or wheezing) Qty: 8.5 RF: 0 benzonatate [Tessalon Perles] 100 mg capsule 100 mg PO BID-TID PRN (Reason: cough) Qty: 30 RF: 0 ondansetron 4 mg tablet,disintegrating 4 mg PO Q8H PRN (Reason: nausea and vomiting) Qty: 10 RF: 0 Referrals: [facility] [Outside] Stand Alone Forms: Work Release Note
[2020-02-03 10:03] VITALS: BP 128/71; PULSE 112; RESP 14; TEMP 36.5; O2SAT 99; BMI 19.1
--- NOTE | 2020-02-03 10:08 | DI.RAD.S_ITS ---
PROCEDURE: XR HAND LT MIN 3V INDICATIONS: worsening pain to lateral hand, second visit TECHNIQUE: 3 views of the hand(s) acquired. COMPARISON: [facility], CR, XR WRIST LT MIN 3V, 01/31/2020, 18:07. FINDINGS: Bones: No fractures or dislocations. Carpal bones are normally aligned. No suspicious bony lesions. Soft tissues: No suspicious soft tissue calcifications. IMPRESSION: Left hand without acute fracture or malalignment. If there are persistent symptoms or clinical suspicion for pathology, then repeat radiographs or advanced imaging (CT, MRI or bone scan) should be considered for further evaluation. Dictated by: Hardik Alvarado M.D. on 02/03/2020 at 10:28 Approved by: Hardik Alvarado M.D. on 02/03/2020 at 10:29
== END 2020-02-03 10:36 | disposition home or self-care (01) ==
PROVIDERS: Emergency Provider Emergency Medicine
DX: S60.222D Contusion of left hand, subsequent encounter (principal); W22.8XXD Striking against or struck by other objects, subsequent encounter
CPT/HCPCS: 73130; 99281; 99283

== ENCOUNTER 2020-07-01 22:33 | Emergency (ER) | payer SELFPAY ==
[2020-07-01] VITALS (9 sets, daily range): BP systolic 90–130; BP diastolic 57–66; PULSE 66–109; RESP 16; TEMP 37.3; O2SAT 96–99; BMI 17.4
--- NOTE | 2020-07-01 23:00 | ED.NAVMDI ---
HPI - Nausea/Vomiting/Diarrhea General Chief complaint: Nausea/Vomiting/Diarrhea Stated complaint: diarrhea x4 days, vomiting,chills, body ache Time Seen by Provider: 07/01/20 22:48 Source: patient Mode of arrival: Ambulatory Limitations: no limitations History of Present Illness HPI Narrative: Patient is a 34-year-old female with history of ovarian cancer well known to this facility and myself presenting today with diarrhea vomiting and body aches. She says this is the 2nd round of his. 1 week ago she had 2 days of diarrhea abdominal vomiting which resolved. She had about 3 days where she felt okay and it started 4 days ago. She says she has barely urinating she feels dizzy and lightheaded when she stands. She has no severe abdominal pain. She does have multiple episodes of diarrhea daily, she continues to have some nausea but no vomiting. She does occasionally have blood streaked diarrhea but with a hemorrhoid. No one else is sick at home. MD complaint: nausea, vomiting and diarrhea Description of Diarrhea: watery Related Data Home Medications Medication Instructions Recorded Confirmed PNV cmb#95-ferrous fumarate-FA 1 tab PO DAILY 09/17/18 09/17/18 [] conj estrog-medroxyprogest bernice 1 tab PO QPM 09/17/18 09/17/18 [Prempro] Previous Rx's Medication Instructions Recorded albuterol sulfate 2 inhalation INHALATION Q4H PRN 06/30/18 #6.7 gram ondansetron 4 mg PO QID PRN #30 tab 08/16/18 medroxyprogesterone 20 mg PO Q2HR PRN #90 tab 09/17/18 citalopram 20 mg tablet 20 mg PO DAILY #30 tab 10/05/18 ondansetron 4 mg PO TID-QID PRN #10 tab 03/06/19 ondansetron 4 mg PO Q8H PRN #10 tab 03/25/19 albuterol sulfate 2 puff INHALATION Q4-6H PRN #8.5 10/16/19 gram benzonatate [Tessalon Perles] 100 mg PO BID-TID PRN #30 cap 10/16/19 ondansetron 4 mg PO Q8H PRN #10 tab 10/16/19 ondansetron 4 mg PO Q8H PRN #10 tab 07/02/20 Allergies Allergy/AdvReac Type Severity Reaction Status Date / Time Penicillins [PENICILLINS] Allergy Severe RASH Verified 02/03/20 10:09 vancomycin [VANCOMYCIN] Allergy Severe JUAREZ Verified 02/03/20 10:09 SYNDROME adhesive [ADHESIVE] Allergy Intermediate RASH, SKIN Verified 02/03/20 10:09 PEELS latex [LATEX] Allergy Intermediate RASH Verified 02/03/20 10:09 ketorolac AdvReac Headache Verified 02/03/20 10:09 Review of Systems Review of Systems Narrative: GENERAL: Denies chills, fatigue, malaise, fever, sweats, travel HEENT: Denies sinus pain, ear pain, sore throat, difficulty swallowing, neck pain RESPIRATORY: Denies dyspnea, cough, wheezing, hemoptysis, sputum. CARDIOVASCULAR: Denies chest pain, palpitations, orthopnea, edema GASTROINTESTINAL: See HPI : Denies dysuria, frequency, incontinence, hematuria, urinary retention, flank pain. MUSCULOSKELETAL: Denies weakness, joint pain, or bony pain SKIN: No rash, no erythema, no pruritus NEUROLOGIC: Denies weakness, dizziness, headache, numbness, change in speech, confusion PSYCHIATRIC: No concerning psychosocial issues. 12 point review of systems is negative except for those stated above and HPI Patient History Medical History (Updated 07/02/20 @ 02:39 by Ramonita Giraldo DO) Acne Anemia (2007) Anxiety (2007) Chicken pox (1992) CTS (carpal tunnel syndrome) (2011) Depression (2007) Hearing loss (1987) History of heavy periods (2007) History of hysterosalpingogram (09/12/15) Irregular periods/menstrual cycles (2007) Ovarian cancer (2007) Ovarian cyst (2014) Painful menstrual periods (2007) Vertigo Surgical History Anesthesia History of bowel resection (2007) History of left salpingo-oophorectomy History of left salpingo-oophorectomy History of right salpingo-oophorectomy (2007) Status post appendectomy (2007) Status post delivery (01/05/12) Status post exploratory laparotomy (10/08/15) Status post laparotomy (05/02/15) Family History Father No problems noted. Grandfather Hypertension Alcoholism Grandmother Cancer Stroke Mother Hyperlipidemia Grandfather Hyperlipidemia Hypertension Pneumonia Grandmother Diabetes mellitus Hypertension Sister Hearing loss Vision loss Sister Vision loss Hearing loss Sister Mental health problem Sister No problems noted. Sister No problems noted. Son Age: 8 Suspected autism disorder Social History marital status: unmarried,single Smoking Status: Current every day smoker alcohol intake: never substance use type: does not use Smoking Status: Current every day smoker tobacco type: cigarettes alcohol intake frequency: 0-2 drinks per day Substance Use Type: marijuana Exam Initial Vital Signs Initial Vital Signs: Vital Signs Temperature 99.1 F 07/01/20 22:34 Pulse Rate 109 H 07/01/20 22:34 Respiratory Rate 16 07/01/20 22:34 Blood Pressure 130/66 07/01/20 22:34 Pulse Oximetry 99 07/01/20 22:34 GENERAL: Well-appearing, well-nourished and in no acute distress. HEENT: Head atraumatic,EOMI, pupils reactive, face symmetric, moist mucous membranes CARDIOVASCULAR: Regular rate and rhythm without murmurs, rubs or gallops. RESPIRATORY: Breath sounds equal bilaterally, no wheezes rales or rhonchi. ABDOMEN: Soft, nontender nondistended no guarding no rebound scar noted EXTREMITIES: Normal range of motion, no clubbing or edema. Neurovascularly intact NEUROLOGICAL: Alert and oriented x4.Normal gait and speech. SKIN: Warm, dry, no laceration, no petechiae, no rashes or lesions. Course Orders Ordered: ED Orders 07/01/20 22:40 COVID19 Stat 07/01/20 23:37 Complete Blood Count AUTO DIFF Stat Comprehensive Metabolic Panel Stat 07/02/20 01:58 CT abdomen pelvis w con Stat Discontinued Medications Hydromorphone HCl (Hydromorphone 0.5 Mg Inj) 0.5 mg IV NOW ONE Stop: 07/02/20 01:23 Last Admin: 07/02/20 01:26 Dose: 0.5 mg Documented by: ARLET Hydromorphone HCl (Hydromorphone 0.5 Mg Inj) 0.5 mg IV NOW ONE Stop: 07/02/20 03:02 Last Admin: 07/02/20 03:05 Dose: 0.5 mg Documented by: Sodium Chloride (Normal Saline 0.9%) 1,000 mls @ 1,000 mls/hr IV BOLUS ONE Stop: 07/02/20 00:23 Last Infusion: 07/02/20 01:21 Dose: 0 mls/hr Documented by: Admin: 07/01/20 23:37 Dose: 1,000 mls/hr Documented by: RMARTIN Sodium Chloride (Normal Saline 0.9%) 1,000 mls @ 1,000 mls/hr IV BOLUS ONE Stop: 07/02/20 01:37 Last Admin: 07/02/20 01:26 Dose: 1,000 mls/hr Documented by: ARLET Ondansetron HCl (Ondansetron 4 Mg/2 Ml Inj) 4 mg IV NOW ONE Stop: 07/01/20 23:25 Last Admin: 07/01/20 23:37 Dose: 4 mg Documented by: ARNULFOARTIN Ondansetron HCl (Ondansetron 4 Mg/2 Ml Inj) 4 mg IV NOW ONE Stop: 07/02/20 00:30 Last Admin: 07/02/20 00:33 Dose: 4 mg Documented by: GOSIA Vital Signs Vital signs: Vital Signs - 8 hr 07/01/20 23:06 07/01/20 23:15 07/01/20 23:30 Temperature Pulse Rate 87 77 72 Pulse Rate [Orthostatic Lying] Pulse Rate [Orthostatic Sitting] Pulse Rate [Orthostatic Standing] Respiratory Rate Blood Pressure Blood Pressure [Orthostatic Lying] Blood Pressure [Orthostatic Sitting] Blood Pressure [Orthostatic Standing] Pulse Oximetry 97 97 98 07/01/20 23:46 07/01/20 23:54 07/01/20 23:55 Temperature Pulse Rate 71 66 66 Pulse Rate [Orthostatic Lying] Pulse Rate [Orthostatic Sitting] Pulse Rate [Orthostatic Standing] Respiratory Rate Blood Pressure 93/60 95/57 L 90/60 Blood Pressure [Orthostatic Lying] Blood Pressure [Orthostatic Sitting] Blood Pressure [Orthostatic Standing] Pulse Oximetry 96 98 98 07/01/20 23:56 07/01/20 23:58 07/02/20 00:00 Temperature Pulse Rate 70 64 Pulse Rate [Orthostatic Lying] 69 Pulse Rate [Orthostatic Sitting] 70 Pulse Rate [Orthostatic Standing] 72 Respiratory Rate Blood Pressure 92/57 L Blood Pressure [Orthostatic Lying] 95/57 L Blood Pressure [Orthostatic Sitting] 90/60 Blood Pressure [Orthostatic Standing] 92/57 L Pulse Oximetry 97 98 07/02/20 00:30 07/02/20 00:35 07/02/20 00:37 Temperature Pulse Rate 66 61 60 Pulse Rate [Orthostatic Lying] Pulse Rate [Orthostatic Sitting] Pulse Rate [Orthostatic Standing] Respiratory Rate Blood Pressure 85/54 L 85/52 L Blood Pressure [Orthostatic Lying] Blood Pressure [Orthostatic Sitting] Blood Pressure [Orthostatic Standing] Pulse Oximetry 98 97 97 07/02/20 01:00 07/02/20 01:30 07/02/20 02:03 Temperature Pulse Rate 54 L 58 L 58 L Pulse Rate [Orthostatic Lying] Pulse Rate [Orthostatic Sitting] Pulse Rate [Orthostatic Standing] Respiratory Rate Blood Pressure 94/55 L 104/67 Blood Pressure [Orthostatic Lying] Blood Pressure [Orthostatic Sitting] Blood Pressure [Orthostatic Standing] Pulse Oximetry 98 95 91 07/02/20 02:04 07/02/20 03:25 Temperature 98.0 F Pulse Rate 68 62 Pulse Rate [Orthostatic Lying] Pulse Rate [Orthostatic Sitting] Pulse Rate [Orthostatic Standing] Respiratory Rate 16 Blood Pressure 105/68 102/71 Blood Pressure [Orthostatic Lying] Blood Pressure [Orthostatic Sitting] Blood Pressure [Orthostatic Standing] Pulse Oximetry 100 96 MDM - Nausea/Vomiting/Diarrhea Lab Data Attestation: I reviewed the patient's lab results. Result diagrams: 07/01/20 23:37 07/01/20 23:37 Labs: Lab Results 07/01/20 07/01/20 07/01/20 Range/Units 22:40 23:37 23:37 WBC 6.0 (4.5-11.0) X10^3/uL RBC 4.50 (4.0-5.2) X10^6/uL Hgb 14.6 (12.0-16.0) g/dL Hct 43.9 (36-46) % MCV 97.5 (80-100) fL MCH 32.4 (26-34) PG MCHC 33.2 (30-36) % RDW 13.4 (11.6-14.8) % Plt Count 232 (150-400) X10^3/uL Neut % (Auto) 51.7 (50-75) % Lymph % (Auto) 40.9 H (25-40) % [place] % (Auto) 6.1 (3-14) % Eos % (Auto) 0.7 L (2-4) % Baso % (Auto) 0.6 (0-2) % Neut # (Auto) 3100 (7890-2242) /uL Lymph # (Auto) 2400 (6422-7482) /uL [place] # (Auto) 400 (0-900) /uL Eos # (Auto) 0 (0-450) /uL Baso # (Auto) 0 (0-100) /uL Sodium 139 (137-145) mmol/L Potassium 3.4 (3.4-5.1) mmol/L Chloride 103 (98-107) mmol/L Carbon Dioxide 30 (22-32) mmol/L BUN 13 (7-17) mg/dL Creatinine 0.61 (0.52-1.04) mg/dL Estimated GFR > 60.0 (>60) mL/min BUN/Creatinine Ratio 21.3 (6-22) Glucose 89 (70-100) mg/dL Calcium 9.3 (8.4-10.2) mg/dL Total Bilirubin 0.4 (0.2-1.3) mg/dL AST 20 (14-36) IU/L ALT 21 (<35) IU/L Alkaline Phosphatase 76 (38-126) U/L Total Protein 7.8 (6.3-8.2) g/dL Albumin 4.6 (3.5-5.0) g/dL Globulin 3.2 (1.7-4.1) g/dL Albumin/Globulin Ratio 1.4 (1.0-2.8) COVID-19 PCR Negative (Negative) Point of Care Testing Test Results Negative Urine Dip Bedside Urine Glucose Negative Bedside Urine Bilirubin - Negative Bedside Urine Ketone - Negative Urine Specific [place] 1.030 Bedside Urine Occult Blood - Negative Bedside Urine pH 6.0 Bedside Urine Protein - Negative Bedside Urine Urobilinogen - Negative Bedside Urine Nitrite - Negative Bedside Urine Leukocytes - Negative Esterase Imaging Data CT scan - abdomen/pelvis: Radiologist's Impression: Preliminary report no signs of recurrent neoplasm. Negative for bowel obstructions. No other significant acute process in the abdomen or pelvis MDM Narrative Medical decision making narrative: Patient overall appears well abdomen is soft no sign of distension her bowel obstruction. Symptoms are more consistent with a gastroenteritis with body aches vomiting and diarrhea. She does seem dehydrated clinically with dizziness and lightheadedness worse with position. She has also had decreased oral intake. Pressure is noted to decreased, previous blood sugars are reviewed she has been low in the past but typically has a systolic in the 100s BLOOD PRESSURE IMPROVED AFTER 2 L OF IV FLUIDS. SHE IS COMPLAINING OF PAIN IN HER LOW BACK. WITH HISTORY OF ovarian cancer and adhesions will get CT. CT is negative patient requested something more for pain. Discharge Plan Departure Patient Disposition: Home Clinical Impression: Gastroenteritis Instructions: DI for Viral Gastroenteritis -- Adult Activity Restrictions/Additional Instructions: *You have been diagnosed with gastroenteritis *What to do: Increase fluids as tolerated, recommend Gatorade or Gatorade like substance *Continue to take medications as directed--> SENT TO [facility] IN [place] zofran 4 mg every 8 hours if needed for nausea or vomiting *Follow up with your primary care provider in 2-3 days *Return to ER if you should have worsening dizziness lightheadedness, persistent nausea vomiting or diarrhea, worsening abdominal pain or any new, worsening or concerning symptoms Prescriptions: New ondansetron 4 mg tablet,disintegrating 4 mg PO Q8H PRN (Reason: nausea and vomiting) Qty: 10 RF: 0 No Action citalopram 20 mg tablet 20 mg PO DAILY Qty: 30 RF: 11 albuterol sulfate 90 mcg/actuation HFA aerosol inhaler 2 inhalation INHALATION Q4H PRN (Reason: tight chest/cough) Qty: 6.7 RF: 0 Prempro 0.625-2.5 mg tablet 1 tab PO QPM RF: 0 PNV cmb#95-ferrous fumarate-FA [] 28 mg iron- 800 mcg Tablet 1 tab PO DAILY RF: 0 medroxyprogesterone 10 mg tablet 20 mg PO Q2HR PRN (Reason: vaginal bleeding) Qty: 90 RF: 0 ondansetron 4 mg tablet,disintegrating 4 mg PO TID-QID PRN (Reason: nausea and vomiting) Qty: 10 RF: 0 ondansetron 4 mg tablet,disintegrating 4 mg PO QID PRN (Reason: nausea and vomiting) Qty: 30 RF: 0 ondansetron 4 mg tablet,disintegrating 4 mg PO Q8H PRN (Reason: nausea and vomiting) Qty: 10 RF: 0 albuterol sulfate 90 mcg/actuation HFA aerosol inhaler 2 puff INHALATION Q4-6H PRN (Reason: shortness of breath or wheezing) Qty: 8.5 RF: 0 benzonatate [Tessalon Perles] 100 mg capsule 100 mg PO BID-TID PRN (Reason: cough) Qty: 30 RF: 0 ondansetron 4 mg tablet,disintegrating 4 mg PO Q8H PRN (Reason: nausea and vomiting) Qty: 10 RF: 0
[2020-07-01 23:07] LABS: COVID19 -Nasal RAPID Negative (Negative)
[2020-07-01] MEDS: SODIUM CHLORIDE 0.9% 1,000 ML 1000 ML IV (23:37)
[2020-07-01] MEDS: ONDANSETRON 4 MG/2 ML INJ IV (23:37)
[2020-07-01 23:57] LABS: Add Manual Diff / Slide Review NO; Basophils Absolute Auto 0 /uL (0-100); Basophils Percent Auto 0.6 % (0-2); Eosinophils Absolute Auto 0 /uL (0-450); Eosinophils Percent Auto 0.7 % (2-4); Hematocrit 43.9 % (36-46); Hemoglobin 14.6 g/dL (12.0-16.0); Lymphocytes Absolute Auto 2400 /uL (1100-4500); Lymphocytes Percent Auto 40.9 % (25-40); Mean Corpuscular HGB Conc 33.2 % (30-36); Mean Corpuscular Hemoglobin 32.4 PG (26-34); Mean Corpuscular Volume 97.5 fL (80-100); Monocytes Absolute Auto 400 /uL (0-900); Monocytes Percent Auto 6.1 % (3-14); Neutrophils Absolute Auto 3100 /uL (1500-7000); Neutrophils Percent Auto 51.7 % (50-75); Platelet Count 232 X10^3/uL (150-400); Red Cell Distribution Width 13.4 % (11.6-14.8)
[2020-07-02] VITALS (9 sets, daily range): BP systolic 85–105; BP diastolic 52–71; PULSE 54–68; RESP 16; TEMP 36.7; O2SAT 91–100
[2020-07-02 00:03] LABS: Alanine Aminotransferase 21 IU/L (<35); Albumin 4.6 g/dL (3.5-5.0); Albumin Globulin Ratio 1.4 (1.0-2.8); Alkaline Phosphatase 76 U/L (38-126); Aspartate Aminotransferase 20 IU/L (14-36); BUN Creatinine Ratio 21.3 (6-22); Bilirubin Total 0.4 mg/dL (0.2-1.3); Blood Urea Nitrogen 13 mg/dL (7-17); Calcium 9.3 mg/dL (8.4-10.2); Carbon Dioxide 30 mmol/L (22-32); Chloride 103 mmol/L (98-107); Estimated Glomerular Filt Rate > 60.0 mL/min (>60); Globulin 3.2 g/dL (1.7-4.1); Glucose 89 mg/dL (70-100); HEMOLYSIS < 15 (0-50); Potassium 3.4 mmol/L (3.4-5.1); Sodium 139 mmol/L (137-145); Total Protein 7.8 g/dL (6.3-8.2)
[2020-07-02] MEDS: ONDANSETRON 4 MG/2 ML INJ IV (00:33)
[2020-07-02] MEDS: SODIUM CHLORIDE 0.9% 1,000 ML 1000 ML IV (01:26)
[2020-07-02] MEDS: HYDROMORPHONE 0.5 MG INJ IV ×2 (01:26→03:05)
--- NOTE | 2020-07-02 01:58 | DI.CT.S_ITS ---
PROCEDURE: CT ABDOMEN PELVIS W CON INDICATIONS: ab pain, hx of ovarian CA and obstruction TECHNIQUE: After the administration of intravenous contrast, 5 mm thick sections acquired from the diaphragm to the symphysis. 5 mm coronal and sagittal reformats were acquired. For radiation dose reduction, the following was used: automated exposure control, adjustment of mA and/or kV according to patient size. COMPARISON: [facility], CT, CT ABDOMEN PELVIS W CON, 04/10/2018, 16:37. FINDINGS: Image quality: Excellent. ABDOMEN: Lung bases: Lung bases are clear. Heart size is normal. Solid organs: Liver is normal in size and enhancement. Gallbladder is unremarkable. Biliary system is non dilated. Pancreas enhances normally. Spleen is normal in size and enhancement. No adrenal nodules. Kidneys demonstrate normal size and enhancement, without hydronephrosis. 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 Peritoneum and bowel: Bowel loops demonstrate mild fluid filled appearance of scattered small bowel loops. No free fluid or air. Nodes and vessels: No retroperitoneal or mesenteric adenopathy by size criteria. Aorta and inferior vena cava are normal in size. Miscellaneous: No ventral hernias. PELVIS: Genitourinary: Bladder wall thickness is normal. Miscellaneous: No inguinal hernias or adenopathy. Bones: No suspicious bony lesions. No vertebral body compression fractures. IMPRESSION: 1. Mild nonspecific fluid-filled bowel loops. 2. Overall, no acute intra-abdominal or pelvic process identified. The above findings are concordant with preliminary report. Dictated by: Rema Jimenez M.D. on 07/02/2020 at 8:40 Approved by: Rema Jimenez M.D. on 07/02/2020 at 9:05
== END 2020-07-02 03:25 | disposition home or self-care (01) ==
PROVIDERS: Emergency Provider Emergency Medicine
DX: K52.9 Noninfective gastroenteritis and colitis, unspecified (principal); R11.2 Nausea with vomiting, unspecified; R42 Dizziness and giddiness; Z85.43 Personal history of malignant neoplasm of ovary
CPT/HCPCS: 36415; 74177; 80053; 81003; 81025; 85025; 87635; 96361; 96374; 96375; 96376; 99284; J1170; J2405; Q9967

== ENCOUNTER 2020-07-05 02:50 | Emergency (ER) | payer SELFPAY ==
[2020-07-05 03:06] VITALS: BP 114/73; PULSE 80; RESP 20; TEMP 36.8; O2SAT 100
--- NOTE | 2020-07-05 03:07 | ED.NAVMDI ---
HPI - Nausea/Vomiting/Diarrhea General Chief complaint: Nausea/Vomiting/Diarrhea Stated complaint: Nausea, diarrhea, vomiting x7 days Time Seen by Provider: 07/05/20 02:50 Source: patient Mode of arrival: Ambulatory Limitations: no limitations History of Present Illness HPI Narrative: 34-year-old female daily smoker with extensive medical history including multiple abdominal pelvic surgeries and chronic pelvic pain presents for the 2nd time for evaluation of ongoing nausea, vomiting and diarrhea. Her symptoms have been present for upwards of 1 week and she was seen and evaluated a few days ago with extensive labs and even a CT which was unremarkable. She states she is able to eat and drink but immediately will have watery diarrhea and now has burning pain in her rectum. She does state that she occasionally has blood streaked bowel movements and thinks she may have a hemorrhoid. She feels a bit weak but is not dizzy or lightheaded. She has no chest pain or shortness of breath. Denies any recent antibiotics, exposure to ill persons or consumption of bad food. MD complaint: nausea, vomiting and diarrhea Onset (ago): day(s) Description of Vomiting: food contents Description of Diarrhea: watery Associated Abdominal Pain: No Related Data Home Medications Medication Instructions Recorded Confirmed PNV cmb#95-ferrous fumarate-FA 1 tab PO DAILY 09/17/18 09/17/18 [] conj estrog-medroxyprogest bernice 1 tab PO QPM 09/17/18 09/17/18 [Prempro] Previous Rx's Medication Instructions Recorded albuterol sulfate 2 inhalation INHALATION Q4H PRN 06/30/18 #6.7 gram ondansetron 4 mg PO QID PRN #30 tab 08/16/18 medroxyprogesterone 20 mg PO Q2HR PRN #90 tab 09/17/18 citalopram 20 mg tablet 20 mg PO DAILY #30 tab 10/05/18 ondansetron 4 mg PO TID-QID PRN #10 tab 03/06/19 ondansetron 4 mg PO Q8H PRN #10 tab 03/25/19 albuterol sulfate 2 puff INHALATION Q4-6H PRN #8.5 10/16/19 gram benzonatate [Tessalon Perles] 100 mg PO BID-TID PRN #30 cap 10/16/19 ondansetron 4 mg PO Q8H PRN #10 tab 10/16/19 ondansetron 4 mg PO Q8H PRN #10 tab 07/02/20 Allergies Allergy/AdvReac Type Severity Reaction Status Date / Time Penicillins [PENICILLINS] Allergy Severe RASH Verified 02/03/20 10:09 vancomycin [VANCOMYCIN] Allergy Severe JUAREZ Verified 02/03/20 10:09 SYNDROME adhesive [ADHESIVE] Allergy Intermediate RASH, SKIN Verified 02/03/20 10:09 PEELS latex [LATEX] Allergy Intermediate RASH Verified 02/03/20 10:09 ketorolac AdvReac Headache Verified 02/03/20 10:09 Review of Systems Constitutional Constitutional: Denies chills, Denies fatigue, Denies fever(s), Denies frequent falls, Denies lethargy and Denies weakness Eyes Eyes: Denies change in vision, Denies eye discharge, Denies irritation and Denies loss of vision ENT Ears, Nose, Mouth, and Throat: Denies change in voice, Denies dizziness, Denies neck pain, Denies sore throat and Denies throat swelling Cardiovascular Cardiovascular: Denies chest pain, Denies irregular heart rhythm, Denies lightheadedness, Denies palpitations, Denies dyspnea, Denies dyspnea on exertion and Denies orthopnea Respiratory Respiratory: Denies cough, Denies dyspnea, Denies dyspnea on exertion and Denies wheezing Gastrointestinal Gastrointestinal: Denies abdominal pain, Denies change in bowel habits, Reports diarrhea, Reports nausea and Reports vomiting Comments: Burning rectal pain Musculoskeletal Musculoskeletal: Denies neck pain and Denies numbness Integumentary/Breasts Skin/Breast: Denies pruritus, Denies erythema, Denies rash and Denies wounds Neurologic Neurologic: Denies behavioral changes, Denies confusion, Denies dizziness, Denies frequent falls, Denies loss of vision, Denies numbness and Denies weakness Psychiatric Psychiatric: Denies anxiety, Denies behavioral changes, Denies confusion, Denies depression, Denies homicidal ideation and Denies suicidal ideation Endocrine Endocrine: Denies fatigue, Denies flushing and Denies palpitations Hematologic/Lymphatic Hematologic/Lymphatic: Denies easy bruising Allergic/Immunologic Allergic/Immunologic: Denies urticaria, Denies throat swelling and Denies wheezing Patient History Medical History Acne Anemia (2008) Anxiety (2008) Chicken pox (1992) CTS (carpal tunnel syndrome) (2011) Depression (2008) Hearing loss (1987) History of heavy periods (2007) History of hysterosalpingogram (09/12/15) Irregular periods/menstrual cycles (2007) Ovarian cancer (2008) Ovarian cyst (2015) Painful menstrual periods (2007) Vertigo Surgical History Anesthesia History of bowel resection (2007) History of left salpingo-oophorectomy History of left salpingo-oophorectomy History of right salpingo-oophorectomy (2007) Status post appendectomy (2007) Status post delivery (01/05/12) Status post exploratory laparotomy (10/08/15) Status post laparotomy (05/02/15) Family History Father No problems noted. Grandfather Hypertension Alcoholism Grandmother Cancer Stroke Mother Hyperlipidemia Grandfather Hyperlipidemia Hypertension Pneumonia Grandmother Diabetes mellitus Hypertension Sister Hearing loss Vision loss Sister Vision loss Hearing loss Sister Mental health problem Sister No problems noted. Sister No problems noted. Son Age: 8 Suspected autism disorder Social History marital status: unmarried,single Smoking Status: Current every day smoker alcohol intake: never substance use type: does not use Smoking Status: Current every day smoker tobacco type: cigarettes alcohol intake frequency: 0-2 drinks per day Substance Use Type: marijuana Exam Narrative Exam Narrative: GENERAL: [34] year old patient appears stated age. Very thin, uncomfortable, holding an emesis bag HEAD: Atraumatic. Normocephalic. EYES: Pupils equal round and reactive. Extraocular motions intact. No scleral icterus. No injection or drainage. ENT: Nose without bleeding, purulent drainage. Throat without erythema, tonsillar hypertrophy or exudate. Airway patent. NECK: Trachea midline. Non tender CARDIOVASCULAR: Regular rate and rhythm without murmurs, gallops, or rubs. RESPIRATORY: Clear to auscultation. Breath sounds equal bilaterally. No wheezes, rales, or rhonchi. GASTROINTESTINAL: Abdomen soft, non-tender, nondistended. EXTREMITIES: No edema or joint tenderness. BACK: Nontender without deformity or crepitance. No flank tenderness. NEURO: AOx3. SKIN: No rash or erythema of visible areas Initial Vital Signs Initial Vital Signs: Vital Signs Temperature 98.3 F 07/05/20 03:06 Pulse Rate 80 07/05/20 03:06 Respiratory Rate 20 07/05/20 03:06 Blood Pressure 114/73 07/05/20 03:06 Pulse Oximetry 100 07/05/20 03:06 Course Course Course Narrative: Patient labs and imaging are very reassuring. Given her recent CT I've explained why another is not indicated. Her exam is also very reassuring. She is becoming very upset with us stating that she doesn't want nausea medicines, that she wants pain meds. She did not mention any pain during the first portions of her visit and now is stating that her ribs are sore from vomiting. I've very gently explained that I would like to try help with her pain and she is demanding dilaudid. I've spent a significant time at the bedside discussing options I would recommend such as haldol, but she states only dilaudid will work. I do not see any objective findings to suggest an opioid is indicated. Eventually, and reluctantly she is will to accept a small dose of haldol. She then escalated and became upset that we wouldn't give her pain meds. She pulled out her IV and demanded to leave. Attempts were made to address her concerns, but she refused. She would not sign the AMA. It would seem reasonable to encourage an HEALTH PROGRAM SPECIALIST consult if available during her next visit as the circumstances would suggest there could very well be a multifactorial explanation and approach to helping her. Orders Ordered: ED Orders 07/05/20 03:00 Complete Blood Count AUTO DIFF Stat Comprehensive Metabolic Panel Stat 07/05/20 03:45 XR abdomen min 2V Stat Discontinued Medications Haloperidol (Haloperidol 5 Mg/Ml Vial) 2 mg IV NOW ONE Stop: 07/05/20 04:15 Last Admin: 07/05/20 04:24 Dose: 2 mg Documented by: Sodium Chloride (Normal Saline 0.9%) 1,000 mls @ 1,000 mls/hr IV BOLUS ONE Stop: 07/05/20 04:03 Last Admin: 07/05/20 03:16 Dose: 1,000 mls/hr Documented by: JASIEL Ondansetron HCl (Ondansetron 4 Mg/2 Ml Inj) 4 mg IV NOW ONE Stop: 07/05/20 03:05 Last Admin: 07/05/20 03:15 Dose: 4 mg Documented by: JASIEL Ondansetron HCl (Ondansetron 4 Mg/2 Ml Inj) 4 mg IV NOW ONE Stop: 07/05/20 03:25 Last Admin: 07/05/20 03:36 Dose: 4 mg Documented by: Vital Signs Vital signs: Vital Signs - 8 hr 07/05/20 03:06 Temperature 98.3 F Pulse Rate 80 Respiratory Rate 20 Blood Pressure 114/73 Pulse Oximetry 100 MDM - Nausea/Vomiting/Diarrhea Lab Data Result diagrams: 07/05/20 03:00 07/05/20 03:00 Labs: Lab Results 07/05/20 07/05/20 Range/Units 03:00 03:00 WBC 8.8 (4.5-11.0) X10^3/uL RBC 4.69 (4.0-5.2) X10^6/uL Hgb 15.2 (12.0-16.0) g/dL Hct 45.6 (36-46) % MCV 97.4 (80-100) fL MCH 32.3 (26-34) PG MCHC 33.2 (30-36) % RDW 13.3 (11.6-14.8) % Plt Count 249 (150-400) X10^3/uL Neut % (Auto) 53.2 (50-75) % Lymph % (Auto) 36.4 (25-40) % Martin % (Auto) 7.7 (3-14) % Eos % (Auto) 1.8 L (2-4) % Baso % (Auto) 0.9 (0-2) % Neut # (Auto) 4700 (6901-5895) /uL Lymph # (Auto) 3200 (0322-8362) /uL Martin # (Auto) 700 (0-900) /uL Eos # (Auto) 200 (0-450) /uL Baso # (Auto) 100 (0-100) /uL Sodium 140 (137-145) mmol/L Potassium 3.5 (3.4-5.1) mmol/L Chloride 102 (98-107) mmol/L Carbon Dioxide 35 H (22-32) mmol/L BUN 12 (7-17) mg/dL Creatinine 0.69 (0.52-1.04) mg/dL Estimated GFR > 60.0 (>60) mL/min BUN/Creatinine Ratio 17.4 (6-22) Glucose 81 (70-100) mg/dL Calcium 10.0 (8.4-10.2) mg/dL Total Bilirubin 0.3 (0.2-1.3) mg/dL AST 23 (14-36) IU/L ALT 20 (<35) IU/L Alkaline Phosphatase 108 (38-126) U/L Total Protein 8.7 H (6.3-8.2) g/dL Albumin 5.0 (3.5-5.0) g/dL Globulin 3.7 (1.7-4.1) g/dL Albumin/Globulin Ratio 1.4 (1.0-2.8) Point of Care Testing Test Results Negative Urine Dip Bedside Urine Glucose Negative Bedside Urine Bilirubin - Negative Bedside Urine Ketone - Negative Urine Specific [place] 1.010 Bedside Urine Occult Blood - Negative Bedside Urine pH 7.5 Bedside Urine Protein - Negative Bedside Urine Urobilinogen - Negative Bedside Urine Nitrite - Negative Bedside Urine Leukocytes - Negative Esterase Imaging Data Abdominal x-ray: Radiologist's Impression: No obstructive pattern. Large stool burden Discharge Plan Departure Patient Disposition: Left Against Medical Advice Prescriptions: No Action citalopram 20 mg tablet 20 mg PO DAILY Qty: 30 RF: 11 albuterol sulfate 90 mcg/actuation HFA aerosol inhaler 2 inhalation INHALATION Q4H PRN (Reason: tight chest/cough) Qty: 6.7 RF: 0 Prempro 0.625-2.5 mg tablet 1 tab PO QPM RF: 0 PNV cmb#95-ferrous fumarate-FA [] 28 mg iron- 800 mcg Tablet 1 tab PO DAILY RF: 0 medroxyprogesterone 10 mg tablet 20 mg PO Q2HR PRN (Reason: vaginal bleeding) Qty: 90 RF: 0 ondansetron 4 mg tablet,disintegrating 4 mg PO TID-QID PRN (Reason: nausea and vomiting) Qty: 10 RF: 0 ondansetron 4 mg tablet,disintegrating 4 mg PO Q8H PRN (Reason: nausea and vomiting) Qty: 10 RF: 0 ondansetron 4 mg tablet,disintegrating 4 mg PO QID PRN (Reason: nausea and vomiting) Qty: 30 RF: 0 ondansetron 4 mg tablet,disintegrating 4 mg PO Q8H PRN (Reason: nausea and vomiting) Qty: 10 RF: 0 albuterol sulfate 90 mcg/actuation HFA aerosol inhaler 2 puff INHALATION Q4-6H PRN (Reason: shortness of breath or wheezing) Qty: 8.5 RF: 0 benzonatate [Tessalon Perles] 100 mg capsule 100 mg PO BID-TID PRN (Reason: cough) Qty: 30 RF: 0 ondansetron 4 mg tablet,disintegrating 4 mg PO Q8H PRN (Reason: nausea and vomiting) Qty: 10 RF: 0 Stand Alone Forms: Against Medical Advice
[2020-07-05 03:14] LABS: Add Manual Diff / Slide Review NO; Basophils Absolute Auto 100 /uL (0-100); Basophils Percent Auto 0.9 % (0-2); Eosinophils Absolute Auto 200 /uL (0-450); Eosinophils Percent Auto 1.8 % (2-4); Hematocrit 45.6 % (36-46); Hemoglobin 15.2 g/dL (12.0-16.0); Lymphocytes Absolute Auto 3200 /uL (1100-4500); Lymphocytes Percent Auto 36.4 % (25-40); Mean Corpuscular HGB Conc 33.2 % (30-36); Mean Corpuscular Hemoglobin 32.3 PG (26-34); Mean Corpuscular Volume 97.4 fL (80-100); Monocytes Absolute Auto 700 /uL (0-900); Monocytes Percent Auto 7.7 % (3-14); Neutrophils Absolute Auto 4700 /uL (1500-7000); Neutrophils Percent Auto 53.2 % (50-75); Platelet Count 249 X10^3/uL (150-400); Red Blood Cell Count 4.69 X10^6/uL (4.0-5.2); Red Cell Distribution Width 13.3 % (11.6-14.8); White Blood Cell Count 8.8 X10^3/uL (4.5-11.0)
[2020-07-05] MEDS: ONDANSETRON 4 MG/2 ML INJ IV ×2 (03:15→03:36)
[2020-07-05] MEDS: SODIUM CHLORIDE 0.9% 1,000 ML 1000 ML IV (03:16)
[2020-07-05 03:19] LABS: Alanine Aminotransferase 20 IU/L (<35); Albumin Globulin Ratio 1.4 (1.0-2.8); Alkaline Phosphatase 108 U/L (38-126); Aspartate Aminotransferase 23 IU/L (14-36); BUN Creatinine Ratio 17.4 (6-22); Bilirubin Total 0.3 mg/dL (0.2-1.3); Blood Urea Nitrogen 12 mg/dL (7-17); Carbon Dioxide 35 mmol/L (22-32); Chloride 102 mmol/L (98-107); Estimated Glomerular Filt Rate > 60.0 mL/min (>60); Globulin 3.7 g/dL (1.7-4.1); Glucose 81 mg/dL (70-100); HEMOLYSIS 17 (0-50); Potassium 3.5 mmol/L (3.4-5.1); Sodium 140 mmol/L (137-145); Total Protein 8.7 g/dL (6.3-8.2)
--- NOTE | 2020-07-05 03:45 | DI.RAD.S_ITS ---
PROCEDURE: XR ABDOMEN MIN 2V INDICATIONS: abdominal pain, vomiting, diarrhea TECHNIQUE: 2 views of the abdomen were acquired. COMPARISON: None. FINDINGS: Surgical changes and devices: Multiple surgical clips. Bowel: No pneumoperitoneum. The bowel gas pattern is normal. Moderate amount of stool in the colon. Soft tissues: No masses; visualized solid organ contours appear normal in size. No suspicious abdominal calcifications. Bones: No suspicious bony abnormalities. IMPRESSION: Moderate colonic fecal loading. Dictated by: Mindi Abernathy MD, PhD on 07/05/2020 at 8:19 Approved by: Mindi Abernathy MD, PhD on 07/05/2020 at 8:38
[2020-07-05] MEDS: HALOPERIDOL 5 MG/ML VIAL 2 MG IV (04:24)
--- NOTE | 2020-07-05 05:34 | PC.NURSE ---
Before leaving [facility] she pulled out her iv catheter patent and intack,there was minimal bleeding on her arm and floor,approx.10 ml.I placed 2 by 2 dressing and covered it with coban.She would not sign any forms and would not stay for further treatment even after trying to talk to her in a calm manner in hope that she would.
== END 2020-07-05 05:00 | disposition left against medical advice (07) ==
PROVIDERS: Emergency Provider Emergency Medicine
DX: R11.2 Nausea with vomiting, unspecified (principal); R19.7 Diarrhea, unspecified
CPT/HCPCS: 36415; 74019; 80053; 81003; 81025; 85025; 96361; 96374; 96375; 96376; 99281; 99284; J1630; J2405

== ENCOUNTER 2020-10-10 22:13 | Emergency (ER) | payer SELFPAY ==
[2020-10-10 22:19] VITALS: BP 125/66; PULSE 88; RESP 20; TEMP 36.4; O2SAT 98
[2020-10-10] MEDS: ONDANSETRON 4 MG/2 ML INJ (22:41)
--- NOTE | 2020-10-10 22:44 | ED_ITS ---
HPI - Nausea/Vomiting/Diarrhea General Chief complaint: Nausea/Vomiting/Diarrhea Stated complaint: n/v sweats Time Seen by Provider: 10/10/20 22:44 Source: patient Mode of arrival: Ambulatory Limitations: no limitations History of Present Illness HPI Narrative: The patient arrives complaining primarily of nausea vomiting. She states she has vomited 38 times today. She also complains of a headache. She has no sore throat, fever, cough or dyspnea associated with a headache. She claims she has a migraine. She is on no regular medications for migraines. She has no associated chest pain. She has no diarrhea or constipation associated with the other GI symptoms. She complains of chills, and feeling warm. She has no dysuria, she denies back pain. She has no history of gallbladder disease. She has multiple prior abdomen/pelvic surgeries. She has a history of a pelvic abscess. 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 She cannot recall exactly how may surgeries she has had. She has recently been on steroids due to neck pain. She had a small amount of vaginal bleeding associated with the steroid use, she is not complaining of lower abdominal pain at this time. She has multiple recent ER visits. She has undergone repeated imaging, including 5 abdomen/pelvis CTs at this facility over the past 2 years. There are ultr asounds, other studies also. The last abdomen/pelvis CT was June 2020 without acute process noted. Related Data Home Medications Medication Instructions Recorded Confirmed PNV cmb#[id number]-ferrous fumarate-FA 1 tab PO DAILY 09/17/18 09/17/18 [] conj estrog-medroxyprogest bernice 1 tab PO QPM 09/17/18 09/17/18 [Prempro] Previous Rx's Medication Instructions Recorded albuterol sulfate 2 inhalation INHALATION Q4H PRN 06/30/18 #6.7 gram ondansetron 4 mg PO QID PRN #30 tab 08/16/18 medroxyprogesterone 20 mg PO Q2HR PRN #90 tab 09/17/18 citalopram 20 mg tablet 20 mg PO DAILY #30 tab 10/05/18 ondansetron 4 mg PO TID-QID PRN #10 tab 03/06/19 ondansetron 4 mg PO Q8H PRN #10 tab 03/25/19 albuterol sulfate 2 puff INHALATION Q4-6H PRN #8.5 10/16/19 gram benzonatate [Tessalon Perles] 100 mg PO BID-TID PRN #30 cap 10/16/19 ondansetron 4 mg PO Q8H PRN #10 tab 10/16/19 ondansetron 4 mg PO Q8H PRN #10 tab 07/02/20 metoclopramide HCl [Reglan] 10 mg PO Q8H PRN #20 tab 10/11/20 Allergies Allergy/AdvReac Type Severity Reaction Status Date / Time Penicillins [PENICILLINS] Allergy Severe RASH Verified 02/03/20 10:09 vancomycin [VANCOMYCIN] Allergy Severe JUAREZ Verified 02/03/20 10:09 SYNDROME adhesive [ADHESIVE] Allergy Intermediate RASH, SKIN Verified 02/03/20 10:09 PEELS latex [LATEX] Allergy Intermediate RASH Verified 02/03/20 10:09 ketorolac AdvReac Headache Verified 02/03/20 10:09 Review of Systems Review of Systems ROS Unobtainable: All systems reviewed & are unremarkable except as noted in HPI and below Constitutional Constitutional: Reports body ache(s), Reports chills, Reports fever(s) and Reports headache(s) Eyes Eyes: Denies change in vision ENT Ears, Nose, Mouth, and Throat: Denies vertigo, Denies dizziness, Reports headache(s) and Denies sore throat Cardiovascular Cardiovascular: Denies chest pain, Denies irregular heart rhythm, Denies lightheadedness, Denies dyspnea and Denies orthopnea Respiratory Respiratory: Denies cough, Denies dyspnea and Denies wheezing Gastrointestinal Gastrointestinal: Denies abdominal pain, Denies change in bowel habits, Denies diarrhea, Reports nausea and Reports vomiting Genitourinary Genitourinary: Denies dysuria Genitourinary: Denies dysuria Musculoskeletal Musculoskeletal: Denies back pain Integumentary/Breasts Skin/Breast: Denies pruritus, Denies erythema and Denies rash Neurologic Neurologic: Denies confusion, Denies vertigo, Denies dizziness and Reports headache(s) Psychiatric Psychiatric: Denies anxiety and Denies confusion Allergic/Immunologic Allergic/Immunologic: Denies wheezing Patient History Medical History (Updated 10/11/20 @ 01:38 by Eladio Bhatt MD) Acne Anemia (2007) Anxiety (2007) Chicken pox (1992) CTS (carpal tunnel syndrome) (2011) Depression (2007) Hearing loss (1987) History of heavy periods (2007) History of hysterosalpingogram (09/12/15) Irregular periods/menstrual cycles (2007) Ovarian cancer (2007) Ovarian cyst (2014) Painful menstrual periods (2007) Vertigo Surgical History Anesthesia History of bowel resection (2007) History of left salpingo-oophorectomy History of left salpingo-oophorectomy History of right salpingo-oophorectomy (2007) Status post appendectomy (2007) Status post delivery (01/05/12) Status post exploratory laparotomy (10/08/15) Status post laparotomy (05/02/15) Family History Father No problems noted. Grandfather Hypertension Alcoholism Grandmother Cancer Stroke Mother Hyperlipidemia Grandfather Hyperlipidemia Hypertension Pneumonia Grandmother Diabetes mellitus Hypertension Sister Hearing loss Vision loss Sister Vision loss Hearing loss Sister Mental health problem Sister No problems noted. Sister No problems noted. Son Age: 8 Suspected autism disorder Social History marital status: unmarried,single Smoking Status: Former smoker alcohol intake: never substance use type: does not use Smoking Status: Former smoker tobacco type: cigarettes alcohol intake frequency: holidays/special occasions only Substance Use Type: marijuana Exam Initial Vital Signs Initial Vital Signs: Vital Signs Temperature 97.5 F L 10/10/20 22:19 Pulse Rate 88 10/10/20 22:19 Respiratory Rate 20 10/10/20 22:19 Blood Pressure 125/66 10/10/20 22:19 Pulse Oximetry 98 10/10/20 22:19 Const General: cooperative and well developed Nutritional Appearance: well nourished HENMT Head: normocephalic and atraumatic Eyes Conjunctivae: conjunctivae normal Pupils: PERRL Neck Neck: No JVD Chest Other: Nontender Resp Effort & Inspection: normal respiratory effort and able to speak in complete sentences Auscultation: clear to auscultation bilaterally, no rales, no rhonchi and no wheezes Cardio Rate: regular rate Rhythm: regular rhythm Heart Sounds: S1 normal, S2 normal, no click, no gallops, no murmurs and no rubs Pulses: normal peripheral pulses GI Inspection: non-distended Palpation: soft, no hepatosplenomegaly and No tender Auscultation: normal bowel sounds Back/Spine/Pelvis Back: No CVA tenderness Skin General: no rashes or lesions noted, No jaundice and No petechiae Neuro General: patient alert, patient oriented x3, gait normal and no focal motor deficits Speech: speech normal Extrem General: no pedal edema and no calf tenderness Psych Mental Status: mental status grossly normal Course Orders Ordered: ED Orders 10/10/20 22:40 Complete Blood Count AUTO DIFF Stat Comprehensive Metabolic Panel Stat Lipase Stat Partial Thromboplastin Time Stat Prothrombin Time INR Stat 10/10/20 22:50 COVID19 -Nasal swab/Pre-Proc Stat 10/10/20 23:03 XR acute abdomen series Stat Discontinued Medications Diphenhydramine HCl (Diphenhydramine 50 Mg/Ml Vial) 50 mg IV NOW ONE Stop: 10/10/20 23:04 Last Admin: 10/10/20 23:12 Dose: 50 mg Documented by: KENY Sodium Chloride (Normal Saline 0.9%) 1,000 mls @ 1,000 mls/hr IV BOLUS ONE Stop: 10/11/20 00:02 Last Infusion: 10/11/20 00:05 Dose: 0 mls/hr Documented by: Admin: 10/10/20 23:12 Dose: 1,000 mls/hr Documented by: KENY Sodium Chloride (Normal Saline 0.9%) 1,000 mls @ 1,000 mls/hr IV BOLUS ONE Stop: 10/11/20 01:15 Last Infusion: 10/11/20 00:54 Dose: 0 mls/hr Documented by: Admin: 10/11/20 00:17 Dose: 1,000 mls/hr Documented by: ARLET Metoclopramide HCl (Metoclopramide 10 Mg/2 Ml Inj) 10 mg IV NOW ONE Stop: 10/10/20 23:04 Last Admin: 10/10/20 23:12 Dose: 10 mg Documented by: KENY Vital Signs Vital signs: Vital Signs - 8 hr 10/10/20 22:19 10/10/20 23:49 10/10/20 23:50 Temperature 97.5 F L Pulse Rate 88 54 L Respiratory Rate 20 Blood Pressure 125/66 109/66 Pulse Oximetry 98 99 MDM - Nausea/Vomiting/Diarrhea Lab Data Result diagrams: 10/10/20 22:40 10/10/20 22:40 Labs: Lab Results 10/10/20 10/10/20 10/10/20 Range/Units 22:40 22:40 22:40 WBC 7.3 (4.5-11.0) X10^3/uL RBC 4.94 (4.0-5.2) X10^6/uL Hgb 16.3 H (12.0-16.0) g/dL Hct 48.1 H (36-46) % MCV 97.2 (80-100) fL MCH 33.0 (26-34) PG MCHC 33.9 (30-36) % RDW 13.1 (11.6-14.8) % Plt Count 237 (150-400) X10^3/uL Neut % (Auto) 73.4 (50-75) % Lymph % (Auto) 18.4 L (25-40) % Heard % (Auto) 6.9 (3-14) % Eos % (Auto) 0.9 L (2-4) % Baso % (Auto) 0.4 (0-2) % Neut # (Auto) 5300 (4878-1730) /uL Lymph # (Auto) 1300 (6849-6742) /uL Heard # (Auto) 500 (0-900) /uL Eos # (Auto) 100 (0-450) /uL Baso # (Auto) 0 (0-100) /uL PT 12.5 (10.1-12.7) SECONDS INR 1.1 (0.9-1.3) APTT 37 H (26.4-36.2) SECONDS Sodium 140 (137-145) mmol/L Potassium 3.7 (3.4-5.1) mmol/L Chloride 106 (98-107) mmol/L Carbon Dioxide 28 (22-32) mmol/L BUN 11 (7-17) mg/dL Creatinine 0.62 (0.52-1.04) mg/dL Estimated GFR > 60.0 (>60) mL/min BUN/Creatinine Ratio 17.7 (6-22) Glucose 104 H (70-100) mg/dL Calcium 10.0 (8.4-10.2) mg/dL Total Bilirubin 0.4 (0.2-1.3) mg/dL AST 26 (14-36) IU/L ALT 25 (<35) IU/L Alkaline Phosphatase 88 (38-126) U/L Total Protein 8.0 (6.3-8.2) g/dL Albumin 4.8 (3.5-5.0) g/dL Globulin 3.2 (1.7-4.1) g/dL Albumin/Globulin Ratio 1.5 (1.0-2.8) Lipase 31 (23-300) U/L SARS-CoV-2 (PCR) (Negative) 10/10/20 Range/Units 22:50 WBC (4.5-11.0) X10^3/uL RBC (4.0-5.2) X10^6/uL Hgb (12.0-16.0) g/dL Hct (36-46) % MCV (80-100) fL MCH (26-34) PG MCHC (30-36) % RDW (11.6-14.8) % Plt Count (150-400) X10^3/uL Neut % (Auto) (50-75) % Lymph % (Auto) (25-40) % Heard % (Auto) (3-14) % Eos % (Auto) (2-4) % Baso % (Auto) (0-2) % Neut # (Auto) (8437-2217) /uL Lymph # (Auto) (0954-3476) /uL Heard # (Auto) (0-900) /uL Eos # (Auto) (0-450) /uL Baso # (Auto) (0-100) /uL PT (10.1-12.7) SECONDS INR (0.9-1.3) APTT (26.4-36.2) SECONDS Sodium (137-145) mmol/L Potassium (3.4-5.1) mmol/L Chloride (98-107) mmol/L Carbon Dioxide (22-32) mmol/L BUN (7-17) mg/dL Creatinine (0.52-1.04) mg/dL Estimated GFR (>60) mL/min BUN/Creatinine Ratio (6-22) Glucose (70-100) mg/dL Calcium (8.4-10.2) mg/dL Total Bilirubin (0.2-1.3) mg/dL AST (14-36) IU/L ALT (<35) IU/L Alkaline Phosphatase (38-126) U/L Total Protein (6.3-8.2) g/dL Albumin (3.5-5.0) g/dL Globulin (1.7-4.1) g/dL Albumin/Globulin Ratio (1.0-2.8) Lipase (23-300) U/L SARS-CoV-2 (PCR) Negative (Negative) MDM Narrative Medical decision making narrative: The patient was given the combination of Reglan and Benadryl, she fell sleep. She was hydrated 2 L of IV fluids. I had to awaken her to discharge her. Labs are reassuring, although She never gave a urine sample even with the hydration. She confirms she has improved, she will be discharged on Reglan for nausea. She is advised to follow-up with a local primary care provider. Discharge Plan Departure Patient Disposition: Home Clinical Impression: Nausea & vomiting Qualifiers: Vomiting type: unspecified Vomiting Intractability: intractable Qualified Code(s): R11.2 - Nausea with vomiting, unspecified Instructions: DI for Nausea -- Adult Activity Restrictions/Additional Instructions: Reglan every 8 hours as needed for nausea. I would recommending using a single dose of Benadryl with this medication. Be sure you are drinking plenty of fluids remain well hydrated. You should seek the care of a local primary care doctor to help manage these issues going forward. Return to the ER as needed. Prescriptions: New metoclopramide HCl [Reglan] 10 mg tablet 10 mg PO Q8H PRN (Reason: nausea and vomiting) Qty: 20 RF: 0 No Action citalopram 20 mg tablet 20 mg PO DAILY Qty: 30 RF: 11 albuterol sulfate 90 mcg/actuation HFA aerosol inhaler 2 inhalation INHALATION Q4H PRN (Reason: tight chest/cough) Qty: 6.7 RF: 0 Prempro 0.625-2.5 mg tablet 1 tab PO QPM RF: 0 PNV cmb#95-ferrous fumarate-FA [] 28 mg iron- 800 mcg Tablet 1 tab PO DAILY RF: 0 medroxyprogesterone 10 mg tablet 20 mg PO Q2HR PRN (Reason: vaginal bleeding) Qty: 90 RF: 0 ondansetron 4 mg tablet,disintegrating 4 mg PO TID-QID PRN (Reason: nausea and vomiting) Qty: 10 RF: 0 ondansetron 4 mg tablet,disintegrating 4 mg PO Q8H PRN (Reason: nausea and vomiting) Qty: 10 RF: 0 ondansetron 4 mg tablet,disintegrating 4 mg PO QID PRN (Reason: nausea and vomiting) Qty: 30 RF: 0 ondansetron 4 mg tablet,disintegrating 4 mg PO Q8H PRN (Reason: nausea and vomiting) Qty: 10 RF: 0 albuterol sulfate 90 mcg/actuation HFA aerosol inhaler 2 puff INHALATION Q4-6H PRN (Reason: shortness of breath or wheezing) Qty: 8.5 RF: 0 benzonatate [Tessalon Perles] 100 mg capsule 100 mg PO BID-TID PRN (Reason: cough) Qty: 30 RF: 0 ondansetron 4 mg tablet,disintegrating 4 mg PO Q8H PRN (Reason: nausea and vomiting) Qty: 10 RF: 0
[2020-10-10 22:52] LABS: Add Manual Diff / Slide Review NO; Basophils Absolute Auto 0 /uL (0-100); Basophils Percent Auto 0.4 % (0-2); Eosinophils Absolute Auto 100 /uL (0-450); Eosinophils Percent Auto 0.9 % (2-4); Hematocrit 48.1 % (36-46); Hemoglobin 16.3 g/dL (12.0-16.0); Lymphocytes Absolute Auto 1300 /uL (1100-4500); Lymphocytes Percent Auto 18.4 % (25-40); Mean Corpuscular HGB Conc 33.9 % (30-36); Mean Corpuscular Volume 97.2 fL (80-100); Monocytes Absolute Auto 500 /uL (0-900); Monocytes Percent Auto 6.9 % (3-14); Neutrophils Absolute Auto 5300 /uL (1500-7000); Neutrophils Percent Auto 73.4 % (50-75); Platelet Count 237 X10^3/uL (150-400); Red Blood Cell Count 4.94 X10^6/uL (4.0-5.2); Red Cell Distribution Width 13.1 % (11.6-14.8); White Blood Cell Count 7.3 X10^3/uL (4.5-11.0)
[2020-10-10 22:54] LABS: Alanine Aminotransferase 25 IU/L (<35); Albumin 4.8 g/dL (3.5-5.0); Albumin Globulin Ratio 1.5 (1.0-2.8); Alkaline Phosphatase 88 U/L (38-126); Aspartate Aminotransferase 26 IU/L (14-36); BUN Creatinine Ratio 17.7 (6-22); Bilirubin Total 0.4 mg/dL (0.2-1.3); Blood Urea Nitrogen 11 mg/dL (7-17); Carbon Dioxide 28 mmol/L (22-32); Chloride 106 mmol/L (98-107); Estimated Glomerular Filt Rate > 60.0 mL/min (>60); Globulin 3.2 g/dL (1.7-4.1); Glucose 104 mg/dL (70-100); HEMOLYSIS < 15 (0-50); Lipase 31 U/L (23-300); Potassium 3.7 mmol/L (3.4-5.1); Sodium 140 mmol/L (137-145)
[2020-10-10 22:58] LABS: INR 1.1 (0.9-1.3); Prothrombin Time 12.5 SECONDS (10.1-12.7)
[2020-10-10 23:00] LABS: PTT Partial Thromboplastin Tim 37 SECONDS (26.4-36.2)
--- NOTE | 2020-10-10 23:03 | DI.RAD.S_ITS ---
PROCEDURE: XR ACUTE ABDOMEN SERIES INDICATIONS: Recurrent vomiting. History of pelvic adhesions. TECHNIQUE: One view chest and two views of the abdomen were acquired. COMPARISON: None. FINDINGS: Surgical changes and devices: None. Chest: Lungs are clear. Heart size is normal. No pleural effusions. No pneumoperitoneum. Abdomen: Bowel gas pattern is nonobstructive. Moderate amount of stool in colon. No suspicious calcifications. Visualized solid organ contours appear normal. Bones: No suspicious bony lesions. IMPRESSION: Nonobstructive bowel gas pattern with moderate amount of stool. No significant discrepancy with the night manager radiology preliminary report. Dictated by: Tiffany Peoples M.D. on 10/11/2020 at 8:16 Approved by: Tiffany Peoples M.D. on 10/11/2020 at 8:17
[2020-10-10 23:06] LABS: COVID19 -Nasal RAPID Negative (Negative)
[2020-10-10] MEDS: METOCLOPRAMIDE 10 MG/2 ML INJ IV (23:12)
[2020-10-10] MEDS: SODIUM CHLORIDE 0.9% 1,000 ML 1000 ML IV (23:12)
[2020-10-10] MEDS: diphenhydrAMINE 50 MG/ML VIAL IV (23:12)
[2020-10-10 23:49] VITALS: BP 109/66
[2020-10-10 23:50] VITALS: PULSE 54; O2SAT 99
[2020-10-11] VITALS: PULSE 62; O2SAT 99
[2020-10-11] MEDS: SODIUM CHLORIDE 0.9% 1,000 ML 1000 ML IV (00:17)
[2020-10-11 00:30] VITALS: PULSE 69; O2SAT 97
[2020-10-11 01:00] VITALS: PULSE 65; O2SAT 98
[2020-10-11 01:30] VITALS: PULSE 60; O2SAT 97
[2020-10-11 01:44] VITALS: BP 101/60; PULSE 80; O2SAT 98
[2020-10-11 01:45] VITALS: BP 101/60; PULSE 63; O2SAT 98
== END 2020-10-11 01:50 | disposition home or self-care (01) ==
PROVIDERS: Emergency Provider Emergency Medicine
DX: R11.2 Nausea with vomiting, unspecified (principal); R51.9 Headache, unspecified; R50.9 Fever, unspecified; Z20.822 Contact with and (suspected) exposure to COVID-19
CPT/HCPCS: 36415; 74022; 80053; 83690; 85025; 85610; 85730; 87635; 96361; 96374; 96375; 99284; C9803; J1200; J2405; J2765

== ENCOUNTER 2021-02-08 19:23 | Emergency (ER) | payer SELFPAY ==
[2021-02-08 19:32] VITALS: BP 127/73; PULSE 97; RESP 14; TEMP 36.2; O2SAT 99
--- NOTE | 2021-02-08 19:41 | DI.RAD.S_ITS ---
PROCEDURE: XR FOOT RT MIN 3V INDICATIONS: fall off deck onto right foot / arch /heel on thursday. TECHNIQUE: 3 views of the foot were acquired. COMPARISON: None. FINDINGS: Bones: No fractures or dislocations. No suspicious bony lesions. Soft tissues: No tibiotalar joint effusion. Achilles tendon appears normal. IMPRESSION: No gross acute right foot fracture or dislocation. Dictated by: Toño Tomas M.D. on 02/08/2021 at 19:59 Approved by: Toño Tomas M.D. on 02/08/2021 at 20:04
--- NOTE | 2021-02-08 19:41 | DI.RAD.S_ITS ---
PROCEDURE: XR ANKLE RT MIN 3V INDICATIONS: fall off deck onto right foot / arch /heel on thursday. TECHNIQUE: 3 3 views of the ankle were acquired. COMPARISON: None. FINDINGS: Bones: No fractures or dislocations. Ankle mortise is normally aligned. No suspicious bony lesions. Soft tissues: No tibiotalar joint effusion. Achilles tendon appears normal. IMPRESSION: No acute ankle fracture or dislocation. Intact ankle mortise. Dictated by: Toño Tomas M.D. on 02/08/2021 at 19:58 Approved by: Toño Tomas M.D. on 02/08/2021 at 19:59
--- NOTE | 2021-02-08 22:49 | ED_ITS ---
HPI - Extremity Injury (Lower) General Chief Complaint: Extremity Injury, Lower Stated Complaint: Fall, Right Foot Pain, Numbness in Leg and Toes Time Seen by Provider: 02/08/21 22:48 Source: patient Mode of arrival: Ambulatory Limitations: no limitations History of Present Illness HPI Narrative: 35-year-old woman reports falling off a deck approximately 5 ft landing with the majority of the you weight of her fall landing on her right foot. She has had heel and ankle pain since then. She was seen and evaluated it [facility] Emergency Department where x-rays were unremarkable she was placed in an air splint and given hydrocodone to use for pain. She is continuing to have significant pain, has been having to go to work which has been helping with the overall pain. She finds that the hydrocodone has been minimally effective helping her. 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 She describes no back pain radicular findings down the hamstring and no knee or groin pain. Related Data Home Medications Medication Instructions Recorded Confirmed conj estrogen-medroxyprogesterone 1 tab PO QPM 09/17/18 09/17/18 0.625 mg-2.5 mg tablet vit no.95-ferrous 1 tab PO DAILY 09/17/18 09/17/18 fumarate 28 mg-folic acid 800 mcg tablet () Previous Rx's Medication Instructions Recorded albuterol sulfate 90 mcg/actuation 2 inhalation INHALATION Q4H PRN 06/30/18 aerosol inhaler #6.7 gram ondansetron 4 mg disintegrating 4 mg PO QID PRN #30 tab 08/16/18 tablet medroxyprogesterone 10 mg tablet 20 mg PO Q2HR PRN #90 tab 09/17/18 citalopram 20 mg tablet 20 mg PO DAILY #30 tab 10/05/18 ondansetron 4 mg disintegrating 4 mg PO TID-QID PRN #10 tab 03/06/19 tablet ondansetron 4 mg disintegrating 4 mg PO Q8H PRN #10 tab 03/25/19 tablet albuterol sulfate 90 mcg/actuation 2 puff INHALATION Q4-6H PRN #8.5 03/22/20 aerosol inhaler gram benzonatate 100 mg capsule 100 mg PO BID-TID PRN #30 cap 10/16/19 (Tessalkorina Perljustino) ondansetron 4 mg disintegrating 4 mg PO Q8H PRN #10 tab 10/16/19 tablet ondansetron 4 mg disintegrating 4 mg PO Q8H PRN #10 tab 07/02/20 tablet metoclopramide HCl 10 mg tablet 10 mg PO Q8H PRN #20 tab 10/11/20 (Reglan) oxycodone-acetaminophen 5 mg-325 1 tab PO Q6H PRN #10 tab 02/09/21 mg tablet Allergies Allergy/AdvReac Type Severity Reaction Status Date / Time Penicillins [PENICILLINS] Allergy Severe RASH Verified 02/08/21 19:38 vancomycin [VANCOMYCIN] Allergy Severe JUAREZ Verified 02/08/21 19:38 SYNDROME adhesive [ADHESIVE] Allergy Intermediate RASH, SKIN Verified 02/08/21 19:38 PEELS latex [LATEX] Allergy Intermediate RASH Verified 02/08/21 19:38 ketorolac AdvReac Headache Verified 02/08/21 19:38 Review of Systems Review of Systems Narrative: Remainder of complete review of systems is otherwise unremarkable except for that included in the HPI. Patient History Medical History Acne Anemia (2007) Anxiety (2007) Chicken pox (1992) CTS (carpal tunnel syndrome) (2011) Depression (2007) Hearing loss (1987) History of heavy periods (2007) History of hysterosalpingogram (09/12/15) Irregular periods/menstrual cycles (2007) Ovarian cancer (2007) Ovarian cyst (2014) Painful menstrual periods (2007) Vertigo Surgical History Anesthesia History of bowel resection (2007) History of left salpingo-oophorectomy History of left salpingo-oophorectomy History of right salpingo-oophorectomy (2007) Status post appendectomy (2007) Status post delivery (01/05/12) Status post exploratory laparotomy (10/08/15) Status post laparotomy (05/02/15) Family History Father No problems noted. Grandfather Hypertension Alcoholism Grandmother Cancer Stroke Mother Hyperlipidemia Grandfather Hyperlipidemia Hypertension Pneumonia Grandmother Diabetes mellitus Hypertension Sister Hearing loss Vision loss Sister Vision loss Hearing loss Sister Mental health problem Sister No problems noted. Sister No problems noted. Son Age: 9 Suspected autism disorder Social History marital status: unmarried,single Smoking Status: Former smoker alcohol intake: never substance use type: does not use Smoking Status: Former smoker tobacco type: cigarettes alcohol intake frequency: holidays/special occasions only Substance Use Type: marijuana Exam Narrative Exam Narrative: General: Alert appropriate, anxious and in obvious pain. Respiratory: Able to speak in full sentences, no obvious respiratory distress Skin: No obvious rashes, warm and dry Neurologic: Grossly intact no obvious asymmetries or abnormalities Right foot and ankle: She is tender from the bottom of the heel through the midfoot with no significant abrasion or contusion. Minimal edema. Pain with manipulation of the ankle. She has a minor healing contusion over the anterior proximal lower extremity Psych: Poor overall insight with significant anxiety and overall being quite cooperative Initial Vital Signs Initial Vital Signs: Vital Signs Temperature 97.1 F L 02/08/21 19:32 Pulse Rate 97 H 02/08/21 19:32 Respiratory Rate 14 02/08/21 19:32 Blood Pressure 127/73 02/08/21 19:32 Pulse Oximetry 99 02/08/21 19:32 Course Orders Ordered: ED Orders 02/08/21 23:04 CT LE RT wo con Stat Discontinued Medications Ibuprofen (Ibuprofen 400 Mg Tablet) 800 mg PO NOW ONE Stop: 02/08/21 22:48 Last Admin: 02/08/21 23:07 Dose: 800 mg Documented by: [email or web address] Oxycodone/Acetaminophen (Oxycodone/Acetaminophen 5/325 Tablet) 1 tab PO NOW ONE Stop: 02/08/21 23:05 Last Admin: 02/08/21 23:07 Dose: 1 tab Documented by: [email or web address] Oxycodone/Acetaminophen (Oxycodone/Apap 5/325 Prepack) 1 bottle MISC SEEINSTR ONE Stop: 02/09/21 02:00 Last Admin: 02/09/21 02:09 Dose: 1 bottle Documented by: OLU Vital Signs Vital signs: Vital Signs - 8 hr 02/08/21 19:32 Temperature 97.1 F L Pulse Rate 97 H Respiratory Rate 14 Blood Pressure 127/73 Pulse Oximetry 99 MDM - Extremity Injury (Lower) Imaging Data XR ankle : Radiologist's Impression: FINDINGS: Bones: No fractures or dislocations. Ankle mortise is normally aligned. No suspicious bony lesions. Soft tissues: No tibiotalar joint effusion. Achilles tendon appears normal. IMPRESSION: No acute ankle fracture or dislocation. Intact ankle mortise. Dictated by: Toño Tomas M.D. on 02/08/2021 at 19:58 XR foot: Radiologist's Impression: FINDINGS: Bones: No fractures or dislocations. No suspicious bony lesions. Soft tissues: No tibiotalar joint effusion. Achilles tendon appears normal. IMPRESSION: No gross acute right foot fracture or dislocation. Dictated by: Toño Tomas M.D. on 02/08/2021 at 19:59 CT lower extremity/foot and ankle: Radiologist's Impression: No gross acute right foot fracture or dislocation Toño Tomas MD [facility] Narrative Medical decision making narrative: 35-year-old woman with right lower extremity pain of proportion to description with negative x-rays. Possibility of calcaneal fractures entertained given her description of the trauma. CT scan does not confirm this. Pain was better with ibuprofen and a single Percocet. We had a long discussion regarding work requirements. 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 She is discharged home in stable condition work note is given. Jose wrap and air splint are replaced after being removed for full exam and evaluation. She is safe for home discharge Discharge Plan Departure Patient Disposition: Home Clinical Impression: Foot injury Qualifiers: Encounter type: subsequent encounter Laterality: right Qualified Code(s): S99.921D - Unspecified injury of right foot, subsequent encounter Instructions: DI for Foot Pain Activity Restrictions/Additional Instructions: I am sorry that your foot is still hurting so much You clearly he injured it in the fall. You did not break your ankle or your foot. Sometimes small fractures or heel fractures can be missed with x-rays so we did a CT scan today that also shows no evidence of fracture This will need time to heal. Using 400 mg of ibuprofen (2 [id number] pills) and 1 Tylenol every 6 hours can be very helpful in controlling pain. For severe pain using to ibuprofen and 1 Percocet can be helpful You need to not be walking or using that foot at all for the next 10 days. Please do schedule follow-up appointment with [facility] Orthopedic surgeons at [phone]. They have excellent health program specialist's as well as orthopedic surgeons that we will be able to help you if you do continued to have ankle foot and heel pain Prescriptions: New oxycodone-acetaminophen 5-325 mg tablet 1 tab PO Q6H PRN (Reason: pain) Qty: 10 RF: 0 No Action citalopram 20 mg tablet 20 mg PO DAILY Qty: 30 RF: 11 albuterol sulfate 90 mcg/actuation HFA aerosol inhaler 2 inhalation INHALATION Q4H PRN (Reason: tight chest/cough) Qty: 6.7 RF: 0 Prempro 0.625-2.5 mg tablet 1 tab PO QPM RF: 0 PNV cmb#95-ferrous fumarate-FA [] 28 mg iron- 800 mcg Tablet 1 tab PO DAILY RF: 0 medroxyprogesterone 10 mg tablet 20 mg PO Q2HR PRN (Reason: vaginal bleeding) Qty: 90 RF: 0 ondansetron 4 mg tablet,disintegrating 4 mg PO TID-QID PRN (Reason: nausea and vomiting) Qty: 10 RF: 0 ondansetron 4 mg tablet,disintegrating 4 mg PO Q8H PRN (Reason: nausea and vomiting) Qty: 10 RF: 0 ondansetron 4 mg tablet,disintegrating 4 mg PO QID PRN (Reason: nausea and vomiting) Qty: 30 RF: 0 ondansetron 4 mg tablet,disintegrating 4 mg PO Q8H PRN (Reason: nausea and vomiting) Qty: 10 RF: 0 albuterol sulfate 90 mcg/actuation HFA aerosol inhaler 2 puff INHALATION Q4-6H PRN (Reason: shortness of breath or wheezing) Qty: 8. 5 RF: 0 benzonatate [Tessalon Perles] 100 mg capsule 100 mg PO BID-TID PRN (Reason: cough) Qty: 30 RF: 0 ondansetron 4 mg tablet,disintegrating 4 mg PO Q8H PRN (Reason: nausea and vomiting) Qty: 10 RF: 0 metoclopramide HCl [Reglan] 10 mg tablet 10 mg PO Q8H PRN (Reason: nausea and vomiting) Qty: 20 RF: 0 Stand Alone Forms: Work Release Note
--- NOTE | 2021-02-08 23:04 | DI.CT.S_ITS ---
PROCEDURE: CT LE RT WO CON INDICATIONS: foot and ankle injury TECHNIQUE: Noncontrast 1-1.5 mm axial sections acquired from above the tibiotalar joint to the bottom of the calcaneus, with coronal and sagittal reformats. COMPARISON: [facility], CR, XR ANKLE RT MIN 3V, 02/08/2021, 19:39. FINDINGS: Image quality: Excellent. Osseous structures intact without evidence fracture, lytic or blastic lesion. Joint spaces are maintained without joint effusion or subluxation. Overlying soft tissues unremarkable without radiopaque foreign body. IMPRESSION: Unremarkable CT of the right ankle. No fracture or foreign. Note: Final report is concordant with preliminary interpretation by [facility] Dictated by: Rolando Tierney M.D. on 02/09/2021 at 7:07 Approved by: Rolando Tierney M.D. on 02/09/2021 at 7:14
[2021-02-08] MEDS: OXYCODONE/ACETAMINOPHEN 5/325 TABLET 1 TAB PO (23:07)
[2021-02-08] MEDS: IBUPROFEN 400 MG TABLET 800 MG PO (23:07)
[2021-02-09] MEDS: OXYCODONE/APAP 5/325 PREPACK 1 BOTTLE MISC (02:09)
== END 2021-02-09 02:15 | disposition home or self-care (01) ==
PROVIDERS: Emergency Provider Emergency Medicine
DX: S99.921A Unspecified injury of right foot, initial encounter (principal); W19.XXXA Unspecified fall, initial encounter
CPT/HCPCS: 73610; 73630; 73700; 99283; 99284

== ENCOUNTER 2021-04-26 03:07 | Emergency (ER) | payer SELFPAY ==
[2021-04-26 03:10] VITALS: BP 102/74; PULSE 96; RESP 18; TEMP 36.6; O2SAT 98
--- NOTE | 2021-04-26 03:27 | ED.BURNSMOKE ---
HPI - Burn/Smoke Inhalation General Chief complaint: Burn/Smoke Inhalation Stated complaint: burn on right thumb Time Seen by Provider: 04/26/21 03:11 Source: patient Mode of arrival: Ambulatory Limitations: no limitations History of Present Illness HPI Narrative: Patient is a 35-year-old female here for evaluation of a burn to her right thumb. She states that she burned her thumb on hot glass earlier this evening. She stated that the burning sensation has been going on since that time. He did start to turn white so she decided to come in for further evaluation. Related Data Home Medications Medication Instructions Recorded Confirmed conj estrogen-medroxyprogesterone 1 tab PO QPM 09/17/18 09/17/18 0.625 mg-2.5 mg tablet vit no.95-ferrous 1 tab PO DAILY 09/17/18 09/17/18 fumarate 28 mg-folic acid 800 mcg tablet () Previous Rx's Medication Instructions Recorded albuterol sulfate 90 mcg/actuation 2 inhalation INHALATION Q4H PRN 06/30/18 aerosol inhaler #6.7 gram ondansetron 4 mg disintegrating 4 mg PO QID PRN #30 tab 08/16/18 tablet medroxyprogesterone 10 mg tablet 20 mg PO Q2HR PRN #90 tab 09/17/18 citalopram 20 mg tablet 20 mg PO DAILY #30 tab 10/05/18 ondansetron 4 mg disintegrating 4 mg PO TID-QID PRN #10 tab 03/06/19 tablet ondansetron 4 mg disintegrating 4 mg PO Q8H PRN #10 tab 03/25/19 tablet albuterol sulfate 90 mcg/actuation 2 puff INHALATION Q4-6H PRN #8.5 10/16/19 aerosol inhaler gram benzonatate 100 mg capsule 100 mg PO BID-TID PRN #30 cap 10/16/19 (Tessalon Perles) ondansetron 4 mg disintegrating 4 mg PO Q8H PRN #10 tab 10/16/19 tablet ondansetron 4 mg disintegrating 4 mg PO Q8H PRN #10 tab 07/02/20 tablet metoclopramide HCl 10 mg tablet 10 mg PO Q8H PRN #20 tab 10/11/20 (Reglan) oxycodone-acetaminophen 5 mg-325 1 tab PO Q6H PRN #10 tab 02/09/21 mg tablet Allergies Allergy/AdvReac Type Severity Reaction Status Date / Time Penicillins [PENICILLINS] Allergy Severe RASH Verified 02/08/21 19:38 vancomycin [VANCOMYCIN] Allergy Severe JUAREZ Verified 02/08/21 19:38 SYNDROME adhesive [ADHESIVE] Allergy Intermediate RASH, SKIN Verified 02/08/21 19:38 PEELS latex [LATEX] Allergy Intermediate RASH Verified 02/08/21 19:38 ketorolac AdvReac Headache Verified 02/08/21 19:38 Review of Systems Musculoskeletal Musculoskeletal: Reports system reviewed and no additional complaints, except as documented and Reports as per HPI Integumentary/Breasts Skin/Breast: Reports system reviewed and no additional complaints, except as documented and Reports as per HPI Neurologic Neurologic: Reports system reviewed and no additional complaints, except as documented and Reports as per HPI Patient History Medical History Acne Anemia (2007) Anxiety (2007) Chicken pox (1992) CTS (carpal tunnel syndrome) (2011) Depression (2007) Hearing loss (1987) History of heavy periods (2007) History of hysterosalpingogram (09/12/15) Irregular periods/menstrual cycles (2007) Ovarian cancer (2007) Ovarian cyst (2014) Painful menstrual periods (2007) Vertigo Surgical History Anesthesia History of bowel resection (2007) History of left salpingo-oophorectomy History of left salpingo-oophorectomy History of right salpingo-oophorectomy (2007) Status post appendectomy (2007) Status post delivery (01/05/12) Status post exploratory laparotomy (10/08/15) Status post laparotomy (05/02/15) Family History Father No problems noted. Grandfather Hypertension Alcoholism Grandmother Cancer Stroke Mother Hyperlipidemia Grandfather Hyperlipidemia Hypertension Pneumonia Grandmother Diabetes mellitus Hypertension Sister Hearing loss Vision loss Sister Vision loss Hearing loss Sister Mental health problem Sister No problems noted. Sister No problems noted. Son Age: 9 Suspected autism disorder Social History marital status: unmarried,single Smoking Status: Former smoker alcohol intake: never substance use type: does not use Smoking Status: Former smoker tobacco type: cigarettes alcohol intake frequency: holidays/special occasions only Substance Use Type: marijuana Exam Initial Vital Signs Initial Vital Signs: Vital Signs Temperature 97.8 F 04/26/21 03:10 Pulse Rate 96 H 04/26/21 03:10 Respiratory Rate 18 04/26/21 03:10 Blood Pressure 102/74 04/26/21 03:10 Pulse Oximetry 98 04/26/21 03:10 Cardio Pulses: radial pulses present on the right Skin Other: Patient has a small area of a burn on the pad of her right thumb. There is no blistering of the area however there is a small amount of white skin around the area. Neuro Sensory Exam: no sensory deficits noted Course Vital Signs Vital signs: Vital Signs - 8 hr 04/26/21 03:10 Temperature 97.8 F Pulse Rate 96 H Respiratory Rate 18 Blood Pressure 102/74 Pulse Oximetry 98 MDM - Burn/Smoke Inhalation MDM Narrative Medical decision making narrative: Less than 1% total body surface area of all burn. Is actually just located on the pad of her right thumb. Neurovascularly intact. No indication for scrubbing. She can use Tylenol/ibuprofen for discomfort. We also discussed using cool water an ice but also avoiding frostbite. She was given return precautions and follow-up instructions. She expressed understanding and agreement. Discharge Plan Departure Patient Disposition: Home Clinical Impression: Burn of right thumb Instructions: DI for Flores Activity Restrictions/Additional Instructions: Unfortunately flores are very painful. The best thing at you can do now is put ice on the area and also use cool water. You can take Tylenol/ibuprofen for any discomfort. It should improve over the next 12-24 hours. There is a good chance your going to form a blister over the area. If that happens just keep the area clean. You can also use topical antibiotic ointment. Return to the emergency department for any new or worsening symptoms Prescriptions: No Action citalopram 20 mg tablet 20 mg PO DAILY Qty: 30 RF: 11 albuterol sulfate 90 mcg/actuation HFA aerosol inhaler 2 inhalation INHALATION Q4H PRN (Reason: tight chest/cough) Qty: 6.7 RF: 0 Prempro 0.625-2.5 mg tablet 1 tab PO QPM RF: 0 PNV cmb#95-ferrous fumarate-FA [] 28 mg iron- 800 mcg Tablet 1 tab PO DAILY RF: 0 medroxyprogesterone 10 mg tablet 20 mg PO Q2HR PRN (Reason: vaginal bleeding) Qty: 90 RF: 0 ondansetron 4 mg tablet,disintegrating 4 mg PO TID-QID PRN (Reason: nausea and vomiting) Qty: 10 RF: 0 ondansetron 4 mg tablet,disintegrating 4 mg PO Q8H PRN (Reason: nausea and vomiting) Qty: 10 RF: 0 oxycodone-acetaminophen 5-325 mg tablet 1 tab PO Q6H PRN (Reason: pain) Qty: 10 RF: 0 ondansetron 4 mg tablet,disintegrating 4 mg PO QID PRN (Reason: nausea and vomiting) Qty: 30 RF: 0 ondansetron 4 mg tablet,disintegrating 4 mg PO Q8H PRN (Reason: nausea and vomiting) Qty: 10 RF: 0 albuterol sulfate 90 mcg/actuation HFA aerosol inhaler 2 puff INHALATION Q4-6H PRN (Reason: shortness of breath or wheezing) Qty: 8.5 RF: 0 benzonatate [Tessalon Perles] 100 mg capsule 100 mg PO BID-TID PRN (Reason: cough) Qty: 30 RF: 0 ondansetron 4 mg tablet,disintegrating 4 mg PO Q8H PRN (Reason: nausea and vomiting) Qty: 10 RF: 0 metoclopramide HCl [Reglan] 10 mg tablet 10 mg PO Q8H PRN (Reason: nausea and vomiting) Qty: 20 RF: 0
--- NOTE | 2021-04-26 03:41 | PC.NURSE ---
ice pack was placed to her thumb before discharge.
== END 2021-04-26 03:40 | disposition home or self-care (01) ==
PROVIDERS: Emergency Provider Emergency Medicine
DX: T23.011A Burn of unspecified degree of right thumb (nail), initial encounter (principal); X08.8XXA Exposure to other specified smoke, fire and flames, initial encounter
CPT/HCPCS: 99281

== ENCOUNTER 2022-02-22 23:43 | Emergency (ER) | payer SELFPAY ==
[2022-02-23 00:28] VITALS: BP 117/79; PULSE 89; RESP 16; TEMP 36.5; O2SAT 98; BMI 19.1
--- NOTE | 2022-02-23 00:34 | DI.RAD.S_ITS ---
PROCEDURE: XR RIBS LT 2V INDICATIONS: pain TECHNIQUE: Two views of the left ribs were acquired. COMPARISON: None. FINDINGS: Surgical changes and devices: None. Bones and chest wall: No fractures or dislocations. No suspicious bony lesions. Overlying soft tissues appear unremarkable. Lungs and pleura: The visualized lung appears clear. No pleural effusions or pneumothorax are visible. IMPRESSION: Normal study Dictated by: Neri Zuñiga M.D. on 02/23/2022 at 1:15 Approved by: Neri Zuñiga M.D. on 02/23/2022 at 1:16
== END 2022-02-23 04:13 | disposition left against medical advice (07) ==
PROVIDERS: Emergency Provider Emergency Medicine
DX: R07.81 Pleurodynia (principal)
CPT/HCPCS: 71100; 99281

== ENCOUNTER 2023-03-09 00:41 | Emergency (ER) | payer SELFPAY ==
[2023-03-09 00:49] VITALS: BP 101/53; PULSE 82; RESP 16; TEMP 37; O2SAT 99; BMI 19.1
[2023-03-09 01:14] LABS: Add Manual Diff / Slide Review NO; Basophils Absolute Auto 100 /uL (0-100); Basophils Percent Auto 0.8 % (0-2); Eosinophils Absolute Auto 100 /uL (0-450); Eosinophils Percent Auto 2.2 % (2-4); Hematocrit 38.8 % (36-46); Hemoglobin 13.4 g/dL (12.0-16.0); Lymphocytes Absolute Auto 2800 /uL (1100-4500); Lymphocytes Percent Auto 41.8 % (25-40); Mean Corpuscular HGB Conc 34.6 % (30-36); Mean Corpuscular Hemoglobin 32.5 PG (26-34); Mean Corpuscular Volume 94.1 fL (80-100); Monocytes Absolute Auto 600 /uL (0-900); Monocytes Percent Auto 8.1 % (3-14); Neutrophils Absolute Auto 3200 /uL (1500-7000); Neutrophils Percent Auto 47.1 % (50-75); Platelet Count 231 X10^3/uL (150-400); Red Blood Cell Count 4.13 X10^6/uL (4.0-5.2); Red Cell Distribution Width 13.2 % (11.6-14.8); White Blood Cell Count 6.8 X10^3/uL (4.5-11.0)
[2023-03-09 01:22] LABS: Alanine Aminotransferase 17 IU/L (<35); Albumin 4.4 g/dL (3.5-5.0); Albumin Globulin Ratio 1.4 (1.0-2.8); Alkaline Phosphatase 66 U/L (38-126); Aspartate Aminotransferase 20 IU/L (14-36); BUN Creatinine Ratio 24.2 (6-22); Bilirubin Total 0.2 mg/dL (0.2-1.3); Blood Urea Nitrogen 16 mg/dL (7-17); Calcium 9.1 mg/dL (8.4-10.2); Carbon Dioxide 30 mmol/L (22-32); Chloride 102 mmol/L (98-107); Estimated Glomerular Filt Rate > 60 mL/min (>60); Globulin 3.1 g/dL (1.7-4.1); Glucose 103 mg/dL (70-100); HEMOLYSIS < 15 (0-50); Lipase 44 U/L (23-300); Potassium 4.1 mmol/L (3.4-5.1); Sodium 137 mmol/L (137-145); Total Protein 7.5 g/dL (6.3-8.2)
[2023-03-09 02:38] LABS: Appearance Urine UA CLOUDY; Bilirubin Urine UA NEGATIVE (NEGATIVE); Color Urine UA YELLOW; Glucose Urine UA NEGATIVE (Negative); Ketones Urine UA NEGATIVE (NEGATIVE); Leukocyte Esterase Urine UA 2+ (NEGATIVE); Nitrite Urine UA NEGATIVE (Negative); Occult Blood Urine UA 3+ (Negative); Protein Urine UA 2+ (Negative); Specific Gravity Urine UA 1.015 (1.000-1.035); Urobilinogen Urine UA 0.2 E.U./dL (0.2)
[2023-03-09 02:47] LABS: Bacteria Urine Few (2-10); Culture Indicated Urine Specimen Cultured; RBC Urine 30-100/HPF (0-5/HPF); Squamous Epithelial Cell Urine None Seen (0-5/HPF); WBC Urine 10-30/HPF (0-5/HPF)
--- NOTE | 2023-03-09 03:52 | ED_ITS ---
HPI - Female Genitourinary General Chief complaint: Urogenital-Female Stated complaint: BLOOD IN URINE, ABD PAIN Time Seen by Provider: 03/09/23 00:46 Source: patient Mode of arrival: Ambulatory History of Present Illness HPI Narrative: 37-year-old female smoker with excessive medical history including multiple abdominal pelvic surgeries and chronic pelvic pain presents with a chief complaint of 4 days of dysuria, frequency and urgency as well as hematuria. Initially she had only discomfort in her lower pelvis but it is since moved and now she has bilateral flank pain. Her pain is constant and seems to be worse by motion and improves by rest. She is had some nausea but denies any vomiting. She denies fever or chills. She denies any change in bowel habits and has no vaginal bleeding or discharge. Related Data Home Medications Medication Instructions Recorded Confirmed conj estrogen-medroxyprogesterone 1 tab PO QPM 09/17/18 09/17/18 0.625 mg-2.5 mg tablet vit no.95-ferrous 1 tab PO DAILY 09/17/18 09/17/18 fumarate 28 mg-folic acid 800 mcg tablet () Previous Rx's Medication Instructions Recorded albuterol sulfate 90 mcg/actuation 2 inhalation inhalation Q4H PRN 06/30/18 aerosol inhaler tight chest/cough #6.7 grams ondansetron 4 mg disintegrating 4 mg PO QID PRN nausea and 08/16/18 tablet vomiting #30 tabs medroxyprogesterone 10 mg tablet 20 mg PO Q2HR PRN vaginal bleeding 09/17/18 #90 tabs citalopram 20 mg tablet 20 mg PO DAILY #30 tabs 10/05/18 ondansetron 4 mg disintegrating 4 mg PO TID-QID PRN nausea and 03/06/19 tablet vomiting #10 tabs ondansetron 4 mg disintegrating 4 mg PO Q8H PRN nausea and 03/25/19 tablet vomiting #10 tabs albuterol sulfate 90 mcg/actuation 2 puff inhalation Q4-6H PRN 10/16/19 aerosol inhaler shortness of breath or wheezing #8.5 grams benzonatate 100 mg capsule 100 mg PO BID-TID PRN cough #30 10/16/19 (Magui Mota) caps ondansetron 4 mg disintegrating 4 mg PO Q8H PRN nausea and 10/16/19 tablet vomiting #10 tabs ondansetron 4 mg disintegrating 4 mg PO Q8H PRN nausea and 07/02/20 tablet vomiting #10 tabs metoclopramide HCl 10 mg tablet 10 mg PO Q8H PRN nausea and 10/11/20 (Reglan) vomiting #20 tabs oxycodone-acetaminophen 5 mg-325 1 tab PO Q6H PRN pain #10 tabs 02/09/21 mg tablet cephalexin 500 mg capsule 500 mg PO Q6H 7 days #28 caps 03/09/23 oxycodone 5 mg tablet 5 mg PO Q6H PRN pain #10 tabs 03/09/23 Allergies Allergy/AdvReac Type Severity Reaction Status Date / Time Penicillins [PENICILLINS] Allergy Severe RASH Verified 02/08/21 19:38 vancomycin [VANCOMYCIN] Allergy Severe JUAREZ Verified 02/08/21 19:38 SYNDROME adhesive [ADHESIVE] Allergy Intermediate RASH, SKIN Verified 02/08/21 19:38 PEELS latex [LATEX] Allergy Intermediate RASH Verified 02/08/21 19:38 ketorolac AdvReac Headache Verified 02/08/21 19:38 Review of Systems Review of Systems Narrative: GENERAL: Denies chills, fatigue, malaise, fever, sweats. HEENT: Denies sinus pain, ear pain, sore throat, difficulty swallowing, dizziness. RESPIRATORY: Denies dyspnea, cough, wheezing, hemoptysis, sputum. CARDIOVASCULAR: Denies chest pain, palpitations, orthopnea, edema, GASTROINTESTINAL: Denies nausea, vomiting, abdominal pain, diarrhea, constipation, melena. : See HPI MUSCULOSKELETAL: denies weakness, joint pain, or bony pain SKIN: Denies rash, skin lesions, or other NEUROLOGIC: Denies weakness, headache, numbness, change in speech, confusion, seizures, incoordination. PSYCHIATRIC: No concerning psychosocial issues. 12 point review of systems is negative except for those stated above Patient History Medical History (Updated 03/09/23 @ 04:44 by Usama Brennan DO) Acne Anemia (2007) Anxiety (2007) Chicken pox (1992) CTS (carpal tunnel syndrome) (2011) Depression (2007) Hearing loss (1987) History of heavy periods (2007) History of hysterosalpingogram (09/12/15) Irregular periods/menstrual cycles (2008) Ovarian cancer (2008) Ovarian cyst (2015) Painful menstrual periods (2008) Vertigo Surgical History Anesthesia History of bowel resection (2007) History of left salpingo-oophorectomy History of left salpingo-oophorectomy History of right salpingo-oophorectomy (2007) Status post appendectomy (2007) Status post delivery (01/05/12) Status post exploratory laparotomy (10/08/15) Status post laparotomy (05/02/15) Family History Father No problems noted. Grandfather Hypertension Alcoholism Grandmother Cancer Stroke Mother Hyperlipidemia Grandfather Hyperlipidemia Hypertension Pneumonia Grandmother Diabetes mellitus Hypertension Sister Hearing loss Vision loss Sister Vision loss Hearing loss Sister Mental health problem Sister No problems noted. Sister No problems noted. Son Age: 11 Suspected autism disorder tobacco type: cigarettes alcohol intake frequency: holidays/special occasions only Substance Use Type: marijuana Exam Narrative Exam Narrative: GENERAL: [37] year old patient appears stated age. Well-developed patient, in mild distress. HEAD: Atraumatic. Normocephalic. EYES: Pupils equal round and reactive. Extraocular motions intact. No scleral icterus. No injection or drainage. ENT: Nose without bleeding, purulent drainage. Throat without erythema, ton sillar hypertrophy or exudate. Airway patent. NECK: Trachea midline. Non tender CARDIOVASCULAR: Regular rate and rhythm without murmurs, gallops, or rubs. RESPIRATORY: Clear to auscultation. Breath sounds equal bilaterally. No wheezes, rales, or rhonchi. GASTROINTESTINAL: Abdomen soft, tender in the suprapubic region, nondistended. EXTREMITIES: No edema or joint tenderness. BACK: Nontender without deformity or crepitance. Mild bilateral CVA tenderness NEURO: AOx3. SKIN: No rash or erythema of visible areas Initial Vital Signs Initial Vital Signs: Vital Signs Temperature 98.6 F 03/09/23 00:49 Pulse Rate 82 03/09/23 00:49 Respiratory Rate 16 03/09/23 00:49 Blood Pressure 101/53 L 03/09/23 00:49 Pulse Oximetry 99 03/09/23 00:49 Oxygen Delivery Method Room Air 03/09/23 00:49 Course Orders Ordered: ED Orders 03/09/23 01:00 Complete Blood Count AUTO DIFF Stat Comprehensive Metabolic Panel Stat Lipase Stat 03/09/23 01:02 EKG-12 Lead Stat 03/09/23 02:14 Urinalysis and Microscopic Stat Urine Culture Stat 03/09/23 04:17 CT kidney ureter bladder (KUB) Stat Ondansetron HCl (Ondansetron 4 Mg Odt) 4 mg PO NOW PRN PRN Reason: Nausea And Vomiting Ondansetron HCl (Ondansetron 4 Mg/2 Ml Inj) 4 mg IV NOW PRN PRN Reason: Nausea And Vomiting Discontinued Medications Hydromorphone HCl (Hydromorphone 0.5 Mg Inj) 0.5 mg IV NOW ONE Stop: 03/09/23 04:18 Last Admin: 03/09/23 04:31 Dose: 0.5 mg Documented By: ALESSANDRA Sodium Chloride (Normal Saline 0.9%) 1,000 mls @ 1,000 mls/hr IV BOLUS ONE Stop: 03/09/23 05:16 Last Infusion: 03/09/23 05:51 Dose: 0 mls/hr Documented By: Admin: 03/09/23 04:34 Dose: 1,000 mls/hr Documented By: ALESSANDRA Ceftriaxone Sodium 1,000 mg/ (Sodium Chloride) 100 mls @ 200 mls/hr IV NOW ONE Stop: 03/09/23 04:18 Last Infusion: 03/09/23 05:51 Dose: 0 mls/hr Documented By: Admin: 03/09/23 04:34 Dose: 200 mls/hr Documented By: ALESSANDRA Vital Signs Vital signs: Vital Signs - 8 hr 03/09/23 00:49 03/09/23 04:56 Temperature 98.6 F Pulse Rate 82 50 L Respiratory Rate 16 Blood Pressure 101/53 L Pulse Oximetry 99 93 Oxygen Delivery Method Room Air MDM - Female Genitourinary Lab Data 03/09/23 01:00 03/09/23 01:00 Labs: Lab Results 03/09/23 03/09/23 03/09/23 Range/Units 01:00 01:00 02:14 WBC 6.8 (4.5-11.0) X10^3/uL RBC 4.13 (4.0-5.2) X10^6/uL Hgb 13.4 (12.0-16.0) g/dL Hct 38.8 (36-46) % MCV 94.1 (80-100) fL MCH 32.5 (26-34) PG MCHC 34.6 (30-36) % RDW 13.2 (11.6-14.8) % Plt Count 231 (150-400) X10^3/uL Neut % (Auto) 47.1 L (50-75) % Lymph % (Auto) 41.8 H (25-40) % [place] % (Auto) 8.1 (3-14) % Eos % (Auto) 2.2 (2-4) % Baso % (Auto) 0.8 (0-2) % Neut # (Auto) 3200 (1993-7576) /uL Lymph # (Auto) 2800 (8517-5661) /uL [place] # (Auto) 600 (0-900) /uL Eos # (Auto) 100 (0-450) /uL Baso # (Auto) 100 (0-100) /uL Sodium 137 (137-145) mmol/L Potassium 4.1 (3.4-5.1) mmol/L Chloride 102 (98-107) mmol/L Carbon Dioxide 30 (22-32) mmol/L BUN 16 (7-17) mg/dL Creatinine 0.66 (0.52-1.04) mg/dL Estimated GFR > 60 (>60) mL/min BUN/Creatinine Ratio 24.2 H (6-22) Glucose 103 H (70-100) mg/dL Calcium 9.1 (8.4-10.2) mg/dL Total Bilirubin 0.2 (0.2-1.3) mg/dL AST 20 (14-36) IU/L ALT 17 (<35) IU/L Alkaline Phosphatase 66 (38-126) U/L Total Protein 7.5 (6.3-8.2) g/dL Albumin 4.4 (3.5-5.0) g/dL Globulin 3.1 (1.7-4.1) g/dL Albumin/Globulin Ratio 1.4 (1.0-2.8) Lipase 44 (23-300) U/L Urine Color Yellow Urine Appearance Cloudy Urine pH 7.0 (4.5-8.0) Ur Specific [place] 1.015 (1.000-1.035) Urine Protein 2+ H (Negative) Urine Glucose (UA) Negative (Negative) g/dL Urine Ketones Negative (NEGATIVE) Urine Occult Blood 3+ H (Negative) Urine Nitrate Negative (Negative) Urine Bilirubin Negative (NEGATIVE) Urine Urobilinogen 0.2 (0.2) E.U./dL Ur Leukocyte Esterase 2+ H (NEGATIVE) Urine RBC 30-100/hpf H (0-5/HPF) Urine WBC 10-30/hpf H (0-5/HPF) Ur Squamous Epith Cells None seen (0-5/HPF) Urine Bacteria Few (2-10) H (None) Ur Culture Indicated? Specimen cultured Point of Care Testing Test Results Negative Urine Dip Bedside Urine Glucose Negative Bedside Urine Bilirubin - Negative Urine Specific [place] 1.015 Bedside Urine Occult Blood +++ Bedside Urine pH 6.0 Bedside Urine Protein + 30 Bedside Urine Urobilinogen - Negative Bedside Urine Nitrite - Negative Bedside Urine Leukocytes + 70 Esterase MDM Narrative Medical decision making narrative: CC: 37-year-old female with dysuria, frequency and urgency as well as hematuria and flank pain Complicating co-morbidities: Multiple abdominal surgeries Data collected from: Patient Medical records reviewed: Prior notes reviewed in our EMR Differential considered, but not limited to: Cystitis versus pyelonephritis versus kidney stone versus other Exam documented above, pertinent findings include: Suprapubic tenderness and bilateral CVA tenderness, abdomen is otherwise soft, heart rate regular Lab Test results independently reviewed as above. Pertinent findings: Urine with blood and evidence of infection. Otherwise serum labs largely reassuring Independently reviewed EKG as above Imaging studies independently reviewed: CT KUB demonstrates inflammatory change of bladder, otherwise unremarkable Treatments: Saline, Rocephin, Dilaudid Re-evaluations: Pain well controlled, no signs of sepsis Discussion: 37-year-old female presents with a few days of urinary symptoms, hematuria, dysuria, frequency and urgency as well as suprapubic tenderness and now bilateral CVA tenderness. Multiple diagnoses considered as noted above. Urine consistent with infectious process. CT KUB obtained to rule out kidney stone or other, no significant abnormalities. Patient appropriate for discharge Disposition: see below, along with detailed discharge instructions that have been reviewed with patient as well as indications for ED re-evaluation and additional outpatient follow up Discharge Plan Departure Patient Disposition: Home Clinical Impression: Pyelonephritis Instructions: DI for Kidney Infection Activity Restrictions/Additional Instructions: *You have been diagnosed with [pyelonephritis] *What to do: *Please continue to take your regular medications as directed. [ x] New medication prescriptions sent to your pharmacy: [[facility] ] [ ] New medication written as a paper prescription [ ] No new medications given *Please follow up with your primary care provider in 2-3 days, call for an appointment. Let them know you were seen in the Emergency Department and that we ask that you be seen in follow up. We will electronically transmit a record of today's note if your PCP is in our system *If you do not have a primary care provider please contact the [facility] Resource line at [phone]. They will ask some questions about your medical history and help get you set up with a doctor in the community. *Return to Emergency Department if you should have any new, worsening or concerning symptoms, such as [fever greater than 101 F, shaking chills, worsening pain, persistent vomiting or other bothersome symptoms] You have been prescribed a short course of narcotic medications. These are potentially dangerous and addictive medications that should be used carefully. While on these medications you cannot drive or operate heavy machinery. Additionally, you cannot sign legal documents or perform any duties such as this. Many people get constipated on narcotic medications so it would be advisable to discuss stool softeners with the pharmacist when you picker operator your prescription. Please understand that we cannot provide further refills of narcotics or controlled substances through the ED and your pain management will need to be through your Primary Care Provider Prescriptions: New cephalexin 500 mg capsule 500 mg PO Q6H 7 Days Qty: 28 0RF oxycodone 5 mg tablet 5 mg PO Q6H PRN (Reason: pain) Qty: 10 0RF No Action citalopram 20 mg tablet 20 mg PO DAILY Qty: 30 11RF albuterol sulfate 90 mcg/actuation HFA aerosol inhaler 2 inhalation INHALATION Q4H PRN (Reason: tight chest/cough) Qty: 6.7 0RF Rx Instructions: okay to subst any size/formula on insurance Prempro 0.625-2.5 mg tablet 1 tab PO QPM PNV cmb#95-ferrous fumarate-FA [] 28 mg iron- 800 mcg Tablet 1 tab PO DAILY Patient Comments: patient states not currently taking but wants kept on profile medroxyprogesterone 10 mg tablet 20 mg PO Q2HR PRN (Reason: vaginal bleeding) Qty: 90 0RF Rx Instructions: 2 tabs every 2 hr until vaginal bleeding stops or slows down and take 2 tablets every 4 hr for 48 hr. Then take 2 tablets every 6 hr for 48 hr. Then take 2 tablets every 8 hr for 48 hr. Then take 2 tablets every 12 hr for 48 hr. Then take 2 tablets once a day for 7 days. ondansetron 4 mg tablet,disintegrating 4 mg PO TID-QID PRN (Reason: nausea and vomiting) Qty: 10 0RF ondansetron 4 mg tablet,disintegrating 4 mg PO Q8H PRN (Reason: nausea and vomiting) Qty: 10 0RF oxycodone-acetaminophen 5-325 mg tablet 1 tab PO Q6H PRN (Reason: pain) Qty: 10 0RF ondansetron 4 mg tablet,disintegrating 4 mg PO QID PRN (Reason: nausea and vomiting) Qty: 30 0RF ondansetron 4 mg tablet,disintegrating 4 mg PO Q8H PRN (Reason: nausea and vomiting) Qty: 10 0RF albuterol sulfate 90 mcg/actuation HFA aerosol inhaler 2 puff INHALATION Q4-6H PRN (Reason: shortness of breath or wheezing) Qty: 8 .5 0RF benzonatate [Tessalon Perles] 100 mg capsule 100 mg PO BID-TID PRN (Reason: cough) Qty: 30 0RF ondansetron 4 mg tablet,disintegrating 4 mg PO Q8H PRN (Reason: nausea and vomiting) Qty: 10 0RF metoclopramide HCl [Reglan] 10 mg tablet 10 mg PO Q8H PRN (Reason: nausea and vomiting) Qty: 20 0RF Stand Alone Forms: Patient Portal/API
--- NOTE | 2023-03-09 04:17 | DI.CT.S_ITS ---
PROCEDURE: CT KIDNEY URETER BLADDER (KUB) INDICATIONS: flank pain, hematuria TECHNIQUE: Axial sections were acquired from the lung bases to the pubic symphysis. Coronal and sagittal reformats were performed. For radiation dose reduction, the following was used: automated exposure control, adjustment of mA and/or kV according to patient size. COMPARISON: CT, CT ABDOMEN PELVIS W CON, 07/02/2020, 2:07. FINDINGS: Image quality: Excellent. Lung bases: Unremarkable. Pectus excavatum. Heart: Normal size. Small pericardial effusion. URINARY: Right Kidney: No stones or hydronephrosis. Right Ureter: No hydroureter. Left Kidney: No stones or hydronephrosis. Left Ureter: No hydroureter. Bladder: Bladder wall thickening. No stones. ABDOMEN: Liver: Unremarkable. Gallbladder: Unremarkable. Biliary ducts: Unremarkable. Pancreas: Unremarkable. Spleen: Unremarkable. Adrenal Glands: Unremarkable. Stomach and Bowel: Stomach, small bowel loops, and colon are unremarkable. There is a moderate amount of stool in colon Peritoneum: No abnormal intraperitoneal fluid. No free air. Ventral Wall: No hernia. Abdominal Nodes: No enlarged retroperitoneal or mesenteric lymph nodes. Vessels: Aorta and inferior vena cava are normal in size. PELVIS: Pelvic Organs: Unremarkable. Pelvic Nodes: Unremarkable. Miscellaneous: No inguinal hernias are seen. Bones: Unremarkable. IMPRESSION: 1. Bladder wall thickening suggesting cystitis. 2. No stone or hydronephrosis. 3. Small pericardial effusion. No significant discrepancy with the steward/stewardess night radiology preliminary report. Dictated by: Tiffany Peoples M.D. on 03/09/2023 at 7:46 Approved by: Tiffany Peoples M.D. on 03/09/2023 at 9:00
[2023-03-09] MEDS: HYDROMORPHONE 0.5 MG INJ IV (04:31)
[2023-03-09] MEDS: cefTRIAXone 1,000 MG in SODIUM CHLORIDE 0.9% 100 ML 200 MG IV (04:34)
[2023-03-09] MEDS: SODIUM CHLORIDE 0.9% 1,000 ML 1000 ML IV (04:34)
[2023-03-09 04:56] VITALS: PULSE 50; O2SAT 93
[2023-03-09 06:01] VITALS: BP 94/55; PULSE 54; RESP 16; TEMP 36.2; O2SAT 98
== END 2023-03-09 06:04 | disposition home or self-care (01) ==
PROVIDERS: Emergency Provider Emergency Medicine
DX: N12 Tubulo-interstitial nephritis, not specified as acute or chronic (principal); R10.9 Unspecified abdominal pain
CPT/HCPCS: 36415; 74176; 80053; 81001; 81003; 81025; 83690; 85025; 87077; 87086; 93005; 96365; 96375; 99284; J0696; J1170

== ENCOUNTER 2023-09-17 20:02 | Emergency (ER) | payer OTHER, MEDICAID, SELFPAY ==
[2023-09-17 20:10] VITALS: BP 136/104; PULSE 120; RESP 19; TEMP 36.8; O2SAT 98; BMI 18.8
[2023-09-17 20:58] LABS: Add Manual Diff / Slide Review NO; Basophils Absolute Auto 0 /uL (0-100); Basophils Percent Auto 0.2 % (0-2); Eosinophils Absolute Auto 0 /uL (0-450); Hematocrit 42.4 % (36-46); Hemoglobin 14.6 g/dL (12.0-16.0); Lymphocytes Absolute Auto 600 /uL (1100-4500); Lymphocytes Percent Auto 8.4 % (25-40); Mean Corpuscular HGB Conc 34.4 % (30-36); Mean Corpuscular Hemoglobin 32.7 PG (26-34); Monocytes Absolute Auto 200 /uL (0-900); Monocytes Percent Auto 2.2 % (3-14); Neutrophils Absolute Auto 6300 /uL (1500-7000); Neutrophils Percent Auto 89.2 % (50-75); Platelet Count 359 X10^3/uL (150-400); Red Blood Cell Count 4.46 X10^6/uL (4.0-5.2); Red Cell Distribution Width 13.2 % (11.6-14.8); White Blood Cell Count 7.1 X10^3/uL (4.5-11.0)
[2023-09-17 21:38] LABS: Alanine Aminotransferase 100 IU/L (<35); Albumin 3.9 g/dL (3.5-5.0); Albumin Globulin Ratio 1.4 (1.0-2.8); Alkaline Phosphatase 69 U/L (38-126); Aspartate Aminotransferase 65 IU/L (14-36); BUN Creatinine Ratio 26.1 (6-22); Bilirubin Total 0.5 mg/dL (0.2-1.3); Blood Urea Nitrogen 12 mg/dL (7-17); Calcium 9.2 mg/dL (8.4-10.2); Carbon Dioxide 26 mmol/L (22-32); Chloride 99 mmol/L (98-107); Estimated Glomerular Filt Rate > 60 mL/min (>60); Globulin 2.8 g/dL (1.7-4.1); Glucose 200 mg/dL (70-100); Potassium 4.2 mmol/L (3.4-5.1); Sodium 135 mmol/L (137-145); Total Protein 6.7 g/dL (6.3-8.2)
[2023-09-17 21:43] LABS: HEMOLYSIS 61 (0-50)
--- NOTE | 2023-09-17 22:35 | DI.CT.S_ITS ---
PROCEDURE: CT ANGIO ABD AORTA RUNOFF INDICATIONS: LLE SWELLING HIP TO KNEE, NEG DVT US TECHNIQUE: After the administration of intravenous contrast, 2.5 mm sections acquired from T12 to the feet, with optional delayed image acquisition from the knees to the feet. 3-dimensional maximum intensity projection (MIP) coronal and sagittal reformats, and/or 3-dimensional volume rendering reformatting was then performed. For radiation dose reduction, the following was used: automated exposure control. COMPARISON: [facility], CT, CT KIDNEY URETER BLADDER (KUB), 03/09/2023, 5:00. FINDINGS: Image Quality: Diagnostic. Abdominal aorta: Visualized abdominal aorta appear normal in size and caliber. No significant atherosclerosis. No intraluminal filling defect. No evidence for dissection or aneurysmal dilatation. No periaortic inflammatory changes or periaortic hematoma. Right lower extremity: Visualized arterial vasculature of the right lower extremity appear within normal limits. No significant atherosclerosis. No intraluminal filling defects. No evidence for dissection, aneurysm, or occlusion. No high-grade stenosis identified. There is uniform opacification of the right lower extremity arteries to the level of the feet. Left lower extremity: Diffuse subcutaneous soft tissue edema visualized in the left lower extremity from the level of the thigh to the ankle. No significant skin thickening identified. No organized fluid collection seen. No soft tissue gas. Small knee joint effusion seen. There is no definite asymmetric enlargement of the left lower extremity musculature compared to the right lower extremity. No findings to suggest significant edema of the deep compartments of the left extremity. Visualized arterial vasculature of the left lower extremity demonstrates no significant atherosclerosis. No intraluminal filling defects visualized. However, there is relatively decreased degree of opacification of the lower extremity arteries from the level of the tibioperoneal trunk distally. At the level of the mid calf and below, vessels are not well opacified. There is also relatively decreased opacification of the the femoral arteries. Overall, no evidence for dissection, high-grade stenosis, or aneurysm. ABDOMEN/PELVIS: Visualized portions of the inferior liver bilateral kidneys, ureters, and bowel (colon/small bowel appear unremarkable. Visualized mesenteric vasculature appear widely patent. No pathologic pelvic free fluid. No pelvic adenopathy. There is mild subcutaneous edema seen in the right hip. Bones: No aggressive osseous abnormality. IMPRESSION: Asymmetric opacification of the arterial vasculature of the bilateral lower extremities. The right side appears normal. There is relatively decreased opacification of the left lower extremity arteries from the level of the tibioperoneal trunk distally with faint opacification of the more distal arteries of the lower leg and left foot. No evidence for intraluminal filling defect proximally. No evidence for dissection. No aneurysm. No occluding mass lesion identified. There is associated moderate subcutaneous soft tissue inflammation of the left lower extremity most pronounced at the level of the knee. Small left knee joint effusion. Although overall size of the left lower extremity is larger than the right, this is likely related to subcutaneous edema. The visualized musculature appear relatively symmetric compared to the right lower extremity. However, recommend clinical evaluation to exclude symptoms of possible compartment syndrome. Additionally, recommend clinical correlation to exclude infectious etiology if clinically appropriate. Findings were discussed with Dr. Rubin by telephone. Dictated by: Hardik Alvarado M.D. on 09/18/2023 at 0:02 Approved by: Hardik Alvarado M.D. on 09/18/2023 at 0:24
--- NOTE | 2023-09-17 22:35 | ED.LOWEXIN ---
HPI - Extremity Injury (Lower) General Chief Complaint: Extremity Injury, Lower Stated Complaint: lt leg is bigger than right Time Seen by Provider: 09/17/23 20:36 Source: patient Mode of arrival: Ambulatory History of Present Illness HPI Narrative: 37-year-old female with history of stage III ovarian cancer (remission since 2008) presents for evaluation of left thigh pain and swelling. Patient states that 4 days ago she had a ?blackout? that she attributes to a GI bug and a new antinausea medication that was much stronger than she is used to. When she woke up she had pain in her left leg. She was limping around on it, but it continued to become more painful. Earlier this morning she went to [facility] emergency department, where they performed an ultrasound and a hip x-ray. There was no definitive cause of her pain found and she was discharged home. Patient states she continues to have pain in his here for a 2nd evaluation. She reports decreased sensation in her left lower leg past her knee. Pain is worse in her knee and thigh area. Related Data Home Medications Medication Instructions Recorded Confirmed conj estrogen-medroxyprogesterone 1 tab PO QPM 09/17/18 09/17/18 0.625 mg-2.5 mg tablet vit no.95-ferrous 1 tab PO DAILY 09/17/18 09/17/18 fumarate 28 mg-folic acid 800 mcg tablet () Previous Rx's Medication Instructions Recorded albuterol sulfate 90 mcg/actuation 2 inhalation inhalation Q4H PRN 06/30/18 aerosol inhaler tight chest/cough #6.7 grams ondansetron 4 mg disintegrating 4 mg PO QID PRN nausea and 08/16/18 tablet vomiting #30 tabs medroxyprogesterone 10 mg tablet 20 mg (2 x 10 mg) PO Q2HR PRN 09/17/18 vaginal bleeding #90 tabs citalopram 20 mg tablet 20 mg PO DAILY #30 tabs 10/05/18 ondansetron 4 mg disintegrating 4 mg PO TID-QID PRN nausea and 03/06/19 tablet vomiting #10 tabs ondansetron 4 mg disintegrating 4 mg PO Q8H PRN nausea and 03/25/19 tablet vomiting #10 tabs albuterol sulfate 90 mcg/actuation 2 puff inhalation Q4-6H PRN 10/16/19 aerosol inhaler shortness of breath or wheezing #8.5 grams benzonatate 100 mg capsule 100 mg PO BID-TID PRN cough #30 10/16/19 (Magui Mota) caps ondansetron 4 mg disintegrating 4 mg PO Q8H PRN nausea and 10/16/19 tablet vomiting #10 tabs ondansetron 4 mg disintegrating 4 mg PO Q8H PRN nausea and 07/02/20 tablet vomiting #10 tabs metoclopramide HCl 10 mg tablet 10 mg PO Q8H PRN nausea and 10/11/20 (Reglan) vomiting #20 tabs oxycodone-acetaminophen 5 mg-325 1 tab PO Q6H PRN pain #10 tabs 02/09/21 mg tablet oxycodone 5 mg tablet 5 mg PO Q6H PRN pain #10 tabs 03/09/23 tramadol 50 mg tablet 50 mg PO Q8H PRN pain #14 tabs 09/18/23 Allergies Allergy/AdvReac Type Severity Reaction Status Date / Time Penicillins [PENICILLINS] Allergy Severe RASH Verified 02/08/21 19:38 vancomycin [VANCOMYCIN] Allergy Severe JUAREZ Verified 02/08/21 19:38 SYNDROME adhesive [ADHESIVE] Allergy Intermediate RASH, SKIN Verified 02/08/21 19:38 PEELS latex [LATEX] Allergy Intermediate RASH Verified 02/08/21 19:38 ketorolac AdvReac Headache Verified 02/08/21 19:38 Review of Systems Review of Systems Narrative: Negative except as noted above Patient History Medical History (Updated 09/18/23 @ 04:24 by Rosita Rubin MD) History of hysterosalpingogram (09/12/15) Depression (2007) Anxiety (2007) CTS (carpal tunnel syndrome) (2011) Acne Chicken pox (1992) Anemia (2007) Vertigo Hearing loss (1987) Painful menstrual periods (2007) Ovarian cyst (2014) Irregular periods/menstrual cycles (2007) History of heavy periods (2007) Ovarian cancer (2007) Surgical History History of left salpingo-oophorectomy History of left salpingo-oophorectomy Anesthesia History of right salpingo-oophorectomy (2007) History of bowel resection (2007) Status post exploratory laparotomy (10/08/15) Status post appendectomy (2007) Status post delivery (01/05/12) Status post laparotomy (05/02/15) Family History Father No problems noted. Grandfather Hypertension Alcoholism Grandmother Cancer Stroke Mother Hyperlipidemia Grandfather Hyperlipidemia Hypertension Pneumonia Grandmother Diabetes mellitus Hypertension Sister Hearing loss Vision loss Sister Vision loss Hearing loss Sister Mental health problem Sister No problems noted. Sister No problems noted. Son Age: 11 Suspected autism disorder Social History marital status: unmarried,single Smoking Status: Current every day smoker alcohol intake: never substance use type: does not use Smoking Status: Current every day smoker tobacco type: cigarettes alcohol intake frequency: holidays/special occasions only Substance Use Type: marijuana Exam Initial Vital Signs Initial Vital Signs: Vital Signs Temperature 98.2 F 09/17/23 20:10 Pulse Rate 120 H 09/17/23 20:10 Respiratory Rate 19 09/17/23 20:10 Blood Pressure 136/104 H 09/17/23 20:10 Pulse Oximetry 98 09/17/23 20:10 Oxygen Delivery Method Room Air 09/17/23 20:10 Const: Awake, alert, tearful Cardiac: regular rate, regular rhythm RESP: unlabored, clear bilaterally, no wheezing GI: Atraumatic, soft, nontender MSK: Atraumatic, swelling of L thigh noted, compartments soft, no cellulitis, palpable DP pulses Skin: Warm, Dry, intact, no rashes Neuro: AO x3, CN II-XII grossly intact, moves all extremities Course Orders Ordered: ED Orders 09/17/23 20:45 CMP [Comprehensive Metabolic Panel] Stat Complete Blood Count AUTO DIFF Stat Test Serum,Qual Stat 09/17/23 22:35 CT angio abd aorta runoff Stat 09/18/23 00:25 CK [Creatine Kinase] Stat PT [Prothrombin Time INR] Stat 09/18/23 01:19 D Dimer Stat 09/18/23 01:51 periph venous low extrem lt Stat Discontinued Medications Acetaminophen (Ofirmev) 1,000 mg in 100 mls @ 400 mls/hr IV NOW ONE Stop: 09/18/23 00:23 Last Infusion: 09/18/23 00:31 Dose: Infused Documented By: Admin: 09/18/23 00:13 Dose: 400 mls/hr Documented By: Ketorolac Tromethamine (Ketorolac 30 Mg/Ml Vial) 15 mg IV NOW ONE Stop: 09/17/23 23:58 Last Admin: 09/18/23 00:23 Dose: Not Given Documented By: AB Morphine Sulfate (Morphine 4 Mg/Ml Inj) 4 mg IV NOW ONE Stop: 09/18/23 00:26 Last Admin: 09/18/23 00:35 Dose: 4 mg Documented By: AB Vital Signs Vital signs: Vital Signs - 8 hr 09/17/23 23:02 09/18/23 00:35 09/18/23 01:16 Pulse Rate 82 66 Pulse Rate [Left Dorsalis Pedis] 68 Respiratory Rate 20 18 Blood Pressure 125/79 126/68 Pulse Oximetry 96 98 Oxygen Delivery Method Room Air Room Air 09/18/23 01:42 09/18/23 03:02 09/18/23 04:23 Pulse Rate 62 68 78 Pulse Rate [Left Dorsalis Pedis] Respiratory Rate 18 16 15 Blood Pressure 113/55 L 111/70 127/78 Pulse Oximetry 95 100 100 Oxygen Delivery Method Room Air Room Air Room Air MDM - Extremity Injury (Lower) Differential Diagnosis Differential diagnosis: Likely ankle sprain and strain, acute internal derangement of knee and fracture of femur Lab Data 09/17/23 20:45 09/17/23 20:45 Labs: Lab Results 09/17/23 09/18/23 Range/Units 20:45 01:19 WBC 7.1 (4.5-11.0) X10^3/uL RBC 4.46 (4.0-5.2) X10^6/uL Hgb 14.6 (12.0-16.0) g/dL Hct 42.4 (36-46) % MCV 95.0 (80-100) fL MCH 32.7 (26-34) PG MCHC 34.4 (30-36) % RDW 13.2 (11.6-14.8) % Plt Count 359 (150-400) X10^3/uL Neut % (Auto) 89.2 H (50-75) % Lymph % (Auto) 8.4 L (25-40) % [place] % (Auto) 2.2 L (3-14) % Eos % (Auto) 0.0 L (2-4) % Baso % (Auto) 0.2 (0-2) % Neut # (Auto) 6300 (4872-9000) /uL Lymph # (Auto) 600 L (5664-3993) /uL [place] # (Auto) 200 (0-900) /uL Eos # (Auto) 0 (0-450) /uL Baso # (Auto) 0 (0-100) /uL PT 10.8 (9.4-12.5) SECONDS INR 0.9 (0.9-1.3) D-Dimer 703 H (<500) ng/ml Sodium 135 L (137-145) mmol/L Potassium 4.2 (3.4-5.1) mmol/L Chloride 99 (98-107) mmol/L Carbon Dioxide 26 (22-32) mmol/L BUN 12 (7-17) mg/dL Creatinine 0.46 L (0.52-1.04) mg/dL Estimated GFR > 60 (>60) mL/min BUN/Creatinine Ratio 26.1 H (6-22) Glucose 200 H (70-100) mg/dL Calcium 9.2 (8.4-10.2) mg/dL Total Bilirubin 0.5 (0.2-1.3) mg/dL AST 65 H (14-36) IU/L ALT 100 H (<35) IU/L Alkaline Phosphatase 69 (38-126) U/L Total Creatine Kinase 543 H (30-135) U/L Total Protein 6.7 (6.3-8.2) g/dL Albumin 3.9 (3.5-5.0) g/dL Globulin 2.8 (1.7-4.1) g/dL Albumin/Globulin Ratio 1.4 (1.0-2.8) Serum , Qual Negative (Negative) [facility] Narrative Medical decision making narrative: Patient presenting for repeat evaluation of leg pain and swelling of unknown origin. L thigh is noticeably bigger than R thigh, however compartments are soft. The swelling seems to terminate at the left knee. She reports decreased sensation in her distal left lower extremity, however there are palpable DP pulses. Since she already has an outside negative hip x-ray and ultrasound of the lower extremity plan to order CT angio of the limb to assess for hematoma, bleeding, other vascular issues. 0020 -case discussed with Dr. Alvarado of Radiology, patient has edema in her left thigh with opacification of the vessels distal to the tibial peroneal junction not explained by calcifications or vascular disease. Questioned if there could be infection or possible compartment syndrome. I reexamined the patient and she was tearful, stating that everything causes her pain, but repeat palpation of the thigh does show that compartments are soft and not tense in any way. Discussed case with Dr. Garcia of Orthopedic surgery. He states that if compartments are soft on exam that this is not compartments syndrome and not an orthopedic issue. Call placed to vascular surgery for consult. Vascular surgery reviewed the images. They agree that there does seem to be decreased flow to the lower extremities without any cause for the occlusion including calcifications, stenosis, or mass. No vascular surgery intervention recommended based on current findings, however they do recommend a D-dimer. If the D-dimer is positive then they recommend repeating the ultrasound even though it was negative for DVT earlier in the day. D-dimer elevated. Ultrasound paged to perform repeat scan. Preliminary review of ultrasound shows no DVT. We are still pending formal radiology read. Patient stated that she had to leave because her ride was here and if she does not leave right now then her son is left alone and that means CPS will be involved. Repeat exam shows soft compartments and palpable DP pulses. Patient was informed of her CT findings as well as the abnormal findings on the angiography. She was counseled to wear an Jose wrap bandage and to elevate her limb whenever possible to help with swelling. She was advised to follow up as soon as possible with her primary care physician for further evaluation and management of this finding. Patient was informed of signs and symptoms of compartment syndrome or vascular or arterial compromise and given extremely strict return precautions to the emergency department. Pain medication sent to pharmacy of choice. Discharge Plan Departure Patient Disposition: Home Clinical Impression: Leg swelling Instructions: DI for Leg Pain Activity Restrictions/Additional Instructions: Your CT today showed that you do have swelling in your thigh with somewhat decreased circulation of your lower extremity. We can feel pulses in your lower extremity and you have intact sensation, so you are getting blood flow to your leg. There was no blood clot in your leg on our ultrasound or on previous ultrasound. I do not know the cause of this swelling in your leg, but it is extremely important that you follow up with your doctor for this finding. If you notice increased swelling despite wearing the compression bandage, numbness, severe pain, or unable to move your leg please return immediately to the nearest emergency department. Make sure that your thigh feels soft to the touch and not firm or hard. Prescriptions: New tramadol 50 mg tablet 50 mg PO Q8H PRN (Reason: pain) Qty: 14 0RF No Action citalopram 20 mg tablet 20 mg PO DAILY Qty: 30 11RF albuterol sulfate 90 mcg/actuation HFA aerosol inhaler 2 inhalation INHALATION Q4H PRN (Reason: tight chest/cough) Qty: 6.7 0RF Rx Instructions: okay to subst any size/formula on insurance Prempro 0.625-2.5 mg tablet 1 tab PO QPM PNV cmb#95-ferrous fumarate-FA [] 28 mg iron- 800 mcg Tablet 1 tab PO DAILY Patient Comments: patient states not currently taking but wants kept on profile medroxyprogesterone 10 mg tablet 20 mg PO Q2HR PRN (Reason: vaginal bleeding) Qty: 90 0RF Rx Instructions: 2 tabs every 2 hr until vaginal bleeding stops or slows down and take 2 tablets every 4 hr for 48 hr. Then take 2 tablets every 6 hr for 48 hr. Then take 2 tablets every 8 hr for 48 hr. Then take 2 tablets every 12 hr for 48 hr. Then take 2 tablets once a day for 7 days. ondansetron 4 mg tablet,disintegrating 4 mg PO TID-QID PRN (Reason: nausea and vomiting) Qty: 10 0RF ondansetron 4 mg tablet,disintegrating 4 mg PO Q8H PRN (Reason: nausea and vomiting) Qty: 10 0RF oxycodone-acetaminophen 5-325 mg tablet 1 tab PO Q6H PRN (Reason: pain) Qty: 10 0RF oxycodone 5 mg tablet 5 mg PO Q6H PRN (Reason: pain) Qty: 10 0RF ondansetron 4 mg tablet,disintegrating 4 mg PO QID PRN (Reason: nausea and vomiting) Qty: 30 0RF ondansetron 4 mg tablet,disintegrating 4 mg PO Q8H PRN (Reason: nausea and vomiting) Qty: 10 0RF albuterol sulfate 90 mcg/actuation HFA aerosol inhaler 2 puff INHALATION Q4-6H PRN (Reason: shortness of breath or wheezing) Qty: 8.5 0RF benzonatate [Tessalon Perles] 100 mg capsule 100 mg PO BID-TID PRN (Reason: cough) Qty: 30 0RF ondansetron 4 mg tablet,disintegrating 4 mg PO Q8H PRN (Reason: nausea and vomiting) Qty: 10 0RF metoclopramide HCl [Reglan] 10 mg tablet 10 mg PO Q8H PRN (Reason: nausea and vomiting) Qty: 20 0RF Stand Alone Forms: Patient Portal/API
[2023-09-17 22:52] LABS: Pregnancy Test Serum,Qual Negative (Negative)
[2023-09-17 23:02] VITALS: BP 125/79; PULSE 82; RESP 20; O2SAT 96
[2023-09-18] MEDS: ACETAMINOPHEN IV 1,000 MG/100 ML VIAL 400 MG IV (00:13)
--- NOTE | 2023-09-18 00:23 | PC.NURSE ---
Assumed pt care at this time. Introduced self to pt. Gave IV tylenol. Pt seems upset at this time. She states that she feels pain in upper left thigh, but can't feel much at all in her left lower leg.
--- NOTE | 2023-09-18 00:29 | PC.NURSE ---
Pedal pulse found by doppler
[2023-09-18 00:35] VITALS: BP 126/68; PULSE 66; RESP 18; O2SAT 98
[2023-09-18 00:35] LABS: INR 0.9 (0.9-1.3); Prothrombin Time 10.8 SECONDS (9.4-12.5)
[2023-09-18] MEDS: MORPHINE 4 MG/ML INJ IV (00:35)
[2023-09-18 00:42] LABS: Creatine Kinase 543 U/L (30-135)
[2023-09-18 01:16] VITALS: PULSE 68
[2023-09-18 01:26] LABS: D Dimer 703 ng/ml (<500)
[2023-09-18 01:42] VITALS: BP 113/55; PULSE 62; RESP 18; O2SAT 95
--- NOTE | 2023-09-18 01:51 | DI.US.S_ITS ---
PROCEDURE: US PERIPH VENOUS LOW EXTREM LT INDICATIONS: SWELLING, ELEVATED DIMER TECHNIQUE: Real-time imaging, as well as color and pulse Doppler interrogation, were performed of the lower extremity deep veins from the inguinal ligament to the popliteal fossa, with documentation of the visualized calf veins. COMPARISON: [facility], CR, XR ANKLE RT MIN 3V, 02/08/2021, 19:39. [facility], CR, XR FOOT RT MIN 3V, 02/08/2021, 19:39. FINDINGS: The common femoral, femoral, popliteal, and the visualized calf veins are normally compressible, and free of intraluminal thrombus. Color and pulse Doppler demonstrate normal phasic intraluminal flow. There is normal augmentation response to distal compression maneuver. There is ill-defined complex fluid collection in the left knee/proximal calf measuring 4.6 x 2.9 x 0.9 cm. IMPRESSION: 1. No findings of lower extremity deep venous thrombosis. 2. An ill-defined complex fluid collection in the left knee/proximal calf measuring 4.6 x 2.9 x 0.9 cm, suggesting a hematoma. Dictated by: Tiffany Peoples M.D. on 09/18/2023 at 7:44 Approved by: Tiffany Peoples M.D. on 09/18/2023 at 7:47
[2023-09-18 03:02] VITALS: BP 111/70; PULSE 68; RESP 16; O2SAT 100
[2023-09-18 04:23] VITALS: BP 127/78; PULSE 78; RESP 15; O2SAT 100
== END 2023-09-18 04:27 | disposition home or self-care (01) ==
PROVIDERS: Emergency Provider Emergency Medicine
DX: R22.42 Localized swelling, mass and lump, left lower limb (principal)
CPT/HCPCS: 36415; 75635; 80053; 82550; 84703; 85025; 85379; 85610; 93971; 96365; 96375; 99284; J0136; J2270; Q9967

== ENCOUNTER 2023-09-19 20:43 | Emergency (ER) | payer OTHER, MEDICAID, SELFPAY ==
[2023-09-19 21:02] VITALS: BP 124/78; PULSE 110; RESP 22; TEMP 37.3; O2SAT 97; BMI 18.8
--- NOTE | 2023-09-19 21:12 | DI.RAD.S_ITS ---
PROCEDURE: XR CHEST 1V INDICATIONS: suspected sepsis TECHNIQUE: One view of the chest was acquired. COMPARISON: [facility], CR, XR CHEST 1V, 10/16/2019, 16:04. [facility], CR, XR CHEST 2V, 05/27/2019, 9:21. FINDINGS: Surgical changes and devices: None. Lungs and pleura: Lungs are clear. No pleural effusions or pneumothorax. Mediastinum: Mediastinal contours appear normal. Heart size is normal considering pectus excavatum chest wall morphology. Bones and chest wall: No suspicious bony lesions. Overlying soft tissues appear unremarkable. IMPRESSION: No acute cardiopulmonary abnormality is seen. Anterior midline pectus excavatum morphology accentuates the cardiac silhouette mildly. Dictated by: Rashad Zurita M.D. on 09/19/2023 at 21:53 Approved by: Rashad Zurita M.D. on 09/19/2023 at 21:54
--- NOTE | 2023-09-19 21:20 | DI.US.S_ITS ---
PROCEDURE: US PERIP VENOUS LOW EXTREM LT INDICATIONS: EDEMA TECHNIQUE: Real-time imaging, as well as color and pulse Doppler interrogation, were performed of the lower extremity deep veins from the inguinal ligament to the popliteal fossa, with documentation of the visualized calf veins. COMPARISON: [facility], , [facility] VENOUS LOW EXTREM LT, 09/18/2023, 2:39. FINDINGS: The common femoral, femoral, popliteal, and the visualized calf veins are normally compressible, and free of intraluminal thrombus. Color and pulse Doppler demonstrate normal phasic intraluminal flow. There is normal augmentation response to distal compression maneuver. IMPRESSION: No findings of lower extremity deep venous thrombosis. No foreign body seen. Dictated by: Rashad Zurita M.D. on 09/19/2023 at 22:52 Approved by: Rashad Zurita M.D. on 09/19/2023 at 22:52
[2023-09-19] MEDS: SODIUM CHLORIDE 0.9% 1,000 ML 1000 ML IV (21:31)
[2023-09-19 21:37] LABS: Add Manual Diff / Slide Review NO; Basophils Absolute Auto 100 /uL (0-100); Basophils Percent Auto 0.6 % (0-2); Eosinophils Absolute Auto 200 /uL (0-450); Eosinophils Percent Auto 1.8 % (2-4); Hematocrit 44.3 % (36-46); Hemoglobin 15.2 g/dL (12.0-16.0); Lymphocytes Absolute Auto 3400 /uL (1100-4500); Lymphocytes Percent Auto 34.9 % (25-40); Mean Corpuscular HGB Conc 34.3 % (30-36); Mean Corpuscular Hemoglobin 32.8 PG (26-34); Mean Corpuscular Volume 95.7 fL (80-100); Monocytes Absolute Auto 900 /uL (0-900); Monocytes Percent Auto 9.2 % (3-14); Neutrophils Absolute Auto 5100 /uL (1500-7000); Neutrophils Percent Auto 53.5 % (50-75); Platelet Count 361 X10^3/uL (150-400); Red Blood Cell Count 4.63 X10^6/uL (4.0-5.2); Red Cell Distribution Width 13.4 % (11.6-14.8); White Blood Cell Count 9.6 X10^3/uL (4.5-11.0)
[2023-09-19 21:42] LABS: INR 0.9 (0.9-1.3); Prothrombin Time 10.4 SECONDS (9.4-12.5)
[2023-09-19 21:45] LABS: Lactate (Lactic Acid) 1.8 mmol/L (0.7-2.1); PTT Partial Thromboplastin Tim 38 SECONDS (25.1-36.5)
[2023-09-19 21:47] LABS: Alanine Aminotransferase 71 IU/L (<35); Albumin 4.4 g/dL (3.5-5.0); Albumin Globulin Ratio 1.3 (1.0-2.8); Alkaline Phosphatase 89 U/L (38-126); Aspartate Aminotransferase 42 IU/L (14-36); BUN Creatinine Ratio 12.7 (6-22); Bilirubin Total 0.5 mg/dL (0.2-1.3); Blood Urea Nitrogen 7 mg/dL (7-17); Calcium 9.4 mg/dL (8.4-10.2); Carbon Dioxide 29 mmol/L (22-32); Chloride 98 mmol/L (98-107); Estimated Glomerular Filt Rate > 60 mL/min (>60); Globulin 3.3 g/dL (1.7-4.1); Glucose 53 mg/dL (70-100); HEMOLYSIS 23 (0-50); Lipase 77 U/L (23-300); Potassium 3.7 mmol/L (3.4-5.1); Sodium 138 mmol/L (137-145); Total Protein 7.7 g/dL (6.3-8.2)
[2023-09-19 21:55] LABS: Bacteria Urine None Seen; Culture Indicated Urine Cult Not Indicated; RBC Urine None Seen (0-5/HPF); Squamous Epithelial Cell Urine 0-1 /HPF (0-5/HPF); Urine Volume 10mL (spun); WBC Urine None Seen (0-5/HPF)
[2023-09-19 22:03] LABS: Procalcitonin 0.05 ng/mL (<0.5)
[2023-09-19] MEDS: TRAMADOL 50 MG TABLET PO (23:06)
[2023-09-19 23:39] VITALS: PULSE 75; O2SAT 100
[2023-09-19 23:40] VITALS: BP 112/82; PULSE 85; O2SAT 100
--- NOTE | 2023-09-19 23:43 | ED.EXTPRO ---
HPI - Extremity Problem General Chief complaint: Extremity Problem,Nontraumatic Stated complaint: Left Leg swelling and pain, bloody stools, sob Time Seen by Provider: 09/19/23 21:19 Source: patient Mode of arrival: Wheelchair History of Present Illness HPI Narrative: 37-year-old female with history of stage III ovarian cancer (remission since 2008), prior chemotherapy with complaint of left lower extremity swelling, redness and pain. Patient states pain started in the left hip then moved down to the right knee. She has had increasing swelling of the leg with increasing pain particularly at the knee but redness throughout the leg as well as swelling and tracking up towards her abdomen. Patient states no objective fevers that she is aware of but has felt warm. Denies any chest pain or shortness of breath. Denies any syncope. No nausea or vomiting. States she has had some difficulty with urination but has been urinating. Has also had some changes to stool and describes some blood. Patient states was seen here 2 days ago, had imaging and workup was given a prescription for tramadol but had to leave to care for her autistic son and did not complete her evaluation. Patient states she has not had any skin infections in this area in the past. She is abrasion over the knee that has been healing but states pain and discomfort actually started in the hip. Patient states notice and tingling in her leg. States no prescription medications currently. Had prior oophorectomy with hysterectomy, appendectomy and partial bowel resection for her ovarian cancer. States she is allergic to penicillin unsure she can take amoxicillin or similar derivatives, states she had red man syndrome with vancomycin. Does smoke tobacco, occasional etoh, does use marijuana, denies any injection drugs. Related Data Home Medications Medication Instructions Recorded Confirmed conj estrogen-medroxyprogesterone 1 tab PO QPM 09/17/18 09/17/18 0.625 mg-2.5 mg tablet vit no.95-ferrous 1 tab PO DAILY 09/17/18 09/17/18 fumarate 28 mg-folic acid 800 mcg tablet () Previous Rx's Medication Instructions Recorded albuterol sulfate 90 mcg/actuation 2 inhalation inhalation Q4H PRN 06/30/18 aerosol inhaler tight chest/cough #6.7 grams ondansetron 4 mg disintegrating 4 mg PO QID PRN nausea and 08/16/18 tablet vomiting #30 tabs medroxyprogesterone 10 mg tablet 20 mg (2 x 10 mg) PO Q2HR PRN 09/17/18 vaginal bleeding #90 tabs citalopram 20 mg tablet 20 mg PO DAILY #30 tabs 10/05/18 ondansetron 4 mg disintegrating 4 mg PO TID-QID PRN nausea and 03/06/19 tablet vomiting #10 tabs ondansetron 4 mg disintegrating 4 mg PO Q8H PRN nausea and 03/25/19 tablet vomiting #10 tabs albuterol sulfate 90 mcg/actuation 2 puff inhalation Q4-6H PRN 10/16/19 aerosol inhaler shortness of breath or wheezing #8.5 grams benzonatate 100 mg capsule 100 mg PO BID-TID PRN cough #30 10/16/19 (Magui Mota) caps ondansetron 4 mg disintegrating 4 mg PO Q8H PRN nausea and 10/16/19 tablet vomiting #10 tabs ondansetron 4 mg disintegrating 4 mg PO Q8H PRN nausea and 07/02/20 tablet vomiting #10 tabs metoclopramide HCl 10 mg tablet 10 mg PO Q8H PRN nausea and 10/11/20 (Reglan) vomiting #20 tabs oxycodone-acetaminophen 5 mg-325 1 tab PO Q6H PRN pain #10 tabs 02/09/21 mg tablet oxycodone 5 mg tablet 5 mg PO Q6H PRN pain #10 tabs 03/09/23 tramadol 50 mg tablet 50 mg PO Q8H PRN pain #14 tabs 09/18/23 clindamycin HCl 300 mg capsule 300 mg PO QID #40 caps 09/20/23 Allergies Allergy/AdvReac Type Severity Reaction Status Date / Time Penicillins [PENICILLINS] Allergy Severe RASH Verified 02/08/21 19:38 vancomycin [VANCOMYCIN] Allergy Severe JUAREZ Verified 02/08/21 19:38 SYNDROME adhesive [ADHESIVE] Allergy Intermediate RASH, SKIN Verified 02/08/21 19:38 PEELS latex [LATEX] Allergy Intermediate RASH Verified 02/08/21 19:38 ketorolac AdvReac Headache Verified 02/08/21 19:38 Review of Systems Review of Systems ROS Unobtainable: All systems reviewed & are unremarkable except as noted in HPI and below Patient History Medical History (Updated 09/20/23 @ 01:56 by Rosita Rosario DO) History of hysterosalpingogram (09/12/15) Depression (2007) Anxiety (2007) CTS (carpal tunnel syndrome) (2011) Acne Chicken pox (1992) Anemia (2007) Vertigo Hearing loss (1987) Painful menstrual periods (2007) Ovarian cyst (2014) Irregular periods/menstrual cycles (2007) History of heavy periods (2007) Ovarian cancer (2007) Surgical History History of left salpingo-oophorectomy History of left salpingo-oophorectomy Anesthesia History of right salpingo-oophorectomy (2007) History of bowel resection (2007) Status post exploratory laparotomy (10/08/15) Status post appendectomy (2007) Status post delivery (01/05/12) Status post laparotomy (05/02/15) Family History Father No problems noted. Grandfather Hypertension Alcoholism Grandmother Cancer Stroke Mother Hyperlipidemia Grandfather Hyperlipidemia Hypertension Pneumonia Grandmother Diabetes mellitus Hypertension Sister Hearing loss Vision loss Sister Vision loss Hearing loss Sister Mental health problem Sister No problems noted. Sister No problems noted. Son Age: 11 Suspected autism disorder Social History marital status: unmarried,single Smoking Status: Current every day smoker alcohol intake: never substance use type: does not use Smoking Status: Current every day smoker tobacco type: cigarettes alcohol intake frequency: holidays/special occasions only Substance Use Type: marijuana Exam Narrative Exam Narrative: GENERAL: Alert and oriented x three, thin female in moderate distress. HEENT: Head normocephalic, atraumatic, EOMI, pupils reactive, face symmetric, moist mucous membranes NECK: Supple, full range of motion CARDIOVASCULAR: Regular rate and rhythm without murmurs, rubs or gallops. RESPIRATORY: Breath sounds equal bilaterally, no wheezes rales or rhonchi. ABDOMEN: Soft, nontender. Normoactive bowel sounds all 4 quadrants. No guarding or rebound, rigidity, no mass : No CVA tenderness EXTREMITIES: Normal range of motion other than below, no clubbing. Neurovascularly intact. Patient has swelling of the left lower extremity particularly in the thigh knee and calf. There is erythema tracking through the thigh all the way to the calf, not appreciated in the foot. Bilateral feet appear about the same size but no significant swelling in feet. There are pulses present bilateral lower extremities. No pallor cyanosis. Patient has pain with movement of her lower extremity throughout. She does have some increased swelling of the knee. She is warmth throughout the thigh, knee and calf. Patient has healing abrasion over the kneecap but no other lacerations or obvious injuries. NEUROLOGICAL: Cranial nerves II through XII grossly intact. SKIN: Warm, dry, no petechiae, no rashes or lesions. Initial Vital Signs Initial Vital Signs: Vital Signs Temperature 99.1 F 09/19/23 21:02 Pulse Rate 110 H 09/19/23 21:02 Respiratory Rate 22 09/19/23 21:02 Blood Pressure 124/78 09/19/23 21:02 Pulse Oximetry 97 09/19/23 21:02 Oxygen Delivery Method Room Air 09/19/23 21:02 Course Orders Ordered: ED Orders 09/19/23 21:12 XR chest 1V Stat EKG-12 Lead Stat RT Consult Eval and Treat NOW 09/19/23 21:19 Urine Microscopic Stat 09/19/23 21:20 US periph venous low extrem lt Stat Blood Culture Stat 09/19/23 21:25 Complete Blood Count AUTO DIFF Stat Comprehensive Metabolic Panel Stat Lactate (Lactic Acid) Stat Lipase Stat PTT Partial Thromboplastin Tj Stat Procalcitonin Stat Prothrombin Time INR Stat 09/19/23 23:55 CT angio abd aorta runoff Stat 09/20/23 00:09 CRP [C-Reactive Protein Quant] Stat ESR [Erythrocyte Sedimentation Rate] Stat 09/20/23 02:04 Consult to IT APPLICATION SUPPORT ANALYST - Pit Crane Operator Stat Discontinued Medications Sodium Chloride (Normal Saline 0.9%) 1,000 mls @ 1,000 mls/hr IV BOLUS ONE Stop: 09/19/23 22:11 Last Infusion: 09/19/23 23:41 Dose: Infused Documented By: Admin: 09/19/23 21:31 Dose: 1,000 mls/hr Documented By: COMPA Clindamycin Phosphate (Cleocin) 900 mg in 50 mls @ 50 mls/hr IV NOW ONE Stop: 09/20/23 00:58 Last Infusion: 09/20/23 01:15 Dose: Infused Documented By: Admin: 09/20/23 00:15 Dose: 50 mls/hr Documented By: CHICO Ciprofloxacin (Cipro) 400 mg in 200 mls @ 200 mls/hr IV NOW ONE Stop: 09/20/23 00:57 Last Admin: 09/20/23 01:22 Dose: 200 mls/hr Documented By: CHICO Morphine Sulfate (Morphine 4 Mg/Ml Inj) 4 mg IV NOW ONE Stop: 09/19/23 23:56 Last Admin: 09/20/23 00:14 Dose: 4 mg Documented By: CHICO Ondansetron HCl (Ondansetron 4 Mg/2 Ml Inj) 4 mg IV NOW PRN PRN Reason: Nausea And Vomiting Ondansetron HCl (Ondansetron 4 Mg Odt) 4 mg SL NOW PRN PRN Reason: Nausea And Vomiting Tramadol HCl (Tramadol 50 Mg Tablet) 50 mg PO NOW ONE Stop: 09/19/23 22:59 Last Admin: 09/19/23 23:06 Dose: 50 mg Documented By: CHICO Tramadol HCl (Tramadol 50 Mg Prepack) 1 bottle MISC DIRECTED ONE Stop: 09/20/23 02:23 Last Admin: 09/20/23 02:38 Dose: 1 bottle Documented By: CHICO Vital Signs Vital signs: Vital Signs - 8 hr 09/19/23 21:02 09/19/23 23:39 09/19/23 23:40 Temperature 99.1 F Pulse Rate 110 H 75 Respiratory Rate 22 Blood Pressure 124/78 112/82 Pulse Oximetry 97 100 Oxygen Delivery Method Room Air 09/19/23 23:40 09/20/23 00:00 09/20/23 00:30 Temperature Pulse Rate 85 83 83 Respiratory Rate Blood Pressure Pulse Oximetry 100 100 100 Oxygen Delivery Method 09/20/23 01:19 09/20/23 01:19 09/20/23 01:30 Temperature Pulse Rate 72 Respiratory Rate Blood Pressure 115/74 113/74 Pulse Oximetry 100 Oxygen Delivery Method 09/20/23 01:30 09/20/23 02:00 09/20/23 02:00 Temperature Pulse Rate 73 76 Respiratory Rate Blood Pressure 113/74 Pulse Oximetry 97 96 Oxygen Delivery Method 09/20/23 02:18 Temperature 97.7 F Pulse Rate 69 Respiratory Rate 16 Blood Pressure 121/79 Pulse Oximetry 100 Oxygen Delivery Method Room Air MDM - Extremity (Nontraumatic) Lab Data 09/19/23 21:25 09/19/23 21:25 Labs: Lab Results 09/19/23 09/19/23 09/19/23 Range/Units 21:19 21:21 21:25 WBC 9.6 (4.5-11.0) X10^3/uL RBC 4.63 (4.0-5.2) X10^6/uL Hgb 15.2 (12.0-16.0) g/dL Hct 44.3 (36-46) % MCV 95.7 (80-100) fL MCH 32.8 (26-34) PG MCHC 34.3 (30-36) % RDW 13.4 (11.6-14.8) % Plt Count 361 (150-400) X10^3/uL Neut % (Auto) 53.5 (50-75) % Lymph % (Auto) 34.9 (25-40) % [place] % (Auto) 9.2 (3-14) % Eos % (Auto) 1.8 L (2-4) % Baso % (Auto) 0.6 (0-2) % Neut # (Auto) 5100 (2219-5256) /uL Lymph # (Auto) 3400 (7155-9020) /uL [place] # (Auto) 900 (0-900) /uL Eos # (Auto) 200 (0-450) /uL Baso # (Auto) 100 (0-100) /uL ESR 4 (0-20) MM/HR PT 10.4 (9.4-12.5) SECONDS INR 0.9 (0.9-1.3) APTT 38 H (25.1-36.5) SECONDS Sodium 138 (137-145) mmol/L Potassium 3.7 (3.4-5.1) mmol/L Chloride 98 (98-107) mmol/L Carbon Dioxide 29 (22-32) mmol/L BUN 7 (7-17) mg/dL Creatinine 0.55 (0.52-1.04) mg/dL Estimated GFR > 60 (>60) mL/min BUN/Creatinine Ratio 12.7 (6-22) Glucose 53 L D (70-100) mg/dL Lactate 1.8 (0.7-2.1) mmol/L Calcium 9.4 (8.4-10.2) mg/dL Total Bilirubin 0.5 (0.2-1.3) mg/dL AST 42 H (14-36) IU/L ALT 71 H (<35) IU/L Alkaline Phosphatase 89 (38-126) U/L C-Reactive Protein 1.0 (<1.0) mg/dL Total Protein 7.7 (6.3-8.2) g/dL Albumin 4.4 (3.5-5.0) g/dL Globulin 3.3 (1.7-4.1) g/dL Albumin/Globulin Ratio 1.3 (1.0-2.8) Lipase 77 (23-300) U/L Procalcitonin 0.05 (<0.5) ng/mL Urine RBC None seen (0-5/HPF) Urine WBC None seen (0-5/HPF) Ur Squamous Epith Cells 0-1 /hpf (0-5/HPF) Urine Bacteria None seen (None) Ur Culture Indicated? Cult not indicated Vol Urine Centrifuged 10ml (spun) Urine Dip Bedside Urine Glucose Negative Bedside Urine Bilirubin - Negative Bedside Urine Ketone - Negative Urine Specific [place] 1.005 Bedside Urine Occult Blood +++ Bedside Urine pH 7.0 Bedside Urine Protein - Negative Bedside Urine Urobilinogen - Negative Bedside Urine Nitrite - Negative Bedside Urine Leukocytes +/- 15 Esterase Imaging Data US - DVT: Radiologist's Impression: Sangeetha Perea?(James)??37??F??1985 ? Allergy/Adv: Penicillins, vancomycin, adhesive, latex, ketorolac (More??) Close Vascular Ultrasound (Signed) Rashad Zurita - 09/19/23 Chest X-Ray (Signed) Rashad Zurita - 09/19/23 Vascular Ultrasound (Signed) Tiffany Peoples - 09/18/23 Aorta w/Runoff CTA (Signed) Hardik Alvarado - 09/17/23 Abdomen/Pelvis CT (Signed) Tiffany Peoples - 03/09/23 Ribs X-Ray (Signed) Neri Zuñiga - 02/23/[address] (Signed) Rolando Tierney - 02/08/21 Foot X-Ray (Signed) Toño Tomas - 02/08/21 Ankle X-Ray (Signed) ThomToño - 02/08/21 Chest/Abdomen X-ray (Signed) RichelleHosea - 10/10/20 Abdomen X-Ray (Signed) Mindi Abernathy - 07/05/20 Abdomen/Pelvis CT (Signed) Rema Jimenez - 07/02/20 Hand X-Ray (Signed) AlvaradoHardik - 02/03/20 Wrist X-Ray (Signed) Lisa Kenney - 01/31/20 Chest X-Ray (Signed) JennyHardik - 10/16/19 Chest X-Ray (Signed) [place] - 05/27/19 Pelvis Ultrasound (Signed) Toño Tomas - 09/17/18 DI Result CC 07/04/18 Chest X-Ray (Signed) Madhu Amaro - 06/30/18 Pelvis Ultrasound (Signed) Mindi Abernathy - 05/10/18 Abdomen/Pelvis CT (Signed) Hosea Peoples - 04/10/18 Pelvis Ultrasound (Signed) [place] - 03/25/18 Abdomen/Pelvis CT (Signed) Diogenes Williamson - 03/25/18 Abdomen/Pelvis CT (Signed) Hosea Peoples - 02/25/18 Abdomen/Pelvis CT (Signed) Rashad Zurita - 01/25/18 Pelvis Ultrasound (Signed) Oleksandr Mina - 01/25/18 Launch?[place] [address] Ultrasound Report Signed Patient: Sangeetha Perea MR#: [id number] : 1985 Acct:[id number] Age/Sex: 37 / F Date of Service: 09/19/23 Loc: ED Accession Number: [id number] Procedure: US periph venous low extrem lt Ordering Provider: Rosita Rosario D.O. PROCEDURE: US PERIPH VENOUS LOW EXTREM LT INDICATIONS: EDEMA TECHNIQUE: Real-time imaging, as well as color and pulse Doppler interrogation, were performed of the lower extremity deep veins from the inguinal ligament to the popliteal fossa, with documentation of the visualized calf veins. COMPARISON: [facility], , US PERIPH VENOUS LOW EXTREM LT, 09/18/2023, 2:39. FINDINGS: The common femoral, femoral, popliteal, and the visualized calf veins are normally compressible, and free of intraluminal thrombus. Color and pulse Doppler demonstrate normal phasic intraluminal flow. There is normal augmentation response to distal compression maneuver. IMPRESSION: No findings of lower extremity deep venous thrombosis. No foreign body seen. Dictated by: Rashad Zurita M.D. on 09/19/2023 at 22:52 Approved by: Rashad Zurita M.D. on 09/19/2023 at 22:52 CTA abd aorta runoff.: Radiologist's Impression: [place] [address] CT Scan Report Signed Patient: Sangeetha Perea MR#: [id number] : 1985 Acct:[id number] Age/Sex: 37 / F Date of Service: 09/19/23 Loc: ED Accession Number: [id number] Procedure: CT angio abd aorta runoff Ordering Provider: Rosita Rosario D.O. PROCEDURE: CT ANGIO ABD AORTA RUNOFF INDICATIONS: swelling, redness pain, started hip, then knee TECHNIQUE: After the administration of intravenous contrast, 2.5 mm sections acquired from T12 to the feet, with optional delayed image acquisition from the knees to the feet. 3-dimensional maximum intensity projection (MIP) coronal and sagittal reformats, and/or 3-dimensional volume rendering reformatting was then performed. For radiation dose reduction, the following was used: automated exposure control. COMPARISON: [facility], CT, CT ANGIO ABD AORTA RUNOFF, 09/17/2023, 22:48. FINDINGS: Image Quality: Diagnostic. Abdominal aorta: The distal abdominal aortic caliber is normal without dissection. The study begins at the mid kidney level and extends inferiorly. The aortic bifurcation and pelvic arterial vasculature appears normal. The common femoral artery and profundus femoral is arteries bilaterally appear normal. Splanchnic vessels: Those visualized appear normal. Right lower extremity: Normal examination, no change from similar study 09/17/23. Left lower extremity: Improved arterial visualization through the left lower extremity without dissection, aneurysm, or embolus. Lower Chest: Not included.. ABDOMEN: Kidneys and Ureters: In the lower portion of the kidneys included on this limited study there is no hydronephrosis. No solid mass. No complex renal cystic lesion which requires follow up. Bowel: Normal colonic caliber, without significant wall thickening. No small bowel abnormality seen. Quality of the small bowel visualization is limited by the absence of oral contrast. Peritoneum: No abnormal intraperitoneal fluid. No free air. Ventral Wall: No hernia. Abdominal Nodes: No retroperitoneal or mesenteric adenopathy by size criteria. Limited quality visualization due to early arterial phase of contrast enhancement. Vessels: Aorta and inferior vena cava are normal in size. PELVIS: Pelvic Organs: Ovaries not seen bilaterally. Bladder: Unremarkable. Pelvic Nodes: No enlarged lymph nodes. Miscellaneous: No inguinal hernias are seen. Soft tissues and bones: No aggressive osseous abnormality. Asymmetric pattern of mild edema within the fatty soft tissues of the left lower extremity as was previously the case 09/17/23. No foreign body, gas within soft tissues, or abscess is seen. IMPRESSION: Improved visualization of arterial flow through the left lower extremity arterial vasculature. Stable soft tissue edema within the subcutaneous fat over the left lower extremity as was previously the case 09/17/23. No abscess is found. No gas within the soft tissues is seen. Cellulitis pattern. Dictated by: Rashad Zurita M.D. on 09/20/2023 at 1:35 Approved by: Rashad Zurita M.D. on 09/20/2023 at 1:46 MDM Narrative Medical decision making narrative: 37-year-old female with history of ovarian cancer with resection, chemotherapy who presents with left lower extremity pain was present for the past week, was seen 2 days ago but could not stay secondary to family obligations. It has not time patient had a vascular ultrasound which was negative for DVT in [facility] with runoff. Patient had asymmetric opacification arterial vasculature bilateral lower extremities right was normal with decreased the cast station left with faint opacification distal arteries no evidence of filling defect proximally no evidence for dissection or aneurysm no mass lesions were identified there was moderate subcutaneous soft tissue inflammation left lower extremity most pronounced at the level of the knee with a small left knee joint effusion patient had overall left lower extremity. Larger than right. Muscular appeared relatively symmetric, patient had an ultrasound that showed an ill-defined fluid collection at the left knee proximal calf that was 4.6 x 2.9 x 0.9 cm on 09/18/2023. That time patient's case was reviewed with vascular surgery, they reviewed images but without any definitive cause and recommended based on current findings recommended repeat DVT. On examination patient's lower extremity does appear more infected, she does not have any cyanosis pallor, pulses are palpable. Patient is afebrile here, does not meet septic criteria by vitals. Labs are overall appropriate with a white count of 9.6, heme globin is negative with platelets of 361. INR 0.9, electrolytes, renal function and LFTs are normal except for an AST of 42 and an ALT of 71, procalcitonin is negative at 0.05 and lactate is 1.8 making vascular source seem less likely. ESR and CRP are are negative. Patient was started on IV antibiotics had some restriction secondary to her allergies so was covered with clindamycin for MRSA coverage and Ciprofloxacin. DVT ultrasound was negative today. CT aorta runoff was repeated, improve visualization of arterial flow through left lower extremity vasculature, soft tissue edema stable within subcutaneous fat over left lower extremity as seen previous no abscess no gas cellulitis pattern. Discussed with patient she does not appear septic but does have cellulitis encompasing majority of upper thigh, knee and calf. Recommend admission for IV antibiotics. Discussed with patient she states that she can not stay secondary to need to care for her son. Discussed she would be leaving against medical advice but can return at any time for hospitalization. She is erythema throughout the entire leg with swelling but neurovascularly intact. Effusion was noted on prior CT but not today. Patient discharge with oral antibiotics although discussed I don't think it will be adequate to fully treat her, prepack for pain medication and discussed she can return at any time. Did put an IT APPLICATION SUPPORT ANALYST contact and patient states she is agreeable to be contacted by phone. She states she has not noticed son but did not have anyone that can care for him we discussed respite care might be an option. She states she can not stay any longer. Discharge Plan Departure Patient Disposition: Left Against Medical Advice Clinical Impression: Cellulitis of left leg Instructions: DI for Cellulitis -- Adult Activity Restrictions/Additional Instructions: You appear to have infection of her left lower extremity that requires IV antibiotics. As you are unable to stay because you need to care for your son, IT APPLICATION SUPPORT ANALYST consult was placed and they may reach out to you to discuss options. Prescriptions for oral antibiotics were sent to [facility] in [place]. Pick these up today and start taking them, typically antibiotics we will start to make a difference within 24-48 hours. You may return at any time for re-evaluation and potential admission. Please return for fevers increasing redness, pain, new chest pain or shortness of breath, persistent vomiting, increasing swelling of your extremities or other new or concerning changes. Prescriptions: New clindamycin HCl 300 mg capsule 300 mg PO QID Qty: 40 0RF No Action citalopram 20 mg tablet 20 mg PO DAILY Qty: 30 11RF albuterol sulfate 90 mcg/actuation HFA aerosol inhaler 2 inhalation INHALATION Q4H PRN (Reason: tight chest/cough) Qty: 6.7 0RF Rx Instructions: okay to subst any size/formula on insurance Prempro 0.625-2.5 mg tablet 1 tab PO QPM PNV cmb#95-ferrous fumarate-FA [] 28 mg iron- 800 mcg Tablet 1 tab PO DAILY Patient Comments: patient states not currently taking but wants kept on profile medroxyprogesterone 10 mg tablet 20 mg PO Q2HR PRN (Reason: vaginal bleeding) Qty: 90 0RF Rx Instructions: 2 tabs every 2 hr until vaginal bleeding stops or slows down and take 2 tablets every 4 hr for 48 hr. Then take 2 tablets every 6 hr for 48 hr. Then take 2 tablets every 8 hr for 48 hr. Then take 2 tablets every 12 hr for 48 hr. Then take 2 tablets once a day for 7 days. ondansetron 4 mg tablet,disintegrating 4 mg PO TID-QID PRN (Reason: nausea and vomiting) Qty: 10 0RF ondansetron 4 mg tablet,disintegrating 4 mg PO Q8H PRN (Reason: nausea and vomiting) Qty: 10 0RF oxycodone-acetaminophen 5-325 mg tablet 1 tab PO Q6H PRN (Reason: pain) Qty: 10 0RF oxycodone 5 mg tablet 5 mg PO Q6H PRN (Reason: pain) Qty: 10 0RF tramadol 50 mg tablet 50 mg PO Q8H PRN (Reason: pain) Qty: 14 0RF ondansetron 4 mg tablet,disintegrating 4 mg PO QID PRN (Reason: nausea and vomiting) Qty: 30 0RF ondansetron 4 mg tablet,disintegrating 4 mg PO Q8H PRN (Reason: nausea and vomiting) Qty: 10 0RF albuterol sulfate 90 mcg/actuation HFA aerosol inhaler 2 puff INHALATION Q4-6H PRN (Reason: shortness of breath or wheezing) Qty: 8.5 0RF benzonatate [Tessalon Perles] 100 mg capsule 100 mg PO BID-TID PRN (Reason: cough) Qty: 30 0RF ondansetron 4 mg tablet,disintegrating 4 mg PO Q8H PRN (Reason: nausea and vomiting) Qty: 10 0RF metoclopramide HCl [Reglan] 10 mg tablet 10 mg PO Q8H PRN (Reason: nausea and vomiting) Qty: 20 0RF Referrals: Miscellaneous,Doctor, MD [Primary Care Provider] - Stand Alone Forms: Patient Portal/API, Against Medical Advice
--- NOTE | 2023-09-19 23:55 | DI.CT.S_ITS ---
PROCEDURE: CT ANGIO ABD AORTA RUNOFF INDICATIONS: swelling, redness pain, started hip, then knee TECHNIQUE: After the administration of intravenous contrast, 2.5 mm sections acquired from T12 to the feet, with optional delayed image acquisition from the knees to the feet. 3-dimensional maximum intensity projection (MIP) coronal and sagittal reformats, and/or 3-dimensional volume rendering reformatting was then performed. For radiation dose reduction, the following was used: automated exposure control. COMPARISON: [facility], CT, CT ANGIO ABD AORTA RUNOFF, 09/17/2023, 22:48. FINDINGS: Image Quality: Diagnostic. Abdominal aorta: The distal abdominal aortic caliber is normal without dissection. The study begins at the mid kidney level and extends inferiorly. The aortic bifurcation and pelvic arterial vasculature appears normal. The common femoral artery and profundus femoral is arteries bilaterally appear normal. Splanchnic vessels: Those visualized appear normal. Right lower extremity: Normal examination, no change from similar study 09/17/23. Left lower extremity: Improved arterial visualization through the left lower extremity without dissection, aneurysm, or embolus. Lower Chest: Not included.. ABDOMEN: Kidneys and Ureters: In the lower portion of the kidneys included on this limited study there is no hydronephrosis. No solid mass. No complex renal cystic lesion which requires follow up. Bowel: Normal colonic caliber, without significant wall thickening. No small bowel abnormality seen. Quality of the small bowel visualization is limited by the absence of oral contrast. Peritoneum: No abnormal intraperitoneal fluid. No free air. Ventral Wall: No hernia. Abdominal Nodes: No retroperitoneal or mesenteric adenopathy by size criteria. Limited quality visualization due to early arterial phase of contrast enhancement. Vessels: Aorta and inferior vena cava are normal in size. PELVIS: Pelvic Organs: Ovaries not seen bilaterally. Bladder: Unremarkable. Pelvic Nodes: No enlarged lymph nodes. Miscellaneous: No inguinal hernias are seen. Soft tissues and bones: No aggressive osseous abnormality. Asymmetric pattern of mild edema within the fatty soft tissues of the left lower extremity as was previously the case 09/17/23. No foreign body, gas within soft tissues, or abscess is seen. IMPRESSION: Improved visualization of arterial flow through the left lower extremity arterial vasculature. Stable soft tissue edema within the subcutaneous fat over the left lower extremity as was previously the case 09/17/23. No abscess is found. No gas within the soft tissues is seen. Cellulitis pattern. Dictated by: Rashad Zurita M.D. on 09/20/2023 at 1:35 Approved by: Rashad Zurita M.D. on 09/20/2023 at 1:46
[2023-09-20] VITALS: PULSE 83; O2SAT 100
[2023-09-20] MEDS: MORPHINE 4 MG/ML INJ IV (00:14)
[2023-09-20] MEDS: CLINDAMYCIN 900 MG/50 ML PIGGYBACK 50 MG IV (00:15)
[2023-09-20 00:30] VITALS: PULSE 83; O2SAT 100
[2023-09-20 00:43] LABS: Erythrocyte Sedimentation Rate 4 MM/HR (0-20)
[2023-09-20 01:19] VITALS: BP 115/74; PULSE 72; O2SAT 100
[2023-09-20] MEDS: CIPROFLOXACIN 400 MG/200 ML PIGGYBACK 200 MG IV (01:22)
[2023-09-20 01:30] VITALS: BP 113/74; PULSE 73; O2SAT 97
[2023-09-20 02:00] VITALS: BP 113/74; PULSE 76; O2SAT 96
[2023-09-20 02:18] VITALS: BP 121/79; PULSE 69; RESP 16; TEMP 36.5; O2SAT 100
[2023-09-20] MEDS: TRAMADOL 50 MG PREPACK 1 BOTTLE MISC (02:38)
== END 2023-09-20 02:40 | disposition left against medical advice (07) ==
PROVIDERS: Emergency Provider Emergency Medicine
DX: L03.116 Cellulitis of left lower limb (principal)
CPT/HCPCS: 36415; 71045; 75635; 80053; 81003; 81015; 83605; 83690; 84145; 85025; 85610; 85651; 85730; 86140; 87040; 93971; 96365; 96367; 96375; 99284; J0744; J2270; Q9967

== ENCOUNTER 2023-09-22 11:03 | Emergency (ER) | payer OTHER, MEDICAID, SELFPAY ==
[2023-09-22] VITALS (24 sets, daily range): BP systolic 91–125; BP diastolic 51–80; PULSE 57–99; RESP 11–22; TEMP 36.7; O2SAT 84–100; BMI 18.8
--- NOTE | 2023-09-22 11:29 | DI.RAD.S_ITS ---
PROCEDURE: XR CHEST 1V INDICATIONS: suspected sepsis TECHNIQUE: One view of the chest was acquired. COMPARISON: [facility], CR, XR CHEST 1V, 09/19/2023, 21:16. [facility], CR, XR CHEST 1V, 10/16/2019, 16:04. FINDINGS: Surgical changes and devices: None. Lungs and pleura: No dense consolidation or pleural effusion Mediastinum: Unchanged cardiomediastinal contours. Bones and chest wall: No suspicious bony lesions. Overlying soft tissues appear unremarkable. IMPRESSION: No new acute radiographic abnormality on this single-view portable study. Dictated by: Yaron Schumacher M.D. on 09/22/2023 at 13:34 Approved by: Yaron Schumacher M.D. on 09/22/2023 at 13:35
--- NOTE | 2023-09-22 11:53 | ED_ITS ---
HPI - Extremity Problem General Chief complaint: Extremity Problem,Nontraumatic Stated complaint: L leg swelling/pain not getting better Time Seen by Provider: 09/22/23 11:21 Source: patient Mode of arrival: Ambulatory History of Present Illness HPI Narrative: 37-year-old woman with a history of ovarian cancer in remission as of 2008 reports increasing left leg pain. She describes an episode of syncope approximately 2 weeks ago where she reportedly fell through or into a mirror woke up with a number of cuts to her legs. Four days later left leg was quite swollen. She has been seen in the emergency department twice and on the hospitalization was recommended however she has an autistic son who needed care so she chose to go home. She is continuing to have pain and returns for further evaluation at this point does have care for her child and can be admitted if that is medically recommended. She is describing pain and swelling in the left leg, no chest pain, palpitations, dyspnea she has been having hot and cold flashes. She has been taking antibiotics as recently prescribed Related Data Home Medications Medication Instructions Recorded Confirmed conj estrogen-medroxyprogesterone 1 tab PO QPM 09/17/18 09/17/18 0.625 mg-2.5 mg tablet vit no.95-ferrous 1 tab PO DAILY 09/17/18 09/17/18 fumarate 28 mg-folic acid 800 mcg tablet () Previous Rx's Medication Instructions Recorded albuterol sulfate 90 mcg/actuation 2 inhalation inhalation Q4H PRN 06/30/18 aerosol inhaler tight chest/cough #6.7 grams ondansetron 4 mg disintegrating 4 mg PO QID PRN nausea and 08/16/18 tablet vomiting #30 tabs medroxyprogesterone 10 mg tablet 20 mg (2 x 10 mg) PO Q2HR PRN 09/17/18 vaginal bleeding #90 tabs citalopram 20 mg tablet 20 mg PO DAILY #30 tabs 10/05/18 ondansetron 4 mg disintegrating 4 mg PO TID-QID PRN nausea and 03/06/19 tablet vomiting #10 tabs ondansetron 4 mg disintegrating 4 mg PO Q8H PRN nausea and 03/25/19 tablet vomiting #10 tabs albuterol sulfate 90 mcg/actuation 2 puff inhalation Q4-6H PRN 10/16/19 aerosol inhaler shortness of breath or wheezing #8.5 grams benzonatate 100 mg capsule 100 mg PO BID-TID PRN cough #30 10/16/19 (Magui Mota) caps ondansetron 4 mg disintegrating 4 mg PO Q8H PRN nausea and 10/16/19 tablet vomiting #10 tabs ondansetron 4 mg disintegrating 4 mg PO Q8H PRN nausea and 07/02/20 tablet vomiting #10 tabs metoclopramide HCl 10 mg tablet 10 mg PO Q8H PRN nausea and 10/11/20 (Reglan) vomiting #20 tabs oxycodone-acetaminophen 5 mg-325 1 tab PO Q6H PRN pain #10 tabs 02/09/21 mg tablet oxycodone 5 mg tablet 5 mg PO Q6H PRN pain #10 tabs 03/09/23 tramadol 50 mg tablet 50 mg PO Q8H PRN pain #14 tabs 09/18/23 clindamycin HCl 300 mg capsule 300 mg PO QID #40 caps 09/20/23 oxycodone-acetaminophen 5 mg-325 1 tab PO Q6H PRN pain #15 tabs 09/22/23 mg tablet Allergies Allergy/AdvReac Type Severity Reaction Status Date / Time Penicillins [PENICILLINS] Allergy Severe RASH Verified 09/22/23 11:21 vancomycin [VANCOMYCIN] Allergy Severe JUAREZ Verified 09/22/23 11:21 SYNDROME adhesive [ADHESIVE] Allergy Intermediate RASH, SKIN Verified 09/22/23 11:21 PEELS latex [LATEX] Allergy Intermediate RASH Verified 09/22/23 11:21 ketorolac AdvReac Headache Verified 09/22/23 11:21 Review of Systems Review of Systems Narrative: Pertinent positive and negative findings as per HPI Patient History Medical History (Updated 09/22/23 @ 17:44 by Mariana Parra MD) History of hysterosalpingogram (09/12/15) Depression (2007) Anxiety (2007) CTS (carpal tunnel syndrome) (2011) Acne Chicken pox (1992) Anemia (2007) Vertigo Hearing loss (1987) Painful menstrual periods (2007) Ovarian cyst (2014) Irregular periods/menstrual cycles (2007) History of heavy periods (2007) Ovarian cancer (2007) Surgical History History of left salpingo-oophorectomy History of left salpingo-oophorectomy Anesthesia History of right salpingo-oophorectomy (2007) History of bowel resection (2007) Status post exploratory laparotomy (10/08/15) Status post appendectomy (2007) Status post delivery (01/05/12) Status post laparotomy (05/02/15) Family History Father No problems noted. Grandfather Hypertension Alcoholism Grandmother Cancer Stroke Mother Hyperlipidemia Grandfather Hyperlipidemia Hypertension Pneumonia Grandmother Diabetes mellitus Hypertension Sister Hearing loss Vision loss Sister Vision loss Hearing loss Sister Mental health problem Sister No problems noted. Sister No problems noted. Son Age: 11 Suspected autism disorder Social History marital status: unmarried,single Smoking Status: Current every day smoker alcohol intake: never substance use type: does not use Smoking Status: Current every day smoker tobacco type: cigarettes alcohol intake frequency: holidays/special occasions only Substance Use Type: marijuana Exam Initial Vital Signs Initial Vital Signs: Vital Signs Temperature 98.0 F 09/22/23 11:21 Pulse Rate 99 H 09/22/23 11:21 Respiratory Rate 18 09/22/23 11:21 Blood Pressure 119/80 09/22/23 11:21 Pulse Oximetry 100 09/22/23 11:21 Oxygen Delivery Method Room Air 09/22/23 11:21 General: Frail-appearing but in no acute distress. Able to give a complete and coherent history. Well-nourished well-developed HEENT: Moist mucous membranes, normal sclera with reactive pupils, Respiratory: Lungs are clear to auscultation, no wheezing no rales no rhonchi. Full and symmetrical air movement Cardiac: Regular rate and rhythm no murmurs no bruits Abdomen: Soft, nontender, good bowel tones, no flank pain Skin/extremity: Pale, poor distal perfusion both lower extremities but worse on the left. Significantly improved with elevating the leg. Left leg is cool to the touch compared to the right but when elevated does have reasonable capillary refill distally. There is a minor laceration over her knee there is no obvious area of expanding cellulitis. The entire left leg is edematous Neurologic: Grossly neurologically intact with no obvious asymmetries or abnormalities Psych: Cooperative, appropriate insight and affect Course Orders Ordered: ED Orders 09/22/23 11:29 XR chest 1V Stat Comprehensive Metabolic Panel Stat Lipase Stat Procalcitonin Stat EKG-12 Lead Stat RT Consult Eval and Treat NOW 09/22/23 11:46 Complete Blood Count AUTO DIFF Stat Lactate (Lactic Acid) Stat PTT Partial Thromboplastin Tj Stat Prothrombin Time INR Stat 09/22/23 12:00 Urine Microscopic Stat 09/22/23 12:45 Blood Culture Stat Ondansetron HCl (Ondansetron 4 Mg Odt) 4 mg SL NOW PRN PRN Reason: Nausea And Vomiting Discontinued Medications Sodium Chloride (Normal Saline 0.9%) 1,000 mls @ 1,000 mls/hr IV BOLUS ONE Stop: 09/22/23 12:28 Last Infusion: 09/22/23 13:00 Dose: Infused Documented By: Admin: 09/22/23 12:05 Dose: 1,000 mls/hr Documented By: KIARA Ondansetron HCl (Ondansetron 4 Mg/2 Ml Inj) 4 mg IV NOW PRN PRN Reason: Nausea And Vomiting Last Admin: 09/22/23 12:39 Dose: 4 mg Documented By: KIARA Oxycodone/Acetaminophen (Oxycodone/Acetaminophen 5/325 Tablet) 2 tab PO NOW ONE Stop: 09/22/23 13:47 Last Admin: 09/22/23 13:50 Dose: 2 tab Documented By: KIARA Vital Signs Vital signs: Vital Signs - 8 hr 09/22/23 11:21 09/22/23 11:59 09/22/23 12:00 Temperature 98.0 F Pulse Rate 99 H 72 79 Respiratory Rate 18 16 17 Blood Pressure 119/80 Pulse Oximetry 100 91 Oxygen Delivery Method Room Air 09/22/23 12:01 09/22/23 12:01 09/22/23 12:30 Temperature Pulse Rate 79 Respiratory Rate 19 Blood Pressure 111/67 106/63 Pulse Oximetry 97 Oxygen Delivery Method 09/22/23 12:30 09/22/23 13:00 09/22/23 13:00 Temperature Pulse Rate 67 65 Respiratory Rate 19 15 Blood Pressure 94/53 L Pulse Oximetry 99 97 Oxygen Delivery Method 09/22/23 13:06 09/22/23 13:06 09/22/23 13:30 Temperature Pulse Rate 71 Respiratory Rate 22 Blood Pressure 100/59 L 93/55 L Pulse Oximetry 98 Oxygen Delivery Method 09/22/23 13:30 09/22/23 14:00 09/22/23 14:00 Temperature Pulse Rate 61 59 L Respiratory Rate 14 14 Blood Pressure 94/53 L Pulse Oximetry 96 98 Oxygen Delivery Method Room Air 09/22/23 14:30 09/22/23 14:30 09/22/23 15:00 Temperature Pulse Rate 71 58 L Respiratory Rate 15 11 L Blood Pressure 109/62 Pulse Oximetry 99 97 Oxygen Delivery Method 09/22/23 15:00 09/22/23 15:15 09/22/23 15:30 Temperature Pulse Rate 62 60 Respiratory Rate 11 L 11 L Blood Pressure 92/57 L Pulse Oximetry 95 95 Oxygen Delivery Method Room Air Room Air 09/22/23 15:30 09/22/23 15:45 09/22/23 16:00 Temperature Pulse Rate 65 Respiratory Rate 14 Blood Pressure 96/57 L 91/51 L Pulse Oximetry 96 Oxygen Delivery Method Room Air 09/22/23 16:00 09/22/23 16:15 09/22/23 16:34 Temperature Pulse Rate 62 60 69 Respiratory Rate 14 Blood Pressure Pulse Oximetry 96 95 99 Oxygen Delivery Method Room Air 09/22/23 16:37 09/22/23 16:37 09/22/23 16:45 Temperature Pulse Rate 62 62 Respiratory Rate 15 14 Blood Pressure 100/70 Pulse Oximetry 98 84 L Oxygen Delivery Method 09/22/23 17:00 09/22/23 17:00 09/22/23 17:15 Temperature Pulse Rate 61 57 L Respiratory Rate 15 11 L Blood Pressure 102/56 L Pulse Oximetry 99 96 Oxygen Delivery Method MDM - Extremity (Nontraumatic) Lab Data 09/22/23 11:46 09/22/23 11:29 Labs: Lab Results 09/22/23 09/22/23 09/22/23 Range/Units 11:29 11:46 12:00 WBC 7.1 (4.5-11.0) X10^3/uL RBC 4.32 (4.0-5.2) X10^6/uL Hgb 14.0 (12.0-16.0) g/dL Hct 41.1 (36-46) % MCV 95.1 (80-100) fL MCH 32.4 (26-34) PG MCHC 34.1 (30-36) % RDW 13.8 (11.6-14.8) % Plt Count 375 (150-400) X10^3/uL Neut % (Auto) 53.9 (50-75) % Lymph % (Auto) 36.0 (25-40) % [place] % (Auto) 7.3 (3-14) % Eos % (Auto) 2.1 (2-4) % Baso % (Auto) 0.7 (0-2) % Neut # (Auto) 3800 (7470-4391) /uL Lymph # (Auto) 2600 (6696-5553) /uL [place] # (Auto) 500 (0-900) /uL Eos # (Auto) 100 (0-450) /uL Baso # (Auto) 0 (0-100) /uL PT 10.8 (9.4-12.5) SECONDS INR 0.9 (0.9-1.3) APTT 37 H (25.1-36.5) SECONDS Sodium 137 (137-145) mmol/L Potassium 3.6 (3.4-5.1) mmol/L Chloride 99 (98-107) mmol/L Carbon Dioxide 32 (22-32) mmol/L BUN 8 (7-17) mg/dL Creatinine 0.58 (0.52-1.04) mg/dL Estimated GFR > 60 (>60) mL/min BUN/Creatinine Ratio 13.8 (6-22) Glucose 77 (70-100) mg/dL Lactate 2.3 H (0.7-2.1) mmol/L Calcium 9.5 (8.4-10.2) mg/dL Total Bilirubin 0.4 (0.2-1.3) mg/dL AST 40 H (14-36) IU/L ALT 50 H (<35) IU/L Alkaline Phosphatase 73 (38-126) U/L Total Protein 7.4 (6.3-8.2) g/dL Albumin 4.2 (3.5-5.0) g/dL Globulin 3.2 (1.7-4.1) g/dL Albumin/Globulin Ratio 1.3 (1.0-2.8) Lipase 64 (23-300) U/L Procalcitonin 0.04 (<0.5) ng/mL Urine RBC 0-1/hpf (0-5/HPF) Urine WBC None seen (0-5/HPF) Ur Squamous Epith Cells 1-5 /hpf (0-5/HPF) Urine Bacteria None seen (None) Ur Culture Indicated? Cult not indicated Vol Urine Centrifuged 10ml (spun) 09/22/23 Range/Units 13:42 WBC (4.5-11.0) X10^3/uL RBC (4.0-5.2) X10^6/uL Hgb (12.0-16.0) g/dL Hct (36-46) % MCV (80-100) fL MCH (26-34) PG MCHC (30-36) % RDW (11.6-14.8) % Plt Count (150-400) X10^3/uL Neut % (Auto) (50-75) % Lymph % (Auto) (25-40) % [place] % (Auto) (3-14) % Eos % (Auto) (2-4) % Baso % (Auto) (0-2) % Neut # (Auto) (8458-2642) /uL Lymph # (Auto) (2937-0825) /uL [place] # (Auto) (0-900) /uL Eos # (Auto) (0-450) /uL Baso # (Auto) (0-100) /uL PT (9.4-12.5) SECONDS INR (0.9-1.3) APTT (25.1-36.5) SECONDS Sodium (137-145) mmol/L Potassium (3.4-5.1) mmol/L Chloride (98-107) mmol/L Carbon Dioxide (22-32) mmol/L BUN (7-17) mg/dL Creatinine (0.52-1.04) mg/dL Estimated GFR (>60) mL/min BUN/Creatinine Ratio (6-22) Glucose (70-100) mg/dL Lactate 0.9 (0.7-2.1) mmol/L Calcium (8.4-10.2) mg/dL Total Bilirubin (0.2-1.3) mg/dL AST (14-36) IU/L ALT (<35) IU/L Alkaline Phosphatase (38-126) U/L Total Protein (6.3-8.2) g/dL Albumin (3.5-5.0) g/dL Globulin (1.7-4.1) g/dL Albumin/Globulin Ratio (1.0-2.8) Lipase (23-300) U/L Procalcitonin (<0.5) ng/mL Urine RBC (0-5/HPF) Urine WBC (0-5/HPF) Ur Squamous Epith Cells (0-5/HPF) Urine Bacteria (None) Ur Culture Indicated? Vol Urine Centrifuged Point of Care Testing Test Results Negative Urine Dip Bedside Urine Glucose Negative Bedside Urine Bilirubin - Negative Bedside Urine Ketone - Negative Urine Specific [place] 1.020 Bedside Urine Occult Blood +/- Bedside Urine pH 5.5 Bedside Urine Protein - Negative Bedside Urine Urobilinogen - Negative Bedside Urine Nitrite - Negative Bedside Urine Leukocytes - Negative Esterase MDM Narrative Medical decision making narrative: CC: Continued left leg pain and swelling Complicating co-morbidities: 3rd ED visit for same Data collected from: patient Social determinants of health that may influence the patients condition: Primary caregiver for her autistic son Medical records reviewed: Notes from ER visit from the and are reviewed. Patient currently is on clindamycin Differential considered: DVT, pelvic mass with obstruction, cellulitis Exam documented above, pertinent findings include: Left lower extremity is swollen compared to the right, it is cool to the touch and shows decreased perfusion when left hanging which improved significantly when leg is elevated. I do not see obvious erythema. Pulses are notable distally Lab Test results independently reviewed as above. Pertinent findings: CBC is unremarkable with white count at 7.1 and no significant left shift Chemistries are relatively reassuring. Stable minor elevations 2 AST and ALT. Lactic acid is elevated at 2.3, repeat with 1 L of fluid is 0.9. Procalcitonin is not elevated Blood cultures from the show no growth after 48 hours Imaging studies independently reviewed: Aorta with runoff CTA study of the left lower extremity from the -diffuse soft tissue edema in the left lower extremity from the thigh to the ankle noted -no organized fluid collection, no soft tissue gas -small knee joint effusion -vascular study shows no evidence for dissection high-grade stenosis or aneurysm however there is relatively decreased opacification in the lower extremity arteries from the level of the tibioperoneal trunk. At mid calf and below vessels are not well opacified. Relative decreased opacification of the femoral arteries Compared to the Aorta with runoff was repeated on the -improve visualization of arterial flow with stable soft tissue edema. No abscess and no gas within the tissue is seen mentioned of cellulitis pattern -no intra-abdominal pathology was identified Vascular ultrasound on the does not suggest a DVT Vascular ultrasound on the shows an ill-defined complex fluid collection in the left knee proximal calf measuring 4.6 x 2.9 x 0.9 cm suggesting a hematoma Chest x-ray today is unremarkable Treatments: Patient is currently on clindamycin 300 mg 4 times a day, 10 days as prescribed she is taken all doses as prescribed over the last 3 days 1 L of fluid, to Percocet, 4 mg of Zofran Re-evaluations: Discussed labs and findings with the patient. The Percocet is offered much better pain control than the tramadol. We reviewed labs, overall improvement, prior imaging studies and with shared decision-making decided that hospitalization is not going to be required today Discussion: 37-year-old woman with left leg cellulitis, edema now her 3rd visit to the ER. She has had multiple vascular studies that did not show significant abnormalities. She is clearly improved after 72 hours on oral clindamycin without evidence of sepsis. With pain adequately controlled she feels that she would prefer to continue to manage this at home and I think that is entirely appropriate. She is able to rest this evening and tomorrow as she does have child attendant for her autistic son. She still has the complete course of clindamycin and will finish this. We will give her brief course of oxycodone to help with pain control, talked about keeping her leg elevated, compression socks in anticipated course of recovery. Discussed reasons to return to the emergency department. Questions are answered and she is safe for discharge Discharge Plan Departure Patient Disposition: Home Clinical Impression: Cellulitis of left leg Instructions: DI for Cellulitis -- Adult Activity Restrictions/Additional Instructions: Thank you for coming back in to be re-evaluated today Fortunately, the clindamycin that you are currently on seems to be very effectively improving your cellulitis. Your clinical exam today is significantly improved from descriptions of the and . Blood work and further evaluation today suggest that you definitely need to finish the clindamycin however it does not show worsening infection or need for hospitalization or additional imaging today. Keeping your leg elevated we will definitely help with the swelling. Getting the swelling down will help with the pain. Using 400 mg of ibuprofen (2 [id number] pills) and 1 Tylenol every 6 hours can be very helpful in controlling pain. For severe pain you can use 400 mg of ibuprofen and 1 Percocet. Percocet is a narcotic and will cause constipation. Please make sure that you take a stool softener. If you find that you are getting worse or develop any new symptoms, please feel free to return to the emergency department for further evaluation. Prescriptions: New oxycodone-acetaminophen 5-325 mg tablet 1 tab PO Q6H PRN (Reason: pain) Qty: 15 0RF No Action citalopram 20 mg tablet 20 mg PO DAILY Qty: 30 11RF albuterol sulfate 90 mcg/actuation HFA aerosol inhaler 2 inhalation INHALATION Q4H PRN (Reason: tight chest/cough) Qty: 6.7 0RF Rx Instructions: okay to subst any size/formula on insurance Prempro 0.625-2.5 mg tablet 1 tab PO QPM PNV cmb#95-ferrous fumarate-FA [] 28 mg iron- 800 mcg Tablet 1 tab PO DAILY Patient Comments: patient states not currently taking but wants kept on profile medroxyprogesterone 10 mg tablet 20 mg PO Q2HR PRN (Reason: vaginal bleeding) Qty: 90 0RF Rx Instructions: 2 tabs every 2 hr until vaginal bleeding stops or slows down and take 2 tablets every 4 hr for 48 hr. Then take 2 tablets every 6 hr for 48 hr. Then take 2 tablets every 8 hr for 48 hr. Then take 2 tablets every 12 hr for 48 hr. Then take 2 tablets once a day for 7 days. ondansetron 4 mg tablet,disintegrating 4 mg PO TID-QID PRN (Reason: nausea and vomiting) Qty: 10 0RF ondansetron 4 mg tablet,disintegrating 4 mg PO Q8H PRN (Reason: nausea and vomiting) Qty: 10 0RF oxycodone-acetaminophen 5-325 mg tablet 1 tab PO Q6H PRN (Reason: pain) Qty: 10 0RF oxycodone 5 mg tablet 5 mg PO Q6H PRN (Reason: pain) Qty: 10 0RF tramadol 50 mg tablet 50 mg PO Q8H PRN (Reason: pain) Qty: 14 0RF ondansetron 4 mg tablet,disintegrating 4 mg PO QID PRN (Reason: nausea and vomiting) Qty: 30 0RF ondansetron 4 mg tablet,disintegrating 4 mg PO Q8H PRN (Reason: nausea and vomiting) Qty: 10 0RF albuterol sulfate 90 mcg/actuation HFA aerosol inhaler 2 puff INHALATION Q4-6H PRN (Reason: shortness of breath or wheezing) Qty: 8.5 0RF benzonatate [Tessalon Perles] 100 mg capsule 100 mg PO BID-TID PRN (Reason: cough) Qty: 30 0RF ondansetron 4 mg tablet,disintegrating 4 mg PO Q8H PRN (Reason: nausea and vomiting) Qty: 10 0RF metoclopramide HCl [Reglan] 10 mg tablet 10 mg PO Q8H PRN (Reason: nausea and vomiting) Qty: 20 0RF clindamycin HCl 300 mg capsule 300 mg PO QID Qty: 40 0RF Referrals: Miscellaneous,Doctor, MD [Primary Care Provider] - Stand Alone Forms: Patient Portal/API
[2023-09-22 12:02] LABS: Add Manual Diff / Slide Review NO; Basophils Absolute Auto 0 /uL (0-100); Basophils Percent Auto 0.7 % (0-2); Eosinophils Absolute Auto 100 /uL (0-450); Eosinophils Percent Auto 2.1 % (2-4); Hematocrit 41.1 % (36-46); Lymphocytes Absolute Auto 2600 /uL (1100-4500); Mean Corpuscular HGB Conc 34.1 % (30-36); Mean Corpuscular Hemoglobin 32.4 PG (26-34); Mean Corpuscular Volume 95.1 fL (80-100); Monocytes Absolute Auto 500 /uL (0-900); Monocytes Percent Auto 7.3 % (3-14); Neutrophils Absolute Auto 3800 /uL (1500-7000); Neutrophils Percent Auto 53.9 % (50-75); Platelet Count 375 X10^3/uL (150-400); Red Blood Cell Count 4.32 X10^6/uL (4.0-5.2); Red Cell Distribution Width 13.8 % (11.6-14.8); White Blood Cell Count 7.1 X10^3/uL (4.5-11.0)
[2023-09-22] MEDS: SODIUM CHLORIDE 0.9% 1,000 ML 1000 ML IV (12:05)
[2023-09-22 12:10] LABS: INR 0.9 (0.9-1.3); Prothrombin Time 10.8 SECONDS (9.4-12.5)
[2023-09-22 12:13] LABS: PTT Partial Thromboplastin Tim 37 SECONDS (25.1-36.5)
[2023-09-22 12:15] LABS: Lactate (Lactic Acid) 2.3 mmol/L (0.7-2.1)
[2023-09-22 12:16] LABS: Alanine Aminotransferase 50 IU/L (<35); Albumin 4.2 g/dL (3.5-5.0); Albumin Globulin Ratio 1.3 (1.0-2.8); Alkaline Phosphatase 73 U/L (38-126); Aspartate Aminotransferase 40 IU/L (14-36); BUN Creatinine Ratio 13.8 (6-22); Bilirubin Total 0.4 mg/dL (0.2-1.3); Blood Urea Nitrogen 8 mg/dL (7-17); Calcium 9.5 mg/dL (8.4-10.2); Carbon Dioxide 32 mmol/L (22-32); Chloride 99 mmol/L (98-107); Estimated Glomerular Filt Rate > 60 mL/min (>60); Globulin 3.2 g/dL (1.7-4.1); Glucose 77 mg/dL (70-100); HEMOLYSIS 15 (0-50); Lipase 64 U/L (23-300); Potassium 3.6 mmol/L (3.4-5.1); Sodium 137 mmol/L (137-145); Total Protein 7.4 g/dL (6.3-8.2)
[2023-09-22 12:32] LABS: Procalcitonin 0.04 ng/mL (<0.5)
[2023-09-22] MEDS: ONDANSETRON 4 MG/2 ML INJ IV (12:39)
--- NOTE | 2023-09-22 12:50 | PC.NURSE ---
Pt reports having worsening swelling, rash, and pain to her left leg since an accident at home 2 weeks ago involving passing out and breaking a glass mirror it had 2 holes in it when I woke up. She also reports new swelling in her left thigh/groin. Pt is ambulatory with a limp gate d/t pain. She last took tramadol 50mg around 0700. Pt reports 1x episode of nausea with vomiting after not eating and taking oral antibiotics. Pt reports having low BP at baseline. Left ankle swelling and unable to palpate pedal pulse. Left pedal pulse established with doppler.
[2023-09-22 13:14] LABS: Urine Volume 10mL (spun)
[2023-09-22 13:16] LABS: Bacteria Urine None Seen; Culture Indicated Urine Cult Not Indicated; RBC Urine 0-1/HPF (0-5/HPF); Squamous Epithelial Cell Urine 1-5 /HPF (0-5/HPF); WBC Urine None Seen (0-5/HPF)
[2023-09-22 13:32] LABS: Reflexed Lactate in 2 Hours Y
[2023-09-22] MEDS: OXYCODONE/ACETAMINOPHEN 5/325 TABLET 2 TAB PO (13:50)
--- NOTE | 2023-09-22 13:50 | PC.NURSE ---
Pt reports that her sister will be able to give her a ride home if she gets pain medications.
[2023-09-22 14:10] LABS: Lactate 2HR (Lactic Acid Rflx) 0.9 mmol/L (0.7-2.1)
[2023-09-22] MEDS: OXYCODONE/APAP 5/325 PREPACK 1 BOTTLE MISC (18:19)
== END 2023-09-22 18:20 | disposition home or self-care (01) ==
PROVIDERS: Emergency Provider Emergency Medicine
DX: L03.116 Cellulitis of left lower limb (principal)
CPT/HCPCS: 36415; 71045; 80053; 81003; 81015; 81025; 83605; 83690; 84145; 85025; 85610; 85730; 87040; 93005; 96361; 96374; 99284; J2405